=== PATIENT | female | born 1955 | race Caucasian/White ===

== ENCOUNTER 2017-02-05 22:09 | Inpatient (IN) | payer OTHER ==
[2017-02-05] MEDS ORDERED: PANTOPRAZOLE SODIUM 80 MG in SODIUM CHLORIDE 100 ML IVPB ONE (23:10)
--- NOTE | 2017-02-05 23:11 | PDOC ---
History of Present Illness - General History Source: Patient, Family () Exam Limitations: No Limitations - History of Present Illness Initial Comments: 02/05/17 23:26 The patient is a 61 year old female with a significant past medical history of asthma and COPD who presents to the ED with complaints of coffee grounds emesis since earlier today. The patient reports she was drinking beer at home when she suddenly felt dizzy and went to lay down in her bed. Patient states she drank a little bit of soup when she had a sudden onset of nausea and vomited. She reports the vomit was black in color and looked like coffee grounds. Patient reports 3 episodes of coffee grounds emesis and 2 episodes of hematochezia. As per , the patient did not eat anything today besides the little bit of soup. Patient states she does not eat any food all day and only eats something before going to bed at baseline. Denies fevers or chills. Denies abdominal pain. Denies chest pain or shortness of breath. Denies any other symptoms. Social hx: The patient is a heavy drinker (several beers per day for the past 5- 10 years). Patient recently quit smoking 5 months ago (was a smoker since the age of 14). <Sandee Babin - Last Filed: 02/05/17 23:25> <Haven Walker - Last Filed: 02/07/17 03:03> - General Chief Complaint: Coffee Ground Emesis Stated Complaint: Coffee Ground Emesis Time Seen by Provider: 02/05/17 22:45 Past History <Sandee Babin - Last Filed: 02/05/17 23:25> - Past Medical History Asthma: Yes COPD: Yes (emphysema) - Psycho/Social/Smoking Cessation Hx Anxiety: No Suicidal Ideation: No Smoking History: Never smoked Have you smoked in the past 12 months: No Number of Cigarettes Smoked Daily: 10 Information on smoking cessation initiated: No 'Breaking Loose' booklet given: 05/03/15 Hx Alcohol Use: Yes Drug/Substance Use Hx: No Substance Use Type: Alcohol Hx Substance Use Treatment: No <Haven Walker - Last Filed: 02/07/17 03:03> - Past Medical History Allergies/Adverse Reactions: Allergies Allergy/AdvReac Type Severity Reaction Status Date / Time Penicillins Allergy Verified 02/05/17 22:28 Home Medications: Ambulatory Orders Fluticasone/Salmeterol [Advair 250-50 Diskus] 1 each IH DAILY 05/03/15 Ipratropium/Albuterol Sulfate [Combivent Respimat Inhal [place]] 4 gm IH DAILY Tiotropium [place] [Spiriva] 1 inh PO DAILY 05/03/15 Albuterol 0.083% Nebulizer Terri [Ventolin 0.083% Nebulizer Soln -] 1 neb NEB Q4H PRN 12/22/15 Montelukast Na [Singulair -] 10 mg PO HS 12/22/15 Review of Systems - Review of Systems Able to Perform ROS?: Yes Comments:: 02/05/17 23:26 CONSTITUTIONAL: Absent: fever, chills, diaphoresis, generalized weakness, malaise, loss of appetite HEENT: Absent: rhinorrhea, nasal congestion, throat pain, throat swelling, difficulty swallowing, mouth swelling, ear pain, eye pain, visual Changes CARDIOVASCULAR: Absent: chest pain, syncope, palpitations, irregular heart rate, lightheadedness , peripheral edema RESPIRATORY: Absent: cough, shortness of breath, dyspnea with exertion, orthopnea, wheezing, stridor, hemoptysis GASTROINTESTINAL: + nausea, coffee grounds emesis, hematochezia Absent: abdominal pain, abdominal distension, diarrhea, constipation GENITOURINARY: Absent: dysuria, frequency, urgency, hesitancy, hematuria, flank pain, genital pain MUSCULOSKELETAL: Absent: myalgia, arthralgia, joint swelling SKIN: Absent: rash, itching, pallor HEMATOLOGIC/IMMUNOLOGIC: Absent: easy bleeding, easy bruising, lymphadenopathy, frequent infections ENDOCRINE: Absent: unexplained weight gain, unexplained weight loss, heat intolerance, cold intolerance NEUROLOGIC: + dizziness Absent: headache, focal weakness or paresthesias, unsteady gait, seizure, mental status changes, bladder or bowel incontinence PSYCHIATRIC: Absent: anxiety, depression, suicidal or homicidal ideation, hallucinations. All Other Systems: Reviewed and Negative <Sandee Babin - Last Filed: 02/05/17 23:25> *Physical Exam - Vital Signs Last Vital Signs Temp Pulse Resp BP Pulse Ox 98.2 F 110 H 20 112/74 96 02/05/17 22:25 02/05/17 22:25 02/05/17 22:25 02/05/17 22:25 02/05/17 22:25 - Physical Exam Comments: 02/05/17 23:26 GENERAL: + febrile, smells of alcohol, denture in place. Awake and alert. No acute distress. HEENT: Normocephalic, atraumatic. PERRLA, EOMI. No conjunctival pallor. Sclera are non- icteric. Moist mucous membranes. Oropharynx is clear. NECK: Supple. Full ROM. No JVD. Carotid pulses 2+ and symmetric, without bruits. No thyromegaly. NCo lymphadenopathy. CARDIOVASCULAR: + Tachycardic, Regular rhythm. No murmurs, rubs, or gallops. Distal pulses are 2 + and symmetric. PULMONARY: No evidence of respiratory distress. Lungs clear to auscultation bilaterally. No wheezing, rales or rhonchi. ABDOMINAL: + Hepatomegaly Soft. Non-tender.. No rebound or guarding. No organomegaly. Normoactive bowel sounds. MUSCULOSKELETAL Normal range of motion at all joints. No bony deformities or tenderness. No CVA tenderness. EXTREMITIES: No cyanosis. No clubbing. No edema. No calf tenderness. SKIN: Warm and dry. Normal capillary refill. No rashes. No jaundice. NEUROLOGICAL: Alert, awake, appropriate. Cranial nerves 2-12 intact. No deficits to light touch and temperature in face, upper extremities and lower extremities. No motor deficits in the in face, upper extremities and lower extremities. Normoreflexic in the upper and lower extremities. Normal speech. Toes are down- going bilaterally. Gait is normal without ataxia. PSYCHIATRIC: Cooperative. Good eye contact. Appropriate mood and affect. <Sandee Babin - Last Filed: 02/05/17 23:25> - Vital Signs Last Vital Signs Temp Pulse Resp BP Pulse Ox 98.2 F 110 H 20 112/74 96 02/05/17 22:25 02/05/17 22:25 02/05/17 22:25 02/05/17 22:25 02/05/17 22:25 <Haven Walker - Last Filed: 02/07/17 03:03> ED Treatment Course - LABORATORY CBC & Chemistry Diagram: 02/06/17 18:00 02/06/17 06:16 <Haven Walker - Last Filed: 02/07/17 03:03> Medical Decision Making - Medical Decision Making 02/05/17 23:18 Pt has been drinking alcohol heavily for 5 - 10 years as per son and . Pt now only drinks and rarely eats foor. Today after eating a few spoons of soup that her provided her, she began to vomit up dark blood. Pt has no vomiting at this time, her abd is soft and NT and ND. She has hepatomegaly. She has no fever or chills. SHe is tachycardic and dry. 02/05/17 23:51 scoliosis and emphysema hyperinflated lungs on CXR Hb/hct stable. Pt had a large bloody BM that I saw in the toilet. Pt's bleed is active and slow. She will be admitted to medicine. GI consult. <Haven Walker - Last Filed: 02/07/17 03:03> *DC/Admit/Observation/Transfer - Attestations Scribe Attestion: 02/05/17 23:26 Documentation prepared by Sandee Babin, acting as medical secretary teacher for Haven Walker MD <Sandee Babin - Last Filed: 02/05/17 23:25> - Discharge Dispostion Admit: Yes <Haven Walker - Last Filed: 02/07/17 03:03> Diagnosis at time of Disposition: Coffee ground emesis, Alcoholic - Discharge Dispostion Condition at time of disposition: Fair - Referrals
[2017-02-05] MEDS ORDERED: FOLIC ACID INJECTION - 1 MG, THIAMINE HCL 100 MG, MULTIVIT INJECTION ADULT 10 ML in SOD... IVPB ONE (23:20)
[2017-02-05] MEDS ORDERED: PANTOPRAZOLE SODIUM 200 ML IVPB ONE (23:39)
[2017-02-06 00:11] LABS: BASOPHIL 0.3 % (0-2.0); EOSINOPHIL 0.6 % (0-4.5); MCH 31.7 pg (25.7-33.7); MCHC 33.1 g/dl (32.0-36.0); MEAN CELL VOLUME 95.9 fl (80-96); MEAN PLT VOLUME 8.6 fl (7.5-11.1); NEUTROPHILS 67.5 % (42.8-82.8); PLATELET COUNT 208 K/MM3 (134-434); RDW 12.2 % (11.6-15.6); WHITE BLOOD COUNT 5.4 K/mm3 (4.0-10.0)
[2017-02-06 00:41] LABS: ALBUMIN 3.4 g/dl (3.4-5.0); ALK PHOS 66 U/L (45-117); AMYLASE 41 U/L (25-115); ANION GAP 14 (8-16); BILIRUBIN,TOTAL 0.8 mg/dL (0.2-1.0); CALCIUM 8.5 mg/dL (8.5-10.1); CO2 27 mmol/L (21-32); COCKROFT - GAULT 101.9235; CREATININE 0.4 mg/dL (0.55-1.02); GLUCOSE,RANDOM 90 mg/dL (74-106); SGPT/ALT 49 U/L (12-78); TOT PROT 7.7 g/dl (6.4-8.2)
[2017-02-06 00:42] LABS: SGOT/AST 45 U/L (15-37)
[2017-02-06 04:26] LABS: STOOL FOR OCCULT BLOOD POSITIVE (NEGATIVE)
[2017-02-06] MEDS ORDERED: PANTOPRAZOLE SODIUM 80 MG in SODIUM CHLORIDE 100 ML IVPB ONE (04:31)
[2017-02-06] MEDS ORDERED: ALBUTEROL SO4 0.083% IH SOL 2.5 MG/3 ML VIAL.NEB. NEB PRN (04:37)
--- NOTE | 2017-02-06 04:39 | HP ---
CHIEF COMPLAINT: "I vomited blood 3 times." PCP: [facility] HISTORY OF PRESENT ILLNESS: This is a 61 yo woman with h/o COPD, asthma, ETOH abuse (24 beers daily) and OA who presents to the ED with c/o 3 episodes of coffee ground emesis on 02/05. She states she also had 1 episode of melena. She denies hematochezia. ER course was notable for: (1) guiac positive black stool (2) tachycardia Recent Travel: denies PAST MEDICAL HISTORY: COPD, asthma, ETOH abuse, OA PAST SURGICAL HISTORY: denies Social History: Smokin pack years stopped 09/29 Alcohol: daily 24 beers Drugs: denies Unemployed Lives with spouse in house Family History: Father Prostate CA, Mother ESRD Allergies Penicillins Allergy (Verified 02/05/17 22:28) HOME MEDICATIONS: Home Medications 3 Medication Instructions Recorded Fluticasone/Salmeterol [Advair 1 each IH DAILY 05/03/15 250-50 Diskus] Ipratropium/Albuterol Sulfate 4 gm IH DAILY 05/03/15 [Combivent Respimat Inhal [place]] Tiotropium [place] [Spiriva] 1 inh PO DAILY 05/03/15 Albuterol 0.083% Nebulizer Terri 1 neb NEB Q4H PRN 12/22/15 [Ventolin 0.083% Nebulizer Soln -] Montelukast Na [Singulair -] 10 mg PO HS 12/22/15 Prednisone [Deltasone -] 20 mg PO ASDIR #30 tablet 12/25/15 REVIEW OF SYSTEMS CONSTITUTIONAL: Absent: fever, chills, diaphoresis, generalized weakness, malaise, loss of appetite, weight change HEENT: Absent: rhinorrhea, nasal congestion, throat pain, throat swelling, difficulty swallowing, mouth swelling, ear pain, eye pain, visual changes CARDIOVASCULAR: lightheadedness Absent: chest pain, syncope, palpitations, irregular heart rate, peripheral edema RESPIRATORY: shortness of breath Absent: cough, dyspnea with exertion, orthopnea, wheezing, stridor, hemoptysis GASTROINTESTINAL: melena, coffee ground emesis Absent: abdominal pain, abdominal distension, nausea, vomiting, diarrhea, constipation, hematochezia GENITOURINARY: Absent: dysuria, frequency, urgency, hesitancy, hematuria, flank pain, genital pain MUSCULOSKELETAL: Absent: myalgia, arthralgia, joint swelling, back pain, neck pain SKIN: Absent: rash, itching, pallor HEMATOLOGIC/IMMUNOLOGIC: Absent: easy bleeding, easy bruising, lymphadenopathy, frequent infections ENDOCRINE: Absent: unexplained weight gain, unexplained weight loss, heat intolerance, cold intolerance NEUROLOGIC: Absent: headache, focal weakness or paresthesias, dizziness, unsteady gait, seizure, mental status changes, bladder or bowel incontinence PSYCHIATRIC: Absent: anxiety, depression, suicidal or homicidal ideation, hallucinations. PHYSICAL EXAMINATION GENERAL: Awake, alert, and fully oriented, in no acute distress. HEAD: Normal with no signs of trauma. EYES: Pupils equal, round and reactive to light, extraocular movements intact, sclera anicteric, conjunctiva clear. No lid lag. EARS, NOSE, THROAT: Ears normal, nares patent, oropharynx clear without exudates. Moist mucous membranes. No tongue facsiculations. NECK: Normal range of motion, supple without lymphadenopathy, JVD, or masses. LUNGS: Breath sounds equal, clear to auscultation bilaterally. No wheezes, and no crackles. No accessory muscle use. HEART: Tachycardic with regular rate and rhythm, normal S1 and S2 without murmur , rub or gallop. ABDOMEN: Soft, nontender, not distended, hyperactive bowel sounds, no guarding, no rebound, no masses. Hepatomegaly present. No splenomegaly. MUSCULOSKELETAL: Normal range of motion at all joints. No bony deformities or tenderness. No CVA tenderness. UPPER EXTREMITIES: 2+ pulses, warm, well-perfused. No cyanosis. No clubbing. No peripheral edema. Mild jaundice. LOWER EXTREMITIES: 2+ pulses, warm, well-perfused. No calf tenderness. No peripheral edema. Mild jaundice. NEUROLOGICAL: Cranial nerves II-XII intact. Normal speech. Gait steady. PSYCHIATRIC: Cooperative. Good eye contact. Appropriate mood and affect. SKIN: Warm, dry, normal turgor, no rashes noted, normal capillary refill. Mild jaundice. Laboratory Results - last 24 hr 3 02/06/17 04:22 Stool Occult Blood Positive ASSESSMENT/PLAN: A: This is a 61 yo woman with h/o ETOH abuse who presents to ED with c/o 3 episodes of hematemesis and an episode of melena today. She states she felt dizzy after she vomited. Guiac positive with black stools. GI Bleed -NPO -PPI gtt -trend CBC -transfuse for Hgb decrease of 2.0 or greater -T&S, coags, CMP -GI consult [place] pending -O2 to maintain sat> 92% ETOH abuse -CIWA-1 -monitor for s/s withdrawal -librium taper COPD -home meds -O2 to maintain sat>92% Asthma -well controlled -home meds F/E/N -NS@125 -NPO -replete lytes and vitamins PRN PPX -chemical ppx held / GIB -SCD Dispo-This patient requires inpatient treatment for her acute medical problems. Code Status: FULL CODE Visit type - Emergency Visit Emergency Visit: Yes ED Registration Date: 02/06/17 Care time: The patient presented to the Emergency Department on the above date and was hospitalized for further evaluation of their emergent condition. - New Patient This patient is new to me today: Yes Date on this admission: 02/08/17 - Critical Care Critical Care patient: No
[2017-02-06] MEDS ORDERED: PANTOPRAZOLE SODIUM 200 ML IVPB ONE (04:51)
[2017-02-06] MEDS: SODIUM CHLORIDE 1,000 ML IV SCH (05:04)
[2017-02-06 06:30] LABS: MCH 32.1 pg (25.7-33.7); MCHC 33.5 g/dl (32.0-36.0); MEAN CELL VOLUME 95.8 fl (80-96); MEAN PLT VOLUME 8.9 fl (7.5-11.1); PLATELET COUNT 187 K/MM3 (134-434); RDW 12.2 % (11.6-15.6); WHITE BLOOD COUNT 4.8 K/mm3 (4.0-10.0)
[2017-02-06 06:59] LABS: COCKROFT - GAULT 101.9235; CREATININE 0.4 mg/dL (0.55-1.02)
[2017-02-06] MEDS ORDERED: chlordiazePOXIDE HCL 25 MG CAPSULE PO PRN (07:16)
[2017-02-06] MEDS: chlordiazePOXIDE HCL 25 MG CAPSULE PO SCH ×4 (08:45→22:17)
[2017-02-06] MEDS ORDERED: PATIENT'S OWN MEDICATION (NON-FORMULARY) (Ipratropium/Albuterol Sulfate [Combivent Respima IH SCH (10:00)
[2017-02-06] MEDS: BUDESONIDE/FORMETEROL FUMARATE 80/4.5 mcg INHALER IH SCH (10:00)
[2017-02-06] MEDS: ACLIDINIUM BROMIDE 400 MCG/INH AERO.POWD IH SCH (10:00)
[2017-02-06] MEDS ORDERED: chlordiazePOXIDE HCL 25 MG CAPSULE ONE (11:35)
[2017-02-06 11:46] VITALS: BMI 19.8
[2017-02-06 12:09] LABS: INR 1.09 (0.82-1.09)
--- NOTE | 2017-02-06 14:59 | CON.GI ---
Consult Consult Specialty:: GASTROENTEROLOGY - History of Present Illness Chief Complaint: COFFEE GROUNGD EMESIS History of Present Illness: 61 YEAR OLD ALCOHOLIC WITH COPD AND OA WAS DRINKING YESTERDAY AND SHE VOMITIED THREE TIMES. SHE STATES THAT THE VOMITUS LOOK DARK BROWN AND LIKE COFFEE GROUNDS. SHE DENIES ANY HEMATEMESIS OR BRBPR. SHE STETS THAT TODAY HE HAS HAD NO VOMITING BUT DID HAVE MELENA. SHE HAS NO HISTORY OF ULCER DISEASE AND SHE DENIES TAKING NSAIDS. THIS IS THE FIRST TIME SHE HAS HAD THIS. SHE C/O BEING HUNGRY AND NOT GETTING A HOSPITAL ROOM YET. - History Source History Provided By: Patient Limitations to Obtaining History: No Limitations - Past Medical History [employer] TE[employer]IST: Yes: Alzheimer's, CVA, Dementia, Migraine, Multiple Sclerosis, Parkinson's , Seizure, Syncope, TIA, Vertigo, Other Cardio/Vascular: Yes: AFIB, Aneurysm, Aortic Insufficiency, Aortic Stenosis, CAD , CHF, HTN, Hyperlipdemia, [place], Mitral Insufficiency, Mitral Stenosis, Murmur, Pulmonary Hypertension, Other Pulmonary: Yes: COPD Gastrointestinal: Yes: Other (ALCOHOLISM) ...: No - Alcohol/Substance Use Hx Alcohol Use: Yes - Smoking History Smoking history: Former smoker Have you smoked in the past 12 months: No Aproximately how many cigarettes per day: 10 Home Medications - Allergies Allergies/Adverse Reactions: Allergies Allergy/AdvReac Type Severity Reaction Status Date / Time Penicillins Allergy Verified 02/05/17 22:28 - Home Medications Home Medications: Ambulatory Orders Fluticasone/Salmeterol [Advair 250-50 Diskus] 1 each IH DAILY 05/03/15 Ipratropium/Albuterol Sulfate [Combivent Respimat Inhal [place]] 4 gm IH DAILY Tiotropium [place] [Spiriva] 1 inh PO DAILY 05/03/15 Albuterol 0.083% Nebulizer Terri [Ventolin 0.083% Nebulizer Soln -] 1 neb NEB Q4H PRN 12/22/15 Montelukast Na [Singulair -] 10 mg PO HS 12/22/15 Family Disease History - Family Disease History Family History: Denies Review of Systems - Review of Systems Constitutional: reports: No Symptoms Eyes: reports: No Symptoms HENT: reports: No Symptoms Neck: reports: No Symptoms Cardiovascular: reports: No Symptoms Respiratory: reports: No Symptoms Gastrointestinal: reports: Melena, Vomiting Genitourinary: reports: No Symptoms Musculoskeletal: reports: No Symptoms Integumentary: reports: No Symptoms Neurological: reports: No Symptoms Endocrine: reports: No Symptoms Hematology/Lymphatic: reports: No Symptoms Psychiatric: reports: No Symptoms Physical Exam-GI Vital Signs: Vital Signs Temperature 98.2 F 02/06/17 11:23 Pulse Rate 89 02/06/17 13:22 Respiratory Rate 17 02/06/17 13:22 Blood Pressure 104/70 02/06/17 13:22 O2 Sat by Pulse Oximetry (%) 98 02/06/17 13:22 Constitutional: Yes: Calm Eyes: Yes: Conjunctiva Clear HENT: Yes: Normocephalic Neck: Yes: Trachea Midline Cardiovascular: Yes: Regular Rate and Rhythm Respiratory: Yes: Diminished Gastrointestinal Inspection: Yes: WNL ...Auscultate: Yes: Normoactive Bowel Sounds ...Palpate: Yes: Soft ...Rectal Exam: Yes: Guaiac Positive Musculoskeletal: Yes: WNL Extremities: Yes: WNL Neurological: Yes: Alert, Oriented Labs: CBC, BMP 02/06/17 06:16 02/06/17 06:16 INR, PTT INR 1.09 (0.82-1.09) 02/06/17 10:44 Laboratory Tests 02/05/17 02/05/17 02/05/17 23:59 23:59 23:59 WBC 5.4 RBC 3.98 Hgb 12.6 Hct 38.2 MCV 95.9 MCHC 33.1 RDW 12.2 Plt Count 208 D MPV 8.6 Neutrophils % 67.5 Lymphocytes % 28.1 Monocytes % 3.5 L Eosinophils % 0.6 Basophils % 0.3 Sodium Potassium Chloride Carbon Dioxide Anion Gap BUN Calcium Total Bilirubin 0.8 D AST 45 H ALT 49 Alkaline Phosphatase 66 D Total Protein 7.7 Albumin 3.4 Total Amylase 41 Lipase 110 Stool Occult Blood Alcohol, Quantitative 64.9 H* 02/06/17 02/06/17 02/06/17 04:22 06:16 06:16 WBC 4.8 RBC 3.53 L Hgb 11.3 D Hct 33.8 MCV 95.8 MCHC 33.5 RDW 12.2 Plt Count 187 MPV 8.9 Neutrophils % Lymphocytes % Monocytes % Eosinophils % Basophils % Sodium 138 Potassium 4.8 Chloride 104 D Carbon Dioxide 26 Anion Gap 8 BUN 25 H Calcium 8.0 L Total Bilirubin AST ALT Alkaline Phosphatase Total Protein Albumin Total Amylase Lipase Stool Occult Blood Positive Alcohol, Quantitative Problem List - Problems (1) Coffee ground emesis Assessment/Plan: AGREE WITH IV PROTONIX DRIP, NPO, FOLLOW CBC BID FOR EGD TOMORROW US OF ABDOMEN Code(s): K92.0 - HEMATEMESIS (2) Alcoholic Code(s): F10.20 - ALCOHOL DEPENDENCE, UNCOMPLICATED (3) COPD with emphysema Code(s): J43.9 - EMPHYSEMA, UNSPECIFIED
[2017-02-06 15:20] LABS: MCH 32.3 pg (25.7-33.7); MCHC 33.7 g/dl (32.0-36.0); MEAN CELL VOLUME 95.9 fl (80-96); MEAN PLT VOLUME 7.9 fl (7.5-11.1); PLATELET COUNT 166 K/MM3 (134-434); RDW 12.1 % (11.6-15.6); WHITE BLOOD COUNT 4.6 K/mm3 (4.0-10.0)
--- NOTE | 2017-02-06 16:42 | PN ---
Physical Exam: SUBJECTIVE: Patient seen and examined Patient has no further tarry stool , denies having any vomiting at this time. OBJECTIVE: Vital Signs Temperature 98 F 02/06/17 15:53 Pulse Rate 73 02/06/17 15:53 Respiratory Rate 16 02/06/17 15:53 Blood Pressure 107/76 02/06/17 15:53 O2 Sat by Pulse Oximetry (%) 98 02/06/17 15:53 GENERAL: The patient is awake, alert, and fully oriented, in no acute distress. HEAD: Normal with no signs of trauma. EYES: PERRL, extraocular movements intact, sclera anicteric, conjunctiva clear. ENT: Ears normal, oropharynx clear without exudates, moist mucous membranes. NECK: Trachea midline, full range of motion, supple. LUNGS: Breath sounds equal, clear to auscultation bilaterally, no wheezes, no crackles, no accessory muscle use. HEART: Regular rate and rhythm, S1, S2 positive, no murmur, no rub or gallop. ABDOMEN: Soft, nontender, nondistended, normoactive bowel sounds, no guarding, no rebound, no hepatosplenomegaly, no masses. EXTREMITIES: 2+ pulses, warm, well-perfused, no edema. NEUROLOGICAL: Cranial nerves II through XII grossly intact. Normal speech. PSYCH: Normal mood, normal affect. SKIN: Warm, dry, normal turgor, no rashes or lesions noted CBCD WBC 4.6 K/mm3 (4.0-10.0) 02/06/17 15:10 RBC 3.42 M/mm3 (3.60-5.2) L 02/06/17 15:10 Hgb 11.1 GM/dL (10.7-15.3) 02/06/17 15:10 Hct 32.8 % (32.4-45.2) 02/06/17 15:10 MCV 95.9 fl (80-96) 02/06/17 15:10 MCHC 33.7 g/dl (32.0-36.0) 02/06/17 15:10 RDW 12.1 % (11.6-15.6) 02/06/17 15:10 Plt Count 166 K/MM3 (134-434) 02/06/17 15:10 MPV 7.9 fl (7.5-11.1) D 02/06/17 15:10 CMP Sodium 138 mmol/L (136-145) 02/06/17 06:16 Potassium 4.8 mmol/L (3.5-5.1) 02/06/17 06:16 Chloride 104 mmol/L (98-107) D 02/06/17 06:16 Carbon Dioxide 26 mmol/L (21-32) 02/06/17 06:16 Anion Gap 8 (8-16) 02/06/17 06:16 BUN 25 mg/dL (7-18) H 02/06/17 06:16 Creatinine 0.4 mg/dL (0.55-1.02) L 02/06/17 06:16 Creat Clearance w eGFR > 60 (>60) 02/05/17 23:59 Random Glucose 92 mg/dL (74-106) 02/06/17 06:16 Calcium 8.0 mg/dL (8.5-10.1) L 02/06/17 06:16 Total Bilirubin 0.8 mg/dL (0.2-1.0) D 02/05/17 23:59 AST 45 U/L (15-37) H 02/05/17 23:59 ALT 49 U/L (12-78) 02/05/17 23:59 Alkaline Phosphatase 66 U/L (45-117) D 02/05/17 23:59 Total Protein 7.7 g/dl (6.4-8.2) 02/05/17 23:59 Albumin 3.4 g/dl (3.4-5.0) 02/05/17 23:59 Active Medications Generic Name Dose Route Start Last Admin Trade Name Hayesq PRN Reason Stop Dose Admin Aclidinium [place] 1 puff 02/06/17 10:00 02/06/17 10:00 Tudorza - IH Not Given BID LUIS F Albuterol Sulfate 1 amp 02/06/17 04:37 Ventolin 0.083% Nebulizer Soln - NEB Q4H PRN sob Budesonide/Formoterol Fumarate 2 puff 02/06/17 10:00 02/06/17 10:00 Symbicort 80/4.5mcg - IH 2 puff DAILY LUIS F Administration Chlordiazepoxide HCl 50 mg 02/06/17 05:00 02/06/17 11:45 Librium - PO 02/06/17 23:01 50 mg [id number] LUIS F Administration Chlordiazepoxide HCl 25 mg 02/06/17 07:16 Librium - PO 02/09/17 07:15 Q4H PRN WITHDRAWAL(CONT SUBST) Chlordiazepoxide HCl 25 mg 02/07/17 05:00 Librium - PO 02/07/17 23:01 [id number] LUIS F Chlordiazepoxide HCl 15 mg 02/08/17 05:00 Librium - PO 02/08/17 23:01 [id number] [facility] Sodium Chloride 1,000 mls @ 125 mls/hr 02/06/17 05:00 02/06/17 05:04 Normal Saline - IV 125 mls/hr ASDIR [facility] Administration Montelukast Sodium 10 mg 02/06/17 22:00 Singulair - PO [facility] Non-Formulary Medication 4 gm 02/06/17 10:00 Ipratropium/Albuterol Sulfate [Combivent Respimat Inhal [place]] IH DAILY [facility] Home Medications Medication Instructions Recorded Fluticasone/Salmeterol [Advair 1 each IH DAILY 05/03/15 250-50 Diskus] Ipratropium/Albuterol Sulfate 4 gm IH DAILY 05/03/15 [Combivent Respimat Inhal [place]] Tiotropium [place] [Spiriva] 1 inh PO DAILY 05/03/15 Albuterol 0.083% Nebulizer Terri 1 neb NEB Q4H PRN 12/22/15 [Ventolin 0.083% Nebulizer Soln -] Montelukast Na [Singulair -] 10 mg PO HS 12/22/15 ASSESSMENT/PLAN: This is a 61 yo woman with h/o ETOH abuse who presents to ED with c/o 3 episodes of hematemesis and an episode of melena today. She states she felt dizzy after she vomited. Guiac positive with black stools. # Acute GI Bleed ;NPO ; PPI gtt; trend CBC ; GI consult Dr. Ferguson appreciated; Possible EGD in am. will repeate cbc in am # ETOH abuse/ withdrawel on Librium protocol # hx of COPD/Asthma continue home meds ;O2 to maintain sat>92% , continue Singuilair DVT Px: SCD can't anticoagulate due to GI bleed Visit type - Emergency Visit Emergency Visit: Yes ED Registration Date: 02/06/17 Care time: The patient presented to the Emergency Department on the above date and was hospitalized for further evaluation of their emergent condition. - New Patient This patient is new to me today: Yes Date on this admission: 02/06/17 - Critical Care Critical Care patient: No
[2017-02-06 18:37] LABS: MCH 32.4 pg (25.7-33.7); MCHC 33.7 g/dl (32.0-36.0); MEAN CELL VOLUME 96.1 fl (80-96); MEAN PLT VOLUME 8.4 fl (7.5-11.1); PLATELET COUNT 175 K/MM3 (134-434); RDW 12.2 % (11.6-15.6); WHITE BLOOD COUNT 4.5 K/mm3 (4.0-10.0)
[2017-02-06] MEDS: MONTELUKAST NA 10 MG TABLET PO SCH (21:17)
[2017-02-06] MEDS: PANTOPRAZOLE SODIUM 80 MG in SODIUM CHLORIDE 100 ML IVPB SCH (21:18)
[2017-02-07] MEDS: SODIUM CHLORIDE 1,000 ML IV SCH ×3 (03:09→22:35)
[2017-02-07] MEDS: chlordiazePOXIDE HCL 25 MG CAPSULE PO SCH ×3 (06:22→20:20)
[2017-02-07] MEDS: PANTOPRAZOLE SODIUM 80 MG in SODIUM CHLORIDE 100 ML IVPB SCH ×3 (06:28→22:36)
[2017-02-07 08:31] LABS: MCH 32.5 pg (25.7-33.7); MCHC 33.3 g/dl (32.0-36.0); MEAN CELL VOLUME 97.7 fl (80-96); MEAN PLT VOLUME 7.8 fl (7.5-11.1); PLATELET COUNT 151 K/MM3 (134-434); RDW 12.1 % (11.6-15.6); WHITE BLOOD COUNT 3.6 K/mm3 (4.0-10.0)
[2017-02-07 09:04] LABS: CALCIUM 7.7 mg/dL (8.5-10.1); COCKROFT - GAULT 113.8575; CREATININE 0.4 mg/dL (0.55-1.02)
[2017-02-07] MEDS: BUDESONIDE/FORMETEROL FUMARATE 80/4.5 mcg INHALER IH SCH (10:00)
[2017-02-07] MEDS: ACLIDINIUM BROMIDE 400 MCG/INH AERO.POWD IH SCH ×3 (11:22→21:44)
[2017-02-07] MEDS ORDERED: LIDOCAINE HCL/PF 2% SDV 5ML VIAL ONE (11:32)
[2017-02-07] MEDS ORDERED: PROPOFOL 20 ML ONE ×2 (11:32)
--- NOTE | 2017-02-07 11:51 | PN ---
GI Progress Note Subjective: GASTROENTEROLOGY EGD COMPLETED: NODULAR GASTRITIS C/W H.PYLORI INFECTION (BIOPSIED), DUODENAL BULB CLEAN WHITE BASED ULCERATION PLAN: FULL LIQUID DIET TODAY,SOFT DIET IN AM DISCHARGE TOMORROW IF STABLE PROTONIX PO BID IN AM ALCOHOL CESSATION/REHAB REPEAT EGD IN 4 MONTHS, FOLLOW UP ON H PYLORI BIOPSIES (TREAT IF POSITIVE) PEDRO CANAS MD - Objective Vital Signs: Vital Signs Temperature 97.6 F 02/07/17 06:00 Pulse Rate 71 02/07/17 06:00 Respiratory Rate 18 02/07/17 06:00 Blood Pressure 110/65 02/07/17 06:00 O2 Sat by Pulse Oximetry (%) 98 02/06/17 23:00 Labs: CBC, BMP 02/07/17 07:10 02/07/17 07:10 INR, PTT INR 1.09 (0.82-1.09) 02/06/17 10:44 Problem List - Problems (1) Coffee ground emesis Code(s): K92.0 - HEMATEMESIS (2) Alcoholic Code(s): F10.20 - ALCOHOL DEPENDENCE, UNCOMPLICATED (3) COPD with emphysema Code(s): J43.9 - EMPHYSEMA, UNSPECIFIED
--- NOTE | 2017-02-07 11:56 | PN ---
Teaching Attending Note Name of Resident: Shayy Pappas ATTENDING PHYSICIAN STATEMENT I saw and evaluated the patient. I reviewed the resident's note and discussed the case with the resident. I agree with the resident's findings and plan as documented. SUBJECTIVE: Patient is feeling better, with no acute distress. s/p EGD no further bleed. OBJECTIVE: Vital Signs Temperature 97.6 F 02/07/17 06:00 Pulse Rate 71 02/07/17 06:00 Respiratory Rate 18 02/07/17 06:00 Blood Pressure 110/65 02/07/17 06:00 O2 Sat by Pulse Oximetry (%) 98 02/06/17 23:00 CBCD WBC 3.6 K/mm3 (4.0-10.0) L 02/07/17 07:10 RBC 3.26 M/mm3 (3.60-5.2) L 02/07/17 07:10 Hgb 10.6 GM/dL (10.7-15.3) L 02/07/17 07:10 Hct 31.9 % (32.4-45.2) L 02/07/17 07:10 MCV 97.7 fl (80-96) H 02/07/17 07:10 MCHC 33.3 g/dl (32.0-36.0) 02/07/17 07:10 RDW 12.1 % (11.6-15.6) 02/07/17 07:10 Plt Count 151 K/MM3 (134-434) 02/07/17 07:10 MPV 7.8 fl (7.5-11.1) 02/07/17 07:10 CMP Sodium 139 mmol/L (136-145) 02/07/17 07:10 Potassium 4.1 mmol/L (3.5-5.1) 02/07/17 07:10 Chloride 108 mmol/L (98-107) H 02/07/17 07:10 Carbon Dioxide 24 mmol/L (21-32) 02/07/17 07:10 Anion Gap 7 (8-16) L 02/07/17 07:10 BUN 13 mg/dL (7-18) D 02/07/17 07:10 Creatinine 0.4 mg/dL (0.55-1.02) L 02/07/17 07:10 Creat Clearance w eGFR > 60 (>60) 02/05/17 23:59 Random Glucose 61 mg/dL (74-106) L D 02/07/17 07:10 Calcium 7.7 mg/dL (8.5-10.1) L 02/07/17 07:10 Total Bilirubin 0.8 mg/dL (0.2-1.0) D 02/05/17 23:59 AST 45 U/L (15-37) H 02/05/17 23:59 ALT 49 U/L (12-78) 02/05/17 23:59 Alkaline Phosphatase 66 U/L (45-117) D 02/05/17 23:59 Total Protein 7.7 g/dl (6.4-8.2) 02/05/17 23:59 Albumin 3.4 g/dl (3.4-5.0) 02/05/17 23:59 Current Medications Generic Name Dose Route Start Last Admin Trade Name Freq PRN Reason Stop Dose Admin Aclidinium [place] 1 puff 02/06/17 10:00 02/07/17 11:22 Tudorza - IH 1 puff BID LUIS F Administration Albuterol Sulfate 1 amp 02/06/17 04:37 Ventolin 0.083% Nebulizer Soln - NEB Q4H PRN sob Budesonide/Formoterol Fumarate 2 puff 02/06/17 10:00 02/06/17 10:00 Symbicort 80/4.5mcg - IH 2 puff DAILY LUIS F Administration Chlordiazepoxide HCl 25 mg 02/06/17 07:16 Librium - PO 02/09/17 07:15 Q4H PRN WITHDRAWAL(CONT SUBST) Chlordiazepoxide HCl 25 mg 02/07/17 05:00 02/07/17 06:22 Librium - PO 02/07/17 23:01 25 mg [id number] LUIS F Administration Chlordiazepoxide HCl 15 mg 02/08/17 05:00 Librium - PO 02/08/17 23:01 [id number] LUIS F Sodium Chloride 1,000 mls @ 125 mls/hr 02/06/17 05:00 02/07/17 06:23 Normal Saline - IV Not Given ASDIR LUIS F Pantoprazole Sodium 80 mg/ 100 mls @ 10 mls/hr 02/06/17 20:30 02/07/17 06:28 Sodium Chloride IVPB 10 mls/hr Q10H LUIS F Administration 8 MG/HR Montelukast Sodium 10 mg 02/06/17 22:00 02/06/17 21:17 Singulair - PO 10 mg HS LUIS F Administration Non-Formulary Medication 4 gm 02/06/17 10:00 Ipratropium/Albuterol Sulfate [Combivent Respimat Inhal [place]] IH DAILY [facility] Home Medications Medication Instructions Recorded Fluticasone/Salmeterol [Advair 1 each IH DAILY 05/03/15 250-50 Diskus] Ipratropium/Albuterol Sulfate 4 gm IH DAILY 05/03/15 [Combivent Respimat Inhal [place]] Tiotropium [place] [Spiriva] 1 inh PO DAILY 05/03/15 Albuterol 0.083% Nebulizer Terri 1 neb NEB Q4H PRN 12/22/15 [Ventolin 0.083% Nebulizer Soln -] Montelukast Na [Singulair -] 10 mg PO HS 12/22/15 PE: as per resident's note ASSESSMENT AND PLAN: This is a 61 yo woman with h/o ETOH abuse who presents to ED with c/o 3 episodes of hematemesis and an episode of melena today. She states she felt dizzy after she vomited. Guiac positive with black stools. # Acute GI Bleed s/p EGD this morning by Dr. Ferguson. Result/as per GI recommendations: NODULAR GASTRITIS C/W H.PYLORI INFECTION (BIOPSIED), DUODENAL BULB CLEAN WHITE BASED ULCERATION. FULL LIQUID DIET TODAY,SOFT DIET IN AM , DISCHARGE TOMORROW IF STABLE ,PROTONIX PO BID IN AM; ALCOHOL CESSATION/REHAB. REPEAT EGD IN 4 MONTHS, FOLLOW UP ON H PYLORI BIOPSIES (TREAT IF POSITIVE) # ETOH abuse/ withdrawel on Librium protocol continue # hx of COPD/Asthma continue home meds ;O2 to maintain sat>92% , continue Singuilair DVT Px: SCD can't anticoagulate due to GI bleed
--- NOTE | 2017-02-07 13:03 | PN ---
Physical Exam: SUBJECTIVE: Patient seen and examined at bed side. She just returned from the procedure room (EGD). Has no complaints. Feels good. Denies chest pain, sob, cough, palpitation, abdominal pain, nausea or vomiting. Moved bowel last night. No urinary symptoms. OBJECTIVE: Vital Signs Period Temp Pulse Resp BP Sys/Smith Pulse Ox Last 24 Hr 97.6 F-98.6 F 65-89 16-18 104-139/60-89 98-100 GENERAL: The patient is awake, alert, and fully oriented, sitting in bed eating soup, in no acute distress. HEAD: Normal with no signs of trauma. EYES: EOM intact, no pallor or icterus. ENT: Ears normal, moist mucous membranes. NECK: Supple. LUNGS: Breath sounds equal, clear to auscultation bilaterally, no wheezes, no crackles, no accessory muscle use. HEART: Regular rate and rhythm, S1, S2 without murmur, rub or gallop. ABDOMEN: Soft, nontender, nondistended, normoactive bowel sounds, no guarding, no rebound, no hepatosplenomegaly, no masses. EXTREMITIES: 2+ pulses, warm, well-perfused, no edema. NEUROLOGICAL: Cranial nerves II through XII grossly intact. Normal speech, gait not observed. PSYCH: Normal mood, normal affect. SKIN: Warm, dry, normal turgor, no rashes or lesions noted Laboratory Results - last 24 hr 02/06/17 02/06/17 02/07/17 15:10 18:00 07:10 WBC 4.6 4.5 3.6 L RBC 3.42 L 3.33 L 3.26 L Hgb 11.1 10.8 10.6 L Hct 32.8 32.1 L 31.9 L MCV 95.9 96.1 H 97.7 H MCHC 33.7 33.7 33.3 RDW 12.1 12.2 12.1 Plt Count 166 175 151 MPV 7.9 D 8.4 7.8 Sodium Potassium Chloride Carbon Dioxide Anion Gap BUN Creatinine Random Glucose Calcium 02/07/17 07:10 WBC RBC Hgb Hct MCV MCHC RDW Plt Count MPV Sodium 139 Potassium 4.1 Chloride 108 H Carbon Dioxide 24 Anion Gap 7 L BUN 13 D Creatinine 0.4 L Random Glucose 61 L D Calcium 7.7 L Active Medications Generic Name Dose Route Start Last Admin Trade Name Freq PRN Reason Stop Dose Admin Aclidinium [place] 1 puff 02/06/17 10:00 02/07/17 11:22 Tudorza - IH 1 puff BID LUIS F Administration Albuterol Sulfate 1 amp 02/06/17 04:37 Ventolin 0.083% Nebulizer Soln - NEB Q4H PRN sob Budesonide/Formoterol Fumarate 2 puff 02/06/17 10:00 02/06/17 10:00 Symbicort 80/4.5mcg - IH 2 puff DAILY LUIS F Administration Chlordiazepoxide HCl 25 mg 02/06/17 07:16 Librium - PO 02/09/17 07:15 Q4H PRN WITHDRAWAL(CONT SUBST) Chlordiazepoxide HCl 25 mg 02/07/17 05:00 02/07/17 06:22 Librium - PO 02/07/17 23:01 25 mg [id number] LUIS F Administration Chlordiazepoxide HCl 15 mg 02/08/17 05:00 Librium - PO 02/08/17 23:01 [id number] LUIS F Sodium Chloride 1,000 mls @ 125 mls/hr 02/06/17 05:00 02/07/17 06:23 Normal Saline - IV Not Given ASDIR LUIS F Pantoprazole Sodium 80 mg/ 100 mls @ 10 mls/hr 02/06/17 20:30 02/07/17 06:28 Sodium Chloride IVPB 10 mls/hr Q10H LUIS F Administration 8 MG/HR Montelukast Sodium 10 mg 02/06/17 22:00 02/06/17 21:17 Singulair - PO 10 mg HS LUIS F Administration Non-Formulary Medication 4 gm 02/06/17 10:00 Ipratropium/Albuterol Sulfate [Combivent Respimat Inhal [place]] IH DAILY LUIS F ASSESSMENT/PLAN: Patient is a 61 year old female with significant past medical history of COPD, Asthma, OA, osteoporosis, ETOH abuse (24 beers daily) presented to the ED with the chief complaints of melena. # Coffee ground emesis Patient presented in the ED with complaints of melena, stool occult blood positive. Was kept NPO, on protonix drip Admitted in Med-Surg Underwent EGD today 02/07/17: As per Dr. Turchioe's note: Nodular gastritis consistent with H. Pylori infection (biopsied), duodenal bulb clean white based ulceration.-Plan is to treat H.pylori if it is positive. H/H ..9 Patient tolerated full liquid diet this afternoon, soft diet from tomorrow Still on IV protonix drip, to change it to PO tomorrow Monitor H/H IVF @ 125mls/hr # Alcohol abuse On admission-CIWA score 1 No withdrawal symptoms or seizure noted at this time On Librium protocol- So far completed the 4 doses of Librium 50mg Q6H and today completed 2nd dose of Librium 25mg # COPD- not on exacerbation Continue Symbicort and Tudorza # Asthma Singular 10 mg PO HS # FEN IV NS@ 125mls/hr Electrolytes to be repeated tomorrow Full liquid diet today and to start her on soft diet tomorrow. # Prophylaxis For DVT: On SCD's, no anticoagulation due to GI bleed. For GI: On protonix drip and to start PO Protonix tomorrow. # Code Status: Full Code # Dispo-Admitted in Med-Surg. Possible discharge tomorrow if patient is medically stable, needs to follow with GI as outpatient and has to do the repeat EGD in 4 months. Illness, Investigation and Plan of care explained to the patient. She verbalized understanding. Case seen and discussed with Dr. Davies. Visit type - Emergency Visit Emergency Visit: Yes ED Registration Date: 02/06/17 Care time: The patient presented to the Emergency Department on the above date and was hospitalized for further evaluation of their emergent condition. - New Patient This patient is new to me today: Yes Date on this admission: 02/07/17 - Critical Care Critical Care patient: No - Discharge Referral Referred to [facility] No
[2017-02-07] MEDS ORDERED: PT OWN MED DRAWER 7, Y5N ONE ×2 (19:18→21:27)
[2017-02-07] MEDS: MONTELUKAST NA 10 MG TABLET PO SCH (21:44)
--- NOTE | 2017-02-07 22:59 | EKG ---
Test Reason : Blood Pressure : / mmHG Vent. Rate : 107 BPM Atrial Rate : 107 BPM P-R Int : 118 ms QRS Dur : 066 ms QT Int : 346 ms P-R-T Axes : 077 036 070 degrees QTc Int : 461 ms SINUS TACHYCARDIA WITH SHORT MI OTHERWISE NORMAL ECG WHEN COMPARED WITH ECG OF 03-MAY-2015 01:46, NO SIGNIFICANT CHANGE WAS FOUND Confirmed by ANNABELLE JESUS MD ([id number]) on 02/07/2017 10:58:48 PM Referred By: Confirmed By:ANNABELLE JESUS MD
[2017-02-08] MEDS: PANTOPRAZOLE SODIUM 80 MG in SODIUM CHLORIDE 100 ML IVPB SCH ×3 (04:18→11:39)
[2017-02-08] MEDS: chlordiazePOXIDE HCL 25 MG CAPSULE PO SCH (04:21)
[2017-02-08] MEDS: SODIUM CHLORIDE 1,000 ML IV SCH ×3 (06:47→18:04)
[2017-02-08] MEDS: chlordiazePOXIDE 5 MG CAPSULE PO SCH ×4 (06:48→22:22)
[2017-02-08 08:14] LABS: BASOPHIL 0.6 % (0-2.0); MCH 32.8 pg (25.7-33.7); MCHC 33.5 g/dl (32.0-36.0); MEAN CELL VOLUME 97.7 fl (80-96); MEAN PLT VOLUME 8.4 fl (7.5-11.1); PLATELET COUNT 153 K/MM3 (134-434); RDW 11.9 % (11.6-15.6); WHITE BLOOD COUNT 3.2 K/mm3 (4.0-10.0)
[2017-02-08 08:31] LABS: CALCIUM 7.9 mg/dL (8.5-10.1); COCKROFT - GAULT 113.8575; CREATININE 0.4 mg/dL (0.55-1.02)
[2017-02-08] MEDS: ACLIDINIUM BROMIDE 400 MCG/INH AERO.POWD IH SCH ×2 (09:58→22:21)
[2017-02-08] MEDS ORDERED: PT OWN MED DRAWER 7, Y5N ONE ×2 (10:02→22:08)
[2017-02-08] MEDS: BUDESONIDE/FORMETEROL FUMARATE 80/4.5 mcg INHALER IH SCH (10:32)
--- NOTE | 2017-02-08 10:33 | DS ---
Physical Exam: SUBJECTIVE: Patient seen and examined OBJECTIVE: Vital Signs Temperature 97.7 F 02/08/17 06:00 Pulse Rate 69 02/08/17 08:46 Respiratory Rate 18 02/08/17 06:00 Blood Pressure 102/65 02/08/17 06:00 O2 Sat by Pulse Oximetry (%) 96 02/08/17 08:46 PHYSICAL EXAM GENERAL: The patient is awake, alert, and fully oriented, in no acute distress. HEAD: Normal with no signs of trauma. EYES: PERRL, extraocular movements intact, sclera anicteric, conjunctiva clear. ENT: Ears normal, nares patent, oropharynx clear without exudates, moist mucous membranes. NECK: Trachea midline, full range of motion, supple. LUNGS: Breath sounds equal, clear to auscultation bilaterally, no wheezes, no crackles, no accessory muscle use. HEART: Regular rate and rhythm, S1, S2 without murmur, rub or gallop. ABDOMEN: Soft, nontender, nondistended, normoactive bowel sounds, no guarding, no rebound, no hepatosplenomegaly, no masses. EXTREMITIES: 2+ pulses, warm, well-perfused, no edema. NEUROLOGICAL: Cranial nerves II through XII grossly intact. Normal speech, gait not observed. PSYCH: Normal mood, normal affect. SKIN: Warm, dry, normal turgor, no rashes or lesions noted. LABS CBCD WBC 3.2 K/mm3 (4.0-10.0) L 02/08/17 06:30 RBC 3.21 M/mm3 (3.60-5.2) L 02/08/17 06:30 Hgb 10.5 GM/dL (10.7-15.3) L 02/08/17 06:30 Hct 31.4 % (32.4-45.2) L 02/08/17 06:30 MCV 97.7 fl (80-96) H 02/08/17 06:30 MCHC 33.5 g/dl (32.0-36.0) 02/08/17 06:30 RDW 11.9 % (11.6-15.6) 02/08/17 06:30 Plt Count 153 K/MM3 (134-434) 02/08/17 06:30 MPV 8.4 fl (7.5-11.1) 02/08/17 06:30 CMP Sodium 142 mmol/L (136-145) 02/08/17 06:30 Potassium 4.0 mmol/L (3.5-5.1) 02/08/17 06:30 Chloride 107 mmol/L (98-107) 02/08/17 06:30 Carbon Dioxide 26 mmol/L (21-32) 02/08/17 06:30 Anion Gap 9 (8-16) 02/08/17 06:30 BUN 7 mg/dL (7-18) D 02/08/17 06:30 Creatinine 0.4 mg/dL (0.55-1.02) L 02/08/17 06:30 Creat Clearance w eGFR > 60 (>60) 02/05/17 23:59 Random Glucose 100 mg/dL (74-106) D 02/08/17 06:30 Calcium 7.9 mg/dL (8.5-10.1) L 02/08/17 06:30 Total Bilirubin 0.8 mg/dL (0.2-1.0) D 02/05/17 23:59 AST 45 U/L (15-37) H 02/05/17 23:59 ALT 49 U/L (12-78) 02/05/17 23:59 Alkaline Phosphatase 66 U/L (45-117) D 02/05/17 23:59 Total Protein 7.7 g/dl (6.4-8.2) 02/05/17 23:59 Albumin 3.4 g/dl (3.4-5.0) 02/05/17 23:59 Current Medications Generic Name Dose Route Start Last Admin Trade Name Freq PRN Reason Stop Dose Admin Aclidinium [place] 1 puff 02/06/17 10:00 02/08/17 09:58 Tudorza - IH 1 puff BID LUIS F Administration Albuterol Sulfate 1 amp 02/06/17 04:37 02/07/17 22:45 Ventolin 0.083% Nebulizer Soln - NEB 1 amp Q4H PRN Administration sob Budesonide/Formoterol Fumarate 2 puff 02/06/17 10:00 02/08/17 10:32 Symbicort 80/4.5mcg - IH 2 puff DAILY LUIS F Administration Chlordiazepoxide HCl 25 mg 02/06/17 07:16 Librium - PO 02/09/17 07:15 Q4H PRN WITHDRAWAL(CONT SUBST) Chlordiazepoxide HCl 15 mg 02/08/17 05:00 02/08/17 06:48 Librium - PO 02/08/17 23:01 15 mg [id number] LUIS F Administration Sodium Chloride 1,000 mls @ 125 mls/hr 02/06/17 05:00 02/08/17 08:34 Normal Saline - IV 125 mls/hr ASDIR LUIS F Administration Pantoprazole Sodium 80 mg/ 100 mls @ 10 mls/hr 02/06/17 20:30 02/08/17 10:32 Sodium Chloride IVPB 10 mls/hr Q10H LUIS F Administration 8 MG/HR Montelukast Sodium 10 mg 02/06/17 22:00 02/07/17 21:44 Singulair - PO 10 mg HS LUIS F Administration Non-Formulary Medication 4 gm 02/06/17 10:00 Ipratropium/Albuterol Sulfate [Combivent Respimat Inhal [place]] IH DAILY [facility] Home Medications Medication Instructions Recorded Fluticasone/Salmeterol [Advair 1 each IH DAILY 05/03/15 250-50 Diskus] Ipratropium/Albuterol Sulfate 4 gm IH DAILY 05/03/15 [Combivent Respimat Inhal [place]] Tiotropium [place] [Spiriva] 1 inh PO DAILY 05/03/15 Albuterol 0.083% Nebulizer Terri 1 neb NEB Q4H PRN 12/22/15 [Ventolin 0.083% Nebulizer Soln -] Montelukast Na [Singulair -] 10 mg PO HS 12/22/15 HOSPITAL COURSE: Date of Admission:02/06/17 Date of Discharge: 02/08/17 This is a 61 yo woman with h/o ETOH abuse who presents to ED with c/o 3 episodes of hematemesis and an episode of melena today. She states she felt dizzy after she vomited. Guiac positive with black stools. # Acute GI Bleed s/p EGD this morning by Dr. Ferguson. Result/as per GI recommendations: NODULAR GASTRITIS C/W H.PYLORI INFECTION (BIOPSIED), DUODENAL BULB CLEAN WHITE BASED ULCERATION. FULL LIQUID DIET TODAY,SOFT DIET IN AM , DISCHARGE TOMORROW IF STABLE ,PROTONIX PO BID IN AM; ALCOHOL CESSATION/REHAB. REPEAT EGD IN 4 MONTHS, FOLLOW UP ON H PYLORI BIOPSIES (TREAT IF POSITIVE) # ETOH abuse/ withdrawel on Librium protocol continue # hx of COPD/Asthma continue home meds ;O2 to maintain sat>92% , continue Singuilair DVT Px: SCD can't anticoagulate due to GI bleed Discharge Summary Reason For Visit: ALCOHOLISM, COFFEE GROUND EMESIS Current Active Problems Alcoholic (Acute) Coffee ground emesis (Acute) Condition: Fair - Instructions Referrals: Ying Altamirano MD [Primary Care Provider] - - Home Medications Comprehensive Discharge Medication List: Ambulatory Orders Fluticasone/Salmeterol [Advair 250-50 Diskus] 1 each IH DAILY 05/03/15 Ipratropium/Albuterol Sulfate [Combivent Respimat Inhal [place]] 4 gm IH DAILY Tiotropium [place] [Spiriva] 1 inh PO DAILY 05/03/15 Albuterol 0.083% Nebulizer Terri [Ventolin 0.083% Nebulizer Soln -] 1 neb NEB Q4H PRN 12/22/15 Montelukast Na [Singulair -] 10 mg PO HS 12/22/15 - Discharge Referral Referred to [facility] No
--- NOTE | 2017-02-08 11:44 | PN ---
Progress Note (short form) - Note Progress Note: ANESTHESIOLOGY POST-OP CHECK 61F s/p EGD under deep sedation anesthesia POD #1. Patient sleeping. No acute complaints as per nurse. Denies N/V, pain . Vital Signs Temperature 97.7 F 02/08/17 06:00 Pulse Rate 69 02/08/17 08:46 Respiratory Rate 18 02/08/17 06:00 Blood Pressure 102/65 02/08/17 06:00 O2 Sat by Pulse Oximetry (%) 96 02/08/17 08:46 Active Medications Aclidinium [place] (Tudorza -) 1 puff IH BID LUIS F Last Admin: 02/08/17 09:58 Dose: 1 puff Albuterol Sulfate (Ventolin 0.083% Nebulizer Soln -) 1 amp NEB Q4H PRN PRN Reason: sob Last Admin: 02/07/17 22:45 Dose: 1 amp Budesonide/Formoterol Fumarate (Symbicort 80/4.5mcg -) 2 puff IH DAILY [facility] Last Admin: 02/08/17 10:32 Dose: 2 puff Chlordiazepoxide HCl (Librium -) 25 mg PO Q4H PRN PRN Reason: WITHDRAWAL(CONT SUBST) Stop: 02/09/17 07:15 Chlordiazepoxide HCl (Librium -) 15 mg PO [id number] LUIS F Stop: 02/08/17 23:01 Last Admin: 02/08/17 06:48 Dose: 15 mg Sodium Chloride (Normal Saline -) 1,000 mls @ 125 mls/hr IV ASDIR LUIS F Last Admin: 02/08/17 08:34 Dose: 125 mls/hr Pantoprazole Sodium 80 mg/ (Sodium Chloride) 100 mls @ 10 mls/hr IVPB Q10H LIUS F PRN Reason: 8 MG/HR Last Admin: 02/08/17 11:39 Dose: Not Given Montelukast Sodium (Singulair -) 10 mg PO HS [facility] Last Admin: 02/07/17 21:44 Dose: 10 mg Non-Formulary Medication (Ipratropium/Albuterol Sulfate [Combivent Respimat Inhal [place]]) 4 gm IH DAILY [facility] CBC, BMP 02/08/17 06:30 02/08/17 06:30 Gen: asleep No apparent anesthesia complications. Pain controlled. Continue management as per primary team.
--- NOTE | 2017-02-08 11:58 | CONSULT ---
Consult Detox [facility] Reason for Current Admission/Consult: Alcohol detox - History History of Present Illness: 61 y/o woman admitted because of coffee ground vomitus. - History Source History Provided By: Patient, Medical Record - Alcohol/Substance Use Hx Alcohol Use: Yes - Current Drug/Alcohol Use Alcohol Route: Oral Frequency: Daily Amount used: Beer 4(6 packs) Date of Last Use: 02/05/17 - Past Medical History [employer]: Yes: Alzheimer's, CVA, Dementia, Migraine, Multiple Sclerosis, Parkinson's , Seizure, Syncope, TIA, Vertigo, Other Cardio/Vascular: Yes: AFIB, Aneurysm, Aortic Insufficiency, Aortic Stenosis, CAD , CHF, HTN, Hyperlipdemia, [place], Mitral Insufficiency, Mitral Stenosis, Murmur, Pulmonary Hypertension, Other Pulmonary: Yes: COPD Gastrointestinal: Yes: Other (ALCOHOLISM) ...: No - Significant Medical Findings: Laboratory Last Values WBC 3.2 K/mm3 (4.0-10.0) L 02/08/17 06:30 RBC 3.21 M/mm3 (3.60-5.2) L 02/08/17 06:30 Hgb 10.5 GM/dL (10.7-15.3) L 02/08/17 06:30 Hct 31.4 % (32.4-45.2) L 02/08/17 06:30 MCV 97.7 fl (80-96) H 02/08/17 06:30 MCHC 33.5 g/dl (32.0-36.0) 02/08/17 06:30 RDW 11.9 % (11.6-15.6) 02/08/17 06:30 Plt Count 153 K/MM3 (134-434) 02/08/17 06:30 MPV 8.4 fl (7.5-11.1) 02/08/17 06:30 Neutrophils % 37.0 % (42.8-82.8) L D 02/08/17 06:30 Lymphocytes % 48.2 % (8-40) H D 02/08/17 06:30 Monocytes % 8.2 % (3.8-10.2) D 02/08/17 06:30 Eosinophils % 6.0 % (0-4.5) H D 02/08/17 06:30 Basophils % 0.6 % (0-2.0) 02/08/17 06:30 INR 1.09 (0.82-1.09) 02/06/17 10:44 Sodium 142 mmol/L (136-145) 02/08/17 06:30 Potassium 4.0 mmol/L (3.5-5.1) 02/08/17 06:30 Chloride 107 mmol/L (98-107) 02/08/17 06:30 Carbon Dioxide 26 mmol/L (21-32) 02/08/17 06:30 Anion Gap 9 (8-16) 02/08/17 06:30 BUN 7 mg/dL (7-18) D 02/08/17 06:30 Creatinine 0.4 mg/dL (0.55-1.02) L 02/08/17 06:30 Creat Clearance w eGFR > 60 (>60) 02/05/17 23:59 Random Glucose 100 mg/dL (74-106) D 02/08/17 06:30 Calcium 7.9 mg/dL (8.5-10.1) L 02/08/17 06:30 Total Bilirubin 0.8 mg/dL (0.2-1.0) D 02/05/17 23:59 AST 45 U/L (15-37) H 02/05/17 23:59 ALT 49 U/L (12-78) 02/05/17 23:59 Alkaline Phosphatase 66 U/L (45-117) D 02/05/17 23:59 Total Protein 7.7 g/dl (6.4-8.2) 02/05/17 23:59 Albumin 3.4 g/dl (3.4-5.0) 02/05/17 23:59 Total Amylase 41 U/L (25-115) 02/05/17 23:59 Lipase 110 U/L (73-393) 02/05/17 23:59 Stool Occult Blood Positive (NEGATIVE) 02/06/17 04:22 Alcohol, Quantitative 64.9 mg/dl (0-5) H* 02/05/17 23:59 Blood Type O POSITIVE 02/06/17 06:16 Antibody Screen Negative 02/06/17 06:16 labs noted CIWA Score - CIWA Score Nausea/Vomitin Muscle Tremors: 3 Anxiety: 4-Mod. Anxious/Guarded Agitation: 3 Paroxysmal Sweats: 3 Orientation: 0-Oriented Tacttile Disturbances: 1-Very Mild Itch/Numbness Auditory Disturbances: 0-None Visual Disturbances: 0-None Headache: 0-None Present CIWA-Ar Total Score: 19 Assessment Plan - Diagnosis (1) Alcohol dependence with uncomplicated withdrawal Status: Acute - Medication Detox Regimen/Protocol: David
--- NOTE | 2017-02-08 12:32 | PN ---
Progress Note (short form) - Note Progress Note: Patient is feeling dizzy and continues to have tremor. Vital Signs Temperature 97.7 F 02/08/17 06:00 Pulse Rate 69 02/08/17 08:46 Respiratory Rate 18 02/08/17 06:00 Blood Pressure 102/65 02/08/17 06:00 O2 Sat by Pulse Oximetry (%) 96 02/08/17 08:46 PHYSICAL EXAM GENERAL: The patient is awake, alert, and fully oriented, in no acute distress. HEAD: Normal with no signs of trauma. EYES: PERRL, extraocular movements intact, sclera anicteric, conjunctiva clear. ENT: Ears normal, oropharynx clear without exudates, moist mucous membranes. NECK: Trachea midline, full range of motion, supple. LUNGS: Breath sounds equal, clear to auscultation bilaterally, no wheezes, no crackles, no accessory muscle use. HEART: Regular rate and rhythm, S1, S2 without murmur, rub or gallop. ABDOMEN: Soft, nontender, nondistended, normoactive bowel sounds, no guarding, no rebound, no hepatosplenomegaly, no masses appreciated. EXTREMITIES: 2+ pulses, warm, well-perfused, no edema. NEUROLOGICAL: Cranial nerves II through XII grossly intact. Normal speech, gait is unsteady at this time . PSYCH: Normal mood, normal affect. SKIN: Warm, dry, normal turgor, no rashes or lesions noted. LABS CBCD WBC 3.2 K/mm3 (4.0-10.0) L 02/08/17 06:30 RBC 3.21 M/mm3 (3.60-5.2) L 02/08/17 06:30 Hgb 10.5 GM/dL (10.7-15.3) L 02/08/17 06:30 Hct 31.4 % (32.4-45.2) L 02/08/17 06:30 MCV 97.7 fl (80-96) H 02/08/17 06:30 MCHC 33.5 g/dl (32.0-36.0) 02/08/17 06:30 RDW 11.9 % (11.6-15.6) 02/08/17 06:30 Plt Count 153 K/MM3 (134-434) 02/08/17 06:30 MPV 8.4 fl (7.5-11.1) 02/08/17 06:30 CMP Sodium 142 mmol/L (136-145) 02/08/17 06:30 Potassium 4.0 mmol/L (3.5-5.1) 02/08/17 06:30 Chloride 107 mmol/L (98-107) 02/08/17 06:30 Carbon Dioxide 26 mmol/L (21-32) 02/08/17 06:30 Anion Gap 9 (8-16) 02/08/17 06:30 BUN 7 mg/dL (7-18) D 02/08/17 06:30 Creatinine 0.4 mg/dL (0.55-1.02) L 02/08/17 06:30 Creat Clearance w eGFR > 60 (>60) 02/05/17 23:59 Random Glucose 100 mg/dL (74-106) D 02/08/17 06:30 Calcium 7.9 mg/dL (8.5-10.1) L 02/08/17 06:30 Total Bilirubin 0.8 mg/dL (0.2-1.0) D 02/05/17 23:59 AST 45 U/L (15-37) H 02/05/17 23:59 ALT 49 U/L (12-78) 02/05/17 23:59 Alkaline Phosphatase 66 U/L (45-117) D 02/05/17 23:59 Total Protein 7.7 g/dl (6.4-8.2) 02/05/17 23:59 Albumin 3.4 g/dl (3.4-5.0) 02/05/17 23:59 Current Medications Generic Name Dose Route Start Last Admin Trade Name Freq PRN Reason Stop Dose Admin Aclidinium [place] 1 puff 02/06/17 10:00 02/08/17 09:58 Tudorza - IH 1 puff BID LUIS F Administration Albuterol Sulfate 1 amp 02/06/17 04:37 02/07/17 22:45 Ventolin 0.083% Nebulizer Soln - NEB 1 amp Q4H PRN Administration sob Budesonide/Formoterol Fumarate 2 puff 02/06/17 10:00 02/08/17 10:32 Symbicort 80/4.5mcg - IH 2 puff DAILY LUIS F Administration Chlordiazepoxide HCl 25 mg 05/27/17 07:16 Librium - PO 02/09/17 07:15 Q4H PRN WITHDRAWAL(CONT SUBST) Chlordiazepoxide HCl 15 mg 02/08/17 05:00 02/08/17 06:48 Librium - PO 02/08/17 23:01 15 mg [id number] LUIS F Administration Sodium Chloride 1,000 mls @ 125 mls/hr 02/06/17 05:00 02/08/17 08:34 Normal Saline - IV 125 mls/hr ASDIR LUIS F Administration Pantoprazole Sodium 80 mg/ 100 mls @ 10 mls/hr 02/06/17 20:30 02/08/17 10:32 Sodium Chloride IVPB 10 mls/hr changed to po protonix 40mg po bid Q10H LUIS F Administration 8 MG/HR Montelukast Sodium 10 mg 02/06/17 22:00 02/07/17 21:44 Singulair - PO 10 mg HS LUIS F Administration Non-Formulary Medication 4 gm 02/06/17 10:00 Ipratropium/Albuterol Sulfate [Combivent Respimat Inhal [place]] IH DAILY COUNT INCLUDES THE [facility] Home Medications Medication Instructions Recorded Fluticasone/Salmeterol [Advair 1 each IH DAILY 05/03/15 250-50 Diskus] Ipratropium/Albuterol Sulfate 4 gm IH DAILY 05/03/15 [Combivent Respimat Inhal [place]] Tiotropium [place] [Spiriva] 1 inh PO DAILY 05/03/15 Albuterol 0.083% Nebulizer Etrri 1 neb NEB Q4H PRN 12/22/15 [Ventolin 0.083% Nebulizer Soln -] Montelukast Na [Singulair -] 10 mg PO HS 12/22/15 A/P: This is a 61 yo woman with h/o ETOH abuse who presents to ED with c/o 3 episodes of hematemesis and an episode of melena today. She states she felt dizzy after she vomited. Guiac positive with black stools. # Acute GI Bleed s/p EGD (02/07/2017) by Dr. Ferguson. Result/as per GI recommendations: NODULAR GASTRITIS C/W H.PYLORI INFECTION (BIOPSIED), DUODENAL BULB CLEAN WHITE BASED ULCERATION,SOFT DIET ordered ,PROTONIX PO BID IN AM; ALCOHOL CESSATION/REHAB. REPEAT EGD IN 4 MONTHS, FOLLOW UP ON H PYLORI BIOPSIES (TREAT IF POSITIVE) # ETOH abuse/ withdrawel on Librium protocol continue , still having tremors will continue Librium. Best Mar on consult appreciated. # hx of COPD/Asthma continue home meds ;O2 to maintain sat>92% , continue Singuilair DVT Px: SCD can't anticoagulate due to GI bleed Visit type - Emergency Visit Emergency Visit: Yes ED Registration Date: 02/06/17 Care time: The patient presented to the Emergency Department on the above date and was hospitalized for further evaluation of their emergent condition. - New Patient This patient is new to me today: No - Critical Care Critical Care patient: No
[2017-02-08] MEDS: MONTELUKAST NA 10 MG TABLET PO SCH (22:21)
[2017-02-08] MEDS: PANTOPRAZOLE 40 MG TABLET (FP) PO SCH (22:21)
[2017-02-09] MEDS: SODIUM CHLORIDE 1,000 ML IV SCH (01:15)
[2017-02-09] MEDS ORDERED: SODIUM CHLORIDE 1,000 ML IV SCH (07:37)
[2017-02-09] MEDS ORDERED: PT OWN MED DRAWER 7, Y5N ONE (10:14)
[2017-02-09] MEDS: PANTOPRAZOLE 40 MG TABLET (FP) PO SCH (10:22)
[2017-02-09] MEDS: ACLIDINIUM BROMIDE 400 MCG/INH AERO.POWD IH SCH (10:22)
[2017-02-09] MEDS: BUDESONIDE/FORMETEROL FUMARATE 80/4.5 mcg INHALER IH SCH (10:23)
--- NOTE | 2017-02-09 10:36 | DS ---
Physical Exam: SUBJECTIVE: Patient seen and examined at bed side this morning. No complaints. Denies chest pain, sob, cough, abdominal pain, nausea or vomiting. Bowel/ Bladder habit normal. Sleep/Appetite normal. No active bleeding from any sites. OBJECTIVE: Vital Signs Period Temp Pulse Resp BP Sys/Smith Pulse Ox Last 24 Hr 97.1 F-98.4 F 76-93 18-20 90-110/54-66 98 PHYSICAL EXAM GENERAL: The patient is awake, alert, and fully oriented, sitting in bed eating breakfast, in no acute distress. HEAD: Normal with no signs of trauma. EYES: EOM intact, no pallor or icterus. ENT: Ears normal, moist mucous membranes. NECK: Supple. LUNGS: Breath sounds equal, clear to auscultation bilaterally, no wheezes, no crackles, no accessory muscle use. HEART: Regular rate and rhythm, S1, S2 without murmur, rub or gallop. ABDOMEN: Soft, nontender, nondistended, normoactive bowel sounds, no guarding, no rebound, no hepatosplenomegaly, no masses. EXTREMITIES: 2+ pulses, warm, well-perfused, no edema. NEUROLOGICAL: Cranial nerves II through XII grossly intact. Normal speech, gait not observed. PSYCH: Normal mood, normal affect. SKIN: Warm, dry, normal turgor, no rashes or lesions noted LABS: Home Medications Medication Instructions Recorded Fluticasone/Salmeterol [Advair 1 each IH DAILY 05/03/15 250-50 Diskus] Ipratropium/Albuterol Sulfate 4 gm IH DAILY 05/03/15 [Combivent Respimat Inhal [place]] Tiotropium [place] [Spiriva] 1 inh PO DAILY 05/03/15 Albuterol 0.083% Nebulizer Terri 1 neb NEB Q4H PRN 12/22/15 [Ventolin 0.083% Nebulizer Soln -] Montelukast Na [Singulair -] 10 mg PO HS 12/22/15 Pantoprazole Sodium 40 mg PO BID #60 tablet. 02/09/17 HOSPITAL COURSE: Date of Admission:02/06/17 Date of Discharge: 02/09/17 Patient is a 61 year old female with significant past medical history of COPD, Asthma, OA, osteoporosis, ETOH abuse (24 beers daily) presented to the ED with the chief complaints of melena admitted for evaluation of coffee ground emesis. Patient was admitted in Med-Surg. Stool occult blood positive. Was kept NPO and on protonix drip. EGD was done on 02/07/17 showed Nodular gastritis consistent with H. Pylori infection (biopsied), duodenal bulb clean white based ulceration. -Plan is to treat H.pylori if it is positive. Biopsy report still pending. H/H 10.5/31.4. Didn't required transfusion during hospital stay. Post endoscopy , patient tolerated food well. Discharged home on Pantoprazole 40mg BID and to follow up with Dr. Ferguson at this clinic in a week. Patient needs routine endoscopy in 3-4 months, as per GI. Alcohol abuse- No withdrawal symptoms or seizure noted during hospitalization. Patient was on Librium protocol and completed. COPD/Asthma- not on exacerbation. Continue Symbicort and Tudorza. Singular 10 mg PO HS Plan of care explained to the patient. She verbalized understanding. Case seen and discussed with Dr. Davies. Minutes to complete discharge: 45 Discharge Summary Reason For Visit: ALCOHOLISM, COFFEE GROUND EMESIS Current Active Problems Coffee ground emesis (Acute) Alcoholic (Chronic) Condition: Improved - Instructions Diet, Activity, Other Instructions: You were admitted for evaluation of Gastrointestinal bleed. Endoscopy was done and biopsy was taken. As per GI physician, you need to do a routine endoscopy in 3-4 months. Please visit at his clinic next week for further evaluation. Please take Pantoprazole 40mg two times a day. Return to the ED if your symptoms get worse or if you develop any new symptoms. Referrals: Ying Altamirano MD [Primary Care Provider] - Albert Ferguson MD [Staff Physician] - 1 Week Disposition: HOME - Home Medications Comprehensive Discharge Medication List: Ambulatory Orders Fluticasone/Salmeterol [Advair 250-50 Diskus] 1 each IH DAILY 05/03/15 Ipratropium/Albuterol Sulfate [Combivent Respimat Inhal [place]] 4 gm IH DAILY Tiotropium [place] [Spiriva] 1 inh PO DAILY 05/03/15 Albuterol 0.083% Nebulizer Terri [Ventolin 0.083% Nebulizer Soln -] 1 neb NEB Q4H PRN 12/22/15 Montelukast Na [Singulair -] 10 mg PO HS 12/22/15 Pantoprazole Sodium 40 mg PO BID #60 tablet. 02/09/17 This patient is new to me today: No Emergency Visit: Yes ED Registration Date: 02/06/17 Care time: The patient presented to the Emergency Department on the above date and was hospitalized for further evaluation of their emergent condition. Critical Care patient: No - Discharge Referral Referred to [facility] No
[2017-02-09 12:25] VITALS: BP 120/78; PULSE 87; TEMP 97.8
--- NOTE | 2017-02-09 19:00 | PN ---
Teaching Attending Note Name of Resident: Shayy Pappas ATTENDING PHYSICIAN STATEMENT I saw and evaluated the patient. I reviewed the resident's note and discussed the case with the resident. I agree with the resident's findings and plan as documented. SUBJECTIVE: Patient is feeling better and would like to go home OBJECTIVE: Vital Signs Temperature 97.8 F 02/09/17 10:00 Pulse Rate 87 02/09/17 10:00 Respiratory Rate 18 02/09/17 10:00 Blood Pressure 120/78 02/09/17 10:00 O2 Sat by Pulse Oximetry (%) 98 02/08/17 20:00 CBCD WBC 3.2 K/mm3 (4.0-10.0) L 02/08/17 06:30 RBC 3.21 M/mm3 (3.60-5.2) L 02/08/17 06:30 Hgb 10.5 GM/dL (10.7-15.3) L 02/08/17 06:30 Hct 31.4 % (32.4-45.2) L 02/08/17 06:30 MCV 97.7 fl (80-96) H 02/08/17 06:30 MCHC 33.5 g/dl (32.0-36.0) 02/08/17 06:30 RDW 11.9 % (11.6-15.6) 02/08/17 06:30 Plt Count 153 K/MM3 (134-434) 02/08/17 06:30 MPV 8.4 fl (7.5-11.1) 02/08/17 06:30 CMP Sodium 142 mmol/L (136-145) 02/08/17 06:30 Potassium 4.0 mmol/L (3.5-5.1) 02/08/17 06:30 Chloride 107 mmol/L (98-107) 02/08/17 06:30 Carbon Dioxide 26 mmol/L (21-32) 02/08/17 06:30 Anion Gap 9 (8-16) 02/08/17 06:30 BUN 7 mg/dL (7-18) D 02/08/17 06:30 Creatinine 0.4 mg/dL (0.55-1.02) L 02/08/17 06:30 Creat Clearance w eGFR > 60 (>60) 02/05/17 23:59 Random Glucose 100 mg/dL (74-106) D 02/08/17 06:30 Calcium 7.9 mg/dL (8.5-10.1) L 02/08/17 06:30 Total Bilirubin 0.8 mg/dL (0.2-1.0) D 02/05/17 23:59 AST 45 U/L (15-37) H 02/05/17 23:59 ALT 49 U/L (12-78) 02/05/17 23:59 Alkaline Phosphatase 66 U/L (45-117) D 02/05/17 23:59 Total Protein 7.7 g/dl (6.4-8.2) 02/05/17 23:59 Albumin 3.4 g/dl (3.4-5.0) 02/05/17 23:59 Home Medications Medication Instructions Recorded Fluticasone/Salmeterol [Advair 1 each IH DAILY 05/03/15 250-50 Diskus] Ipratropium/Albuterol Sulfate 4 gm IH DAILY 05/03/15 [Combivent Respimat Inhal [place]] Tiotropium [place] [Spiriva] 1 inh PO DAILY 05/03/15 Albuterol 0.083% Nebulizer Terri 1 neb NEB Q4H PRN 12/22/15 [Ventolin 0.083% Nebulizer Soln -] Montelukast Na [Singulair -] 10 mg PO HS 12/22/15 Pantoprazole Sodium 40 mg PO BID #60 tablet. 02/09/17 ASSESSMENT AND PLAN: This is a 61 yo woman with h/o ETOH abuse who presents to ED with c/o 3 episodes of hematemesis and an episode of melena today. She states she felt dizzy after she vomited. Guiac positive with black stools. # Acute GI Bleed s/p EGD (02/07/2017) by Dr. Ferguson. Result/as per GI recommendations: NODULAR GASTRITIS C/W H.PYLORI INFECTION (BIOPSIED), DUODENAL BULB CLEAN WHITE BASED ULCERATION,SOFT DIET ordered ,patient started on PROTONIX PO BID given Rx for 30 days and follow with ALCOHOL CESSATION/REHAB. REPEAT EGD IN 4 MONTHS, FOLLOW UP ON H PYLORI BIOPSIES (TREAT IF POSITIVE). Discussed with the patient to follow up with within a week period if the result of bx is positive then needs to be treated with antibiotics, patient understands. # ETOH abuse/ withdrawel on Librium protocol completed no further tremor d. # hx of COPD/Asthma continue home meds continue Arturo
--- NOTE | 2017-02-10 11:35 | PATH ---
Surgical Pathology Report Patient Name: MERVIN FRANCOIS [facility]. Rec. #: [id number] /Age/Gender: 1955 (Age: 61) / F Account: [id number] Location: [address] [place] [address] Taken: 02/07/2017 Received: 02/09/2017 Reported: 02/10/2017 Physicians: Albert Ferguson M.D. Specimen(s) Received BX STOMACH Clinical History Upper GI bleed Duodenal ulcer, nodular gastritis, rule out H. Pylori Final Diagnosis STOMACH, BIOPSY: GASTRIC OXYNTIC MUCOSA WITH FOCALLY ACTIVE MODERATE CHRONIC GASTRITIS. IMMUNOSTAIN FOR H. PYLORI IS POSITIVE FOR ORGANISMS (RARE ORGANISMS). Electronically Signed Martin Holt M.D. Gross Description Received in formalin, labeled "biopsy stomach" are 2 palma, irregular portions of soft tissue measuring 0.3 and 0.5 cm in greatest dimension. The specimens are submitted in toto in one cassette. /02/09/2017 saudi02/09/2017
== END 2017-02-09 11:20 | disposition home or self-care (01) | DRG 378 ==
LOC: JER 22:09 → JERBED 02-06 03:43 → J5S 02-06 17:52
PROVIDERS: ADMIT Internal Medicine; ATTEND Internal Medicine
PROC: 0DB68ZX Excision of Stomach, Via Natural or Artificial Opening Endoscopic, Diagnostic (ICD-10-PCS; 2017-02-07)
PROC: HZ2ZZZZ Detoxification Services for Substance Abuse Treatment (ICD-10-PCS; principal; 2017-02-08)
DX: K92.2 Gastrointestinal hemorrhage, unspecified (principal); F10.230 Alcohol dependence with withdrawal, uncomplicated; J44.9 Chronic obstructive pulmonary disease, unspecified; J45.909 Unspecified asthma, uncomplicated; M19.90 Unspecified osteoarthritis, unspecified site; K26.9 Duodenal ulcer, unspecified as acute or chronic, without hemorrhage or perforation; K29.60 Other gastritis without bleeding; Z87.891 Personal history of nicotine dependence; M81.0 Age-related osteoporosis without current pathological fracture
CPT/HCPCS: 36415; 71010-TC; 76700-TC; 80048; 80053; 80307; 81003; 82150; 82272; 83690; 85025; 85027; 85610; 86850; 86900; 86901; 88305-TC; 93005; 93010; 94640; 94760; 99283-25

== ENCOUNTER 2017-03-28 05:14 | Inpatient (IN) | payer OTHER ==
[2017-03-28] MEDS ORDERED: methylPREDNISolone NA SUCC 125 MG/2 ML VIAL IVPB ONE (05:22)
[2017-03-28] MEDS ORDERED: ALBUTEROL SO4 2.5/IPRATROPIUM 0.5 INH SOL 3 ML VIAL.NEB. NEB ONE ×4 (05:22→10:01)
[2017-03-28] MEDS ORDERED: methylPREDNISolone NA SUCC 125 MG/2 ML VIAL ONE (05:41)
[2017-03-28 05:42] LABS: BASOPHIL 0.3 % (0-2.0); EOSINOPHIL 1.8 % (0-4.5); MCH 31.2 pg (25.7-33.7); MCHC 33.7 g/dl (32.0-36.0); MEAN CELL VOLUME 92.5 fl (80-96); MEAN PLT VOLUME 8.4 fl (7.5-11.1); NEUTROPHILS 73.8 % (42.8-82.8); PLATELET COUNT 197 K/MM3 (134-434); RDW 13.2 % (11.6-15.6)
[2017-03-28] MEDS ORDERED: morphine CARPU-JECT 2 MG/1 ML DISP.SYRIN ONE ×2 (05:49→10:01)
--- NOTE | 2017-03-28 05:54 | PDOC ---
Attending Attestation - Resident Resident Name: NievesJason - ED Attending Attestation I have performed the following: I have examined & evaluated the patient, The case was reviewed & discussed with the resident, I agree w/resident's findings & plan, Exceptions are as noted - HPI HPI: 03/28/17 05:49 61 yo F with h/o COPD presenting to the ER with a complaint of right sided chest pain Pt sates her symptoms began suddenly at 2 am while sleeping She has had prior presentations for the same Pt reports medication compliance - Physicial Exam PE: 03/28/17 05:54 Pt uncomfortable Pt in distress Severe Right sided chest pain No abd tenderness - Critical Care Time Total Critical Care Time: 35 Critical Care Statement: The care of this patient involved high complexity decision making to prevent further life threatening deterioration of the patient 's condition and/or to evalute & treat vital organ system(s) failure or risk of failure. - Medical Decision Making 03/28/17 05:55 Will do labs Will do CXR Will Admit Pt signed out to Dr Bergeron/Isak Heart Score/ECG Review #1 ECG reviewed & interpreted by me at: 05:52 03/28/17 05:52 Twelve-lead EKG was performed and reviewed by me. There is normal sinus rhythm with a normal rate of 96 bpm. The axis is normal. The intervals are normal - pr: 128ms, QRS:68ms, QTc:427ms. There are no ST elevations except v3? T waves upright
[2017-03-28 06:04] LABS: ALBUMIN 3.8 g/dl (3.4-5.0); ANION GAP 9 (8-16); BILIRUBIN,TOTAL 0.9 mg/dL (0.2-1.0); CALCIUM 8.7 mg/dL (8.5-10.1); CO2 25 mmol/L (21-32); CREATININE 0.4 mg/dL (0.55-1.02); GLUCOSE,RANDOM 110 mg/dL (74-106); SGOT/AST 19 U/L (15-37); SGPT/ALT 14 U/L (12-78); TOT PROT 8.2 g/dl (6.4-8.2)
[2017-03-28 06:07] LABS: ALK PHOS 71 U/L (45-117); TROPONIN I < 0.02 ng/ml (0.00-0.05)
[2017-03-28 06:13] VITALS: BMI 19.6
[2017-03-28] MEDS ORDERED: VANCOMYCIN 1,000 MG in DEXTROSE 5%-WATER - 250 ML IVPB ONE (06:15)
[2017-03-28] MEDS ORDERED: LEVOFLOXACIN 500 MG IVPB 100 ML IVPB ONE ×2 (06:16→06:39)
[2017-03-28] MEDS ORDERED: morphine CARPU-JECT 4 MG/1 ML DISP.SYRIN IVPUSH ONE (06:40)
[2017-03-28] MEDS ORDERED: VANCOMYCIN 1 GRAM (PRE-DOCKED) 250 ML IVPB ONE (07:06)
--- NOTE | 2017-03-28 07:20 | PDOC ---
History of Present Illness - General Chief Complaint: Respiratory Stated Complaint: DIFFICULTY BREATHING Time Seen by Provider: 03/28/17 05:29 History Source: Patient, Spouse - History of Present Illness Initial Comments: 03/28/17 07:20 61F with pmh of COPD, Asthma, OA, osteoporosis, ETOH abuse (24 beers daily) presented to the ED with R lower chest pain, Pt woke up at 2am with pain on inspiration. Pt had similar episodes and presentation. Pt reports medication compliance 03/28/17 07:24 03/28/17 07:31 Past History - Past Medical History Allergies/Adverse Reactions: Allergies Allergy/AdvReac Type Severity Reaction Status Date / Time Penicillins Allergy Verified 02/05/17 22:28 Home Medications: Ambulatory Orders Fluticasone/Salmeterol [Advair 250-50 Diskus] 1 each IH DAILY 05/03/15 Ipratropium/Albuterol Sulfate [Combivent Respimat Inhal [place]] 4 gm IH DAILY Tiotropium [place] [Spiriva] 1 inh PO DAILY 05/03/15 Albuterol 0.083% Nebulizer Terri [Ventolin 0.083% Nebulizer Soln -] 1 neb NEB Q4H PRN 12/22/15 Montelukast Na [Singulair -] 10 mg PO HS 12/22/15 Pantoprazole Sodium 40 mg PO BID #60 tablet. 02/09/17 Albuterol Sulfate Inhaler - [Ventolin Hfa Inhaler -] 1 - 2 inh PO Q4H 03/28/17 Asthma: Yes COPD: Yes (emphysema) - Psycho/Social/Smoking Cessation Hx Anxiety: No Suicidal Ideation: No Smoking History: Former smoker Have you smoked in the past 12 months: Yes Number of Cigarettes Smoked Daily: 10 If you are a former smoker, when did you quit?: 7 months ago Information on smoking cessation initiated: No 'Breaking Loose' booklet given: 05/03/15 Hx Alcohol Use: Yes Drug/Substance Use Hx: No Substance Use Type: Alcohol Hx Substance Use Treatment: No Review of Systems - Review of Systems Able to Perform ROS?: No (patient too uncomfortable) *Physical Exam - Vital Signs Last Vital Signs Temp Pulse Resp BP Pulse Ox 98.2 F 97 H 24 157/97 93 L 03/28/17 05:30 03/28/17 05:30 03/28/17 05:30 03/28/17 05:30 03/28/17 05:30 - Physical Exam General Appearance: Yes: Moderate Distress, Cachetic HEENT: positive: Normal ENT Inspection, Normal Voice Neck: positive: Trachea midline Respiratory/Chest: positive: Chest Tender, Respiratory Distress, Plerual Rub ( Decreased breath sounds on the right) Cardiovascular: positive: Regular Rhythm, S1, S2, Tachycardia Gastrointestinal/Abdominal: positive: Normal Bowel Sounds, Flat, Soft. negative : Tenderness ED Treatment Course - LABORATORY CBC & Chemistry Diagram: 03/28/17 05:30 03/28/17 05:30 - ADDITIONAL ORDERS Additional order review: Laboratory Results 03/28/17 05:30 Sodium 135 L Potassium 4.2 Chloride 101 Carbon Dioxide 25 Anion Gap 9 BUN 7 Creatinine 0.4 L Creat Clearance w eGFR > 60 Random Glucose 110 H Calcium 8.7 Total Bilirubin 0.9 AST 19 D ALT 14 D Alkaline Phosphatase 71 Creatine Kinase 59 Troponin I < 0.02 Total Protein 8.2 Albumin 3.8 03/28/17 05:30 RBC 4.43 D MCV 92.5 MCHC 33.7 RDW 13.2 D MPV 8.4 Neutrophils % 73.8 D Lymphocytes % 14.6 D Monocytes % 9.5 Eosinophils % 1.8 Basophils % 0.3 - RADIOLOGY Radiology Studies Ordered: Category Date Time Status CHEST CTA [CT] Stat CT Scan 03/28/17 06:30 Ordered - Medications Given in the ED: ED Medications Discontinued Medications Generic Name Dose Route Start Last Admin Trade Name Freq PRN Reason Stop Dose Admin Albuterol/Ipratropium 1 amp 03/28/17 05:22 03/28/17 05:43 Duoneb - NEB 03/28/17 05:23 1 amp ONCE ONE Administration Levofloxacin 100 mls @ 100 mls/hr 03/28/17 06:16 03/28/17 06:42 Levaquin 500 Mg Premixed Ivpb - IVPB 03/28/17 07:15 100 mls/hr ONCE ONE Administration Vancomycin HCl 1,000 mg/ 250 mls @ 250 mls/hr 03/28/17 06:15 03/28/17 07:07 Dextrose IVPB 03/28/17 07:14 250 mls/hr ONCE ONE Administration Protocol Methylprednisolone Sodium Succinate 125 mg 03/28/17 05:22 07/16/17 05:43 Solu-Medrol - IVPB 03/28/17 05:23 125 mg ONCE ONE Administration Morphine Sulfate 2 mg 03/28/17 06:40 03/28/17 05:45 Morphine Injection - IVPUSH 03/28/17 06:41 2 mg ONCE ONE Administration Medical Decision Making - Medical Decision Making 03/28/17 07:31 61F with pmh of COPD, Asthma, OA, osteoporosis, ETOH abuse (24 beers daily) presented to the ED with Right pleuritic lower chest pain on inspiration reproducible by palpation.. CXR r/o pneumothorax, showed pissoble multifocal pneumonia Labs ok, EKG normal. blood cultures ordered. PAtient placed on broad spectrum empiric abx vanco, and levofloxacin (penicillin allergy) waiting for lung CTA to r/o PE. Pending admit. *DC/Admit/Observation/Transfer Diagnosis at time of Disposition: COPD with emphysema, Pleurodynia
[2017-03-28 07:54] LABS: ARTERIAL BLOOD GAS PO2 64.4 mmHg (80-100); ARTERIAL BLOOD GAS pH 7.42 (7.35-7.45)
[2017-03-28 07:55] LABS: ARTERIAL BLD GAS O2 SATURATION 92.8 % (90-98.9); ARTERIAL BLOOD GAS BASE EXCESS 0.4 meq/l (-2-2); ARTERIAL BLOOD GAS HCO3 24.2 meq/L (22-26)
[2017-03-28 07:56] LABS: ALLENS TEST POSITIVE; ART PUNCT SITE RIGHT RADIAL; LPM/O2% 2L; PT. ON O2? YES
--- NOTE | 2017-03-28 07:56 | PDOC ---
*Physical Exam - Vital Signs Last Vital Signs Temp Pulse Resp BP Pulse Ox 98.2 F 77 18 129/84 95 03/28/17 05:30 03/28/17 07:27 03/28/17 07:27 03/28/17 07:27 03/28/17 07:27 - Physical Exam Comments: 03/28/17 08:49 Gen: Ill-appearing thin woman CV: RRR, no murmurs rubs or gallops Abd: Soft nontender, normal bowel sounds Ext: 2+ pulses, no edema Lungs: Decreased breath sounds on right side, unable to take full breath due to pain, tachypneic Neuro: Alert, oriented, no focal neuro deficits. ED Treatment Course - LABORATORY CBC & Chemistry Diagram: 03/28/17 05:30 03/28/17 05:30 - ADDITIONAL ORDERS Additional order review: Laboratory Results 03/28/17 05:30 Sodium 135 L Potassium 4.2 Chloride 101 Carbon Dioxide 25 Anion Gap 9 BUN 7 Creatinine 0.4 L Creat Clearance w eGFR > 60 Random Glucose 110 H Calcium 8.7 Total Bilirubin 0.9 AST 19 D ALT 14 D Alkaline Phosphatase 71 Creatine Kinase 59 Troponin I < 0.02 Total Protein 8.2 Albumin 3.8 03/28/17 05:30 RBC 4.43 D MCV 92.5 MCHC 33.7 RDW 13.2 D MPV 8.4 Neutrophils % 73.8 D Lymphocytes % 14.6 D Monocytes % 9.5 Eosinophils % 1.8 Basophils % 0.3 - Medications Given in the ED: ED Medications Discontinued Medications Generic Name Dose Route Start Last Admin Trade Name Freq PRN Reason Stop Dose Admin Albuterol/Ipratropium 1 amp 03/28/17 05:22 03/28/17 05:43 Duoneb - NEB 03/28/17 05:23 1 amp ONCE ONE Administration Levofloxacin 100 mls @ 100 mls/hr 03/28/17 06:16 03/28/17 06:42 Levaquin 500 Mg Premixed Ivpb - IVPB 03/28/17 07:15 100 mls/hr ONCE ONE Administration Vancomycin HCl 1,000 mg/ 250 mls @ 250 mls/hr 03/28/17 06:15 03/28/17 07:07 Dextrose IVPB 03/28/17 07:14 250 mls/hr ONCE ONE Administration Protocol Methylprednisolone Sodium Succinate 125 mg 03/28/17 05:22 03/28/17 05:43 Solu-Medrol - IVPB 03/28/17 05:23 125 mg ONCE ONE Administration Morphine Sulfate 2 mg 03/28/17 06:40 03/28/17 05:45 Morphine Injection - IVPUSH 03/28/17 06:41 2 mg ONCE ONE Administration Medical Decision Making - Medical Decision Making 03/28/17 07:[address] Nieves. Will follow up on CTA chest ordered. Patient has a HR of 96 and RR 24. 03/28/17 08:51 CTA chest shows no PE and consolidation versus mass on right upper side, infiltrates throughout the right lung, extensive COPD changes. 03/28/17 09:09 Medicine microblogged. 03/28/17 10:50 Medicine accepted admission. Admitted to med/surg under Sarah Betho *DC/Admit/Observation/Transfer Diagnosis at time of Disposition: COPD with emphysema, Pleuritic chest pain - Discharge Dispostion Condition at time of disposition: Stable Admit: Yes - Referrals Referrals: Ying Altamirano MD [Primary Care Provider] - - Patient Instructions - Post Discharge Activity - Transfer to Acute Care Facility Accepting Physician:: Omkar - Attestations Scribe Attestion: 03/28/17 10:46 I, Dr. Henrry Parisi, attest that this document has been prepared under my direction and personally reviewed by me in its entirety. I further attest, that it accurately reflects all work, treatment, procedures and medical decision -making performed by me.
--- NOTE | 2017-03-28 09:42 | HP ---
CHIEF COMPLAINT: "I have chest pain when I breathe " PCP: Evelia HISTORY OF PRESENT ILLNESS: This is a 61 yo F past heavy smoker with pmh of COPD/emphysema (non O2 dependent ), Asthma, OA, osteoporosis, ETOH abuse (5 beers daily, last drink 2 d ago) presented to the ED with R sided pleuritic chest pain since 2am. She has never had pain there before but has similar pain on L side when she was hospitalized for PNA in [facility]. She was also hospitalized here 12/27 for RLL PNA. She reports that the pain is constant, sharp, 10/10, aggravated by deep inspiration. She has associated sob but denies cough, hemoptysis, f/c, adenopathy, weight loss. She denies n/v, h/a, loc, palpitations, diaphoresis, abd pain, back pain, diarrhea, constipation, dysuria, LE pain or edema. 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 She denies sick contacts ER course was notable for: (1)labs, ekg (2)cxr, cta (3)medrol 125, duoneb, levaquin, vanco, morphine Recent Travel: denies PAST MEDICAL HISTORY: as above PAST SURGICAL HISTORY: none Social History: lives at home. Smokin pack year history, recently quit Alcohol:abuse Drugs: denies Family History: mother: renal failure, asthma. No fam hx of lung CA Allergies Penicillins Allergy (Verified 02/05/17 22:28)-pruritus HOME MEDICATIONS: Home Medications Medication Instructions Recorded Fluticasone/Salmeterol [Advair 1 each IH DAILY 05/03/15 250-50 Diskus] Ipratropium/Albuterol Sulfate 4 gm IH DAILY 05/03/15 [Combivent Respimat Inhal [place]] Tiotropium [place] [Spiriva] 1 inh PO DAILY 05/03/15 Albuterol 0.083% Nebulizer [place]ri 1 neb NEB Q4H PRN 12/22/15 [Ventolin 0.083% Nebulizer Soln -] Montelukast Na [Singulair -] 10 mg PO HS 12/22/15 Pantoprazole Sodium 40 mg PO BID #60 tablet. 02/09/17 Albuterol Sulfate Inhaler - 1 - 2 inh PO Q4H 03/28/17 [Ventolin Hfa Inhaler -] REVIEW OF SYSTEMS CONSTITUTIONAL: Absent: fever, chills, weight change HEENT: Absent: rhinorrhea, nasal congestion, throat pain CARDIOVASCULAR: Absent: syncope, palpitations, irregular heart rate, lightheadedness, peripheral edema RESPIRATORY: Absent: cough, orthopnea, wheezing, stridor, hemoptysis GASTROINTESTINAL: Absent: abdominal pain, abdominal distension, nausea, vomiting, diarrhea, constipation, melena, hematochezia GENITOURINARY: Absent: dysuria, flank pain MUSCULOSKELETAL: Absent: myalgia, arthralgia SKIN: Absent: rash, itching, pallor HEMATOLOGIC/IMMUNOLOGIC: Absent: easy bleeding, easy bruising Absent: unexplained weight gain, unexplained weight loss NEUROLOGIC: Absent: headache, focal weakness or paresthesias PSYCHIATRIC: Absent: anxiety, depression PHYSICAL EXAMINATION Vital Signs - 24 hr 03/28/17 03/28/17 05:30 07:27 Temperature 98.2 F Pulse Rate 97 H Pulse Rate [ 77 Apical] Respiratory 24 18 Rate Blood Pressure 157/97 Blood Pressure 129/84 [Right Arm] O2 Sat by Pulse 93 L 95 Oximetry (%) GENERAL: Awake, alert, and fully oriented, in no acute distress. HEAD: Normal with no signs of trauma. EYES: Pupils equal, round and reactive to light, extraocular movements intact, sclera anicteric, conjunctiva clear. No lid lag. EARS, NOSE, THROAT: Moist mucous membranes. NECK: supple without lymphadenopathy, JVD, or masses. LUNGS: bibasilar crackles, crackles and ronchi in R middle lobe HEART: Regular rate and rhythm, normal S1 and S2 ABDOMEN: Soft, nontender, not distended, normoactive bowel sounds, no guarding, no rebound, no masses. hepatomegaly MUSCULOSKELETAL: No CVA tenderness. UPPER EXTREMITIES: 2+ pulses, warm, well-perfused. No cyanosis. No clubbing. No peripheral edema. LOWER EXTREMITIES: 2+ pulses, warm, well-perfused. No calf tenderness. No peripheral edema. NEUROLOGICAL: Cranial nerves II-XII intact. Normal speech. strenght 5/5 in all extremities, sensation intact PSYCHIATRIC: Cooperative. Good eye contact. Appropriate mood and affect. SKIN: Warm, dry, small area of macular rash on LLQ of abdomen Laboratory Results - last 24 hr 03/28/17 03/28/17 03/28/17 05:30 05:30 07:35 WBC 8.0 D RBC 4.43 D Hgb 13.8 D Hct 41.0 D MCV 92.5 MCH 31.2 MCHC 33.7 RDW 13.2 D Plt Count 197 D MPV 8.4 Neutrophils % 73.8 D Lymphocytes % 14.6 D Monocytes % 9.5 Eosinophils % 1.8 Basophils % 0.3 Puncture Site Right radial ABG pH 7.42 ABG pCO2 at Pt Temp 38.0 ABG pO2 at Pt Temp 64.4 L ABG HCO3 24.2 ABG O2 Sat (Measured) 92.8 ABG O2 Content 16.5 ABG Base Excess 0.4 Marcelino Test Positive Oxygen Flow Rate 2l PEEP 0.0 Sodium 135 L Potassium 4.2 Chloride 101 Carbon Dioxide 25 Anion Gap 9 BUN 7 Creatinine 0.4 L Creat Clearance w eGFR > 60 Random Glucose 110 H Calcium 8.7 Total Bilirubin 0.9 AST 19 D ALT 14 D Alkaline Phosphatase 71 Creatine Kinase 59 Troponin I < 0.02 Total Protein 8.2 Albumin 3.8 ASSESSMENT/PLAN: 61F with pmh of COPD, Asthma, OA, osteoporosis, ETOH abuse (24 beers daily) presented to the ED with R pleuritic chest pain since 2 am RUL peripheral mass vs PNA in setting of Emphysema -aspiration risk in setting of EtOH abuse -associated with pleuritic chest pain and hypoxia -covering for CAP, pseudomonas with IV levaquin and for MRSA abscess with Vanco ; will switch vanco to clindamycin -O2 NC 2L maintain sats >92% -Puml consult and possible Thoracic Phyllis consult for biopsy; lesion likely inaccessible through bronch -s/p medrol 125 IV in ed; continue with IV medrol 40 q 8h -laba/lama -nebs PRN -f/u esr, crp Pleuritic chest pain -most likely due to peripheral RUL mass vs PNA -EKG negative for ACS or strain, there is possible old septal infarct and precordial t inversions -trop #1 negative; will repeat -morphine prn ETOH abuse -librium protocol -Dr Jewell consult FEN NS @ 75 replete slight hyponatremia regular diet diet, Mayte Dispo: adm med phyllis Problem List - Problem (1) Pleuritic chest pain Code(s): R07.81 - PLEURODYNIA (2) COPD with emphysema Code(s): J43.9 - EMPHYSEMA, UNSPECIFIED (3) Alcohol dependence with uncomplicated withdrawal Code(s): F10.230 - ALCOHOL DEPENDENCE WITH WITHDRAWAL, UNCOMPLICATED (4) Alcoholic Code(s): F10.20 - ALCOHOL DEPENDENCE, UNCOMPLICATED (5) Pneumonia Code(s): J18.9 - PNEUMONIA, UNSPECIFIED ORGANISM (6) Osteoarthritis Code(s): M19.90 - UNSPECIFIED OSTEOARTHRITIS, UNSPECIFIED SITE Visit type - Emergency Visit Emergency Visit: Yes Care time: The patient presented to the Emergency Department on the above date and was hospitalized for further evaluation of their emergent condition. - New Patient This patient is new to me today: Yes Date on this admission: 03/28/17 - Critical Care Critical Care patient: No
[2017-03-28] MEDS ORDERED: morphine CARPU-JECT 2 MG/1 ML DISP.SYRIN IVPUSH ONE (09:44)
[2017-03-28] MEDS ORDERED: ACETAMINOPHEN 325 MG TABLET (FP) PO PRN (10:24)
[2017-03-28] MEDS ORDERED: DOCUSATE SODIUM 100 MG CAPSULE (FP) PO PRN (10:24)
[2017-03-28] MEDS ORDERED: chlordiazePOXIDE HCL 25 MG CAPSULE PO PRN (10:30)
[2017-03-28] MEDS: SODIUM CHLORIDE 1,000 ML IV SCH (10:50)
[2017-03-28] MEDS: methylPREDNISolone NA SUCC 40 MG/1 ML VIAL IVPB SCH ×2 (10:50→17:06)
[2017-03-28] MEDS: ACLIDINIUM BROMIDE 400 MCG/INH AERO.POWD IH SCH ×2 (11:17→21:17)
[2017-03-28] MEDS ORDERED: chlordiazePOXIDE HCL 25 MG CAPSULE ONE (11:19)
[2017-03-28] MEDS: chlordiazePOXIDE HCL 25 MG CAPSULE PO SCH ×3 (11:31→23:00)
[2017-03-28 11:56] LABS: C-REACTIVE PROTEIN 3.1 MG/DL (0.00-0.3)
[2017-03-28] MEDS ORDERED: PT OWN MED DRAWER 7, Y5N ONE (12:18)
[2017-03-28 12:19] LABS: MCH 31.4 pg (25.7-33.7); MCHC 33.4 g/dl (32.0-36.0); MEAN PLT VOLUME 8.2 fl (7.5-11.1); PLATELET COUNT 186 K/MM3 (134-434); RDW 13.2 % (11.6-15.6); WHITE BLOOD COUNT 5.9 K/mm3 (4.0-10.0)
[2017-03-28 12:32] LABS: INR 1.11 (0.82-1.09); PROTHROMBIN TIME (PATIENT) 12.2 SEC (9.98-11.88)
[2017-03-28 12:34] LABS: ACTIVATED PTT 29.6 SECONDS (26.9-34.4)
--- NOTE | 2017-03-28 12:50 | PN ---
Teaching Attending Note Name of Resident: Joanie Jenkins ATTENDING PHYSICIAN STATEMENT I saw and evaluated the patient. I reviewed the resident's note and discussed the case with the resident. I agree with the resident's findings and plan as documented. SUBJECTIVE: This is a 61-year-old woman with a history of asthma, COPD, alcohol abuse, osteoarthritis, osteoporosis who comes to the ER complaining of chest pain. The pain woke her at 2 am. It is located on the right side of her chest. It is worse with inspiration. She feels short of breath. She denies fever, chills, weight loss, cough, sweats, hemoptysis, back pain. O2 saturation was 78 % on room air when she arrived. OBJECTIVE: Vital Signs Period Temp Pulse Resp BP Sys/Smith Pulse Ox Last 24 Hr 98 F-98.2 F 68-97 18-24 112-157/66-97 78-96 HEART: S1S2, RRR LUNGS: Few rhonchi over right upper lung ABDOMEN: Soft, non-tender, non-distended, normal BS EXTREMITIES: No edema CXR: Chronic interstitial changes. RUL infiltrate. Chest CTA: No pulmonary embolus. Extensive COPD changes. 3.2 x 1.8 cm RUL mass- like density with tiny cystic densities - focal consolidation vs mass. Patchy RUL airspace opacities. Atelectasis vs infiltrates in RLL with pleural thickening and trace effusion. ASSESSMENT AND PLAN: This is a 61-year-old woman with a history of asthma, COPD, alcohol abuse, osteoarthritis, osteoporosis who recently quit smoking and who came to the ER after being awakened by pleuritic chest pain. Oxygen saturation was 78% on room air. She is afebrile and has normal WBC (but 94% neutrophils) 1. Acute hypoxic respiratory failure secondary to probable pneumonia with COPD - Levaquin and Vancomycin given in ER - Continue Levaquin - Continue Advair, Singulair, Spiriva - Start SoluMedrol - Oxygen to maintain saturation > 90% - Pulmonary consult 2. Alcohol abuse - Start Librium detox
[2017-03-28] MEDS: ALBUTEROL SO4 0.083% IH SOL 2.5 MG/3 ML VIAL.NEB. NEB PRN (21:10)
[2017-03-28] MEDS: morphine CARPU-JECT 2 MG/1 ML DISP.SYRIN IVPUSH PRN (21:17)
[2017-03-28] MEDS: BUDESONIDE/FORMETEROL FUMARATE 160/4.5 mcg INHALER IH SCH (21:17)
[2017-03-28 22:55] LABS: URINE APPEARANCE CLEAR; URINE BILIRUBIN NEGATIVE (NEGATIVE); URINE BLOOD NEGATIVE (NEGATIVE); URINE COLOR STRAW; URINE GLUCOSE (UA) 3+ (NEGATIVE); URINE KETONE NEGATIVE (NEGATIVE); URINE LEUK ESTERASE NEGATIVE (NEGATIVE); URINE NITRITE NEGATIVE (NEGATIVE); URINE PROTEIN NEGATIVE (NEGATIVE); URINE UROBILINOGEN NEGATIVE mg/dL (0.2-1.0)
[2017-03-29] MEDS: methylPREDNISolone NA SUCC 40 MG/1 ML VIAL IVPB SCH ×3 (01:43→17:20)
[2017-03-29] MEDS: chlordiazePOXIDE HCL 25 MG CAPSULE PO SCH ×4 (05:53→23:30)
[2017-03-29] MEDS: LEVOFLOXACIN 750 MG IVPB 150 ML IVPB SCH (05:53)
[2017-03-29] MEDS: morphine CARPU-JECT 2 MG/1 ML DISP.SYRIN IVPUSH PRN (07:46)
[2017-03-29 08:14] LABS: MCHC 33.5 g/dl (32.0-36.0); MEAN CELL VOLUME 95.6 fl (80-96); MEAN PLT VOLUME 8.5 fl (7.5-11.1); PLATELET COUNT 196 K/MM3 (134-434); RDW 13.1 % (11.6-15.6); WHITE BLOOD COUNT 9.8 K/mm3 (4.0-10.0)
[2017-03-29 08:25] LABS: ANION GAP 9 (8-16); CALCIUM 8.5 mg/dL (8.5-10.1); CO2 27 mmol/L (21-32); CREATININE 0.5 mg/dL (0.55-1.02); GLUCOSE,RANDOM 175 mg/dL (74-106); MAGNESIUM 2.3 mg/dL (1.8-2.4); PHOSPHOROUS 3.7 mg/dL (2.5-4.9)
[2017-03-29] MEDS: CLINDAMYCIN 600MG PREMIX IVPB 50 ML IVPB SCH ×3 (08:31→21:12)
[2017-03-29] MEDS ORDERED: PT OWN MED DRAWER 7, Y5N ONE ×3 (09:30→21:16)
[2017-03-29] MEDS: ENOXAPARIN NA (PORCINE) 40 MG/0.4 ML DISP.SYRIN SQ SCH (09:36)
[2017-03-29] MEDS: BUDESONIDE/FORMETEROL FUMARATE 160/4.5 mcg INHALER IH SCH ×2 (09:37→21:21)
[2017-03-29] MEDS: ACLIDINIUM BROMIDE 400 MCG/INH AERO.POWD IH SCH ×2 (09:37→21:12)
[2017-03-29] MEDS: ALBUTEROL SO4 0.083% IH SOL 2.5 MG/3 ML VIAL.NEB. NEB PRN (11:50)
--- NOTE | 2017-03-29 12:29 | CON.PULM ---
Consult Consult Specialty:: PULMONARY Referred by:: KEY Reason for Consultation:: COPD/MASS - History of Present Illness Chief Complaint: RIGHT SIDED CHEST PAIN History of Present Illness: HISTORY OF PRESENT ILLNESS: This is a 61 yo F past heavy smoker with pmh of COPD/emphysema (non O2 dependent ), Asthma, OA, osteoporosis, ETOH abuse (5 beers daily, last drink 2 d ago) presented to the ED with R sided pleuritic chest pain since 2am. She has never had pain there before but has similar pain on L side when she was hospitalized for PNA in [facility]. She was also hospitalized here 12/27 for RLL PNA. She reports that the pain is constant, sharp, 10/10, aggravated by deep inspiration. She has associated sob but denies trauma, cough, hemoptysis, fever,chills, weight loss. She denies n/v, h/a, loc, palpitations, diaphoresis, abd pain, back pain, diarrhea, constipation, dysuria, LE pain or edema. 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 She denies sick contacts - History Source History Provided By: Patient, Medical Record Limitations to Obtaining History: No Limitations - Past Medical History Pulmonary: Yes: COPD, Pneumonia, Other (BULLOUS EMPHYSEMA). No: O2 Dependent Gastrointestinal: Yes: Other (ALCOHOLISM) Renal/: No: Renal Failure Reproductive: Yes: Postmenopausal ...: No Heme/Onc: No: Anemia Psych: Yes: Addictions Musculoskeletal: Yes: Other (RIGHT SIDED RIB PAIN) Endocrine: No: Diabetes Mellitus - Alcohol/Substance Use Hx Alcohol Use: Yes (X2 DAYS AGO) - Smoking History Smoking history: Former smoker Have you smoked in the past 12 months: Yes Aproximately how many cigarettes per day: 10 If you are a former smoker, when did you quit?: 7 months ago - Social History ADL: Independent History of Recent Travel: No Home Medications - Allergies Allergies/Adverse Reactions: Allergies Allergy/AdvReac Type Severity Reaction Status Date / Time Penicillins Allergy Verified 02/05/17 22:28 - Home Medications Home Medications: Ambulatory Orders Fluticasone/Salmeterol [Advair 250-50 Diskus] 1 each IH DAILY 05/03/15 Ipratropium/Albuterol Sulfate [Combivent Respimat Inhal [place]] 4 gm IH DAILY Tiotropium [place] [Spiriva] 1 inh PO DAILY 05/03/15 Albuterol 0.083% Nebulizer Terri [Ventolin 0.083% Nebulizer Soln -] 1 neb NEB Q4H PRN 12/22/15 Montelukast Na [Singulair -] 10 mg PO HS 12/22/15 Pantoprazole Sodium 40 mg PO DAILY 03/28/17 Family Disease History - Family Disease History Family History: Unremarkable Review of Systems - Review of Systems Constitutional: denies: Fever Eyes: denies: Blurred Vision HENT: denies: Difficult Swallowing Neck: denies: Decreased ROM Cardiovascular: reports: Chest Pain, Shortness of Breath. denies: Edema, Palpitations Respiratory: reports: Cough, SOB on Exertion. denies: Hemoptysis, Orthopnea, Wheezing Gastrointestinal: denies: Abdominal Pain, Diarrhea, Vomiting Genitourinary: reports: No Symptoms Breasts: reports: No Symptoms Reported Musculoskeletal: reports: Other (SEVERE RIGHT SIDED RIB PAIN) Physical Exam Vital Sings: Vital Signs Temperature 98.2 F 03/29/17 08:15 Pulse Rate 79 03/29/17 10:21 Respiratory Rate 18 03/29/17 08:15 Blood Pressure 118/60 03/29/17 08:15 O2 Sat by Pulse Oximetry (%) 93 L 03/29/17 10:21 Constitutional: Yes: Anxious Eyes: Yes: EOM Intact HENT: Yes: Normocephalic Neck: Yes: Trachea Midline Cardiovascular: Yes: Regular Rate and Rhythm, S1, S2 Respiratory: Yes: Diminished Gastrointestinal: Yes: Soft Renal/: Yes: WNL Musculoskeletal: Yes: Other (SVERE RIGHT SIDED RIB PAIN TO PALPATION/MOVEMENT) Neurological: Yes: Alert Psychiatric: Yes: Alert Labs: CBC, BMP 03/29/17 06:40 03/29/17 06:40 ABG Results ABG pH 7.42 (7.35-7.45) 03/28/17 07:35 ABG pCO2 at Pt Temp 38.0 mmHg (35-45) 03/28/17 07:35 ABG pO2 at Pt Temp 64.4 mmHg (80-100) L 03/28/17 07:35 ABG HCO3 24.2 meq/L (22-26) 03/28/17 07:35 ABG O2 Sat (Measured) 92.8 % (90-98.9) 03/28/17 07:35 ABG O2 Content 16.5 % vol (15-22) 03/28/17 07:35 ABG Base Excess 0.4 meq/l (-2-2) 03/28/17 07:35 REST REVIEWED Imaging - Results Chest X-ray: Image Reviewed Cat Scan: Image Reviewed Problem List - Problems (1) COPD with emphysema Code(s): J43.9 - EMPHYSEMA, UNSPECIFIED (2) Alcoholic Code(s): F10.20 - ALCOHOL DEPENDENCE, UNCOMPLICATED (3) Lung mass Code(s): R91.8 - OTHER NONSPECIFIC ABNORMAL FINDING OF LUNG FIELD Assessment/Plan SEVERE BULLOUS DISEASE PREVENTS DIAGNOSTIC TTNA BRONCHOSCOPY COULD BE CONSIDERED BUT LESION IS CENTRAL WOULD OFFER HIGH RISK FOR PTX SEVERE RIGHT RIB PAIN ETIOLOGY ?PLEURODYNIA ? METASTATIC DISEASE ?RIB FRACTURE WILL START WITH RIB SERIES/MAY NEED BONE SCAN CONTINUE CURRENT TREATMENT FOR COPD/O2/BRONCHODILATORS/STEROIDS/EMPIRIC ANTIBIOTICS WILL FOLLOW THANK YOU FOR THIS CONSULT Yessi BHATT MD
[2017-03-29] MEDS: SODIUM CHLORIDE 1,000 ML IV SCH (12:56)
--- NOTE | 2017-03-29 14:31 | PN ---
Teaching Attending Note Name of Resident: Viktoria Mayfield ATTENDING PHYSICIAN STATEMENT I saw and evaluated the patient. I reviewed the resident's note and discussed the case with the resident. I agree with the resident's findings and plan as documented. SUBJECTIVE: Pleuritic chest pain is less severe. OBJECTIVE: Vital Signs Period Temp Pulse Resp BP Sys/Smith Pulse Ox Last 24 Hr 97.6 F-98.2 F 60-79 18-20 100-118/60-66 93-95 HEART: S1S2, RRR LUNGS: Crackles in right upper lung field ABDOMEN: Soft, non-tender, non-distended, normal BS EXTREMITIES: No edema ASSESSMENT AND PLAN: This is a 61-year-old woman with a history of asthma, COPD, alcohol abuse, osteoarthritis, osteoporosis who recently quit smoking and who came to the ER after being awakened by pleuritic chest pain. 1. Acute hypoxic respiratory failure secondary to probable pneumonia with COPD - Continue Levaquin, Clindamycin - Continue SoluMedrol, Symbicort, Tudorza, albuterol nebs as needed - Continue Oxygen to maintain saturation > 90% - Pulmonary consult appreciated 2. Alcohol abuse - Continue Librium detox
--- NOTE | 2017-03-29 16:46 | PN ---
Physical Exam: SUBJECTIVE: Patient seen and examined at bedside. No acute events overnight. This morning, patient was on 3L 02 and was sitting comfortably in a chair. Patients states that she is feeling better than before, but still feels out of breath. Denies abdominal pain, cough, or any other symptoms. OBJECTIVE: Vital Signs Period Temp Pulse Resp BP Sys/Smith Pulse Ox Last 24 Hr 97.6 F-98.2 F 60-94 18-20 100-118/60-66 93-95 GENERAL: The patient is awake, alert, and fully oriented, in no acute distress. on 3L of oxygen HEAD: Normal with no signs of trauma. EYES: PERRL, extraocular movements intact, sclera anicteric, conjunctiva clear. ENT: oropharynx clear without exudates, moist mucous membranes. NECK: Trachea midline, supple. LUNGS: Breath sounds equal, clear to auscultation bilaterally, no wheezes, no crackles, no accessory muscle use. HEART: Regular rate and rhythm, S1, S2 without murmur, rub or gallop. ABDOMEN: Soft, nontender, nondistended, normoactive bowel sounds, no guarding, n EXTREMITIES: 2+ posterior tibial pulses, warm, well-perfused, no edema. NEUROLOGICAL: Cranial nerves II through XII grossly intact. Laboratory Results - last 24 hr 03/28/17 03/29/17 03/29/17 22:00 06:40 06:40 WBC 9.8 D RBC 4.04 Hgb 13.0 Hct 38.7 MCV 95.6 MCH 32.0 MCHC 33.5 RDW 13.1 Plt Count 196 MPV 8.5 ESR Sodium 138 Potassium 4.1 Chloride 102 Carbon Dioxide 27 Anion Gap 9 BUN 9 D Creatinine 0.5 L D Random Glucose 175 H D Calcium 8.5 Phosphorus 3.7 Magnesium 2.3 Urine Color Straw Urine Appearance Clear Urine pH 7.0 D Ur Specific [place] 1.010 Urine Protein Negative Urine Glucose (UA) 3+ H Urine Ketones Negative Urine Blood Negative Urine Nitrite Negative Urine Bilirubin Negative Urine Urobilinogen Negative Ur Leukocyte Esterase Negative 03/29/17 06:40 WBC RBC Hgb Hct MCV MCH MCHC RDW Plt Count MPV ESR 24 Sodium Potassium Chloride Carbon Dioxide Anion Gap BUN Creatinine Random Glucose Calcium Phosphorus Magnesium Urine Color Urine Appearance Urine pH Ur Specific [place] Urine Protein Urine Glucose (UA) Urine Ketones Urine Blood Urine Nitrite Urine Bilirubin Urine Urobilinogen Ur Leukocyte Esterase Active Medications Generic Name Dose Route Start Last Admin Trade Name Freq PRN Reason Stop Dose Admin Acetaminophen 650 mg 03/28/17 10:24 Tylenol - PO Q4H PRN FEVER OR PAIN Aclidinium [place] 1 puff 03/28/17 10:30 03/29/17 09:37 Tudorza - IH 1 puff BID LUIS F Administration Albuterol Sulfate 1 amp 03/28/17 10:24 03/29/17 11:50 Ventolin 0.083% Nebulizer Soln - NEB 1 amp Q4H PRN Administration SHORT OF BREATH/WHEEZING Budesonide/Formoterol Fumarate 1 puff 03/28/17 22:00 03/29/17 09:37 Symbicort 160/4.5mcg - IH 1 puff BID LUIS F Administration Chlordiazepoxide HCl 25 mg 03/28/17 10:30 Librium - PO 03/30/17 00:01 Q6HPO PRN WITHDRAWAL(CONT SUBST) Chlordiazepoxide HCl 50 mg 03/28/17 11:00 03/29/17 11:39 Librium - PO 03/30/17 05:01 50 mg [id number] LUIS F Administration Docusate Sodium 100 mg 03/28/17 10:24 Colace - PO BID PRN CONSTIPATION Enoxaparin Sodium 40 mg 03/29/17 10:00 03/29/17 09:36 Lovenox - SQ 40 mg DAILY LUIS F Administration Sodium Chloride 1,000 mls @ 75 mls/hr 03/28/17 10:30 03/29/17 12:56 Normal Saline - IV 75 mls/hr ASDIR LUIS F Administration Levofloxacin 150 mls @ 100 mls/hr 03/29/17 06:00 03/29/17 05:53 Levaquin 750 Mg Premixed Ivpb - IVPB 100 mls/hr DAILY@0600 LUIS F Administration Clindamycin Phosphate 50 mls @ 100 mls/hr 03/29/17 09:00 03/29/17 14:33 Cleocin 600 Mg Premix Ivpb - IVPB 100 mls/hr Q6H-IV LUIS F Administration Methylprednisolone Sodium Succinate 40 mg 03/28/17 10:30 03/29/17 09:37 Solu-Medrol - IVPB 40 mg Q8H-IV LUIS F Administration Morphine Sulfate 2 mg 03/28/17 10:24 03/29/17 07:46 Morphine Injection - IVPUSH 2 mg Q4H PRN Administration PAIN ASSESSMENT/PLAN: This is a 61 year old F with PMH of asthma, COPD, alcohol abuse, osteoarthritis , and osteoporosis. Patient admitted for acute hypoxic respiartory failure secondary to probable pneumonia with COPD. 1. Acute hypoxic respiratory failure secondary to probable pneumonia with COPD -Continue Levaquin 750 mg, advair, singulair, spiriva, turdoza, ventolin -Solumedrol 40mg q8hrs -Oxygen to maintain saturation >90% -Pulmonary consult appreciated: Bronchoscopy possible but high risk, will start Rib series and bone scan may be needed, continue current treatment -Will continue to monitor 02 sat 2. Alcohol abuse -on Librium protocol 50 mg dose 12/19 Visit type - Emergency Visit Emergency Visit: No - New Patient This patient is new to me today: Yes Date on this admission: 03/29/17 - Critical Care Critical Care patient: No
--- NOTE | 2017-03-29 19:35 | CONSULT ---
Consult Detox [facility] Reason for Current Admission/Consult: 61y/o female pt with h/o chronic alcoholism admitted for pneumonia /copd. - History History of Present Illness: pt with h/o pn /copd who drinks 5 beers /day .Admitted with Pneumonia , copd . Pt was treated with Librium 50mg q 6h after admission . - History Source History Provided By: Patient Limitations to Obtaining History: No Limitations - Alcohol/Substance Use Hx Alcohol Use: Yes (5 cans of beer /d) Hx Substance Use: No Hx Substance Use Treatment: No - Current Drug/Alcohol Use Alcohol Route: Oral Frequency: Daily Amount used: 5 - 12 oz beers/d Age of first use: 32 Date of Last Use: 03/27/17 - Past Medical History Pulmonary: Yes: COPD, Pneumonia, Other (BULLOUS EMPHYSEMA). No: O2 Dependent Gastrointestinal: Yes: Other (ALCOHOLISM) Renal/: No: Renal Failure ...: No Psych: Yes: Addictions Musculoskeletal: Yes: Other (RIGHT SIDED RIB PAIN) Endocrine: No: Diabetes Mellitus - Significant Medical Findings: 61 y/o f pt lying in bed in nad with O2 by NC. pt is aox3 , cooperative , responding appropriately no diaphoresis no tremors no hallucinations CIWA Score - CIWA Score Nausea/Vomitin-No Nausea/No Vomiting Muscle Tremors: None Anxiety: 1-Mildly Anxious Agitation: 0-Normal Activity Paroxysmal Sweats: No Perspiration Orientation: 0-Oriented Tacttile Disturbances: 1-Very Mild Itch/Numbness Auditory Disturbances: 0-None Visual Disturbances: 0-None Headache: 1-Very Mild CIWA-Ar Total Score: 3 Assessment Plan - Diagnosis (1) Osteoarthritis Status: Chronic (2) Pleuritic chest pain Status: Acute (3) COPD with emphysema Status: Chronic (4) Pneumonia Status: Acute (5) Chronic alcoholism Status: Chronic - Plan Plan: Pt placed on librium protocol. Pt would benefit from out pt. treatment program , AA or [facility] care In Pt. Rehab - Medication Detox Regimen/Protocol: Librium
[2017-03-30] MEDS: CLINDAMYCIN 600MG PREMIX IVPB 50 ML IVPB SCH ×2 (02:51→10:28)
[2017-03-30] MEDS: methylPREDNISolone NA SUCC 40 MG/1 ML VIAL IVPB SCH ×3 (02:51→17:30)
[2017-03-30] MEDS: SODIUM CHLORIDE 1,000 ML IV SCH ×3 (02:56→20:22)
[2017-03-30] MEDS: LEVOFLOXACIN 750 MG IVPB 150 ML IVPB SCH (06:02)
[2017-03-30] MEDS: chlordiazePOXIDE HCL 25 MG CAPSULE PO SCH ×3 (06:03→17:30)
[2017-03-30] MEDS: FOLIC ACID 1 MG TABLET (FP) PO SCH (10:29)
[2017-03-30] MEDS: ENOXAPARIN NA (PORCINE) 40 MG/0.4 ML DISP.SYRIN SQ SCH (10:29)
[2017-03-30] MEDS: MULTIVITAMINS (DAILY MVI) TABLET (FP) PO SCH (10:29)
[2017-03-30] MEDS: ALBUTEROL SO4 0.083% IH SOL 2.5 MG/3 ML VIAL.NEB. NEB PRN (10:30)
[2017-03-30] MEDS: BUDESONIDE/FORMETEROL FUMARATE 160/4.5 mcg INHALER IH SCH ×2 (10:32→21:29)
[2017-03-30] MEDS: THIAMINE HCL 100 MG TABLET (FP) PO SCH (10:32)
[2017-03-30] MEDS ORDERED: PT OWN MED DRAWER 7, Y5N ONE (10:32)
[2017-03-30] MEDS: ACLIDINIUM BROMIDE 400 MCG/INH AERO.POWD IH SCH ×2 (10:33→21:29)
--- NOTE | 2017-03-30 11:16 | PN ---
Progress Note (short form) - Note Progress Note: PULMONARY States breathing slightly improved. No cough or wheezing. No fevers or chills. Last Vital Signs Temp Pulse Resp BP Pulse Ox 97.7 F 76 18 104/66 93 L 03/30/17 06:00 03/30/17 06:00 03/30/17 06:00 03/30/17 06:00 03/29/17 21:00 Gen: mildly tachypneic with speaking Heart: RRR Lung: scattered rhonchi, wheezes Abd: soft, nontender Ext: no edema Skin: papular erythema lower abdomen, legs CBC, BMP 03/29/17 06:40 03/29/17 06:40 Active Medications Acetaminophen (Tylenol -) 650 mg PO Q4H PRN PRN Reason: FEVER OR PAIN Aclidinium [place] (Tudorza -) 1 puff IH BID [facility] Last Admin: 03/30/17 10:33 Dose: 1 puff Albuterol Sulfate (Ventolin 0.083% Nebulizer Soln -) 1 amp NEB Q4H PRN PRN Reason: SHORT OF BREATH/WHEEZING Last Admin: 03/29/17 11:50 Dose: 1 amp Budesonide/Formoterol Fumarate (Symbicort 160/4.5mcg -) 1 puff IH BID [facility] Last Admin: 03/30/17 10:32 Dose: 1 puff Chlordiazepoxide HCl (Librium -) 25 mg PO [id number] [facility] Stop: 03/30/17 17:01 Last Admin: 03/30/17 10:29 Dose: 25 mg Chlordiazepoxide HCl (Librium -) 15 mg PO Q6HPO [facility]IS F Stop: 03/31/17 12:01 Chlordiazepoxide HCl (Librium -) 10 mg PO Q6HPO [facility] F Stop: 04/01/17 12:01 Diphenhydramine HCl (Benadryl Injection -) 25 mg IVPB Q6H PRN PRN Reason: FOR ITCHING Docusate Sodium (Colace -) 100 mg PO BID PRN PRN Reason: CONSTIPATION Enoxaparin Sodium (Lovenox -) 40 mg SQ DAILY [facility] Last Admin: 03/30/17 10:29 Dose: 40 mg Folic Acid (Folic Acid -) 1 mg PO DAILY [facility] Last Admin: 03/30/17 10:29 Dose: 1 mg Sodium Chloride (Normal Saline -) 1,000 mls @ 75 mls/hr IV ASDIR [facility] Last Admin: 03/30/17 10:33 Dose: 75 mls/hr Levofloxacin (Levaquin 750 Mg Premixed Ivpb -) 150 mls @ 100 mls/hr IVPB DAILY@ 0600 [facility] Last Admin: 03/30/17 06:02 Dose: 100 mls/hr Clindamycin Phosphate (Cleocin 600 Mg Premix Ivpb -) 50 mls @ 100 mls/hr IVPB Q6H-IV [facility] Last Admin: 03/30/17 10:28 Dose: 100 mls/hr Methylprednisolone Sodium Succinate (Solu-Medrol -) 40 mg IVPB Q8H-IV [facility] Last Admin: 03/30/17 10:29 Dose: 40 mg Morphine Sulfate (Morphine Injection -) 2 mg IVPUSH Q4H PRN PRN Reason: PAIN Last Admin: 03/29/17 07:46 Dose: 2 mg Multivitamins/Minerals/Vitamin C (Tab-A-Vit -) 1 tab PO DAILY [facility] Last Admin: 03/30/17 10:29 Dose: 1 tab Thiamine HCl (Vitamin B1 -) 100 mg PO DAILY [facility] Last Admin: 03/30/17 10:32 Dose: 100 mg A/P Lung Mass - ?Focal Pneumonia vs Focal Bronchiectasis vs Malignancy Severe COPD/Emphysema Smoker EtOH Dependence - continue medrol at current dose - inhaled bronchodilators - O2 to keep SpO2 >90% - continue antibiotics, may not need clindamycin as pt on high dose levaquin - started on benadryl PRN for rash - agree that pt high risk for invasive diagnostic procedure at this time - would obtain repeat CT chest in 6-8 weeks to reassess RUL finding and PET scan if findings persist - will need to check ambulatory SpO2 on room air to assess for home O2 - outpt PFTs - smoking cessation - DVT prophylaxis
[2017-03-30] MEDS ORDERED: ALBUTEROL SO4 2.5/IPRATROPIUM 0.5 INH SOL 3 ML VIAL.NEB. NEB ONE (12:07)
[2017-03-30] MEDS: ALBUTEROL SO4 2.5/IPRATROPIUM 0.5 INH SOL 3 ML VIAL.NEB. NEB SCH ×3 (12:50→23:26)
[2017-03-30] MEDS ORDERED: ALBUTEROL SO4 6.7 GM HFA INHALER IH PRN (13:41)
--- NOTE | 2017-03-30 14:25 | PN ---
Teaching Attending Note Name of Resident: Viktoria Mayfield ATTENDING PHYSICIAN STATEMENT I saw and evaluated the patient. I reviewed the resident's note and discussed the case with the resident. I agree with the resident's findings and plan as documented. SUBJECTIVE: Patient appears short of breath. OBJECTIVE: Vital Signs Period Temp Pulse Resp BP Sys/Smith Pulse Ox Last 24 Hr 97.7 F-98.4 F 66-94 17-18 104-120/65-72 93-96 HEART: S1S2, RRR LUNGS: Crackles throughout right lung ABDOMEN: Soft, non-tender, non-distended, normal BS EXTREMITIES: No edema ASSESSMENT AND PLAN: This is a 61-year-old woman with a history of asthma, COPD, alcohol abuse, osteoarthritis, osteoporosis who recently quit smoking and who came to the ER after being awakened by pleuritic chest pain. 1. Acute hypoxic respiratory failure secondary to probable pneumonia with COPD - Continue Levaquin - Discontinue Clindamycin - O2 saturation is 84% on 2L - improved to 90% on 4L - Continue SoluMedrol, Symbicort, Tudorza, albuterol nebs - Chest x-ray 2. Alcohol abuse - Continue Librium detox
--- NOTE | 2017-03-30 16:53 | PN ---
Physical Exam: SUBJECTIVE: Patient seen and examined at bedside. Pt is SOB and having trouble eating her lunch. Denies chest pain, or extremity pain. OBJECTIVE: Vital Signs Period Temp Pulse Resp BP Sys/Smith Pulse Ox Last 24 Hr 97.7 F-98.5 F 66-104 17-18 104-120/65-72 93-96 GENERAL: The patient is awake, alert, and fully oriented, in mild distress, on 2L 02 HEAD: Normal with no signs of trauma. EYES: PERRL, extraocular movements intact, sclera anicteric, conjunctiva clear. No ptosis. ENT: Ears normal, nares patent, oropharynx clear without exudates, moist mucous membranes. NECK: Trachea midline, full range of motion, supple. LUNGS: wheezing bilaterally, more pronounced in lower lobes HEART: Regular rate and rhythm, S1, S2 without murmur, rub or gallop. ABDOMEN: Soft, nontender, nondistended, normoactive bowel sounds, no guarding, no rebound, no hepatosplenomegaly, no masses. EXTREMITIES: 2+ posterior tibial pulses, warm, well-perfused, no edema. NEUROLOGICAL: Cranial nerves II through XII grossly intact. Active Medications Generic Name Dose Route Start Last Admin Trade Name Freq PRN Reason Stop Dose Admin Acetaminophen 650 mg 03/28/17 10:24 Tylenol - PO Q4H PRN FEVER OR PAIN Aclidinium [place] 1 puff 03/28/17 10:30 03/30/17 10:33 Tudorza - IH 1 puff BID LUIS F Administration Albuterol Sulfate 2 puff 03/30/17 13:41 Ventolin Hfa Inhaler - IH Q4HPO PRN SHORTNESS OF BREATH Albuterol/Ipratropium 1 amp 03/30/17 12:45 03/30/17 12:50 Duoneb - NEB 1 amp Q4H LUIS F Administration Budesonide/Formoterol Fumarate 1 puff 03/28/17 22:00 03/30/17 10:32 Symbicort 160/4.5mcg - IH 1 puff BID LUIS F Administration Chlordiazepoxide HCl 25 mg 03/29/17 23:00 03/30/17 10:29 Librium - PO 03/30/17 17:01 25 mg [id number] LUIS F Administration Chlordiazepoxide HCl 15 mg 03/30/17 23:00 Librium - PO 03/31/17 12:01 Q6HPO LUIS F Chlordiazepoxide HCl 10 mg 03/31/17 23:00 Librium - PO 04/01/17 12:01 Q6HPO LUIS F Diphenhydramine HCl 25 mg 03/30/17 11:15 Benadryl Injection - IVPB Q6H PRN FOR ITCHING Docusate Sodium 100 mg 03/28/17 10:24 Colace - PO BID PRN CONSTIPATION Enoxaparin Sodium 40 mg 03/29/17 10:00 03/30/17 10:29 Lovenox - SQ 40 mg DAILY [facility]IS F Administration Folic Acid 1 mg 03/30/17 10:00 03/30/17 10:29 Folic Acid - PO 1 mg DAILY [facility]IS F Administration Sodium Chloride 1,000 mls @ 75 mls/hr 03/28/17 10:30 03/30/17 10:33 Normal Saline - IV 75 mls/hr ASDIR [facility]IS F Administration Levofloxacin 150 mls @ 100 mls/hr 03/29/17 06:00 03/30/17 06:02 Levaquin 750 Mg Premixed Ivpb - IVPB 100 mls/hr DAILY@0600 [facility] F Administration Methylprednisolone Sodium Succinate 40 mg 03/28/17 10:30 03/30/17 10:29 Solu-Medrol - IVPB 40 mg Q8H-IV [facility]IS F Administration Morphine Sulfate 2 mg 03/28/17 10:24 03/29/17 07:46 Morphine Injection - IVPUSH 2 mg Q4H PRN Administration PAIN Multivitamins/Minerals/Vitamin C 1 tab 03/30/17 10:00 03/30/17 10:29 Tab-A-Vit - PO 1 tab DAILY [facility]IS F Administration Thiamine HCl 100 mg 03/30/17 10:00 03/30/17 10:32 Vitamin B1 - PO 100 mg DAILY [facility]IS F Administration ASSESSMENT/PLAN: This is a 61 year old F with PMH of asthma, COPD, alcohol abuse, osteoarthritis , and osteoporosis. Patient admitted for acute hypoxic respiratory failure secondary to probable pneumonia with COPD. 1. Acute hypoxic respiratory failure secondary to probable pneumonia with COPD CXR findings: segmental R lower lobe consolidation not seen on prior CXR done on March 28, small reactive R pleural effusion can't be excluded -Continue Levaquin 750 mg, symbicort, turdoza, ventolin inhaler 2 puffs IH q4 PRN, Duoneb 1 amp neb q4h -Solumedrol 40mg IVPB q8hrs -Oxygen to maintain saturation >90% -Pulmonary consult recommendations: - would obtain repeat CT chest in 6-8 weeks to reassess RUL finding and PET scan if findings persist - will need to check ambulatory SpO2 on room air to assess for home O2 - outpt PFTs - smoking cessation 2. Alcohol abuse -on Librium 25 mg PO dose 2/ -Vitamin B1 10 mg PO daily 3. Rash- on lower extremities -started on benadryl PRN Visit type - Emergency Visit Emergency Visit: No - New Patient This patient is new to me today: No - Critical Care Critical Care patient: No - Discharge Referral Referred to [facility] Med P.C.: No
[2017-03-30] MEDS: chlordiazePOXIDE 5 MG CAPSULE PO SCH (23:08)
[2017-03-31] MEDS: chlordiazePOXIDE 5 MG CAPSULE PO SCH ×4 (01:00→22:58)
[2017-03-31] MEDS: ALBUTEROL SO4 2.5/IPRATROPIUM 0.5 INH SOL 3 ML VIAL.NEB. NEB SCH ×6 (01:05→23:43)
[2017-03-31] MEDS: methylPREDNISolone NA SUCC 40 MG/1 ML VIAL IVPB SCH ×3 (01:27→18:07)
[2017-03-31] MEDS: LEVOFLOXACIN 750 MG IVPB 150 ML IVPB SCH (05:47)
[2017-03-31] MEDS ORDERED: PT OWN MED DRAWER 7, Y5N ONE ×2 (09:08→22:07)
[2017-03-31] MEDS: ACLIDINIUM BROMIDE 400 MCG/INH AERO.POWD IH SCH ×2 (09:25→21:39)
[2017-03-31] MEDS: BUDESONIDE/FORMETEROL FUMARATE 160/4.5 mcg INHALER IH SCH ×2 (09:26→21:39)
[2017-03-31] MEDS: MULTIVITAMINS (DAILY MVI) TABLET (FP) PO SCH (09:26)
[2017-03-31] MEDS: FOLIC ACID 1 MG TABLET (FP) PO SCH (09:26)
[2017-03-31] MEDS: THIAMINE HCL 100 MG TABLET (FP) PO SCH (09:27)
[2017-03-31] MEDS: ENOXAPARIN NA (PORCINE) 40 MG/0.4 ML DISP.SYRIN SQ SCH (10:00)
--- NOTE | 2017-03-31 12:29 | PN ---
Progress Note (short form) - Note Progress Note: PULMONARY NOW COMPLAINING OF PAIN IN LEFT ANTERIOR RIB REGION ORIGINAL PAIN WAS ON RIGHT (NEGATIVE RIB SERIES) VSS/AFEBRILE ANICTERIC DIMINISHED BREATH SOUNDS S1S2 BS+ SOFT NONTENDER NO EDEMA LABS/MEDS/NOTES/IMAGING/MICRO REVIEWED CABP SUPERIMPOSED UPON BULLOUS EMPHYSEMA SEVERE BULLOUS DISEASE PREVENTS DIAGNOSTIC TTNA OF MASS LIKE CONSOLIDATIVE PROCESS BRONCHOSCOPY COULD BE CONSIDERED BUT LESION IS CENTRAL WOULD OFFER HIGH RISK FOR PTX ?PLEURODYNIA ? METASTATIC DISEASE CONSIDER BONE SCAN CONTINUE CURRENT TREATMENT/ABS/BRONCHODILATORS CHECK HOME O2 NEED WITH SPO2 PRE/POST AMB ON R/A R [place] Problem List - Problems (1) COPD with emphysema Code(s): J43.9 - EMPHYSEMA, UNSPECIFIED (2) Alcoholic Code(s): F10.20 - ALCOHOL DEPENDENCE, UNCOMPLICATED (3) Lung mass Code(s): R91.8 - OTHER NONSPECIFIC ABNORMAL FINDING OF LUNG FIELD
--- NOTE | 2017-03-31 13:47 | PN ---
Physical Exam: SUBJECTIVE: Patient seen and examined. Pt states that she has pain on the L side of her chest. Was getting ready to receive her nebulizer treatment this morning. Was on 5L 02, was just OOB using bathroom. Denies chest pain, extremity pain. OBJECTIVE: Vital Signs Period Temp Pulse Resp BP Sys/Smith Pulse Ox Last 24 Hr 97.6 F-98.5 F 72-104 20-24 123-134/71-76 4-96 GENERAL: The patient is awake, alert, and fully oriented, in mild distress HEAD: Normal with no signs of trauma. EYES: PERRL, extraocular movements intact, sclera anicteric, conjunctiva clear. ENT: oropharynx clear without exudates, moist mucous membranes. NECK: Trachea midline, supple. LUNGS: crackles bilateral in lung bases HEART: Regular rate and rhythm, S1, S2 without murmur, rub or gallop. ABDOMEN: Soft, nontender, nondistended, normoactive bowel sounds, no guarding, no rebound EXTREMITIES: 2+ posterior tibial pulses, warm, well-perfused, no edema. NEUROLOGICAL: Cranial nerves II through XII grossly intact. Laboratory Results - last 24 hr 03/31/17 11:08 POC Glucometer 129 Active Medications Generic Name Dose Route Start Last Admin Trade Name Freq PRN Reason Stop Dose Admin Acetaminophen 650 mg 03/28/17 10:24 Tylenol - PO Q4H PRN FEVER OR PAIN Aclidinium [place] 1 puff 03/28/17 10:30 03/31/17 09:25 Tudorza - IH 1 puff BID LUIS F Administration Albuterol Sulfate 2 puff 03/30/17 13:41 Ventolin Hfa Inhaler - IH Q4HPO PRN SHORTNESS OF BREATH Albuterol/Ipratropium 1 amp 03/31/17 10:00 03/31/17 10:10 Duoneb - NEB 1 amp Q4HWA LUIS F Administration Budesonide/Formoterol Fumarate 1 puff 03/28/17 22:00 03/31/17 09:26 Symbicort 160/4.5mcg - IH 1 puff BID LUIS F Administration Chlordiazepoxide HCl 10 mg 03/31/17 23:00 Librium - PO 04/01/17 12:01 Q6HPO LUIS F Diphenhydramine HCl 25 mg 03/30/17 11:15 Benadryl Injection - IVPB Q6H PRN FOR ITCHING Docusate Sodium 100 mg 03/28/17 10:24 Colace - PO BID PRN CONSTIPATION Enoxaparin Sodium 40 mg 03/29/17 10:00 03/30/17 10:29 Lovenox - SQ 40 mg DAILY [facility]IS F Administration Folic Acid 1 mg 03/30/17 10:00 03/31/17 09:26 Folic Acid - PO 1 mg DAILY [facility]IS F Administration Sodium Chloride 1,000 mls @ 75 mls/hr 03/28/17 10:30 03/30/17 20:22 Normal Saline - IV 75 mls/hr ASDIR LUIS F Administration Levofloxacin 150 mls @ 100 mls/hr 03/29/17 06:00 03/31/17 05:47 Levaquin 750 Mg Premixed Ivpb - IVPB 100 mls/hr DAILY@0600 [facility]IS F Administration Methylprednisolone Sodium Succinate 20 mg 03/31/17 18:00 Solu-Medrol - IVPB Q8H-IV LUIS F Morphine Sulfate 2 mg 03/28/17 10:24 03/29/17 07:46 Morphine Injection - IVPUSH 2 mg Q4H PRN Administration PAIN Multivitamins/Minerals/Vitamin C 1 tab 03/30/17 10:00 03/31/17 09:26 Tab-A-Vit - PO 1 tab DAILY [facility]IS F Administration Thiamine HCl 100 mg 03/30/17 10:00 03/31/17 09:27 Vitamin B1 - PO 100 mg DAILY [facility]IS F Administration ASSESSMENT/PLAN: This is a 61 year old F with PMH of asthma, COPD, alcohol abuse, osteoarthritis , and osteoporosis. Patient admitted for acute hypoxic respiratory failure secondary to probable pneumonia with COPD. 1. Acute hypoxic respiratory failure secondary to probable pneumonia with COPD -Continue Levaquin 750 mg (Day 3) , symbicort, turdoza, ventolin inhaler 2 puffs IH q4 PRN, Duoneb 1 amp neb q4h -Solumedrol 20mg IVPB q8hrs -Oxygen to maintain saturation >90% -Pulmonary consult recommendations: -CABP on bullous emphysema -Consider bone scan -Continue to check 02 sat - last 02 sat this afternoon= 90% 2. Alcohol abuse -on Librium 15 mg PO dose 2/4 -Vitamin B1 10 mg PO daily 3. Rash- on lower extremities -started on benadryl PRN Visit type - Emergency Visit Emergency Visit: No - New Patient This patient is new to me today: No - Critical Care Critical Care patient: No - Discharge Referral Referred to [facility] Med P.C.: No
--- NOTE | 2017-03-31 14:55 | EKG ---
Test Reason : Blood Pressure : / mmHG Vent. Rate : 096 BPM Atrial Rate : 096 BPM P-R Int : 128 ms QRS Dur : 068 ms QT Int : 338 ms P-R-T Axes : 070 032 072 degrees QTc Int : 427 ms POOR DATA QUALITY, INTERPRETATION MAY BE ADVERSELY AFFECTED NORMAL SINUS RHYTHM SEPTAL INFARCT , AGE UNDETERMINED ABNORMAL ECG WHEN COMPARED WITH ECG OF 05-FEB-2017 22:23, NO SIGNIFICANT CHANGE WAS FOUND Confirmed by ADILENE HICKS MD ([id number]) on 03/31/2017 2:55:37 PM Referred By: Confirmed By:ADILENE HICKS MD
[2017-03-31] MEDS: SODIUM CHLORIDE 1,000 ML IV SCH (15:49)
--- NOTE | 2017-03-31 16:32 | PN ---
Teaching Attending Note Name of Resident: Viktoria Mayfield ATTENDING PHYSICIAN STATEMENT I saw and evaluated the patient. I reviewed the resident's note and discussed the case with the resident. I agree with the resident's findings and plan as documented. SUBJECTIVE: Patient feels less short of breath. She now complains of pain in the left lower ribs. OBJECTIVE: Vital Signs Period Temp Pulse Resp BP Sys/Smith Pulse Ox Last 24 Hr 97.6 F-98.5 F 72-106 20-24 123-134/71-76 4-96 HEART: S1S2, RRR LUNGS: Clear with decreased BS bilaterally ABDOMEN: Soft, non-tender, non-distended, normal BS EXTREMITIES: No edema ASSESSMENT AND PLAN: This is a 61-year-old woman with a history of asthma, COPD, alcohol abuse, osteoarthritis, osteoporosis who recently quit smoking and who came to the ER after being awakened by pleuritic chest pain. 1. Acute hypoxic respiratory failure secondary to pneumonia with COPD - Continue Levaquin - Clindamycin discontinued - Continue oxygen to manitain saturation > 90% - requiring 6L with ambulation - Continue SoluMedrol, Symbicort, Tudorza, DuoNeb, albuterol nebs as needed 2. Continuous alcohol abuse - No signs of withdrawal - Continue Librium, thiamine, folic acid, multivitamin
[2017-04-01] MEDS: chlordiazePOXIDE 5 MG CAPSULE PO SCH ×3 (01:45→12:00)
[2017-04-01] MEDS: methylPREDNISolone NA SUCC 40 MG/1 ML VIAL IVPB SCH ×3 (01:50→17:56)
[2017-04-01] MEDS: SODIUM CHLORIDE 1,000 ML IV SCH (02:07)
[2017-04-01] MEDS: LEVOFLOXACIN 750 MG IVPB 150 ML IVPB SCH (06:07)
[2017-04-01] MEDS: ALBUTEROL SO4 2.5/IPRATROPIUM 0.5 INH SOL 3 ML VIAL.NEB. NEB SCH ×5 (06:28→22:33)
[2017-04-01] MEDS ORDERED: PT OWN MED DRAWER 7, Y5N ONE ×2 (10:06→21:17)
[2017-04-01] MEDS: BUDESONIDE/FORMETEROL FUMARATE 160/4.5 mcg INHALER IH SCH ×2 (10:08→21:21)
[2017-04-01] MEDS: ENOXAPARIN NA (PORCINE) 40 MG/0.4 ML DISP.SYRIN SQ SCH (10:09)
[2017-04-01] MEDS: THIAMINE HCL 100 MG TABLET (FP) PO SCH (10:09)
[2017-04-01] MEDS: ACLIDINIUM BROMIDE 400 MCG/INH AERO.POWD IH SCH (10:09)
[2017-04-01] MEDS: FOLIC ACID 1 MG TABLET (FP) PO SCH (10:09)
[2017-04-01] MEDS: MULTIVITAMINS (DAILY MVI) TABLET (FP) PO SCH (10:09)
--- NOTE | 2017-04-01 10:40 | PN ---
Progress Note (short form) - Note Progress Note: PULMONARY States breathing slightly improved. No cough or wheezing. Only able to ambulate short distances. Has 24 steps at home. Last Vital Signs Temp Pulse Resp BP Pulse Ox 97.7 F 84 20 132/80 91 L 04/01/17 08:00 04/01/17 08:00 04/01/17 08:00 04/01/17 08:00 03/31/17 21:00 Gen: mildly tachypneic at rest Heart: RRR Lung: distant breath sounds, less rhonchi Abd: soft, nontender Ext: no edema CBC, BMP 03/29/17 06:40 03/29/17 06:40 Active Medications Acetaminophen (Tylenol -) 650 mg PO Q4H PRN PRN Reason: FEVER OR PAIN Aclidinium [place] (Tudorza -) 1 puff IH BID [facility] Last Admin: 04/01/17 10:09 Dose: 1 puff Albuterol Sulfate (Ventolin Hfa Inhaler -) 2 puff IH Q4HPO PRN PRN Reason: SHORTNESS OF BREATH Albuterol/Ipratropium (Duoneb -) 1 amp NEB Q4HWA [facility] Last Admin: 04/01/17 06:28 Dose: 1 amp Budesonide/Formoterol Fumarate (Symbicort 160/4.5mcg -) 1 puff IH BID [facility] Last Admin: 04/01/17 10:08 Dose: 1 puff Chlordiazepoxide HCl (Librium -) 10 mg PO Q6HPO [facility] Stop: 04/01/17 12:01 Last Admin: 04/01/17 06:33 Dose: 10 mg Diphenhydramine HCl (Benadryl Injection -) 25 mg IVPB Q6H PRN PRN Reason: FOR ITCHING Docusate Sodium (Colace -) 100 mg PO BID PRN PRN Reason: CONSTIPATION Enoxaparin Sodium (Lovenox -) 40 mg SQ DAILY [facility] Last Admin: 04/01/17 10:09 Dose: 40 mg Folic Acid (Folic Acid -) 1 mg PO DAILY [facility] Last Admin: 04/01/17 10:09 Dose: 1 mg Sodium Chloride (Normal Saline -) 1,000 mls @ 75 mls/hr IV ASDIR [facility] Last Admin: 04/01/17 02:07 Dose: 75 mls/hr Levofloxacin (Levaquin 750 Mg Premixed Ivpb -) 150 mls @ 100 mls/hr IVPB DAILY@ 0600 [facility] Last Admin: 04/01/17 06:07 Dose: 100 mls/hr Methylprednisolone Sodium Succinate (Solu-Medrol -) 20 mg IVPB Q8H-IV [facility]IS F Last Admin: 04/01/17 10:09 Dose: 20 mg Morphine Sulfate (Morphine Injection -) 2 mg IVPUSH Q4H PRN PRN Reason: PAIN Last Admin: 03/29/17 07:46 Dose: 2 mg Multivitamins/Minerals/Vitamin C (Tab-A-Vit -) 1 tab PO DAILY [facility] Last Admin: 04/01/17 10:09 Dose: 1 tab Thiamine HCl (Vitamin B1 -) 100 mg PO DAILY [facility] Last Admin: 04/01/17 10:09 Dose: 100 mg A/P Lung Mass - ?Focal Pneumonia vs Focal Bronchiectasis vs Malignancy Severe COPD/Emphysema Smoker EtOH Dependence - continue medrol at current dose - inhaled bronchodilators - O2 to keep SpO2 >90% - continue antibiotics - pt high risk for invasive diagnostic procedure at this time - would obtain repeat CT chest in 6-8 weeks to reassess RUL finding and PET scan if findings persist - will need to check ambulatory SpO2 on room air to assess for home O2 when ready for discharge - outpt PFTs - smoking cessation - DVT prophylaxis
--- NOTE | 2017-04-01 11:55 | PN ---
Physical Exam: SUBJECTIVE: Patient seen and examined at bedside. Patient states that she is having less trouble breathing than yesterday. Denies chest and lower extremity pain. Pt 02 sat 91% early this morning, 95% late morning. OBJECTIVE: Vital Signs Period Temp Pulse Resp BP Sys/Smith Pulse Ox Last 24 Hr 97.6 F-98.1 F 82-106 18-20 111-139/65-80 89-91 GENERAL: The patient is tired, alert, and fully oriented, in mild distress HEAD: Normal with no signs of trauma. EYES: PERRL, extraocular movements intact, sclera anicteric, conjunctiva clear. ENT: oropharynx clear without exudates, moist mucous membranes. NECK: Trachea midline, supple. LUNGS: crackles still heard b/l lung bases but improved from yesterday HEART: Regular rate and rhythm, S1, S2 without murmur, rub or gallop. ABDOMEN: Soft, nontender, nondistended, normoactive bowel sounds, no guarding, no rebound EXTREMITIES: 2+ posterior pulses, warm, well-perfused, no edema. NEUROLOGICAL: Cranial nerves II through XII grossly intact. Laboratory Results - last 24 hr 03/31/17 16:50 POC Glucometer 250 Active Medications Generic Name Dose Route Start Last Admin Trade Name Freq PRN Reason Stop Dose Admin Acetaminophen 650 mg 03/28/17 10:24 Tylenol - PO Q4H PRN FEVER OR PAIN Aclidinium [place] 1 puff 03/28/17 10:30 04/01/17 10:09 Tudorza - IH 1 puff BID LUIS F Administration Albuterol Sulfate 2 puff 03/30/17 13:41 Ventolin Hfa Inhaler - IH Q4HPO PRN SHORTNESS OF BREATH Albuterol/Ipratropium 1 amp 03/31/17 10:00 04/01/17 10:30 Duoneb - NEB 1 amp Q4HWA LUIS F Administration Budesonide/Formoterol Fumarate 1 puff 03/28/17 22:00 04/01/17 10:08 Symbicort 160/4.5mcg - IH 1 puff BID LUIS F Administration Chlordiazepoxide HCl 10 mg 03/31/17 23:00 04/01/17 06:33 Librium - PO 04/01/17 12:01 10 mg Q6HPO LUIS F Administration Diphenhydramine HCl 25 mg 03/30/17 11:15 Benadryl Injection - IVPB Q6H PRN FOR ITCHING Docusate Sodium 100 mg 03/28/17 10:24 Colace - PO BID PRN CONSTIPATION Enoxaparin Sodium 40 mg 03/29/17 10:00 04/01/17 10:09 Lovenox - SQ 40 mg DAILY LUIS F Administration Folic Acid 1 mg 03/30/17 10:00 04/01/17 10:09 Folic Acid - PO 1 mg DAILY LUIS F Administration Sodium Chloride 1,000 mls @ 75 mls/hr 03/28/17 10:30 04/01/17 02:07 Normal Saline - IV 75 mls/hr ASDIR LUIS F Administration Levofloxacin 150 mls @ 100 mls/hr 03/29/17 06:00 04/01/17 06:07 Levaquin 750 Mg Premixed Ivpb - IVPB 100 mls/hr DAILY@0600 LUIS F Administration Methylprednisolone Sodium Succinate 20 mg 03/31/17 18:00 04/01/17 10:09 Solu-Medrol - IVPB 20 mg Q8H-IV LUIS F Administration Morphine Sulfate 2 mg 03/28/17 10:24 03/29/17 07:46 Morphine Injection - IVPUSH 2 mg Q4H PRN Administration PAIN Multivitamins/Minerals/Vitamin C 1 tab 03/30/17 10:00 04/01/17 10:09 Tab-A-Vit - PO 1 tab DAILY LUIS F Administration Thiamine HCl 100 mg 03/30/17 10:00 04/01/17 10:09 Vitamin B1 - PO 100 mg DAILY LUIS F Administration ASSESSMENT/PLAN: This is a 61 year old F with PMH of asthma, COPD, alcohol abuse, osteoarthritis , and osteoporosis. Patient admitted for acute hypoxic respiratory failure secondary to probable pneumonia with COPD. 1. Acute hypoxic respiratory failure secondary to probable pneumonia with COPD -Continue Levaquin 750 mg (Day 4) , symbicort, ventolin inhaler 2 puffs IH q4 PRN, Duoneb 1 amp neb q4h -Solumedrol 20mg IVPB q8hrs continue -Turdoza discontinued as this is a maintenance medication, not needed now -Oxygen to maintain saturation >90% (was on 2L [place] this afternoon, working well) 2. Alcohol abuse -Librium protocol complete -Vitamin B1 10 mg PO daily 3. Rash- on lower extremities -started on benadryl PRN General -IVF discontinued as patient can tolerate PO intake Visit type - Emergency Visit Emergency Visit: No - New Patient This patient is new to me today: No - Critical Care Critical Care patient: No
--- NOTE | 2017-04-01 15:03 | PN ---
Teaching Attending Note Name of Resident: Viktoria Mayfield ATTENDING PHYSICIAN STATEMENT I saw and evaluated the patient. I reviewed the resident's note and discussed the case with the resident. I agree with the resident's findings and plan as documented. SUBJECTIVE: Patient still having left lower rib pain. SOB increased after PT. OBJECTIVE: Vital Signs Period Temp Pulse Resp BP Sys/Smith Pulse Ox Last 24 Hr 97.6 F-98.1 F 82-105 18-20 111-139/65-80 91-92 HEART: S1S2, RRR LUNGS: Clear with decreased BS bilaterally ABDOMEN: Soft, non-tender, non-distended, normal BS EXTREMITIES: No edema ASSESSMENT AND PLAN: This is a 61-year-old woman with a history of asthma, COPD, alcohol abuse, osteoarthritis, osteoporosis who recently quit smoking and who came to the ER after being awakened by pleuritic chest pain. 1. Acute hypoxic respiratory failure secondary to pneumonia with COPD - Continue Levaquin, SoluMedrol, Symbicort, Tudorza, DuoNeb, albuterol nebs as needed - Continue oxygen to manitain saturation > 90% 2. Continuous alcohol abuse - No signs of withdrawal - Competed Librium today - Continue thiamine, folic acid, multivitamin
[2017-04-02] MEDS: methylPREDNISolone NA SUCC 40 MG/1 ML VIAL IVPB SCH ×3 (01:39→18:07)
[2017-04-02] MEDS: LEVOFLOXACIN 750 MG IVPB 150 ML IVPB SCH (06:34)
[2017-04-02] MEDS: ALBUTEROL SO4 2.5/IPRATROPIUM 0.5 INH SOL 3 ML VIAL.NEB. NEB SCH ×5 (06:35→22:24)
[2017-04-02] MEDS: THIAMINE HCL 100 MG TABLET (FP) PO SCH (09:47)
[2017-04-02] MEDS: MULTIVITAMINS (DAILY MVI) TABLET (FP) PO SCH (09:47)
[2017-04-02] MEDS: FOLIC ACID 1 MG TABLET (FP) PO SCH (09:47)
[2017-04-02] MEDS: ENOXAPARIN NA (PORCINE) 40 MG/0.4 ML DISP.SYRIN SQ SCH (09:47)
[2017-04-02] MEDS ORDERED: PT OWN MED DRAWER 7, Y5N ONE (09:50)
[2017-04-02] MEDS: BUDESONIDE/FORMETEROL FUMARATE 160/4.5 mcg INHALER IH SCH ×2 (09:51→21:37)
--- NOTE | 2017-04-02 13:02 | PN ---
Progress Note (short form) - Note Progress Note: PULMONARY NOW COMPLAINING OF PAIN IN LEFT ANTERIOR RIB REGION ORIGINAL PAIN WAS ON RIGHT (NEGATIVE RIB SERIES) VSS/AFEBRILE ANICTERIC DIMINISHED BREATH SOUNDS S1S2 BS+ SOFT NONTENDER NO EDEMA LABS/MEDS/NOTES/IMAGING/MICRO REVIEWED CABP SUPERIMPOSED UPON BULLOUS EMPHYSEMA SEVERE BULLOUS DISEASE PREVENTS DIAGNOSTIC TTNA OF MASS LIKE CONSOLIDATIVE PROCESS BRONCHOSCOPY COULD BE CONSIDERED BUT LESION IS CENTRAL WOULD OFFER HIGH RISK FOR PTX ?PLEURODYNIA ? METASTATIC DISEASE CONSIDER BONE SCAN CONTINUE CURRENT TREATMENT/ABS/BRONCHODILATORS CHECK HOME O2 NEED WITH SPO2 PRE/POST AMB ON R/A WILL NEED FOLLOW UP OF DENSITY OUTPATIENT DISCUSSED WITH PATIENT AND FAMILY Yessi BHATT MD Problem List - Problems (1) COPD with emphysema Code(s): J43.9 - EMPHYSEMA, UNSPECIFIED (2) Alcoholic Code(s): F10.20 - ALCOHOL DEPENDENCE, UNCOMPLICATED (3) Lung mass Code(s): R91.8 - OTHER NONSPECIFIC ABNORMAL FINDING OF LUNG FIELD
--- NOTE | 2017-04-02 16:13 | PN ---
Teaching Attending Note Name of Resident: Viktoria Mayfield ATTENDING PHYSICIAN STATEMENT I saw and evaluated the patient. I reviewed the resident's note and discussed the case with the resident. I agree with the resident's findings and plan as documented. SUBJECTIVE: Patient still complains of left lower rib pain. Overall she feels she is doing better. OBJECTIVE: Vital Signs Period Temp Pulse Resp BP Sys/Smith Pulse Ox Last 24 Hr 97.5 F-98.8 F 78-105 18-20 112-128/71-86 92-94 HEART: S1S2, RRR LUNGS: Clear with decreased BS bilaterally ABDOMEN: Soft, non-tender, non-distended, normal BS EXTREMITIES: No edema ASSESSMENT AND PLAN: This is a 61-year-old woman with a history of asthma, COPD, alcohol abuse, osteoarthritis, osteoporosis who recently quit smoking and who came to the ER after being awakened by pleuritic chest pain. 1. Acute hypoxic respiratory failure secondary to pneumonia with COPD - SoluMedrol being tapered - Continue Levaquin, Symbicort, DuoNeb, albuterol nebs as needed - Continue oxygen to manitain saturation > 90% - will likely need home oxygen 2. Left rib pain - Check x-rays 3. Continuous alcohol abuse - No signs of withdrawal - Competed Librium detox - Continue thiamine, folic acid, multivitamin - Will need outpatient treatment program vs rehab
--- NOTE | 2017-04-02 16:19 | PN ---
Physical Exam: SUBJECTIVE: Patient seen and examined at bedside. Pt had just returned from PT, on 3L 02 via NC. Pt states that she is still out of breath and feeling "horrible ," but that PT was very helpful. 02 sat 91%. Denies chest or extremity pain. OBJECTIVE: Vital Signs Period Temp Pulse Resp BP Sys/Smith Pulse Ox Last 24 Hr 97.5 F-98.8 F 78-105 18-20 112-128/71-86 92-94 GENERAL: The patient is awake, alert, and fully oriented, in no acute distress. HEAD: Normal with no signs of trauma. EYES: PERRL, extraocular movements intact, sclera anicteric, conjunctiva clear. No ptosis. ENT: oropharynx clear without exudates, moist mucous membranes. NECK: Trachea midline, supple. LUNGS: Decreased breath sounds bilaterally HEART: Regular rate and rhythm, S1, S2 without murmur, rub or gallop. ABDOMEN: Soft, nontender, nondistended, normoactive bowel sounds, no guarding, no rebound EXTREMITIES: 2+ posterior tibial pulses, warm, well-perfused, no edema. NEUROLOGICAL: Cranial nerves II through XII grossly intact. Active Medications Generic Name Dose Route Start Last Admin Trade Name Freq PRN Reason Stop Dose Admin Acetaminophen 650 mg 03/28/17 10:24 Tylenol - PO Q4H PRN FEVER OR PAIN Albuterol Sulfate 2 puff 03/30/17 13:41 Ventolin Hfa Inhaler - IH Q4HPO PRN SHORTNESS OF BREATH Albuterol/Ipratropium 1 amp 03/31/17 10:00 04/02/17 14:17 Duoneb - NEB 1 amp Q4HWA LUIS F Administration Budesonide/Formoterol Fumarate 1 puff 03/28/17 22:00 04/02/17 09:51 Symbicort 160/4.5mcg - IH 1 puff BID LUIS F Administration Diphenhydramine HCl 25 mg 03/30/17 11:15 Benadryl Injection - IVPB Q6H PRN FOR ITCHING Docusate Sodium 100 mg 03/28/17 10:24 Colace - PO BID PRN CONSTIPATION Enoxaparin Sodium 40 mg 03/29/17 10:00 04/02/17 09:47 Lovenox - SQ 40 mg DAILY LUIS F Administration Folic Acid 1 mg 03/30/17 10:00 04/02/17 09:47 Folic Acid - PO 1 mg DAILY LUIS F Administration Levofloxacin 150 mls @ 100 mls/hr 03/29/17 06:00 04/02/17 06:34 Levaquin 750 Mg Premixed Ivpb - IVPB 100 mls/hr DAILY@0600 LUIS F Administration Methylprednisolone Sodium Succinate 20 mg 03/31/17 18:00 04/02/17 09:47 Solu-Medrol - IVPB 20 mg Q8H-IV LUIS F Administration Multivitamins/Minerals/Vitamin C 1 tab 03/30/17 10:00 04/02/17 09:47 Tab-A-Vit - PO 1 tab DAILY LUIS F Administration Thiamine HCl 100 mg 03/30/17 10:00 04/02/17 09:47 Vitamin B1 - PO 100 mg DAILY LUIS F Administration ASSESSMENT/PLAN: This is a 61 year old F with PMH of asthma, COPD, alcohol abuse, osteoarthritis , and osteoporosis. Patient admitted for acute hypoxic respiratory failure secondary to probable pneumonia with COPD. 1. Acute hypoxic respiratory failure secondary to probable pneumonia with COPD -Continue Levaquin 750 mg (Day 5) , symbicort, ventolin inhaler 2 puffs IH q4 PRN, Duoneb 1 amp neb q4h -Solumedrol 20mg IVPB q8hrs continue -Turdoza discontinued as this is a maintenance medication, not needed now -Oxygen to maintain saturation >90% (was on 3L NC this afternoon, patient still out of breath) -Ordered L rib series because pt endorsed L chest pain -Will continue to monitor 02 sat 2. Alcohol abuse -Librium protocol complete -Vitamin B1 10 mg PO daily 3. Rash- on lower extremities -started on benadryl PRN General -IVF discontinued as patient can tolerate PO intake Visit type - Emergency Visit Emergency Visit: No - New Patient This patient is new to me today: No - Critical Care Critical Care patient: No
[2017-04-03] MEDS: methylPREDNISolone NA SUCC 40 MG/1 ML VIAL IVPB SCH ×3 (01:08→17:38)
[2017-04-03] MEDS: LEVOFLOXACIN 750 MG IVPB 150 ML IVPB SCH (05:22)
[2017-04-03] MEDS: ALBUTEROL SO4 2.5/IPRATROPIUM 0.5 INH SOL 3 ML VIAL.NEB. NEB SCH ×5 (06:35→22:35)
[2017-04-03] MEDS: FOLIC ACID 1 MG TABLET (FP) PO SCH (09:18)
[2017-04-03] MEDS: THIAMINE HCL 100 MG TABLET (FP) PO SCH (09:18)
[2017-04-03] MEDS: MULTIVITAMINS (DAILY MVI) TABLET (FP) PO SCH (09:18)
[2017-04-03] MEDS: ENOXAPARIN NA (PORCINE) 40 MG/0.4 ML DISP.SYRIN SQ SCH (09:18)
[2017-04-03] MEDS: BUDESONIDE/FORMETEROL FUMARATE 160/4.5 mcg INHALER IH SCH ×2 (09:32→21:21)
--- NOTE | 2017-04-03 11:29 | PN ---
Progress Note (short form) - Note Progress Note: Cough and left sided pleuritic type discomfort seems mildly improved today. No acute events overnight. Intake & Output 03/31/17 04/01/17 04/02/17 04/03/17 23:59 23:59 23:59 23:59 Intake Total 3450 2925 1050 875 Balance 3450 2925 1050 875 Weight 109 lb 1.6 oz 109 lb 3 oz 109 lb 103 lb 14.4 oz Last Vital Signs Temp Pulse Resp BP Pulse Ox 98.0 F 81 18 110/67 94 L 04/03/17 05:00 04/03/17 05:00 04/03/17 05:00 04/03/17 05:00 04/02/17 20:36 Active Medications Acetaminophen (Tylenol -) 650 mg PO Q4H PRN PRN Reason: FEVER OR PAIN Albuterol Sulfate (Ventolin Hfa Inhaler -) 2 puff IH Q4HPO PRN PRN Reason: SHORTNESS OF BREATH Albuterol/Ipratropium (Duoneb -) 1 amp NEB Q4HWA [facility] Last Admin: 04/03/17 10:45 Dose: 1 amp Budesonide/Formoterol Fumarate (Symbicort 160/4.5mcg -) 1 puff IH BID [facility] Last Admin: 04/03/17 09:32 Dose: 1 puff Diphenhydramine HCl (Benadryl Injection -) 25 mg IVPB Q6H PRN PRN Reason: FOR ITCHING Docusate Sodium (Colace -) 100 mg PO BID PRN PRN Reason: CONSTIPATION Enoxaparin Sodium (Lovenox -) 40 mg SQ DAILY [facility] Last Admin: 04/03/17 09:18 Dose: 40 mg Folic Acid (Folic Acid -) 1 mg PO DAILY [facility] Last Admin: 04/03/17 09:18 Dose: 1 mg Levofloxacin (Levaquin 750 Mg Premixed Ivpb -) 150 mls @ 100 mls/hr IVPB DAILY@ 0600 [facility] Last Admin: 04/03/17 05:22 Dose: 100 mls/hr Methylprednisolone Sodium Succinate (Solu-Medrol -) 20 mg IVPB Q8H-IV [facility] Last Admin: 04/03/17 09:19 Dose: 20 mg Multivitamins/Minerals/Vitamin C (Tab-A-Vit -) 1 tab PO DAILY LUIS F Last Admin: 04/03/17 09:18 Dose: 1 tab Thiamine HCl (Vitamin B1 -) 100 mg PO DAILY [facility]IS [facility] Last Admin: 04/03/17 09:18 Dose: 100 mg Gen: NAD Heart: RRR Lung: distant breath sounds, Scattered rhonchi Abd: soft, nontender Ext: no edema A/P Lung Mass - ?Focal Pneumonia vs Focal Bronchiectasis vs Malignancy Severe COPD/Emphysema Smoker EtOH Dependence - Steroid taper - inhaled bronchodilators - O2 to keep SpO2 >90% - continue antibiotics - pt high risk for invasive diagnostic procedure at this time - would obtain repeat CT chest in 6-8 weeks to reassess RUL finding and PET scan if findings persist - will need to check ambulatory SpO2 on room air to assess for home O2 when ready for discharge - outpt PFTs - smoking cessation - DVT prophylaxis Dr Parsons
--- NOTE | 2017-04-03 13:38 | PN ---
Physical Exam: SUBJECTIVE: Patient seen and examined at bedside. Pt on 3L NC 02 this morning, sat at 91%. Still endorses rib pain anteriorly on L. Denies extremity or abdominal pain. OBJECTIVE: Vital Signs Period Temp Pulse Resp BP Sys/Smith Pulse Ox Last 24 Hr 97.9 F-99.2 F 81-115 18-20 110-121/67-73 94-95 GENERAL: The patient is awake, alert, and fully oriented, in mild distress. HEAD: Normal with no signs of trauma. EYES: PERRL, extraocular movements intact, sclera anicteric, conjunctiva clear. No ptosis. ENT: oropharynx clear without exudates, moist mucous membranes. NECK: Trachea midline, supple. LUNGS: decreased breath sounds bilaterally HEART: Regular rate and rhythm, S1, S2 without murmur, rub or gallop. ABDOMEN: Soft, nontender, nondistended, normoactive bowel sounds, no guarding, no rebound EXTREMITIES: 2+ posterior tibial pulses, warm, well-perfused, no edema. NEUROLOGICAL: Cranial nerves II through XII grossly intact. Active Medications Generic Name Dose Route Start Last Admin Trade Name Freq PRN Reason Stop Dose Admin Acetaminophen 650 mg 03/28/17 10:24 04/03/17 12:31 Tylenol - PO 650 mg Q4H PRN Administration FEVER OR PAIN Albuterol Sulfate 2 puff 03/30/17 13:41 Ventolin Hfa Inhaler - IH Q4HPO PRN SHORTNESS OF BREATH Albuterol/Ipratropium 1 amp 03/31/17 10:00 04/03/17 10:45 Duoneb - NEB 1 amp Q4HWA LUIS F Administration Budesonide/Formoterol Fumarate 1 puff 03/28/17 22:00 04/03/17 09:32 Symbicort 160/4.5mcg - IH 1 puff BID LUIS F Administration Diphenhydramine HCl 25 mg 03/30/17 11:15 Benadryl Injection - IVPB Q6H PRN FOR ITCHING Docusate Sodium 100 mg 03/28/17 10:24 Colace - PO BID PRN CONSTIPATION Enoxaparin Sodium 40 mg 03/29/17 10:00 04/03/17 09:18 Lovenox - SQ 40 mg DAILY LUIS F Administration Folic Acid 1 mg 03/30/17 10:00 04/03/17 09:18 Folic Acid - PO 1 mg DAILY LUIS F Administration Levofloxacin 150 mls @ 100 mls/hr 03/29/17 06:00 04/03/17 05:22 Levaquin 750 Mg Premixed Ivpb - IVPB 100 mls/hr DAILY@0600 LUIS F Administration Methylprednisolone Sodium Succinate 20 mg 03/31/17 18:00 04/03/17 09:19 Solu-Medrol - IVPB 20 mg Q8H-IV LUIS F Administration Multivitamins/Minerals/Vitamin C 1 tab 03/30/17 10:00 04/03/17 09:18 Tab-A-Vit - PO 1 tab DAILY LUIS F Administration Thiamine HCl 100 mg 03/30/17 10:00 04/03/17 09:18 Vitamin B1 - PO 100 mg DAILY LUIS F Administration ASSESSMENT/PLAN: 1. Acute hypoxic respiratory failure secondary to probable pneumonia with COPD -Continue Levaquin 750 mg (Day 6) , symbicort, ventolin inhaler 2 puffs IH q4 PRN, Duoneb 1 amp neb q4h -Solumedrol 20mg IVPB q8hrs continue (on a taper) -Oxygen to maintain saturation >90% -L rib series: shows blunting of L costophrenic angle, no infiltrate or pneumothorax -Will continue to monitor 02 sat -repeat CT chest in 6-8 weeks to determine if any change/improvement to RUL findings -outpatient PFTs 2. Alcohol abuse -Librium protocol complete -Vitamin B1 10 mg PO daily, multivitamin -outpatient treatment vs. rehab 3. Rash- on lower extremities-resolved Visit type - Emergency Visit Emergency Visit: No - New Patient This patient is new to me today: No - Critical Care Critical Care patient: No
--- NOTE | 2017-04-03 13:43 | PN ---
Teaching Attending Note Name of Resident: Viktoria Mayfield ATTENDING PHYSICIAN STATEMENT I saw and evaluated the patient. I reviewed the resident's note and discussed the case with the resident. I agree with the resident's findings and plan as documented. SUBJECTIVE:continues to have L rib pain worse on deep inspiration. no significant improvement in breathing. does not feel much improvement.denies Cp, SOB,fever, chills, n/v/c/d OBJECTIVE: Last Vital Signs Temp Pulse Resp BP Pulse Ox 98.0 F 81 18 110/67 95 04/03/17 05:00 04/03/17 05:00 04/03/17 09:00 04/03/17 05:00 04/03/17 09:00 General NAD CV S1 S2 RRR no murmur/rub/gallop Lungs decrease inspirtory effort. decreased lung sounds throughout. minor wheezing L apex ASSESSMENT AND PLAN: 61-year-old woman with a history of asthma, COPD, alcohol abuse, osteoarthritis , osteoporosis who recently quit smoking and who came to the ER after being awakened by pleuritic chest pain. 1. Acute hypoxic respiratory failure secondary to pneumonia with COPD- currently saturating 96% on 2.5L NC. although pt does not feel significantly improved this is better than previously. will cont current management until pt clinically feels better. nebs RTC. Levaquin day 6. pulmonary on board. will need repeat CT scan in 6-87 weeks and possible Bx. pt is high risk for bx at this time. will likely require home O2 when medically optimized. 2. Left rib pain- likely splinting. multiple XR negative for pathology. 3. Continuous alcohol abuse- CIWA 0. no signs of withdrawal. librium completed. cont thiamine/folate/MVI. considering inpatient rehab program 4. DVT ppx- lovenox
[2017-04-04] MEDS: methylPREDNISolone NA SUCC 40 MG/1 ML VIAL IVPB SCH ×2 (02:35→09:19)
[2017-04-04] MEDS: LEVOFLOXACIN 750 MG IVPB 150 ML IVPB SCH (05:01)
[2017-04-04] MEDS: ALBUTEROL SO4 2.5/IPRATROPIUM 0.5 INH SOL 3 ML VIAL.NEB. NEB SCH ×5 (05:45→22:09)
[2017-04-04] MEDS ORDERED: PT OWN MED DRAWER 7, Y5N ONE ×2 (09:14→21:42)
[2017-04-04] MEDS: ENOXAPARIN NA (PORCINE) 40 MG/0.4 ML DISP.SYRIN SQ SCH (09:22)
[2017-04-04] MEDS: FOLIC ACID 1 MG TABLET (FP) PO SCH (09:23)
[2017-04-04] MEDS: BUDESONIDE/FORMETEROL FUMARATE 160/4.5 mcg INHALER IH SCH ×2 (09:23→21:44)
[2017-04-04] MEDS: THIAMINE HCL 100 MG TABLET (FP) PO SCH (09:23)
[2017-04-04] MEDS: MULTIVITAMINS (DAILY MVI) TABLET (FP) PO SCH (09:23)
--- NOTE | 2017-04-04 09:56 | PN ---
Progress Note (short form) - Note Progress Note: continues to have SOB but significantly improved. able to speak in full sentences without dyspnea. cough improved. denies CP, fever, chills, N/V/C/D Current Medications Generic Name Dose Route Start Last Admin Trade Name Freq PRN Reason Stop Dose Admin Acetaminophen 650 mg 03/28/17 10:24 04/03/17 12:31 Tylenol - PO 650 mg Q4H PRN Administration FEVER OR PAIN Albuterol Sulfate 2 puff 03/30/17 13:41 Ventolin Hfa Inhaler - IH Q4HPO PRN SHORTNESS OF BREATH Albuterol/Ipratropium 1 amp 03/31/17 10:00 04/04/17 05:45 Duoneb - NEB 1 amp Q4HWA LUIS F Administration Budesonide/Formoterol Fumarate 1 puff 03/28/17 22:00 04/04/17 09:23 Symbicort 160/4.5mcg - IH 1 puff BID LUIS F Administration Diphenhydramine HCl 25 mg 03/30/17 11:15 Benadryl Injection - IVPB Q6H PRN FOR ITCHING Docusate Sodium 100 mg 03/28/17 10:24 Colace - PO BID PRN CONSTIPATION Enoxaparin Sodium 40 mg 03/29/17 10:00 04/04/17 09:22 Lovenox - SQ 40 mg DAILY LUIS F Administration Folic Acid 1 mg 03/30/17 10:00 04/04/17 09:23 Folic Acid - PO 1 mg DAILY LUIS F Administration Levofloxacin 150 mls @ 100 mls/hr 03/29/17 06:00 04/04/17 05:01 Levaquin 750 Mg Premixed Ivpb - IVPB 100 mls/hr DAILY@0600 LUIS F Administration Methylprednisolone Sodium Succinate 20 mg 03/31/17 18:00 04/04/17 09:19 Solu-Medrol - IVPB 20 mg Q8H-IV LUIS F Administration Multivitamins/Minerals/Vitamin C 1 tab 03/30/17 10:00 04/04/17 09:23 Tab-A-Vit - PO 1 tab DAILY LUIS F Administration Thiamine HCl 100 mg 03/30/17 10:00 04/04/17 09:23 Vitamin B1 - PO 100 mg DAILY LUIS F Administration Last Vital Signs Temp Pulse Resp BP Pulse Ox 98.2 F 88 18 110/74 95 07/23/17 08:10 04/04/17 08:10 04/04/17 08:10 04/04/17 08:10 04/03/17 21:00 General NAD CV S1 S2 RRR no murmur/rub/gallop Lungs improved inspiratory effort, decreased breath sounds, no wheezing ASSESSMENT AND PLAN: 61-year-old woman with a history of asthma, COPD, alcohol abuse, osteoarthritis , osteoporosis who recently quit smoking and who came to the ER after being awakened by pleuritic chest pain. 1. Acute hypoxic respiratory failure secondary to pneumonia with COPD- currently saturating 97% on 2.5L NC. significant improvement since yesterday. will leave steroid taper to pulmonary, would likely be able to start slow taper today vs tomorrow. start increasing frequency of nebs. on Levaquin day 7. pulmonary on board. will need repeat CT scan in 6-87 weeks and possible Bx. pt is high risk for bx at this time. will likely require home O2 when medically optimized. 2. Left rib pain- likely splinting. improved. multiple XR negative for pathology. 3. Continuous alcohol abuse- CIWA 0. no signs of withdrawal. librium completed. cont thiamine/folate/MVI. considering inpatient rehab program 4. DVT ppx- lovenox Visit type - Emergency Visit Emergency Visit: Yes ED Registration Date: 03/28/17 Care time: The patient presented to the Emergency Department on the above date and was hospitalized for further evaluation of their emergent condition. - New Patient This patient is new to me today: No - Critical Care Critical Care patient: No - Discharge Referral Referred to [facility] Med P.C.: No
--- NOTE | 2017-04-04 11:18 | PN ---
Progress Note (short form) - Note Progress Note: Cough and left sided pleuritic type discomfort again improved from yesterday. No acute events overnight. Intake & Output 04/01/17 04/02/17 04/03/17 04/04/17 23:59 23:59 23:59 23:59 Intake Total 2925 1050 1775 875 Balance 2925 1050 1775 875 Weight 109 lb 3 oz 109 lb 103 lb 14.4 oz 104 lb Last Vital Signs Temp Pulse Resp BP Pulse Ox 98.2 F 88 18 110/74 94 L 04/04/17 08:10 04/04/17 08:10 04/04/17 08:10 04/04/17 08:10 04/04/17 09:00 Active Medications Acetaminophen (Tylenol -) 650 mg PO Q4H PRN PRN Reason: FEVER OR PAIN Last Admin: 04/03/17 12:31 Dose: 650 mg Albuterol Sulfate (Ventolin Hfa Inhaler -) 2 puff IH Q4HPO PRN PRN Reason: SHORTNESS OF BREATH Albuterol/Ipratropium (Duoneb -) 1 amp NEB Q4HWA [facility] Last Admin: 04/04/17 05:45 Dose: 1 amp Budesonide/Formoterol Fumarate (Symbicort 160/4.5mcg -) 1 puff IH BID [facility] Last Admin: 04/04/17 09:23 Dose: 1 puff Diphenhydramine HCl (Benadryl Injection -) 25 mg IVPB Q6H PRN PRN Reason: FOR ITCHING Docusate Sodium (Colace -) 100 mg PO BID PRN PRN Reason: CONSTIPATION Enoxaparin Sodium (Lovenox -) 40 mg SQ DAILY [facility] Last Admin: 04/04/17 09:22 Dose: 40 mg Folic Acid (Folic Acid -) 1 mg PO DAILY [facility] Last Admin: 04/04/17 09:23 Dose: 1 mg Levofloxacin (Levaquin 750 Mg Premixed Ivpb -) 150 mls @ 100 mls/hr IVPB DAILY@ 0600 [facility] Last Admin: 04/04/17 05:01 Dose: 100 mls/hr Methylprednisolone Sodium Succinate (Solu-Medrol -) 20 mg IVPB Q8H-IV [facility] Last Admin: 04/04/17 09:19 Dose: 20 mg Multivitamins/Minerals/Vitamin C (Tab-A-Vit -) 1 tab PO DAILY [facility] Last Admin: 04/04/17 09:23 Dose: 1 tab Thiamine HCl (Vitamin B1 -) 100 mg PO DAILY [facility] Last Admin: 04/04/17 09:23 Dose: 100 mg Gen: NAD Heart: RRR Lung: distant breath sounds, Scattered rhonchi Abd: soft, nontender Ext: no edema A/P Lung Mass - ?Focal Pneumonia vs Focal Bronchiectasis vs Malignancy Severe COPD/Emphysema Smoker EtOH Dependence - Change to Prednisone - inhaled bronchodilators - O2 to keep SpO2 >90% - continue antibiotics - pt high risk for invasive diagnostic procedure at this time - would obtain repeat CT chest in 6-8 weeks to reassess RUL finding and PET scan if findings persist - will need to check ambulatory SpO2 on room air to assess for home O2 when ready for discharge - outpt PFTs - smoking cessation - DVT prophylaxis Dr Parsons
[2017-04-04] MEDS: predniSONE 20 MG TABLET (UD) PO SCH (14:53)
[2017-04-05] MEDS: LEVOFLOXACIN 750 MG IVPB 150 ML IVPB SCH (05:52)
[2017-04-05] MEDS: ALBUTEROL SO4 2.5/IPRATROPIUM 0.5 INH SOL 3 ML VIAL.NEB. NEB SCH ×4 (06:55→17:08)
[2017-04-05] MEDS: predniSONE 20 MG TABLET (UD) PO SCH (09:26)
[2017-04-05] MEDS: THIAMINE HCL 100 MG TABLET (FP) PO SCH (09:26)
[2017-04-05] MEDS: MULTIVITAMINS (DAILY MVI) TABLET (FP) PO SCH (09:26)
[2017-04-05] MEDS: FOLIC ACID 1 MG TABLET (FP) PO SCH (09:26)
[2017-04-05] MEDS: ENOXAPARIN NA (PORCINE) 40 MG/0.4 ML DISP.SYRIN SQ SCH (09:27)
[2017-04-05] MEDS: BUDESONIDE/FORMETEROL FUMARATE 160/4.5 mcg INHALER IH SCH ×2 (09:31→21:02)
--- NOTE | 2017-04-05 11:17 | PN ---
Progress Note (short form) - Note Progress Note: Overall better. Qualified for home O2. No acute events overnight. Intake & Output 04/02/17 04/03/17 04/04/17 04/05/17 23:59 23:59 23:59 23:59 Intake Total 1050 1775 1974 450 Balance 1050 1774 1974 450 Weight 109 lb 103 lb 14.4 oz 104 lb 104 lb 2 oz Last Vital Signs Temp Pulse Resp BP Pulse Ox 98.4 F 108 H 18 142/75 89 L 04/05/17 09:00 04/05/17 10:10 04/05/17 09:00 04/05/17 09:00 04/05/17 10:10 Active Medications Acetaminophen (Tylenol -) 650 mg PO Q4H PRN PRN Reason: FEVER OR PAIN Last Admin: 04/03/17 12:31 Dose: 650 mg Albuterol Sulfate (Ventolin Hfa Inhaler -) 2 puff IH Q4HPO PRN PRN Reason: SHORTNESS OF BREATH Albuterol/Ipratropium (Duoneb -) 1 amp NEB Q4HWA [facility] Last Admin: 04/05/17 10:10 Dose: Not Given Budesonide/Formoterol Fumarate (Symbicort 160/4.5mcg -) 2 puff IH BID [facility] Last Admin: 04/05/17 09:31 Dose: 2 puff Diphenhydramine HCl (Benadryl Injection -) 25 mg IVPB Q6H PRN PRN Reason: FOR ITCHING Docusate Sodium (Colace -) 100 mg PO BID PRN PRN Reason: CONSTIPATION Enoxaparin Sodium (Lovenox -) 40 mg SQ DAILY [facility] Last Admin: 04/05/17 09:27 Dose: 40 mg Folic Acid (Folic Acid -) 1 mg PO DAILY [facility] Last Admin: 04/05/17 09:26 Dose: 1 mg Multivitamins/Minerals/Vitamin C (Tab-A-Vit -) 1 tab PO DAILY [facility] Last Admin: 04/05/17 09:26 Dose: 1 tab Prednisone (Deltasone -) 40 mg PO DAILY [facility] Last Admin: 04/05/17 09:26 Dose: 40 mg Thiamine HCl (Vitamin B1 -) 100 mg PO DAILY [facility] Last Admin: 04/05/17 09:26 Dose: 100 mg Gen: NAD Heart: RRR Lung: distant breath sounds, Scattered rhonchi Abd: soft, nontender Ext: no edema A/P Lung Mass - ?Focal Pneumonia vs Focal Bronchiectasis vs Malignancy Severe COPD/Emphysema Smoker EtOH Dependence - Prednisone taper - inhaled bronchodilators - O2 to keep SpO2 >90% - pt high risk for invasive diagnostic procedure at this time - Obtain repeat CT chest in about 6 weeks to reassess RUL finding and PET scan if findings persist - Will need home O2 - Outpatient PFTs - Smoking cessation again discussed Dr Parsons
--- NOTE | 2017-04-05 12:23 | PN ---
Teaching Attending Note Name of Resident: Viktoria Mayfield ATTENDING PHYSICIAN STATEMENT I saw and evaluated the patient. I reviewed the resident's note and discussed the case with the resident. I agree with the resident's findings and plan as documented. SUBJECTIVE:states breathing continues to improve. cough no longer productive. denies CP, SOB,fever, chills, N/V/C/D OBJECTIVE: Last Vital Signs Temp Pulse Resp BP Pulse Ox 98.4 F 108 H 18 142/75 89 L 04/05/17 09:00 04/05/17 10:10 04/05/17 09:00 04/05/17 09:00 04/05/17 10:10 General NAD CV S1 S2 RRR no murmur/rub/gallop Lungs improved inspiratory effort, increased breath sounds, no wheezing ASSESSMENT AND PLAN: 61-year-old woman with a history of asthma, COPD, alcohol abuse, osteoarthritis , osteoporosis who recently quit smoking and who came to the ER after being awakened by pleuritic chest pain. 1. Acute hypoxic respiratory failure secondary to pneumonia with COPD- currently saturating 97% on 2L NC. continues to improve. desaturated to 87% on exertion requiring 2L NC to improve saturation. will require long steroid taper per pulmonary. has nebulizer machine at home. instructed to use as needed. if find she is using it more than 2-3x/day to call tugboat mate fur further instructions. will need pulmonary f/u and repeat CT scan in 6-7 weeks for possible bx. pt is high risk for bx at this time. completed 7 day course of levaquin. 2. Left rib pain- likely splinting. improved. multiple XR negative for pathology. 3. Continuous alcohol abuse- CIWA 0. no signs of withdrawal. librium completed. cont thiamine/folate/MVI. outpatient counseling and AA meetings 4. DVT ppx- lovenox 5. d/c home today with close pulmonary follow up. to see PMD in 1 week
--- NOTE | 2017-04-05 16:02 | DS ---
Physical Exam: SUBJECTIVE: Patient seen and examined at bedside. Pt states that she is feeling better today, and that her L rib pain is improved. No acute events overnight. Denies SOB, chest or extremity pain. OBJECTIVE: Vital Signs Period Temp Pulse Resp BP Sys/Smith Pulse Ox Last 24 Hr 97.8 F-98.4 F 76-108 18-20 117-142/75-81 89-92 PHYSICAL EXAM GENERAL: The patient is awake, alert, and fully oriented, in no acute distress. On 2L NC 02 HEAD: Normal with no signs of trauma. EYES: PERRL, extraocular movements intact, sclera anicteric, conjunctiva clear. ENT: oropharynx clear without exudates, moist mucous membranes. NECK: Trachea midline, supple. LUNGS: decreased breath sounds, but improved from yesterday, no rhonchi, crackles, or wheezes appreciated HEART: Regular rate and rhythm, S1, S2 without murmur, rub or gallop. ABDOMEN: Soft, nontender, nondistended, normoactive bowel sounds, no guarding, no rebound EXTREMITIES: 2+ posterior tibial pulses, warm, well-perfused, no edema. NEUROLOGICAL: Cranial nerves II through XII grossly intact. VITALS TREND/LABS Vitals Trend 03/28/17 03/28/17 03/28/17 05:30 07:27 10:16 Temperature Pulse Rate Blood Pressure O2 Sat by Pulse 93 L 95 96 Oximetry (%) 03/28/17 03/28/17 03/28/17 11:31 11:44 12:13 Temperature Pulse Rate Blood Pressure O2 Sat by Pulse 91 L 95 94 L Oximetry (%) 03/28/17 03/28/17 03/28/17 15:00 18:00 21:00 Temperature Pulse Rate Blood Pressure O2 Sat by Pulse 94 L 95 94 L Oximetry (%) 03/29/17 03/29/17 03/29/17 05:48 08:15 09:00 Temperature Pulse Rate 76 71 Blood Pressure O2 Sat by Pulse 95 Oximetry (%) 03/29/17 03/29/17 03/29/17 10:21 14:57 18:00 Temperature Pulse Rate 79 94 H 66 Blood Pressure O2 Sat by Pulse 93 L Oximetry (%) 03/29/17 03/29/17 03/30/17 21:00 22:00 06:00 Temperature Pulse Rate 87 76 Blood Pressure 104/66 O2 Sat by Pulse 93 L Oximetry (%) 03/30/17 03/30/17 03/30/17 10:00 14:23 18:00 Temperature Pulse Rate 83 104 H 84 Blood Pressure 120/72 123/71 O2 Sat by Pulse Oximetry (%) 03/31/17 03/31/17 03/31/17 05:30 09:00 13:39 Temperature Pulse Rate Blood Pressure 130/71 134/76 134/76 O2 Sat by Pulse 4 L Oximetry (%) 03/31/17 03/31/17 03/31/17 13:44 18:00 21:00 Temperature Pulse Rate Blood Pressure 111/65 O2 Sat by Pulse 89 L 91 L Oximetry (%) 03/31/17 04/01/17 04/01/17 22:00 05:59 08:00 Temperature 97.6 F 97.7 F Pulse Rate 82 84 Blood Pressure 136/72 O2 Sat by Pulse Oximetry (%) 04/01/17 04/01/17 04/01/17 14:09 18:40 21:00 Temperature 97.9 F 98.8 F 98 F Pulse Rate 99 H 99 H 92 H Blood Pressure O2 Sat by Pulse Oximetry (%) 04/02/17 04/02/17 04/02/17 06:00 07:45 09:00 Temperature 97.5 F L 97.7 F Pulse Rate Blood Pressure 112/71 116/77 O2 Sat by Pulse 93 L Oximetry (%) 04/02/17 04/02/17 04/02/17 10:33 13:40 17:35 Temperature 97.9 F 99.2 F Pulse Rate Blood Pressure 121/73 118/70 O2 Sat by Pulse 94 L Oximetry (%) 04/02/17 04/02/17 04/03/17 20:36 21:00 05:00 Temperature 98.0 F Pulse Rate 81 Blood Pressure 110/70 O2 Sat by Pulse 94 L Oximetry (%) 04/03/17 04/03/17 04/03/17 09:00 14:12 18:00 Temperature 98.0 F 98.1 F Pulse Rate 93 H 81 Blood Pressure O2 Sat by Pulse 95 Oximetry (%) 04/03/17 04/04/17 04/04/17 21:00 05:10 08:10 Temperature Pulse Rate 80 88 Blood Pressure 110/70 110/74 O2 Sat by Pulse 95 Oximetry (%) 04/04/17 04/04/17 04/04/17 09:00 10:50 13:48 Temperature Pulse Rate 84 90 Blood Pressure 120/73 O2 Sat by Pulse 94 L 96 Oximetry (%) 04/04/17 04/04/17 04/05/17 18:00 21:00 05:54 Temperature Pulse Rate 100 H 76 Blood Pressure 121/75 O2 Sat by Pulse 92 L Oximetry (%) 04/05/17 04/05/17 04/05/17 09:00 10:10 14:00 Temperature Pulse Rate 93 H 108 H 91 H Blood Pressure O2 Sat by Pulse 91 L 89 L Oximetry (%) Laboratory Tests 03/28/17 03/28/17 03/29/17 05:30 07:35 06:40 ABG pH 7.42 ABG pCO2 at Pt Temp 38.0 ABG pO2 at Pt Temp 64.4 L ABG HCO3 24.2 ABG O2 Sat (Measured) 92.8 ABG Base Excess 0.4 Sodium 135 L Creatinine 0.4 L 0.5 L D Random Glucose 175 H D C-Reactive Protein 3.1 H B-Natriuretic Peptide 140.19 H IMAGING 03/28/17: CXR: Chronic lung findings, R upper lobe infiltrate, correlation with Chest CT for 03/28/17 is suggested 03/28/17: EKG: septal infarct, age undetermined, no significant change when compared with EKG from January 2017 03/28/17: CHEST CTA: no gross evidence of pulmonary embolism, extensive COPD changes are seen, interval focal masslike density right upper lobe 3.2 x 1.8cm with tiny cystic densities- suggestive of focal area of consolidation vs. mass. Further evaluation needed. Also patchy airspace opacities in right upper lobe, suggestive of infiltrates. Atelectatic changes vs. infiltrates in dependent part of R lower lobe with pleural thickening and trace R pleural effusion 03/29/17: R RIB XRAY: no evidence of cardiomegaly, cystic interstitial changes seen in R lung. Bullous changes seen. Demineralized osseus structures. No displaced rib fracture, no pneumothorax. 03/30/17: REPEAT CXR: segmental R lower lobe consolidation not seen on x-ray of March 28, 2017. Small reactive R pleural effusion can't be entirely excluded 03/30/17: L RIB XRAY: some blunting of L costophrenic angle, no sign of gross fracture or infiltrate MICROBIOLOGY 03/28/17 05:31 Blood - Peripheral Venous Blood Culture - Final NO GROWTH AFTER 5 DAYS INCUBATION 03/28/17 05:30 Blood - Peripheral Venous Blood Culture - Final NO GROWTH AFTER 5 DAYS INCUBATION HOSPITAL COURSE: Date of Admission:03/28/17 Date of Discharge: 04/05/17 Admit diagnosis: acute hypoxemic respiratory failure secondary to pneumonia and COPD Pre-admission course This is a 61 y/o F past heavy smoker with PMH of COPD/emphysema (non O2 dependent), Asthma, OA, osteoporosis, ETOH abuse (5 beers daily, last drink 2 days ago) who presented to the ED with R sided pleuritic chest pain since 2am on the day of admission. She had never had pain there before but had similar pain on L side when she was hospitalized for PNA at [facility] during winter 2015. She was also hospitalized here at [facility] on 12/27 for RLL PNA. She reported that the pain was constant, sharp, 10/10, and aggravated by deep inspiration. She had associated SOB but denied cough, hemoptysis, f/c, adenopathy, weight loss. She denied n/v, h/a, LOC, palpitations, diaphoresis, abdominal pain, back pain, diarrhea, constipation, dysuria, LE pain or edema. She does not have a senior qa tester but is compliant with home nebs prescribed by her PCP. She denied any sick contacts. ER course was notable for: -solumedrol 125, duoneb, levaquin, vanco, morphine Hospital course Upon admission, patient was afebrile and had a normal WBC count, but with 94% neutrophils. She was maintained on a 9 day course of Levaquin 750 mg, and continued on her home medications of Advair, Singulair, and Spiriva. She was also started on solumedrol 40mg q8, which was later tapered down to 20mg q8. Pt was sent home with 6 day Prednisone taper (30mg to 10mg). As per pulmonary, she was found to have community acquired pneumonia superimposed on severe bullous disease. A focal masslike density was found in the R upper lobe on Chest CTA. Bronchoscopy could have been considered since this lung lesion was central, however this procedure was high risk. Due to patient's severe R rib pain, rib series was done and confirmed cystic interstitial changes in R lung and bullous changes. Pt was recommended to have a repeat CT chest in 6-8 weeks to reassess the RUL finding and PET scan if findings persist. At this time, pt was also started on Librium protocol for alcohol abuse. After completing protocol, pt was advised to attend a 12-step meeting or AA group to aid recovery. She was also counseled on the importance of smoking cessation. Minutes to complete discharge: 32 Discharge Summary Reason For Visit: PNEUMONIA Current Active Problems Lung mass (Acute) Pleuritic chest pain (Acute) COPD with emphysema (Chronic) Chronic alcoholism (Chronic) Osteoarthritis (Chronic) Condition: Stable - Instructions Diet, Activity, Other Instructions: You were recently in the hospital for problems concerning your lungs. You may resume activity as tolerated- make sure you do not overexert yourself. Please take the following medications at home: -Prednisone (Deltasone) -30 mg by mouth (3 tablets) on 04/06, 04/07 -20 mg by mouth (2 tablets) on 04/08, 04/09 -10 mg by mouth (1 tablet) on 04/09, 04/10 -Symbicort 2 puffs, twice a day -Ventolin inhaler (albuterol) 2 puffs every few hours when you need it -Use nebulizer treatments at home as needed when the symbicort and ventolin do not resolve your symptoms -Home oxygen- use between 3-4 liters Please follow-up with your primary care doctor and a senior qa tester, Dr. Hicks in 1 week. We recommend that you talk to him about getting a CT scan in 6-8 weeks to check on the mass that was found in your right lung. You may also discuss the need for a biopsy. During your time at the hospital, you were also treated for increased alcohol use. We recommend that you look into a 12-step meeting, or Alcoholics Anonymous group meeting near you. If you become short of breath, develop chest pain, or any new symptoms, please go to the hospital. We hope you feel better soon. Referrals: Ying Altamirano MD [Primary Care Provider] - Ismael Hicks MD, MD [Staff Physician] - Disposition: HOME - Home Medications Comprehensive Discharge Medication List: Ambulatory Orders Fluticasone/Salmeterol [Advair 250-50 Diskus] 1 each IH DAILY 05/03/15 Ipratropium/Albuterol Sulfate [Combivent Respimat Inhal [place]] 4 gm IH DAILY Albuterol 0.083% Nebulizer Terri [Ventolin 0.083% Nebulizer Soln -] 1 neb NEB Q4H PRN 12/22/15 Montelukast Na [Singulair -] 10 mg PO HS 12/22/15 Pantoprazole Sodium 40 mg PO DAILY 03/28/17 Budesonide/Formeterol Fumarate [SYMBICORT 160/4.5mcg -] 2 puff IH BID #1 inhaler 04/05/17 Folic Acid - 1 mg PO DAILY #30 tablet 04/05/17 Prednisone 10 mg PO DAILY 6 Days 04/05/17 Thiamine HCl [Vitamin B1 -] 100 mg PO DAILY #30 tablet 04/05/17 This patient is new to me today: No Emergency Visit: No Critical Care patient: No - Discharge Referral Referred to [facility] No
[2017-04-05] MEDS ORDERED: PT OWN MED DRAWER 7, Y5N ONE (20:45)
[2017-04-06] MEDS ORDERED: PT OWN MED DRAWER 7, Y5N ONE ×2 (06:09→09:33)
[2017-04-06 09:37] VITALS: BP 106/68; PULSE 80; TEMP 97.4
[2017-04-06] MEDS: FOLIC ACID 1 MG TABLET (FP) PO SCH (09:37)
[2017-04-06] MEDS: BUDESONIDE/FORMETEROL FUMARATE 160/4.5 mcg INHALER IH SCH (09:37)
[2017-04-06] MEDS: predniSONE 20 MG TABLET (UD) PO SCH (09:37)
[2017-04-06] MEDS: THIAMINE HCL 100 MG TABLET (FP) PO SCH (09:37)
[2017-04-06] MEDS: MULTIVITAMINS (DAILY MVI) TABLET (FP) PO SCH (09:37)
[2017-04-06] MEDS: ENOXAPARIN NA (PORCINE) 40 MG/0.4 ML DISP.SYRIN SQ SCH (09:39)
--- NOTE | 2017-04-06 10:39 | PN ---
Progress Note (short form) - Note Progress Note: Overall better. Ambulating in her room on NC O2. Awaiting the O2 to be set up at her home. No acute events overnight. Intake & Output 04/03/17 04/04/17 04/05/17 04/06/17 23:59 23:59 23:59 23:59 Intake Total 1774 1974 1049 Balance 1774 1974 1049 Weight 103 lb 14.4 oz 104 lb 104 lb 2 oz Last Vital Signs Temp Pulse Resp BP Pulse Ox 97.4 F L 80 20 106/68 96 04/06/17 09:36 04/06/17 09:36 04/06/17 09:36 04/06/17 09:36 04/05/17 20:34 Active Medications Acetaminophen (Tylenol -) 650 mg PO Q4H PRN PRN Reason: FEVER OR PAIN Last Admin: 04/03/17 12:31 Dose: 650 mg Albuterol Sulfate (Ventolin Hfa Inhaler -) 2 puff IH Q4HPO PRN PRN Reason: SHORTNESS OF BREATH Albuterol/Ipratropium (Duoneb -) 1 amp NEB Q4HWA [facility] Last Admin: 04/05/17 17:08 Dose: 1 amp Budesonide/Formoterol Fumarate (Symbicort 160/4.5mcg -) 2 puff IH BID [facility] Last Admin: 04/06/17 09:37 Dose: 2 puff Diphenhydramine HCl (Benadryl Injection -) 25 mg IVPB Q6H PRN PRN Reason: FOR ITCHING Docusate Sodium (Colace -) 100 mg PO BID PRN PRN Reason: CONSTIPATION Enoxaparin Sodium (Lovenox -) 40 mg SQ DAILY [facility] Last Admin: 04/06/17 09:39 Dose: 40 mg Folic Acid (Folic Acid -) 1 mg PO DAILY [facility] Last Admin: 04/06/17 09:37 Dose: 1 mg Multivitamins/Minerals/Vitamin C (Tab-A-Vit -) 1 tab PO DAILY [facility] Last Admin: 04/06/17 09:37 Dose: 1 tab Prednisone (Deltasone -) 40 mg PO DAILY [facility] Last Admin: 04/06/17 09:37 Dose: 40 mg Thiamine HCl (Vitamin B1 -) 100 mg PO DAILY [facility] Last Admin: 04/06/17 09:37 Dose: 100 mg Gen: NAD Heart: RRR Lung: distant breath sounds, Scattered rhonchi Abd: soft, nontender Ext: no edema A/P Lung Mass - ?Focal Pneumonia vs Focal Bronchiectasis vs Malignancy Severe COPD/Emphysema Smoker EtOH Dependence - Prednisone taper - inhaled bronchodilators - O2 to keep SpO2 >90% - pt high risk for invasive diagnostic procedure at this time - Obtain repeat CT chest in about 6 weeks to reassess RUL finding and PET scan if findings persist - Will need home O2 - Outpatient PFTs - Smoking cessation again discussed Dr Parsons
[2017-04-06] MEDS: ALBUTEROL SO4 2.5/IPRATROPIUM 0.5 INH SOL 3 ML VIAL.NEB. NEB SCH (10:45)
--- NOTE | 2017-04-06 12:26 | PN ---
Teaching Attending Note Name of Resident: Viktoria Mayfield ATTENDING PHYSICIAN STATEMENT I saw and evaluated the patient. I reviewed the resident's note and discussed the case with the resident. I agree with the resident's findings and plan as documented. SUBJECTIVE:asymptomatic. breathing significantly improved. denies CP, SOB,fever , chills, cough, N/V/C/D OBJECTIVE: Last Vital Signs Temp Pulse Resp BP Pulse Ox 97.4 F L 80 20 106/68 91 L 04/06/17 09:36 04/06/17 09:36 04/06/17 09:36 04/06/17 09:36 04/06/17 09:00 General NAD CV S1 S2 RRR no murmur/rub/gallop Lungs improved inspiratory effort, increased breath sounds, no wheezing ASSESSMENT AND PLAN: 61-year-old woman with a history of asthma, COPD, alcohol abuse, osteoarthritis , osteoporosis who recently quit smoking and who came to the ER after being awakened by pleuritic chest pain. 1. Acute hypoxic respiratory failure secondary to pneumonia with COPD- currently saturating 97% on 2L NC. continues to improve. will need 3-4L NC on exertion. cont steroid taper. will need pulmonary f/u and repeat CT scan in 6-7 weeks for possible bx. pt is high risk for bx at this time. completed 7 day course of levaquin. 2. Left rib pain- likely splinting. improved. multiple XR negative for pathology. 3. Continuous alcohol abuse- CIWA 0. no signs of withdrawal. librium completed. cont thiamine/folate/MVI. outpatient counseling and AA meetings 4. DVT ppx- lovenox 5.did not leave yesterday due to home O2 was not received in the home. d/c home today
--- NOTE | 2017-04-06 20:59 | EKG ---
Test Reason : Blood Pressure : / mmHG Vent. Rate : 117 BPM Atrial Rate : 117 BPM P-R Int : 146 ms QRS Dur : 066 ms QT Int : 284 ms P-R-T Axes : 065 015 044 degrees QTc Int : 396 ms SINUS TACHYCARDIA NONSPECIFIC ST AND T WAVE ABNORMALITY ABNORMAL ECG WHEN COMPARED WITH ECG OF 28-MAR-2017 05:23, CRITERIA FOR SEPTAL INFARCT ARE NO LONGER PRESENT T WAVE AMPLITUDE HAS DECREASED IN INFERIOR LEADS NONSPECIFIC T WAVE ABNORMALITY NOW EVIDENT IN LATERAL LEADS REPEAT EKG IF CLINICALLY INDICATED Confirmed by SUSANA ROGEL MD ([id number]) on 04/06/2017 8:59:07 PM Referred By: Confirmed By:SUSANA ROGEL MD
== END 2017-04-06 12:49 | disposition home or self-care (01) | DRG 189 ==
LOC: JER 05:14 → JERBED 10:47 → J6S 11:43
PROVIDERS: ADMIT Internal Medicine; ATTEND Internal Medicine
PROC: 3E0F7GC Introduction of Other Therapeutic Substance into Respiratory Tract, Via Natural or Artificial Opening (ICD-10-PCS; principal; 2017-04-01)
DX: J96.01 Acute respiratory failure with hypoxia (principal); J18.9 Pneumonia, unspecified organism; F10.230 Alcohol dependence with withdrawal, uncomplicated; J45.909 Unspecified asthma, uncomplicated; R91.8 Other nonspecific abnormal finding of lung field; M81.8 Other osteoporosis without current pathological fracture; M19.90 Unspecified osteoarthritis, unspecified site; J44.9 Chronic obstructive pulmonary disease, unspecified; R21 Rash and other nonspecific skin eruption; Z87.891 Personal history of nicotine dependence; R07.81 Pleurodynia
CPT/HCPCS: 36415; 36600; 71010-TC; 71101-TC; 71101-TC-RT; 71275-TC; 80048; 80053; 81003; 82375; 82550; 82803; 83050; 83605; 83735; 83880; 84100; 84484; 85025; 85027; 85610; 85651; 85730; 86140; 87040; 93005; 93010; 94640; 94761; 97116-GP; 97161-GP; 99284-25

== ENCOUNTER 2017-04-15 21:37 | Emergency (ER) | payer OTHER ==
[2017-04-15 21:47] VITALS: TEMP 99.5; BMI 19.0
[2017-04-15 23:57] LABS: ARTERIAL BLD GAS O2 SATURATION 95.4 % (90-98.9); ARTERIAL BLOOD GAS BASE EXCESS -1.5 meq/l (-2-2); ARTERIAL BLOOD GAS HCO3 22.1 meq/L (22-26); ARTERIAL BLOOD GAS PO2 75.4 mmHg (80-100); ARTERIAL BLOOD GAS pH 7.41 (7.35-7.45); BASOPHIL 0.6 % (0-2.0); EOSINOPHIL 1.6 % (0-4.5); MCH 30.8 pg (25.7-33.7); MCHC 33.4 g/dl (32.0-36.0); MEAN CELL VOLUME 92.1 fl (80-96); MEAN PLT VOLUME 8.6 fl (7.5-11.1); NEUTROPHILS 64.9 % (42.8-82.8); PLATELET COUNT 247 K/MM3 (134-434); RDW 13.5 % (11.6-15.6); WHITE BLOOD COUNT 7.1 K/mm3 (4.0-10.0)
[2017-04-15 23:58] LABS: ALLENS TEST POSITIVE; ART PUNCT SITE RIGHT RADIAL; LPM/O2% 2 LPM; PT. ON O2? YES; TYPE OF O2 NASAL O2
--- NOTE | 2017-04-15 23:58 | PDOC ---
History of Present Illness - General Chief Complaint: Shortness of Breath Stated Complaint: SHORTNESS OF BREATH Time Seen by Provider: 04/15/17 23:32 - History of Present Illness Initial Comments: 04/16/17 02:16 04/16/17 02:25 61F with h/o COPD-emphysema on 2 liter home oxygen,, recurrent pneumonia, asthma , R upper lobe mass, asthma presents with pains on both sides of the chest. pain on expiration. no nausea vomiting. She has been admitted to the ED last month for Pneumonia. Past History - Past Medical History Allergies/Adverse Reactions: Allergies Allergy/AdvReac Type Severity Reaction Status Date / Time Penicillins Allergy Verified 04/15/17 21:42 Home Medications: Ambulatory Orders Fluticasone/Salmeterol [Advair 250-50 Diskus] 1 each IH DAILY 05/03/15 Ipratropium/Albuterol Sulfate [Combivent Respimat Inhal [place]] 4 gm IH DAILY Albuterol 0.083% Nebulizer Terri [Ventolin 0.083% Nebulizer Soln -] 1 neb NEB Q4H PRN 12/22/15 Montelukast Na [Singulair -] 10 mg PO HS 12/22/15 Pantoprazole Sodium 40 mg PO DAILY 03/28/17 Budesonide/Formeterol Fumarate [SYMBICORT 160/4.5mcg -] 2 puff IH BID #1 inhaler 04/05/17 Folic Acid - 1 mg PO DAILY #30 tablet 04/05/17 Thiamine HCl [Vitamin B1 -] 100 mg PO DAILY #30 tablet 04/05/17 Lidocaine 5% Patch [Lidoderm -] 1 patch TP DAILY #14 patch 04/16/17 Methylprednisolone [Medrol Dose Claudio] 4 mg PO ASDIR #21 tablet 04/16/17 Asthma: Yes COPD: Yes (emphysema) Other medical history: Arthritis, osteoporosis - Psycho/Social/Smoking Cessation Hx Anxiety: No Suicidal Ideation: No Smoking History: Former smoker Have you smoked in the past 12 months: Yes Number of Cigarettes Smoked Daily: 0 If you are a former smoker, when did you quit?: September 2016 Information on smoking cessation initiated: No 'Breaking Loose' booklet given: 05/03/15 Hx Alcohol Use: No Drug/Substance Use Hx: No Substance Use Type: None Hx Substance Use Treatment: No Review of Systems - Review of Systems Constitutional: No: Symptoms Reported HEENTM: No: Symptoms Reported Respiratory: Yes: See HPI Cardiac (ROS): No: Symptoms Reported ABD/GI: No: Symptoms Reported : No: Symptoms Reported Musculoskeletal: No: Symptoms Reported Integumentary: No: Symptoms Reported Neurological: No: Symptoms reported *Physical Exam - Vital Signs Last Vital Signs Temp Pulse Resp BP Pulse Ox 99.5 F 102 H 22 113/78 89 L 04/15/17 21:43 04/15/17 21:43 04/15/17 21:43 04/15/17 21:43 04/15/17 21:43 - Physical Exam General Appearance: Yes: Nourished, Appropriately Dressed, Moderate Distress, Thin HEENT: positive: EOMI, SOPHIE Neck: positive: Rigidity Respiratory/Chest: positive: Lungs Clear, Normal Breath Sounds, Hyperresonant Cardiovascular: positive: Regular Rhythm, Regular Rate, S1, S2 Gastrointestinal/Abdominal: positive: Normal Bowel Sounds ED Treatment Course - LABORATORY CBC & Chemistry Diagram: 04/15/17 23:41 04/15/17 23:41 - RADIOLOGY Radiology Studies Ordered: Category Date Time Status CHEST X-RAY PORTABLE* [RAD] Stat Radiology 04/15/17 23:36 Ordered Medical Decision Making - Medical Decision Making 04/16/17 04:39 61F with h/o COPD-emphysema on 2 liter home oxygen,, recurrent pneumonia, asthma , R upper lobe mass, asthma presents with pains on both sides of the chest. pain on expiration. no nausea vomiting. Chemistry: Na:128 Glucose:262 Corrected Na: 129.6. Chest xray improved from last one. Discussed case with Dr De Jesus who declined admission. Patient to follow up with Dr. Hicks outpatient and get a Ct Chest this week to evaluate nature of lung neoplasm. 04/16/17 06:12 04/16/17 06:14 04/16/17 06:16 *DC/Admit/Observation/Transfer Diagnosis at time of Disposition: Pleuritic chest pain - Discharge Dispostion Admit: No - Prescriptions Prescriptions: Lidocaine 5% Patch [Lidoderm -] 1 patch TP DAILY #14 patch Methylprednisolone [Medrol Dose Claudio] 4 mg PO ASDIR #21 tablet - Referrals Referrals: Ying Altamirano MD [Primary Care Provider] - Hicks,Ismael MD, MD [Staff Physician] - - Patient Instructions Printed Discharge Instructions: DI for Pleurisy
[2017-04-16] MEDS ORDERED: ACETAMINOPHEN 325 MG TABLET (FP) PO ONE (00:07)
[2017-04-16] MEDS ORDERED: predniSONE 20 MG TABLET (UD) PO ONE (00:08)
[2017-04-16] MEDS ORDERED: ACETAMINOPHEN 325 MG TABLET (FP) ONE (00:18)
[2017-04-16] MEDS ORDERED: predniSONE 20 MG TABLET (UD) ONE (00:18)
[2017-04-16 00:44] LABS: ALBUMIN 3.3 g/dl (3.4-5.0); ANION GAP 11 (8-16); BILIRUBIN,TOTAL 0.4 mg/dL (0.2-1.0); CALCIUM 8.2 mg/dL (8.5-10.1); CO2 24 mmol/L (21-32); CREATININE 0.6 mg/dL (0.55-1.02); GLUCOSE,RANDOM 262 mg/dL (74-106); SGOT/AST 30 U/L (15-37); SGPT/ALT 77 U/L (12-78); TOT PROT 7.7 g/dl (6.4-8.2)
[2017-04-16 00:46] LABS: ALK PHOS 121 U/L (45-117)
[2017-04-16 02:02] LABS: CPK 38 IU/L (26-192); TROPONIN I < 0.02 ng/ml (0.00-0.05)
[2017-04-16 03:39] VITALS: BP 125/70; PULSE 74
== END 2017-04-16 05:10 | disposition home or self-care (01) ==
LOC: JER 21:37
DX: R07.89 Other chest pain (principal); J44.9 Chronic obstructive pulmonary disease, unspecified; J45.909 Unspecified asthma, uncomplicated; Z99.89 Dependence on other enabling machines and devices; Z87.891 Personal history of nicotine dependence
CPT/HCPCS: 36415; 36600; 71010-TC; 80053; 82803; 84484; 85025; 85379; 99283-25

== ENCOUNTER 2019-11-02 21:14 | Inpatient (IN) | payer OTHER ==
[2019-11-02] MEDS ORDERED: methylPREDNISolone NA SUCC 125 MG/2 ML VIAL IVPB ONE (21:21)
--- NOTE | 2019-11-02 21:21 | PDOC ---
Rapid Medical Evaluation Time Seen by Provider: 11/02/19 21:19 Medical Evaluation: Allergies Allergy/AdvReac Type Severity Reaction Status Date / Time Penicillins Allergy Verified 04/15/17 21:42 11/02/19 21:20 CC: SOB with upper back pain PE: diminished breath sounds Orders: CXR, labs, NRB Patient will proceed to ED for continued evaluation. Discharge Disposition - Diagnosis COPD with emphysema - Referrals - Patient Instructions - Post Discharge Activity
[2019-11-02] MEDS ORDERED: KETOROLAC TROMETHAMINE 15 MG/ML VIAL ONE (21:49)
[2019-11-02] MEDS ORDERED: ACETAMINOPHEN INJECTION 100 ML IVPB ONE (21:49)
[2019-11-02] MEDS ORDERED: methylPREDNISolone NA SUCC 125 MG/2 ML VIAL ONE (21:49)
[2019-11-02] MEDS ORDERED: ALBUTEROL SO4 2.5/IPRATROPIUM 0.5 INH SOL 3 ML VIAL.NEB. NEB ONE ×2 (22:01→23:10)
[2019-11-02 22:20] LABS: BASO % 0.2 % (0-2.0); HEMATOCRIT 39.8 % (32.4-45.2); HEMOGLOBIN 13.5 GM/dL (10.7-15.3); LYMPH % 8.9 % (8-40); MCH 32.4 pg (25.7-33.7); MCHC 33.9 g/dl (32.0-36.0); MEAN CELL VOLUME 95.5 fl (80-96); MEAN PLT VOLUME 8.6 fl (7.5-11.1); MONO % 2.9 % (3.8-10.2); PLATELET COUNT 234 K/MM3 (134-434); RBC 4.16 M/mm3 (3.60-5.2); RDW 12.5 % (11.6-15.6); WHITE BLOOD COUNT 9.4 K/mm3 (4.0-10.0)
[2019-11-02 22:36] LABS: VENOUS PC02 51.9 mmHg (38-52); VENOUS PH 7.38 (7.31-7.41)
[2019-11-02 22:38] LABS: VENOUS PO2 < 49 mmHg (28-48)
[2019-11-02 22:56] LABS: ALBUMIN 3.9 g/dl (3.4-5.0); BILIRUBIN,TOTAL 0.3 mg/dL (0.2-1); BLOOD UREA NITROGEN 13.8 mg/dL (7-18); CREATININE 0.5 mg/dL (0.55-1.3); POTASSIUM 4.4 mmol/L (3.5-5.1); TOT PROT 8.5 g/dl (6.4-8.2)
--- NOTE | 2019-11-02 23:05 | PDOC ---
History of Present Illness - General Chief Complaint: Shortness of Breath Stated Complaint: DIFFICULTY BREATHING Time Seen by Provider: 11/02/19 21:19 History Source: Patient Exam Limitations: No Limitations - History of Present Illness Initial Comments: 11/02/19 22:37 64 yo female pmh COPD (on 2L home O2 daily) Emphysema, asthma, DM, ETOH abuse presents to the ED for 5 days of SOB and productive cough. Pt states the SOB began 5 days ago, progressively worsening along with a cough productive of green sputum with new mid upper back pain and RUQ abdominal pain. Denies sick contacts, recent travel, immobility, calf tenderness, CP, changes in bowel or bladder habits, F/C/N/V. Past History - Past Medical History Allergies/Adverse Reactions: Allergies Allergy/AdvReac Type Severity Reaction Status Date / Time Penicillins Allergy Verified 11/02/19 21:26 Home Medications: Ambulatory Orders Fluticasone/Salmeterol [Advair 250-50 Diskus] 1 each IH DAILY 05/03/15 Ipratropium/Albuterol Sulfate [Combivent Respimat 20-100 Mcg] 4 gm IH DAILY Albuterol 0.083% Nebulizer Terri [Ventolin 0.083% Nebulizer Soln -] 1 neb NEB Q4H PRN 12/22/15 Montelukast Na [Singulair -] 10 mg PO HS 12/22/15 Pantoprazole Sodium 40 mg PO DAILY 03/28/17 Budesonide/Formeterol Fumarate [SYMBICORT 160/4.5mcg -] 2 puff IH BID #1 inhaler 04/05/17 Folic Acid - 1 mg PO DAILY #30 tablet 04/05/17 Thiamine HCl [Vitamin B1 -] 100 mg PO DAILY #30 tablet 04/05/17 Atorvastatin Calcium [Lipitor] 10 mg PO DAILY 11/03/19 Diphenhydramine [Benadryl Oral Solution -] 25 mg PO DAILY 11/03/19 Metformin HCl [Glucophage] 500 mg PO DAILY 11/03/19 Roflumilast [Daliresp] 500 mcg PO DAILY 11/03/19 Vitamin A Palmitate [Vitamin A] 10,000 unit PO DAILY 11/03/19 Asthma: Yes COPD: Yes (emphysema) Diabetes: Yes Hypercholesterolemia: Yes Other medical history: DVT - Psycho Social/Smoking Cessation Hx Smoking History: Former smoker Have you smoked in the past 12 months: No Number of Cigarettes Smoked Daily: 0 If you are a former smoker, when did you quit?: September 2016 Information on smoking cessation initiated: No 'Breaking Loose' booklet given: 05/03/15 Hx Alcohol Use: No Drug/Substance Use Hx: No Substance Use Type: None Hx Substance Use Treatment: No Review of Systems - Review of Systems Constitutional: Yes: See HPI HEENTM: Yes: See HPI Respiratory: Yes: See HPI Cardiac (ROS): Yes: See HPI ABD/GI: Yes: See HPI : Yes: See HPI Musculoskeletal: Yes: See HPI Integumentary: Yes: See HPI Neurological: Yes: See HPI *Physical Exam - Vital Signs Last Vital Signs Temp Pulse Resp BP Pulse Ox 98.5 F 133 H 24 H 119/66 95 11/02/19 21:19 11/02/19 21:19 11/02/19 21:19 11/02/19 21:19 11/02/19 21:19 - Physical Exam General Appearance: Yes: Nourished, Appropriately Dressed, Apparent Distress ( not speaking in full sentences, increased WOB) HEENT: positive: EOMI, Normal Voice. negative: Excessive drooling Neck: positive: Supple. negative: Carotid bruit Respiratory/Chest: positive: Decreased Breath Sounds (RLL no breath sounds ). negative: Crackles, Rales, Rhonchi, Stridor, Wheezing Cardiovascular: positive: Regular Rhythm, S1, S2, Tachycardia. negative: Edema , JVD, Murmur Vascular Pulses: Dorsalis-Pedis (R): 4+, Doralis-Pedis (L): 4+ Gastrointestinal/Abdominal: positive: Flat, Soft, Tenderness (RUQ). negative: Pulsatile Mass, Distended, Guarding, Rebound Musculoskeletal: negative: CVA Tenderness Extremity: positive: Normal Capillary Refill, Normal Inspection, Normal Range of Motion Integumentary: positive: Normal Color, Dry, Warm Neurologic: positive: Fully Oriented, Alert, Normal Mood/Affect, Normal Response ED Treatment Course - LABORATORY CBC & Chemistry Diagram: 11/04/19 05:20 11/04/19 05:20 - ADDITIONAL ORDERS Additional order review: 11/02/19 22:10 RBC 4.16 MCV 95.5 MCHC 33.9 RDW 12.5 MPV 8.6 Neutrophils % 87.0 H D Lymphocytes % 8.9 D Monocytes % 2.9 L Eosinophils % 1.0 Basophils % 0.2 - RADIOLOGY Radiology Studies Ordered: Category Date Time Status CTA CHEST ABD PEL W/WO CONT [CT] Stat CT Scan 11/02/19 22:04 Ordered - Medications Given in the ED: ED Medications Discontinued Medications Generic Name Dose Route Start Last Admin Trade Name Frerigo PRN Reason Stop Dose Admin Methylprednisolone Sodium Succinate 125 mg 11/02/19 21:21 11/02/19 21:30 Solu-Medrol - IVPB 11/02/19 21:22 125 mg ONCE ONE Administration Medical Decision Making - Medical Decision Making 64 yo female pmh COPD (on 2L home O2 daily) Emphysema, asthma, DM, ETOH abuse presents to the ED for 5 days of SOB and productive cough. Pt states the SOB began 5 days ago, progressively worsening along with a cough productive of green sputum with new mid upper back pain and RUQ abdominal pain. Denies sick contacts, recent travel, immobility, calf tenderness, CP, changes in bowel or bladder habits, F/C/N/V. Vitals show elevated HR 133 and RR 24 Solu medrol 125 mg IV and Duo nebs given immediately Pt on Bipap On Exam, no breath sounds RLL. Bedside Sono shows B lines RLL, emergent bedside CXR neg for Pnemo Pt taken to CTA after sono, shows multiple blebs, very large RLL bleb which appear old based on prior imaging 11/02/19 23:56 pt off bipap and tolerating well Labs WNL Will admit to hospitalist team for sever COPD exacerbation Discharge - Discharge Information Problems reviewed: Yes Clinical Impression/Diagnosis: COPD with emphysema, Lung blebs Condition: Stable - Admission Yes - Follow up/Referral - Patient Discharge Instructions - Post Discharge Activity
[2019-11-02] MEDS ORDERED: fentaNYL CITRATE 250 MCG/5 ML VIAL ONE (23:08)
[2019-11-02] MEDS ORDERED: ACETAMINOPHEN 1000 MG/100 ML VIAL (NON FORMULARY) IVPB ONE (23:09)
[2019-11-02] MEDS ORDERED: KETOROLAC TROMETHAMINE 15 MG/ML VIAL IVPUSH ONE (23:09)
[2019-11-02 23:38] LABS: INR 0.89 (0.83-1.09); PROTHROMBIN TIME (PATIENT) 10.5 SEC (9.7-13.0)
--- NOTE | 2019-11-02 23:58 | CONSULT ---
Consultation: REQUESTING PROVIDER: CONSULT REQUEST: We have been asked to medically evaluate this patient for close monitoring of a RLL 7.6 x 3.9cm pulmonary bulla. HISTORY OF PRESENT ILLNESS: 64F w/ pmh of asthma, lung bullae, stage IV COPD(home O2 2-3L, Daliresp), former chronic tobacco user(quit 3ys prior), EtOH substance use disorder(drinks 18oz beers x15-16 daily, last drink at ~5pm day of admission), OA presenting to [facility]- ED with complaint of increasing SOB x5d. Has had new-onset productive cough w/ green sputum, nausea, vomiting [id number]. Last COPDe admission was ~May 2019, at [facility]. Denies ever had intubation. Denies home BiPAP. Denies current steroid usage. Follows a Lei Maker([facility] at [facility]) with unremarkable clinic visit in Sep 2019. Had quit EtOH in the past so she could be a UNOS candidate for lung transplant, but has resumed drinking in the past few months. Has mild sweating, nausea. Denies agitation, WILLIAMSON, audit/vis/tactile hallucinations. Has had past tremors related to withdrawal. Denies h/o seizures. History supplemented by adult daughter at bedside. SOB improved after ED BiPAP. REVIEW OF SYSTEMS: CONSTITUTIONAL: malaise, weakness Absent: fever, chills, diaphoresis, loss of appetite, weight change HEENT: Absent: rhinorrhea, nasal congestion, throat pain, throat swelling, difficulty swallowing, mouth swelling, ear pain, eye pain, visual changes CARDIOVASCULAR: Absent: chest pain, syncope, palpitations, irregular heart rate, lightheadedness, peripheral edema RESPIRATORY: SOB, productive cough w/ green sputum Absent: dyspnea with exertion, orthopnea, wheezing, stridor, hemoptysis GASTROINTESTINAL: nausea, vomiting Absent: abdominal pain, abdominal distension, diarrhea, constipation, melena, hematochezia GENITOURINARY: Absent: dysuria, frequency, urgency, hesitancy, hematuria, flank pain, genital pain MUSCULOSKELETAL: lower back pain Absent: myalgia, arthralgia, joint swelling, neck pain SKIN: Absent: rash, itching, pallor NEUROLOGIC: mild sweating Absent: headache, focal weakness or paresthesias, dizziness, unsteady gait, seizure, mental status changes, bladder or bowel incontinence PHYSICAL EXAMINATION Vital Signs - 24 hr 11/02/19 11/02/19 21:19 22:45 Temperature 98.5 F Pulse Rate 133 H Respiratory 24 H Rate Blood Pressure 119/66 O2 Sat by Pulse 95 99 Oximetry (%) GENERAL: Awake, alert, and fully oriented, in no acute distress. Appears older than stated age HEAD: NC/AT. Moderate temporal wasting EYES: extraocular movements intact, sclera anicteric, conjunctiva clear. No lid lag. EARS, NOSE, THROAT: Ears normal, nares patent, oropharynx clear without exudates. Moist mucous membranes. NECK: Normal range of motion, supple without lymphadenopathy, JVD, or masses. LUNGS: Mild b/l coarse BS. No wheezes, and no crackles. Using BiPAP. Sat to 88% on RA. Speaking shortened sentences. No accessory musclke usage HEART: Tachy to low 100s, normal S1 and S2 without murmur, rub or gallop. ABDOMEN: Soft, nontender, not distended, normoactive bowel sounds, no guarding, no rebound, no masses. MUSCULOSKELETAL: Normal range of motion at all joints. No bony deformities or tenderness. No CVA tenderness. UPPER EXTREMITIES: 2+ pulses, warm, well-perfused. No cyanosis. Mild fingernail clubbing. No peripheral edema. LOWER EXTREMITIES: 2+ pulses, warm, well-perfused. No calf tenderness. No peripheral edema. NEUROLOGICAL: Cranial nerves II-XII intact. Normal speech. Normal gait. PSYCHIATRIC: Cooperative. Good eye contact. Appropriate mood and affect. SKIN: Warm, dry, normal turgor, no rashes or lesions noted. Laboratory Results - last 24 hr 11/02/19 11/02/19 11/02/19 21:35 21:55 21:55 WBC RBC Hgb Hct MCV MCH MCHC RDW Plt Count MPV Absolute Neuts (auto) Neutrophils % Lymphocytes % Monocytes % Eosinophils % Basophils % Nucleated RBC % PT with INR INR VBG pH 7.38 POC VBG pCO2 51.9 POC VBG pO2 < 49 H VBG HCO3 30.0 H VBG O2 Sat (Philippe) 65.8 L VBG Base Excess 4.3 H Sodium Cancelled Potassium Cancelled Chloride Cancelled Carbon Dioxide Cancelled Anion Gap Cancelled BUN Cancelled Creatinine Cancelled Est GFR (CKD-EPI)AfAm Cancelled Est GFR (CKD-EPI)NonAf Cancelled Random Glucose Cancelled Lactic Acid 1.3 Calcium Cancelled Total Bilirubin Cancelled AST Cancelled ALT Cancelled Alkaline Phosphatase Cancelled Creatine Kinase Troponin I B-Natriuretic Peptide Cancelled Total Protein Cancelled Albumin Cancelled 11/02/19 11/02/19 11/02/19 21:55 22:10 22:10 WBC 9.4 RBC 4.16 Hgb 13.5 Hct 39.8 MCV 95.5 MCH 32.4 MCHC 33.9 RDW 12.5 Plt Count 234 MPV 8.6 Absolute Neuts (auto) 8.2 H Neutrophils % 87.0 H D Lymphocytes % 8.9 D Monocytes % 2.9 L Eosinophils % 1.0 Basophils % 0.2 Nucleated RBC % 0 PT with INR 10.50 INR 0.89 VBG pH POC VBG pCO2 POC VBG pO2 VBG HCO3 VBG O2 Sat (Philippe) VBG Base Excess Sodium 137 Potassium 4.4 Chloride 102 Carbon Dioxide 31 Anion Gap 5 L BUN 13.8 Creatinine 0.5 L Est GFR (CKD-EPI)AfAm 120.22 Est GFR (CKD-EPI)NonAf 103.73 Random Glucose 136 H Lactic Acid Calcium 9.0 Total Bilirubin 0.3 AST 67 H ALT 55 Alkaline Phosphatase 98 Creatine Kinase Troponin I B-Natriuretic Peptide Total Protein 8.5 H Albumin 3.9 11/02/19 22:10 WBC RBC Hgb Hct MCV MCH MCHC RDW Plt Count MPV Absolute Neuts (auto) Neutrophils % Lymphocytes % Monocytes % Eosinophils % Basophils % Nucleated RBC % PT with INR INR VBG pH POC VBG pCO2 POC VBG pO2 VBG HCO3 VBG O2 Sat (Philippe) VBG Base Excess Sodium Potassium Chloride Carbon Dioxide Anion Gap BUN Creatinine Est GFR (CKD-EPI)AfAm Est GFR (CKD-EPI)NonAf Random Glucose Lactic Acid Calcium Total Bilirubin AST ALT Alkaline Phosphatase Creatine Kinase 144 Troponin I < 0.02 B-Natriuretic Peptide Total Protein Albumin ASSESSMENT/PLAN: 64F w/ pmh of asthma, lung bullae, stage IV COPD(home O2 2-3L, Daliresp), former chronic tobacco user(quit 3ys prior), EtOH substance use disorder(drinks 18oz beers x15-16 daily, last drink at ~5pm day of admission), OA presenting to [facility]- ED with complaint of increasing SOB x5d. Symptoms likely 2/2 to COPD excerbation. ICU was consulted for close monitoring of 7.6 x 3.9cm RRL lung bulla. NEURO # EtOH chronic substance use disorder --no active withdrawal > CIWA ~5 - normal mentation - monitor for hypoxia-related AMS - monitor for EtOH withdrawal - Ativan 1mg PRN - MVI, thiamine - consider Addiction Medicine consult CARDIO # tachycardia --likely 2/2 respiratory distress > EKG(11/02/19): sinus tachy(~119bpm), QTc 422 > troponin neg x1 > BNP: 65 - manager monitoring RESPIR # Stage IV COPD # tachypnea --resolving # RLL bulla(7.6 x 3.9cm) --risk of pneumothorax > VB.38/51.9/<49/30/65.8 > CTA chest(11/02/19): [id number] --neg for PE, severe emphysematous changes, RLL w/ 7.6x3.9cm bullae > CTA chest(03/29/20): review of imaging shows similiar sized RLL bulla > influ --pending - cw BiPAP - solumedrol 60mg q6h - azithro QD - duoneb breonna, ventolin prn - Daliresp is not in hospital formulary - daily CXR to r/o spontaneous pneumothorax GI # transamnitis --likely 2/2 chronic EtOH > AST/ALT: 67/55 - consider US RUQ RENAL - no active issues HEME - no active issues FEN: - NPO while on BiPAP - no IVF at this time PPX: - SQH Dispo: chronic RLL bulla, HD stable. Not an ICU candidate at this time Visit type - Emergency Visit Emergency Visit: Yes ED Registration Date: 11/02/19 Care time: The patient presented to the Emergency Department on the above date and was hospitalized for further evaluation of their emergent condition. - New Patient This patient is new to me today: Yes Date on this admission: 11/03/19 - Critical Care Critical Care patient: Yes Total Critical Care Time (in minutes): 35 Critical Care Statement: The care of this patient involved high complexity decision making to prevent further life threatening deterioration of the patient's condition and/or to evaluate & treat vital organ system(s) failure or risk of failure. ATTENDING PHYSICIAN STATEMENT I saw and evaluated the patient. I reviewed the resident's note and discussed the case with the resident. I agree with the resident's findings and plan as documented. SUBJECTIVE: OBJECTIVE: ASSESSMENT AND PLAN:
[2019-11-03] MEDS ORDERED: LORazepam 2 MG/ML SDV VIAL IVPUSH PRN (00:06)
[2019-11-03] MEDS ORDERED: AZITHROMYCIN IVPB 500 MG in DEXTROSE 5%-WATER - 250 ML IVPB ONE (00:06)
[2019-11-03] MEDS ORDERED: methylPREDNISolone NA SUCC 40 MG/1 ML VIAL IVPUSH SCH ×2 (00:15→02:30)
[2019-11-03] MEDS ORDERED: ALBUTEROL SO4 0.5 % INH SOLN 2.5 MG/0.5 ML VIAL.NEB. NEB PRN ×2 (00:22→02:21)
[2019-11-03] MEDS ORDERED: AZITHROMYCIN IVPB 500 MG/250 ML BAG IVPB ONE (00:25)
[2019-11-03] MEDS ORDERED: HYDROCORTISONE SOD SUCCINATE 2 ML ONE ×2 (00:25→02:40)
[2019-11-03] MEDS ORDERED: ALBUTEROL SO4 0.083% IH SOL 2.5 MG/3 ML VIAL.NEB. NEB PRN (00:52)
--- NOTE | 2019-11-03 01:06 | PN ---
Teaching Attending Note Name of Resident: Ginger Cook ATTENDING PHYSICIAN STATEMENT I saw and evaluated the patient. I reviewed the resident's note and discussed the case with the resident. I agree with the resident's findings and plan as documented. SUBJECTIVE: 64-year-old woman with history of COPD on 2 L home oxygen, emphysema, diabetes mellitus, alcoholism complains of 5 days of shortness of breath with productive cough. Shortness of breath has worsened gradually, denied any sick contacts, recent travels, fevers or chills. In the emergency room patient received 3 rounds of nebs, Solu-Medrol IV and was placed on BiPAP. Patient reported drastic improvement after receiving those treatments in the emergency room. OBJECTIVE: Last Vital Signs Temp Pulse Resp BP Pulse Ox 98.5 F 110 H 22 H 106/69 100 11/02/19 21:19 11/03/19 00:15 11/03/19 00:15 11/03/19 00:15 11/03/19 00:15 On physical exam patient was a thin woman, not in respiratory distress, speaking in full sentences. She was nontoxic-appearing, bilateral breath sounds however they were diminished. Cardiac exam was positive for S1, S2, borderline tachycardia with no murmurs appreciated. Abdomen is soft, nontender , no rashes on skin. No pedal edema appreciated Abnormal Lab Results 11/02/19 11/02/19 11/02/19 21:35 22:10 22:10 Absolute Neuts (auto) 8.2 H Neutrophils % 87.0 H D Monocytes % 2.9 L POC VBG pO2 < 49 H VBG HCO3 30.0 H VBG O2 Sat (Philippe) 65.8 L VBG Base Excess 4.3 H Anion Gap 5 L Creatinine 0.5 L Random Glucose 136 H AST 67 H Total Protein 8.[address] of chest was reviewed, severe emphysematous changes, large right lower lobe bleb that was present on old chest CT from 2017. Diffuse groundglass changes which are also present on old CT. ASSESSMENT AND PLAN: 64-year-old woman with COPD exacerbation with severe emphysema and old, unchanged right lower lobe large bleb. She has improved after initial IV steroids and nebulizers administered in the emergency room. Given severe emphysema, lack of significant CO2 retention, would wean patient from BiPAP at this time as increased positive pressure may worsen or rupture emphysematous lung pathology. Admit to telemetry Trend troponins Duo nebs every 4 hours standing Solu-Medrol 8 hours IV as needed Supplemental oxygen PRN Flu swab Would DC BiPAP at this time as patient is breathing much better. Furthermore, increased positive pressure would increase risk of bleb rupture leading to possibility of pneumothorax Monitor vital signs closely Monitor oxygen saturation closely Pulmonary evaluation Spiriva Protonix while on high-dose steroids BGM's NovoLog sliding scale if significant hyperglycemia #History of alcoholism CIWA protocol Thiamine, folate, multivitamin Lorazepam p.o. as needed if signs of withdrawal #DVT prophylaxisheparin subcutaneously
--- NOTE | 2019-11-03 01:32 | HP ---
CHIEF COMPLAINT: shortness of breath PCP: Dr. Griffiths HISTORY OF PRESENT ILLNESS: 64 y.o. F PMH asthma, lung bullae, stage IV COPD (home O2 2-3L, Daliresp), former chronic tobacco user(quit 3yrs ago), EtOH abuse (last drink this evening at 5pm had 5 beers today), OA c/o dyspnea x 5 days with cough productive of green sputum. SOB is present at rest, nonpleuritic. Also endorses nausea & NBNB vomiting x 1 day. Had recent admission to [facility] for COPD exacerbation 2018. Pt denies history of intubation. No recent sick contacts. Denies headache / fevers/ chills/ chest pain/ diaphoresis/ myalgias/diarrhea. ER course was notable for: (1) solumedrol 125mg IV, duonebs (2) placed on bipap 40% (3) CT chest showing RLL bleb, seen on ct chest in 2017 Recent Travel: denies PAST MEDICAL HISTORY:as per hpi PAST SURGICAL HISTORY: none Social History: Smoking: ex-smoker Alcohol: currently abusing Drugs: denies Allergies Penicillins Allergy (Verified 11/02/19 21:26) HOME MEDICATIONS: Home Medications Medication Instructions Recorded Fluticasone/Salmeterol [Advair 1 each IH DAILY 05/03/15 250-50 Diskus] Ipratropium/Albuterol Sulfate 4 gm IH DAILY 05/03/15 [Combivent Respimat 20-100 Mcg] Albuterol 0.083% Nebulizer Terri 1 neb NEB Q4H PRN 12/22/15 [Ventolin 0.083% Nebulizer Soln -] Montelukast Na [Singulair -] 10 mg PO HS 12/22/15 Pantoprazole Sodium 40 mg PO DAILY 03/28/17 Budesonide/Formeterol Fumarate 2 puff IH BID #1 inhaler 04/05/17 [SYMBICORT 160/4.5mcg -] Folic Acid - 1 mg PO DAILY #30 tablet 04/05/17 Thiamine HCl [Vitamin B1 -] 100 mg PO DAILY #30 tablet 04/05/17 Lidocaine 5% Patch [Lidoderm -] 1 patch TP DAILY #14 patch 04/16/17 Methylprednisolone [Medrol Dose 4 mg PO ASDIR #21 tablet 04/16/17 Claudio] REVIEW OF SYSTEMS CONSTITUTIONAL: generalized weakness Absent: fever, chills, diaphoresis, malaise, loss of appetite, weight change HEENT: Absent: rhinorrhea, nasal congestion, throat pain, throat swelling, difficulty swallowing, mouth swelling, ear pain, eye pain, visual changes CARDIOVASCULAR: Absent: chest pain, syncope, palpitations, irregular heart rate, lightheadedness , peripheral edema RESPIRATORY: cough, shortness of breath Absent: orthopnea, wheezing, stridor, hemoptysis GASTROINTESTINAL:abdominal pain, vomiting Absent: abdominal distension, nausea, diarrhea, constipation, melena, hematochezia GENITOURINARY: Absent: dysuria, frequency, urgency, hesitancy, hematuria, flank pain, genital pain MUSCULOSKELETAL: Absent: myalgia, arthralgia, joint swelling, back pain, neck pain SKIN: Absent: rash, itching, pallor HEMATOLOGIC/IMMUNOLOGIC: Absent: easy bleeding, easy bruising, lymphadenopathy, frequent infections ENDOCRINE: Absent: unexplained weight gain, unexplained weight loss, heat intolerance, cold intolerance NEUROLOGIC: Absent: headache, focal weakness or paresthesias, dizziness, unsteady gait, seizure, mental status changes, bladder or bowel incontinence PSYCHIATRIC: Absent: anxiety, depression, suicidal or homicidal ideation, hallucinations. PHYSICAL EXAMINATION Vital Signs - 24 hr 11/02/19 11/02/19 11/03/19 21:19 22:45 00:11 Temperature 98.5 F Pulse Rate 133 H Pulse Rate [ 110 H Apical] Respiratory 24 H 22 H Rate Blood Pressure 119/66 Blood Pressure 133/70 [Left Arm] O2 Sat by Pulse 95 100 100 Oximetry (%) 11/03/19 00:15 Temperature Pulse Rate Pulse Rate [ 110 H Apical] Respiratory 22 H Rate Blood Pressure Blood Pressure 106/69 [Left Arm] O2 Sat by Pulse 100 Oximetry (%) GENERAL: Awake, alert, and fully oriented, in no acute distress. No tremors. HEENT: NCAT. on bipap mask LUNGS: Diminished lung sounds @ bases, R>L; mild rhonchi. No wheezes, and no crackles. No accessory muscle use. HEART: tachycardic, normal S1 and S2 without murmur, rub or gallop. ABDOMEN: Mild RUQ + epigastric tenderness. Soft, not distended, normoactive bowel sounds, no guarding. EXTREMITIES: 2+ pulses, warm, well-perfused. No peripheral edema. NEUROLOGICAL: Cranial nerves II-XII intact. PSYCHIATRIC: Appropriate mood and affect. SKIN: no rashes or lesions noted Laboratory Results - last 24 hr 11/02/19 11/02/19 11/02/19 21:35 21:55 21:55 WBC RBC Hgb Hct MCV MCH MCHC RDW Plt Count MPV Absolute Neuts (auto) Neutrophils % Lymphocytes % Monocytes % Eosinophils % Basophils % Nucleated RBC % PT with INR INR VBG pH 7.38 POC VBG pCO2 51.9 POC VBG pO2 < 49 H VBG HCO3 30.0 H VBG O2 Sat (Philippe) 65.8 L VBG Base Excess 4.3 H Sodium Cancelled Potassium Cancelled Chloride Cancelled Carbon Dioxide Cancelled Anion Gap Cancelled BUN Cancelled Creatinine Cancelled Est GFR (CKD-EPI)AfAm Cancelled Est GFR (CKD-EPI)NonAf Cancelled Random Glucose Cancelled Lactic Acid 1.3 Calcium Cancelled Total Bilirubin Cancelled AST Cancelled ALT Cancelled Alkaline Phosphatase Cancelled Creatine Kinase Troponin I B-Natriuretic Peptide Cancelled Total Protein Cancelled Albumin Cancelled Influenza A (Rapid) Influenza B (Rapid) 11/02/19 11/02/19 11/02/19 21:55 22:10 22:10 WBC 9.4 RBC 4.16 Hgb 13.5 Hct 39.8 MCV 95.5 MCH 32.4 MCHC 33.9 RDW 12.5 Plt Count 234 MPV 8.6 Absolute Neuts (auto) 8.2 H Neutrophils % 87.0 H D Lymphocytes % 8.9 D Monocytes % 2.9 L Eosinophils % 1.0 Basophils % 0.2 Nucleated RBC % 0 PT with INR 10.50 INR 0.89 VBG pH POC VBG pCO2 POC VBG pO2 VBG HCO3 VBG O2 Sat (Philippe) VBG Base Excess Sodium 137 Potassium 4.4 Chloride 102 Carbon Dioxide 31 Anion Gap 5 L BUN 13.8 Creatinine 0.5 L Est GFR (CKD-EPI)AfAm 120.22 Est GFR (CKD-EPI)NonAf 103.73 Random Glucose 136 H Lactic Acid Calcium 9.0 Total Bilirubin 0.3 AST 67 H ALT 55 Alkaline Phosphatase 98 Creatine Kinase Troponin I B-Natriuretic Peptide 63.0 Total Protein 8.5 H Albumin 3.9 Influenza A (Rapid) Influenza B (Rapid) 11/02/19 11/02/19 22:10 23:38 WBC RBC Hgb Hct MCV MCH MCHC RDW Plt Count MPV Absolute Neuts (auto) Neutrophils % Lymphocytes % Monocytes % Eosinophils % Basophils % Nucleated RBC % PT with INR INR VBG pH POC VBG pCO2 POC VBG pO2 VBG HCO3 VBG O2 Sat (Philippe) VBG Base Excess Sodium Potassium Chloride Carbon Dioxide Anion Gap BUN Creatinine Est GFR (CKD-EPI)AfAm Est GFR (CKD-EPI)NonAf Random Glucose Lactic Acid Calcium Total Bilirubin AST ALT Alkaline Phosphatase Creatine Kinase 144 Troponin I < 0.02 B-Natriuretic Peptide Total Protein Albumin Influenza A (Rapid) Negative Influenza B (Rapid) Negative ASSESSMENT/PLAN: 64 y.o. F PMH asthma, lung bullae, stage IV COPD (home O2 2-3L, Daliresp), EtOH abuse, OA presenting for dyspnea. #Acute COPD exacerbation -s/p 1 dose solumedrol 125mg; continue 60mg q8h -duonebs q4h & standing -on bipap in ED; satting 100%, may wean as tolerated -maintain SaO2>90%; continue o2 therapy -continue home meds--spiriva, symbicort, daliresp -Pulm consulted-- Dr. Parsons #Hyperglycemia -no known hx of diabetes -BGMs ACHS -ISS -f/u A1c #RUQ tenderness -f/u RUQ U/S -ibuprofen for pain control if needed -f/u final read CTA abd #EtOH abuse -no signs of withdrawal, continue to monitor -CIWA checks -thiamine, FA, MV -fall precautions #PPX -GI: protonix 40mg daily -DVT: heparin sq #Dispo telemetry Visit type - Emergency Visit Emergency Visit: Yes ED Registration Date: 11/02/19 Care time: The patient presented to the Emergency Department on the above date and was hospitalized for further evaluation of their emergent condition. - New Patient This patient is new to me today: Yes Date on this admission: 11/03/19 - Critical Care Critical Care patient: No ATTENDING PHYSICIAN STATEMENT I saw and evaluated the patient. I reviewed the resident's note and discussed the case with the resident. I agree with the resident's findings and plan as documented. SUBJECTIVE: OBJECTIVE: ASSESSMENT AND PLAN:
[2019-11-03] MEDS ORDERED: HEPARIN NA (PORCINE) 5,000 UNITS/ML 1ML VIAL ONE (05:39)
[2019-11-03] MEDS: HEPARIN NA (PORCINE) 5,000 UNITS/ML 1ML VIAL SQ SCH ×3 (05:58→21:55)
[2019-11-03] MEDS ORDERED: INSULIN (LEVEMIR) 100 UNITS/ML UNITS SQ ONE ×2 (07:27→07:29)
[2019-11-03] MEDS: INSULIN SLIDING SCALE (NOVOLOG) 1 VIAL SQ SCH ×4 (07:37→21:59)
[2019-11-03] MEDS ORDERED: ALBUTEROL SO4 2.5/IPRATROPIUM 0.5 INH SOL 3 ML VIAL.NEB. NEB SCH (08:00)
[2019-11-03] MEDS ORDERED: ALBUTEROL SO4 2.5/IPRATROPIUM 0.5 INH SOL 3 ML VIAL.NEB. NEB ONE ×2 (08:51→12:16)
[2019-11-03] MEDS: ALBUTEROL SO4 2.5/IPRATROPIUM 0.5 INH SOL 3 ML VIAL.NEB. NEB SCH ×4 (08:53→20:35)
[2019-11-03 09:39] LABS: URINE APPEARANCE CLEAR; URINE COLOR YELLOW
[2019-11-03 09:41] LABS: URINE BILIRUBIN NEGATIVE (NEGATIVE); URINE GLUCOSE (UA) TRACE (NEGATIVE); URINE KETONE NEGATIVE (NEGATIVE); URINE NITRITE NEGATIVE (NEGATIVE); URINE PROTEIN NEGATIVE (NEGATIVE); URINE UROBILINOGEN 0.2 mg/dL (0.2-1.0)
[2019-11-03 09:42] LABS: EPI CELLS 2.1 /HPF (0-5/HPF); URINE LEUK ESTERASE NEGATIVE (NEGATIVE); URINE RBC 0.9 /hpf (0-4); URINE WBC 1.7 /hpf (0-5)
[2019-11-03] MEDS: BUDESONIDE/FORMETEROL FUMARATE 160/4.5 mcg INHALER IH SCH ×2 (09:42→23:00)
[2019-11-03 09:43] LABS: HYALINE CASTS 0.73 /lpf (0-8); URINE BACTERIA 19.9 /hpf (NEGATIVE)
[2019-11-03] MEDS: FOLIC ACID 1 MG TABLET (FP) PO SCH (09:48)
[2019-11-03] MEDS: methylPREDNISolone NA SUCC 40 MG/1 ML VIAL IVPUSH SCH ×2 (09:48→17:37)
[2019-11-03] MEDS: THIAMINE HCL 100 MG TABLET (FP) PO SCH (09:48)
[2019-11-03] MEDS ORDERED: ROFLUMILAST 500 MCG TABLET PO SCH (10:00)
[2019-11-03] MEDS ORDERED: MUPIROCIN 2% TOPICAL OINTMENT FOR DECOLONIZATION NS SCH (10:00)
[2019-11-03] MEDS ORDERED: THIAMINE HCL 200 MG/2 ML VIAL IVPB SCH (10:00)
--- NOTE | 2019-11-03 11:07 | PN ---
Progress Note, Physician Chief Complaint: COPD Alcohol Abuse Productive Cough History of Present Illness: Previous notes and events reviewed awake and alert NAD sts breathing is better after using Bipap continues with cough no leukocytosis afebrile complain of abdominal pain - Current Medication List Current Medications: Active Medications Albuterol Sulfate (Ventolin 0.5% -) 1 amp NEB Q4H PRN PRN Reason: SHORT OF BREATH/WHEEZING Albuterol/Ipratropium (Duoneb -) 1 amp NEB RQID [facility] Last Admin: 11/03/19 08:53 Dose: 1 amp Budesonide/Formoterol Fumarate (Symbicort 160/4.5mcg -) 2 puff IH BID [facility] Last Admin: 11/03/19 09:42 Dose: Not Given Chlorhexidine Gluconate (Hibiclens For Decolonization -) 1 applic TP HS [facility] Folic Acid (Folic Acid -) 1 mg PO DAILY [facility] Last Admin: 11/03/19 09:48 Dose: 1 mg Heparin Sodium (Porcine) (Heparin -) 5,000 unit SQ TID [facility] Last Admin: 11/03/19 05:58 Dose: 5,000 unit Azithromycin 250 mg/ Dextrose 250 mls @ 250 mls/hr IVPB DAILY [facility] Insulin Aspart (Novolog Vial Sliding Scale -) 1 vial SQ ACHS [facility]; Protocol Last Admin: 11/03/19 07:37 Dose: 2 unit Lorazepam (Ativan -) 2 mg PO TID PRN PRN Reason: ANXIETY Methylprednisolone Sodium Succinate (Solu-Medrol -) 60 mg IVPUSH Q8H-IV [facility] Last Admin: 11/03/19 09:48 Dose: 60 mg Montelukast Sodium (Singulair -) 10 mg PO [facility] Multivitamins/Minerals/Vitamin C (Tab-A-Vit -) 1 tab PO DAILY [facility] Mupirocin (Bactroban Ointment (For Decolonization) -) 1 applic NS BID [facility] Stop: 11/08/19 09:59 Roflumilast (Daliresp) 500 mcg PO DAILY [facility] Last Admin: 11/03/19 09:48 Dose: 500 mcg Thiamine HCl (Vitamin B1 -) 100 mg PO DAILY [facility] Last Admin: 11/03/19 09:48 Dose: 100 mg - Objective Vital Signs: Vital Signs Temperature 98 F 11/03/19 07:25 Pulse Rate 92 H 11/03/19 07:25 Respiratory Rate 27 H 11/03/19 07:25 Blood Pressure 99/64 11/03/19 07:25 O2 Sat by Pulse Oximetry (%) 96 11/03/19 08:11 Constitutional: Yes: No Distress, Calm Eyes: Yes: Conjunctiva Clear HENT: Yes: Atraumatic Cardiovascular: Yes: Regular Rate and Rhythm Respiratory: Yes: Regular, Diminished, On Nasal O2 Gastrointestinal: Yes: Normal Bowel Sounds, Soft Musculoskeletal: Yes: Muscle Weakness Extremities: Yes: WNL Edema: No Neurological: Yes: Alert, Oriented Psychiatric: Yes: Alert, Oriented Labs: CBC, BMP 11/02/19 22:10 11/02/19 22:10 INR, PTT INR 0.89 (0.83-1.09) 11/02/19 21:55 Problem List - Problems (1) COPD with emphysema Assessment/Plan: Pulmonary on board Azithromycin O2 via NC Bipap HS and prn Singulair Daliresp Bronchodilators keep SpO2 >90% Chest CTA shows emphysematous changes Symbicort IV Medrol Influenza A/B neg Code(s): J43.9 - EMPHYSEMA, UNSPECIFIED (2) Chronic alcoholism Assessment/Plan: Dr Tong Consult Folic Acid, MVI, Thiamine Ativan PRN for agitation/withdrawal fall precaution seizure precaution Code(s): F10.20 - ALCOHOL DEPENDENCE, UNCOMPLICATED (3) Hyperglycemia Assessment/Plan: BGM ACHS ISS HgA1c 4.9% Code(s): R73.9 - HYPERGLYCEMIA, UNSPECIFIED (4) Abdominal pain Assessment/Plan: GI consult Abdomen CTA shows no evidence of aortic dissection, aneurysm or pulmonary artery emboli Pantoprazole Abdominal US ordered Code(s): R10.9 - UNSPECIFIED ABDOMINAL PAIN Assessment/Plan see problem list dvt ppx
[2019-11-03] MEDS: MULTIVITAMINS (DAILY MVI) TABLET (FP) PO SCH (11:33)
--- NOTE | 2019-11-03 11:41 | EKG ---
Test Reason : Blood Pressure : / mmHG Vent. Rate : 119 BPM Atrial Rate : 119 BPM P-R Int : 134 ms QRS Dur : 068 ms QT Int : 300 ms P-R-T Axes : 085 041 068 degrees QTc Int : 422 ms POOR DATA QUALITY, INTERPRETATION MAY BE ADVERSELY AFFECTED SINUS TACHYCARDIA POSSIBLE LEFT ATRIAL ENLARGEMENT NONSPECIFIC ST ABNORMALITY ABNORMAL ECG Confirmed by KINGA MICHAELS MD ([id number]) on 11/03/2019 11:41:12 AM Referred By: Confirmed By:KINGA MICHAELS MD
--- NOTE | 2019-11-03 15:25 | CON.PULM ---
Consult Consult Specialty:: PULM/CCM Referred by:: Hospitalist Reason for Consultation:: SOB - History of Present Illness Chief Complaint: SOB History of Present Illness: 64 F, advanced (GOLD 4) COPD on home O2 2-3 L NC due to previous tobacco use ( quit 3yrs ago), EtOH abuse (last drink was DOA at 5pm had 5 beers), and OA. Admitted via the ER due to progressive dyspnea and productive cough with green/ yellow sputum x 5 days. No travel history or sick contacts. No fever or chills. No hemoptysis or night sweats. Last AE was at [facility] 05/2019. There is no history that would be consistent with [facility]AS. CT: diffuse emphysematous changes / apical bullae / no nodules, masses, infiltrates - History Source History Provided By: Patient Limitations to Obtaining History: No Limitations - Past Medical History Pulmonary: Yes: Bronchitis, COPD, Pneumonia, Other (BULLOUS EMPHYSEMA). No: O2 Dependent, Previously Intubated, Pulmonary Embolus, Pulmonary Fibrosis, Sleep Apnea Gastrointestinal: Yes: Other (ALCOHOLISM) Psych: Yes: Addictions Musculoskeletal: Yes: Other (RIGHT SIDED RIB PAIN) - Alcohol/Substance Use Hx Alcohol Use: No - Smoking History Smoking history: Former smoker Have you smoked in the past 12 months: No Aproximately how many cigarettes per day: 0 If you are a former smoker, when did you quit?: September 2016 - Social History ADL: Independent History of Recent Travel: No Home Medications - Allergies Allergies/Adverse Reactions: Allergies Allergy/AdvReac Type Severity Reaction Status Date / Time Penicillins Allergy Verified 11/02/19 21:26 - Home Medications Home Medications: Ambulatory Orders Fluticasone/Salmeterol [Advair 250-50 Diskus] 1 each IH DAILY 05/03/15 Ipratropium/Albuterol Sulfate [Combivent Respimat 20-100 Mcg] 4 gm IH DAILY Albuterol 0.083% Nebulizer Terri [Ventolin 0.083% Nebulizer Soln -] 1 neb NEB Q4H PRN 12/22/15 Montelukast Na [Singulair -] 10 mg PO HS 12/22/15 Pantoprazole Sodium 40 mg PO DAILY 03/28/17 Budesonide/Formeterol Fumarate [SYMBICORT 160/4.5mcg -] 2 puff IH BID #1 inhaler 04/05/17 Folic Acid - 1 mg PO DAILY #30 tablet 04/05/17 Thiamine HCl [Vitamin B1 -] 100 mg PO DAILY #30 tablet 04/05/17 Atorvastatin Calcium [Lipitor] 10 mg PO DAILY 11/03/19 Diphenhydramine [Benadryl Oral Solution -] 25 mg PO DAILY 11/03/19 Metformin HCl [Glucophage] 500 mg PO DAILY 11/03/19 Roflumilast [Daliresp] 500 mcg PO DAILY 11/03/19 Vitamin A Palmitate [Vitamin A] 10,000 unit PO DAILY 11/03/19 Review of Systems - Review of Systems Constitutional: reports: Malaise. denies: Chills, Fever, Night Sweats Eyes: reports: No Symptoms HENT: reports: No Symptoms Neck: reports: No Symptoms Cardiovascular: reports: Shortness of Breath. denies: Chest Pain, Edema, Palpitations Respiratory: reports: Cough, SOB, SOB on Exertion, Wheezing. denies: Hemoptysis , Orthopnea, PND, Snoring Gastrointestinal: reports: No Symptoms Genitourinary: reports: No Symptoms Breasts: reports: No Symptoms Reported Musculoskeletal: reports: No Symptoms Integumentary: reports: No Symptoms Neurological: reports: No Symptoms Endocrine: reports: No Symptoms Hematology/Lymphatic: reports: No Symptoms Psychiatric: reports: No Symptoms Physical Exam Vital Sings: Vital Signs Temperature 98.5 F 11/03/19 15:10 Pulse Rate 96 H 11/03/19 15:10 Respiratory Rate 16 11/03/19 15:10 Blood Pressure 120/74 11/03/19 15:10 O2 Sat by Pulse Oximetry (%) 96 11/03/19 15:10 Constitutional: Yes: No Distress Eyes: Yes: Conjunctiva Clear, EOM Intact HENT: Yes: Atraumatic, Normocephalic Neck: Yes: Supple, Trachea Midline Cardiovascular: Yes: Regular Rate and Rhythm Respiratory: Yes: Cough, Diminished, On Nasal O2, Rhonchi, SOB, SOB on Exertion , Tachypnea, Wheezes. No: Accessory Muscle Use, Rales, Stridor ...Inspection: Yes: WNL ...Clubbing: No Gastrointestinal: Yes: Normal Bowel Sounds, Soft Renal/: Yes: WNL Musculoskeletal: Yes: WNL Extremities: Yes: WNL Edema: No Peripheral Pulses WNL: Yes Integumentary: Yes: WNL Neurological: Yes: WNL, Alert, Oriented ...Motor Strength: WNL Psychiatric: Yes: WNL, Alert, Oriented Labs: CBC, BMP 11/02/19 22:10 11/02/19 22:10 Imaging - Results Chest X-ray: Report Reviewed, Image Reviewed Cat Scan: Report Reviewed, Image Reviewed Problem List - Problems (1) Acute exacerbation of chronic obstructive pulmonary disease (COPD) Code(s): J44.1 - CHRONIC OBSTRUCTIVE PULMONARY DISEASE W (ACUTE) EXACERBATION (2) Lung blebs Code(s): J43.9 - EMPHYSEMA, UNSPECIFIED (3) COPD with emphysema Code(s): J43.9 - EMPHYSEMA, UNSPECIFIED (4) Alcohol dependence with uncomplicated withdrawal Code(s): F10.230 - ALCOHOL DEPENDENCE WITH WITHDRAWAL, UNCOMPLICATED (5) Chronic alcoholism Code(s): F10.20 - ALCOHOL DEPENDENCE, UNCOMPLICATED (6) Osteoarthritis Code(s): M19.90 - UNSPECIFIED OSTEOARTHRITIS, UNSPECIFIED SITE Assessment/Plan Medrol BD TX standing and PRN Singulair Daliresp Supplemental O2 as needed Noted Zithromax No smoking was counseled VTE prophylaxis Outpatient PFTs Will follow Thank you. Dr Parsons
[2019-11-03] MEDS ORDERED: MAG HYDROX/AL HYDROX/SIMETH 30 ML UNIT-DOSE CUP PO ONE (16:15)
--- NOTE | 2019-11-03 16:49 | PDOC ---
Documentation entered by Ligia Redman SCRIBE, acting as scribe for Holland Ledesma DO. Holland Ledesma DO: This documentation has been prepared by the jaswinder, Ligia eRdman SCRIBE, under my direction and personally reviewed by me in its entirety. I confirm that the documentation accurately reflects all work, treatment, procedures, and medical decision making performed by me. Attending Attestation - Resident Resident Name: Scooby Steiner - ED Attending Attestation I have performed the following: I have examined & evaluated the patient, The case was reviewed & discussed with the resident, I agree w/resident's findings & plan, Exceptions are as noted - HPI HPI: 11/02/19 22:42 Patient is a 64 year old female with a significant past medical history of [employer] REPRESENTATIVE emphysema, right sided lung mass, and pulmonary embolism coming in today with 5 days worsening shortness of breath and right upper chest pain. Patient admits to right sided back pain and right upper quadrant abdominal pain that is worsened on exertion. She also notes post tussive emesis today and currently denies any chest pain or hemoptysis. - Physicial Exam PE: 11/02/19 22:42 GENERAL: Awake, alert, and fully oriented, in no acute distress HEAD: No signs of trauma EYES: PERRLA, EOMI, sclera anicteric, conjunctiva clear ENT: Auricles normal inspection, hearing grossly normal, nares patent, oropharynx clear without exudates. Moist mucosa NECK: Normal ROM, supple, no lymphadenopathy, JVD, or masses LUNGS: +Mild respiratory distress. +Decreased lung sounds to her right base. Breath sounds equal, No wheezes, and no crackles HEART: Regular rate and rhythm, normal S1 and S2, no murmurs, rubs or gallops ABDOMEN: +Mild right upper quadrant tenderness. Soft, normoactive bowel sounds. No guarding, no rebound. No masses EXTREMITIES: Normal range of motion, no edema. No clubbing or cyanosis. No cords, erythema, or tenderness. Distal pulses intact. NEUROLOGICAL: Cranial nerves II through XII grossly intact. Normal speech, normal gait SKIN: Warm, Dry, normal turgor, no rashes or lesions noted. - Critical Care Time Total Critical Care Time: 55 Critical Care Statement: The care of this patient involved high complexity decision making to prevent further life threatening deterioration of the patient 's condition and/or to evaluate & treat vital organ system(s) failure or risk of failure. - Medical Decision Making 11/02/19 22:42 MDM POCUS, Shows normal gallbladder, Hyperdynamic heart with an ejection fraction of 55%, No right sided heart strain, Non plethoric IVC with b-lines on the right. Assessment: Patient is a 64 year old female here for SOB and Right upper quadrant/right upper chest pain, will evaluate for PE, lower lobe pneumonia/mass Plan for CT chest, nebs, VBG, bipap, will treat at this time for COPD exacerbation, will do stat CT pe study, and will add on abdomen pelvis EKG Sinus tachycardia at 118, non specific T wave inversions, no ST elevations or depressions, normal axis. Stabilized on Bipap, no PE on CTPE, chronic R sided bleb, seen by ICU, stable for telemetry. Pt admitted in stabilized but gaurded condition. 11/08/19 17:27
[2019-11-03 18:25] VITALS: BMI 20.2
[2019-11-03] MEDS: ROFLUMILAST 500 MCG TABLET PO SCH (21:56)
[2019-11-03] MEDS: ATORVASTATIN CA 10 MG TABLET (FP) PO SCH (21:56)
[2019-11-03] MEDS: MONTELUKAST NA 10 MG TABLET PO SCH (21:56)
[2019-11-03] MEDS ORDERED: CHLORHEXIDINE GLUCONATE 4% CLEANSER FOR DECOLONIZATION TP SCH (22:00)
[2019-11-03] MEDS: LORazepam 1 MG TABLET PO PRN (22:07)
[2019-11-04] MEDS: methylPREDNISolone NA SUCC 40 MG/1 ML VIAL IVPUSH SCH ×3 (02:17→18:14)
[2019-11-04 06:20] LABS: HEMATOCRIT 35.5 % (32.4-45.2); HEMOGLOBIN 12.1 GM/dL (10.7-15.3); MCH 32.4 pg (25.7-33.7); MEAN CELL VOLUME 95.3 fl (80-96); MEAN PLT VOLUME 8.9 fl (7.5-11.1); PLATELET COUNT 219 K/MM3 (134-434); RBC 3.72 M/mm3 (3.60-5.2); RDW 12.3 % (11.6-15.6)
[2019-11-04] MEDS: INSULIN SLIDING SCALE (NOVOLOG) 1 VIAL SQ SCH ×4 (06:20→21:24)
[2019-11-04] MEDS: HEPARIN NA (PORCINE) 5,000 UNITS/ML 1ML VIAL SQ SCH ×3 (06:20→21:22)
[2019-11-04] MEDS ORDERED: metFORMIN HCL 500 MG TABLET (FP) PO SCH (07:00)
[2019-11-04 07:42] LABS: ALBUMIN 3.5 g/dl (3.4-5.0); BILIRUBIN,TOTAL 0.3 mg/dL (0.2-1); CALCIUM 8.8 mg/dL (8.5-10.1); CREATININE 0.4 mg/dL (0.55-1.3); MAGNESIUM 2.6 mg/dL (1.8-2.4); PHOSPHOROUS 2.9 mg/dL (2.5-4.9); POTASSIUM 3.9 mmol/L (3.5-5.1); TOT PROT 7.3 g/dl (6.4-8.2)
[2019-11-04] MEDS: ALBUTEROL SO4 2.5/IPRATROPIUM 0.5 INH SOL 3 ML VIAL.NEB. NEB SCH ×4 (08:00→20:07)
--- NOTE | 2019-11-04 09:42 | PN ---
Progress Note, Physician Chief Complaint: AWAKE ALERT C/O RIGHT SIDED ABD PAIN EVENTS AND NOTES REVIEWED STILL WITH DYSPNEA ON 02 THERAPY - Current Medication List Current Medications: Active Medications Albuterol Sulfate (Ventolin 0.5% -) 1 amp NEB Q4H PRN PRN Reason: SHORT OF BREATH/WHEEZING Albuterol/Ipratropium (Duoneb -) 1 amp NEB RQID [facility] Last Admin: 11/03/19 20:35 Dose: 1 amp Atorvastatin Calcium (Lipitor -) 10 mg PO HS [facility] Last Admin: 11/03/19 21:56 Dose: 10 mg Budesonide/Formoterol Fumarate (Symbicort 160/4.5mcg -) 2 puff IH BID [facility] Last Admin: 11/03/19 23:00 Dose: Not Given Chlorhexidine Gluconate (Hibiclens For Decolonization -) 1 applic TP HS [facility] Folic Acid (Folic Acid -) 1 mg PO DAILY [facility] Last Admin: 11/03/19 09:48 Dose: 1 mg Heparin Sodium (Porcine) (Heparin -) 5,000 unit SQ TID [facility] Last Admin: 11/04/19 06:20 Dose: 5,000 unit Azithromycin 250 mg/ Dextrose 250 mls @ 250 mls/hr IVPB DAILY [facility] Insulin Aspart (Novolog Vial Sliding Scale -) 1 vial SQ ACHS [facility]; Protocol Last Admin: 11/04/19 06:20 Dose: 2 unit Lorazepam (Ativan -) 2 mg PO TID PRN PRN Reason: ANXIETY Last Admin: 11/03/19 22:07 Dose: 2 mg Methylprednisolone Sodium Succinate (Solu-Medrol -) 60 mg IVPUSH Q8H-IV [facility] Last Admin: 11/04/19 02:17 Dose: 60 mg Montelukast Sodium (Singulair -) 10 mg PO HS [facility] Last Admin: 11/03/19 21:56 Dose: 10 mg Multivitamins/Minerals/Vitamin C (Tab-A-Vit -) 1 tab PO DAILY [facility] Last Admin: 11/03/19 11:33 Dose: 1 tab Mupirocin (Bactroban Ointment (For Decolonization) -) 1 applic NS BID [facility] Stop: 11/08/19 09:59 Pantoprazole Sodium (Protonix -) 40 mg PO DAILY [facility] Roflumilast (Daliresp) 500 mcg PO DAILY [facility] Last Admin: 11/03/19 21:56 Dose: 500 mcg Thiamine HCl (Vitamin B1 -) 100 mg PO DAILY [facility] Last Admin: 11/03/19 09:48 Dose: 100 mg - Objective Vital Signs: Vital Signs Temperature 98.5 F 11/04/19 05:57 Pulse Rate 90 11/04/19 05:57 Respiratory Rate 16 11/04/19 05:57 Blood Pressure 112/64 11/04/19 05:57 O2 Sat by Pulse Oximetry (%) 95 11/03/19 16:00 Constitutional: Yes: Moderate Distress Cardiovascular: Yes: Tachycardia Respiratory: Yes: Diminished, On Nasal O2 Gastrointestinal: Yes: Soft, Tenderness (RLQ ABD) Genitourinary: Yes: WNL Musculoskeletal: Yes: WNL Extremities: Yes: WNL Edema: No Integumentary: Yes: WNL Wound/Incision: Yes: Clean/Dry Neurological: Yes: WNL ...Motor Strength: WNL Psychiatric: Yes: WNL Labs: CBC, BMP 11/04/19 05:20 11/04/19 05:20 INR, PTT INR 0.89 (0.83-1.09) 11/02/19 21:55 Problem List - Problems (1) Abdominal pain Code(s): R10.9 - UNSPECIFIED ABDOMINAL PAIN (2) Acute exacerbation of chronic obstructive pulmonary disease (COPD) Code(s): J44.1 - CHRONIC OBSTRUCTIVE PULMONARY DISEASE W (ACUTE) EXACERBATION (3) Hyperglycemia Code(s): R73.9 - HYPERGLYCEMIA, UNSPECIFIED (4) Lung blebs Code(s): J43.9 - EMPHYSEMA, UNSPECIFIED (5) COPD with emphysema Code(s): J43.9 - EMPHYSEMA, UNSPECIFIED (6) Alcohol dependence with uncomplicated withdrawal Code(s): F10.230 - ALCOHOL DEPENDENCE WITH WITHDRAWAL, UNCOMPLICATED (7) Lung mass Code(s): R91.8 - OTHER NONSPECIFIC ABNORMAL FINDING OF LUNG FIELD (8) Pleuritic chest pain Code(s): R07.81 - PLEURODYNIA (9) Osteoarthritis Code(s): M19.90 - UNSPECIFIED OSTEOARTHRITIS, UNSPECIFIED SITE Assessment/Plan REVIEWED RADIOLOGY REPORT, IUD LIVER EDGE SEEN ON CT SCAN , SONO DID NOT APPRECIATED THIS IUD ON REPORT. H/O GERD/GASTRIC ULCERS WITH ETOH ABUSE, LUNG BLEBS, LUNG NODULE AND EMPHYSEMA WITH DM. I WILL ASK GI TO CONSULT FOR THEIR OPNION CONTINUE STEROIDS IV FOR COPD EXACERBATION NEBS AND 02 SUPPORT MONITOR LABS PULMONARY EVAL FOR LUNG BLEBS AND H/O LUNG NODULE DVT PROPHYLAXIS PPI OOB TO CHAIR
[2019-11-04] MEDS: ROFLUMILAST 500 MCG TABLET PO SCH (10:00)
[2019-11-04] MEDS ORDERED: THIAMINE HCL 100 MG TABLET (FP) PO SCH (10:00)
[2019-11-04] MEDS ORDERED: FOLIC ACID 1 MG TABLET (FP) PO SCH (10:00)
[2019-11-04] MEDS: FOLIC ACID 1 MG TABLET (FP) PO SCH (10:28)
[2019-11-04] MEDS: AZITHROMYCIN IVPB 250 MG in DEXTROSE 5%-WATER - 250 ML IVPB SCH (10:28)
[2019-11-04] MEDS: BUDESONIDE/FORMETEROL FUMARATE 160/4.5 mcg INHALER IH SCH ×2 (10:28→21:25)
[2019-11-04] MEDS: PANTOPRAZOLE 40 MG TABLET PO SCH (10:28)
[2019-11-04] MEDS: MULTIVITAMINS (DAILY MVI) TABLET (FP) PO SCH (10:28)
[2019-11-04] MEDS: THIAMINE HCL 100 MG TABLET (FP) PO SCH (10:29)
[2019-11-04] MEDS: LORazepam 1 MG TABLET PO PRN ×3 (10:35→21:24)
--- NOTE | 2019-11-04 11:09 | PN ---
Progress Note, Physician History of Present Illness: PULMONARY ALERT,FEELING BETTER,LESS DYSPNEIC,SITTING UP IN BED - Current Medication List Current Medications: Active Medications Albuterol Sulfate (Ventolin 0.5% -) 1 amp NEB Q4H PRN PRN Reason: SHORT OF BREATH/WHEEZING Albuterol/Ipratropium (Duoneb -) 1 amp NEB RQID [facility] Last Admin: 11/03/19 20:35 Dose: 1 amp Atorvastatin Calcium (Lipitor -) 10 mg PO [facility] Last Admin: 11/03/19 21:56 Dose: 10 mg Budesonide/Formoterol Fumarate (Symbicort 160/4.5mcg -) 2 puff IH BID [facility] Last Admin: 11/04/19 10:28 Dose: 2 puff Chlorhexidine Gluconate (Hibiclens For Decolonization -) 1 applic TP [facility] Folic Acid (Folic Acid -) 1 mg PO DAILY [facility] Last Admin: 11/04/19 10:28 Dose: 1 mg Heparin Sodium (Porcine) (Heparin -) 5,000 unit SQ TID [facility] Last Admin: 11/04/19 06:20 Dose: 5,000 unit Azithromycin 250 mg/ Dextrose 250 mls @ 250 mls/hr IVPB DAILY [facility] Last Admin: 11/04/19 10:28 Dose: 250 mls/hr Insulin Aspart (Novolog Vial Sliding Scale -) 1 vial SQ ACHS [facility]; Protocol Last Admin: 11/04/19 06:20 Dose: 2 unit Lorazepam (Ativan -) 2 mg PO TID PRN PRN Reason: ANXIETY Last Admin: 11/04/19 10:35 Dose: 2 mg Methylprednisolone Sodium Succinate (Solu-Medrol -) 60 mg IVPUSH Q8H-IV [facility] Last Admin: 11/04/19 10:27 Dose: 60 mg Montelukast Sodium (Singulair -) 10 mg PO [facility] Last Admin: 11/03/19 21:56 Dose: 10 mg Multivitamins/Minerals/Vitamin C (Tab-A-Vit -) 1 tab PO DAILY [facility] Last Admin: 11/04/19 10:28 Dose: 1 tab Mupirocin (Bactroban Ointment (For Decolonization) -) 1 applic NS BID [facility] Stop: 11/08/19 09:59 Pantoprazole Sodium (Protonix -) 40 mg PO DAILY [facility] Last Admin: 11/04/19 10:28 Dose: 40 mg Roflumilast (Daliresp) 500 mcg PO DAILY [facility] Last Admin: 11/03/19 21:56 Dose: 500 mcg Thiamine HCl (Vitamin B1 -) 100 mg PO DAILY [facility] Last Admin: 11/04/19 10:29 Dose: 100 mg - Objective Vital Signs: Vital Signs Temperature 98.0 F 11/04/19 10:24 Pulse Rate 92 H 11/04/19 10:24 Respiratory Rate 16 11/04/19 10:24 Blood Pressure 113/77 11/04/19 10:24 O2 Sat by Pulse Oximetry (%) 95 11/03/19 16:00 Constitutional: Yes: Calm, Thin HENT: Yes: WNL, Nasal Congestion Neck: Yes: WNL Cardiovascular: Yes: Regular Rate and Rhythm, S1, S2 Respiratory: Yes: Diminished (FEW SCATTERED VISHNU WHEEZES) Gastrointestinal: Yes: Normal Bowel Sounds, Soft Extremities: Yes: WNL Edema: No Labs: CBC, BMP 11/04/19 05:20 11/04/19 05:20 INR, PTT INR 0.89 (0.83-1.09) 11/02/19 21:55 Problem List - Problems (1) Acute on chronic respiratory failure with hypoxia and hypercapnia Code(s): J96.21 - ACUTE AND CHRONIC RESPIRATORY FAILURE WITH HYPOXIA; J96.22 - ACUTE AND CHRONIC RESPIRATORY FAILURE WITH HYPERCAPNIA Assessment/Plan Problem List - Problems (1) Acute exacerbation of chronic obstructive pulmonary disease (COPD) Code(s): J44.1 - CHRONIC OBSTRUCTIVE PULMONARY DISEASE W (ACUTE) EXACERBATION (2) Lung blebs Code(s): J43.9 - EMPHYSEMA, UNSPECIFIED (3) COPD with emphysema Code(s): J43.9 - EMPHYSEMA, UNSPECIFIED (4) Alcohol dependence with uncomplicated withdrawal Code(s): F10.230 - ALCOHOL DEPENDENCE WITH WITHDRAWAL, UNCOMPLICATED (5) Chronic alcoholism Code(s): F10.20 - ALCOHOL DEPENDENCE, UNCOMPLICATED (6) Osteoarthritis Code(s): M19.90 - UNSPECIFIED OSTEOARTHRITIS, UNSPECIFIED SITE 7 ACUTE ON CHRONIC HYPOXEMIC/HYPERCAPNEIC RESP FAILURE Assessment/Plan Medrol same dose BD TX standing and PRN Singulair Daliresp Supplemental O2 as needed Zithromax No smoking was counseled VTE prophylaxis Outpatient PFTs DR GAGNON
[2019-11-04] MEDS ORDERED: LORazepam 2 MG/ML SDV VIAL IVPUSH ONE (12:27)
--- NOTE | 2019-11-04 12:34 | CON.GI ---
Consult Consult Specialty:: GI Referred by:: Mario Lanza Reason for Consultation:: alcohol withdrawal, vomiting, abdominal pain - History of Present Illness Chief Complaint: vomiting, shortness of breath History of Present Illness: 64 year old heavy alcohol abuser, on home O2 for COPD, states she had vomiting at home with tachycardia and weakness and her daughter advised her to go to ER. Was drinking beer until day of admission, has had alcohol withdrawal symptoms in past. Had EGD in 2017 showing duodenal ulcer and erosive gastritis. - History Source History Provided By: Patient, Medical Record Limitations to Obtaining History: No Limitations - Past Medical History Pulmonary: Yes: Bronchitis, COPD, Pneumonia, Other (BULLOUS EMPHYSEMA). No: O2 Dependent, Previously Intubated, Pulmonary Embolus, Pulmonary Fibrosis, Sleep Apnea Gastrointestinal: Yes: GI Bleed, Peptic Ulcer Disease, Other (ALCOHOLISM) Psych: Yes: Addictions Musculoskeletal: Yes: Other (RIGHT SIDED RIB PAIN) - Alcohol/Substance Use Hx Alcohol Use: Yes - Smoking History Smoking history: Former smoker Have you smoked in the past 12 months: No Aproximately how many cigarettes per day: 0 If you are a former smoker, when did you quit?: September 2016 - Social History ADL: Independent History of Recent Travel: No Home Medications - Allergies Allergies/Adverse Reactions: Allergies Allergy/AdvReac Type Severity Reaction Status Date / Time Penicillins Allergy Verified 11/02/19 21:26 - Home Medications Home Medications: Ambulatory Orders Fluticasone/Salmeterol [Advair 250-50 Diskus] 1 each IH DAILY 05/03/15 Ipratropium/Albuterol Sulfate [Combivent Respimat 20-100 Mcg] 4 gm IH DAILY Albuterol 0.083% Nebulizer Terri [Ventolin 0.083% Nebulizer Soln -] 1 neb NEB Q4H PRN 12/22/15 Montelukast Na [Singulair -] 10 mg PO HS 12/22/15 Pantoprazole Sodium 40 mg PO DAILY 03/28/17 Budesonide/Formeterol Fumarate [SYMBICORT 160/4.5mcg -] 2 puff IH BID #1 inhaler 04/05/17 Folic Acid - 1 mg PO DAILY #30 tablet 04/05/17 Thiamine HCl [Vitamin B1 -] 100 mg PO DAILY #30 tablet 04/05/17 Atorvastatin Calcium [Lipitor] 10 mg PO DAILY 11/03/19 Diphenhydramine [Benadryl Oral Solution -] 25 mg PO DAILY 11/03/19 Metformin HCl [Glucophage] 500 mg PO DAILY 11/03/19 Roflumilast [Daliresp] 500 mcg PO DAILY 11/03/19 Vitamin A Palmitate [Vitamin A] 10,000 unit PO DAILY 11/03/19 Physical Exam-GI Vital Signs: Vital Signs Temperature 98.0 F 11/04/19 10:24 Pulse Rate 92 H 11/04/19 10:24 Respiratory Rate 16 11/04/19 10:24 Blood Pressure 113/77 11/04/19 10:24 O2 Sat by Pulse Oximetry (%) 98 11/04/19 10:00 Constitutional: Yes: Thin Respiratory: Yes: Other (Tachypneic, on nasal O2.) Gastrointestinal Inspection: Yes: WNL ...Auscultate: Yes: Normoactive Bowel Sounds ...Rectal Exam: Yes: Deferred Neurological: Yes: Tremors Psychiatric: Yes: Agitated Labs: CBC, BMP 11/04/19 05:20 11/04/19 05:20 INR, PTT INR 0.89 (0.83-1.09) 11/02/19 21:55 Imaging - Results Ultrasound: Report Reviewed Problem List - Problems (1) Alcohol withdrawal Code(s): F10.239 - ALCOHOL DEPENDENCE WITH WITHDRAWAL, UNSPECIFIED Qualifiers: Complication of substance-induced condition: with unspecified complication Qualified Code(s): F10.239 - Alcohol dependence with withdrawal, unspecified Assessment/Plan 1) Alcohol withdrawal: Pt is now very agitated and looks like impending DTs. Will order dose of IV Ativan and increase her po dose to q4h prn. 2) Vomiting/abdominal pain/history of ulcer. She is not anemic, is not bleeding. Can treat empircally with PPI. Alcohol cessation is obviously a must.
--- NOTE | 2019-11-04 12:56 | PN ---
Progress Note (short form) - Note Progress Note: Pt much calmer after given IV lorazepam. Problem List - Problems (1) Alcohol withdrawal Code(s): F10.239 - ALCOHOL DEPENDENCE WITH WITHDRAWAL, UNSPECIFIED Qualifiers: Complication of substance-induced condition: with unspecified complication Qualified Code(s): F10.239 - Alcohol dependence with withdrawal, unspecified
[2019-11-04] MEDS ORDERED: PT OWN MED DRAWER 7, Y5N ONE (19:39)
[2019-11-04] MEDS: MONTELUKAST NA 10 MG TABLET PO SCH (21:23)
[2019-11-04] MEDS: ATORVASTATIN CA 10 MG TABLET (FP) PO SCH (21:23)
[2019-11-05] MEDS: methylPREDNISolone NA SUCC 40 MG/1 ML VIAL IVPUSH SCH ×3 (02:13→18:12)
[2019-11-05] MEDS: HEPARIN NA (PORCINE) 5,000 UNITS/ML 1ML VIAL SQ SCH ×3 (06:30→22:30)
[2019-11-05] MEDS: INSULIN SLIDING SCALE (NOVOLOG) 1 VIAL SQ SCH ×4 (06:31→22:31)
[2019-11-05] MEDS: ALBUTEROL SO4 2.5/IPRATROPIUM 0.5 INH SOL 3 ML VIAL.NEB. NEB SCH ×4 (08:09→19:55)
--- NOTE | 2019-11-05 09:30 | PN ---
Progress Note, Physician Chief Complaint: PATIENT DENIES ETOH DEPENDENCE AND THAT SHE ONLY DRINKS 5 CANS OF BEER OVER A WEEKEND FEELS MUCH BETTER TODAY NO FEVER OR CHILLS, BREATHING BETTER OFF 02NC - Current Medication List Current Medications: Active Medications Albuterol Sulfate (Ventolin 0.5% -) 1 amp NEB Q4H PRN PRN Reason: SHORT OF BREATH/WHEEZING Albuterol/Ipratropium (Duoneb -) 1 amp NEB RQID [facility] Last Admin: 11/05/19 08:09 Dose: 1 amp Atorvastatin Calcium (Lipitor -) 10 mg PO HS [facility] Last Admin: 11/04/19 21:23 Dose: 10 mg Budesonide/Formoterol Fumarate (Symbicort 160/4.5mcg -) 2 puff IH BID [facility] Last Admin: 11/04/19 21:25 Dose: 2 puff Folic Acid (Folic Acid -) 1 mg PO DAILY [facility] Last Admin: 11/04/19 10:28 Dose: 1 mg Heparin Sodium (Porcine) (Heparin -) 5,000 unit SQ TID [facility] Last Admin: 11/05/19 06:30 Dose: 5,000 unit Azithromycin 250 mg/ Dextrose 250 mls @ 250 mls/hr IVPB DAILY [facility] Last Admin: 11/04/19 10:28 Dose: 250 mls/hr Insulin Aspart (Novolog Vial Sliding Scale -) 1 vial SQ ACHS [facility]; Protocol Last Admin: 11/05/19 06:31 Dose: 2 unit Lorazepam (Ativan -) 2 mg PO Q4H PRN PRN Reason: AGITATION Last Admin: 11/04/19 21:24 Dose: 2 mg Methylprednisolone Sodium Succinate (Solu-Medrol -) 60 mg IVPUSH Q8H-IV [facility] Last Admin: 11/05/19 02:13 Dose: 60 mg Montelukast Sodium (Singulair -) 10 mg PO HS [facility] Last Admin: 11/04/19 21:23 Dose: 10 mg Multivitamins/Minerals/Vitamin C (Tab-A-Vit -) 1 tab PO DAILY [facility] Last Admin: 11/04/19 10:28 Dose: 1 tab Pantoprazole Sodium (Protonix -) 40 mg PO DAILY [facility] Last Admin: 11/04/19 10:28 Dose: 40 mg Roflumilast (Daliresp) 500 mcg PO DAILY [facility] Last Admin: 11/04/19 10:00 Dose: Not Given Thiamine HCl (Vitamin B1 -) 100 mg PO DAILY [facility] Last Admin: 11/04/19 10:29 Dose: 100 mg - Objective Vital Signs: Vital Signs Temperature 98.3 F 11/05/19 08:53 Pulse Rate 118 H 11/05/19 08:53 Respiratory Rate 18 11/05/19 08:53 Blood Pressure 92/57 L 11/05/19 08:53 O2 Sat by Pulse Oximetry (%) 98 11/04/19 21:00 Constitutional: Yes: No Distress HENT: Yes: WNL Neck: Yes: WNL Cardiovascular: Yes: Regular Rate and Rhythm Respiratory: Yes: Diminished Gastrointestinal: Yes: WNL Genitourinary: Yes: WNL Musculoskeletal: Yes: WNL Extremities: Yes: WNL Edema: No Peripheral Pulses WNL: Yes Integumentary: Yes: WNL Wound/Incision: Yes: Clean/Dry Neurological: Yes: WNL ...Motor Strength: WNL Psychiatric: Yes: WNL Labs: CBC, BMP 11/04/19 05:20 11/04/19 05:20 INR, PTT INR 0.89 (0.83-1.09) 11/02/19 21:55 Problem List - Problems (1) Abdominal pain Code(s): R10.9 - UNSPECIFIED ABDOMINAL PAIN (2) Acute exacerbation of chronic obstructive pulmonary disease (COPD) Code(s): J44.1 - CHRONIC OBSTRUCTIVE PULMONARY DISEASE W (ACUTE) EXACERBATION (3) Hyperglycemia Code(s): R73.9 - HYPERGLYCEMIA, UNSPECIFIED (4) Lung blebs Code(s): J43.9 - EMPHYSEMA, UNSPECIFIED (5) COPD with emphysema Code(s): J43.9 - EMPHYSEMA, UNSPECIFIED (6) Alcohol dependence with uncomplicated withdrawal Code(s): F10.230 - ALCOHOL DEPENDENCE WITH WITHDRAWAL, UNCOMPLICATED (7) Lung mass Code(s): R91.8 - OTHER NONSPECIFIC ABNORMAL FINDING OF LUNG FIELD (8) Pleuritic chest pain Code(s): R07.81 - PLEURODYNIA (9) Osteoarthritis Code(s): M19.90 - UNSPECIFIED OSTEOARTHRITIS, UNSPECIFIED SITE Assessment/Plan SMOKING CESSATION STRONGLY ADVISED OFFERED NICOTINE PATCH IV ABX CONTINUE NEBS , 02 NC. SOLUMEDROL IV FOR RESPIRATORY SUPPORT AND TREATMENT OOB TO CHAIR DVT PROPHYLAXIS ON BENZO FOR ETOH WITHDRAWELS, AND THIAMINE/FOLIC/MVI DR LANGE FOR DETOX CALLED FOR CONSULT
[2019-11-05] MEDS ORDERED: PT OWN MED DRAWER 7, Y5N ONE (10:20)
[2019-11-05] MEDS: FOLIC ACID 1 MG TABLET (FP) PO SCH (10:24)
[2019-11-05] MEDS: ROFLUMILAST 500 MCG TABLET PO SCH (10:25)
[2019-11-05] MEDS: PANTOPRAZOLE 40 MG TABLET PO SCH (10:25)
[2019-11-05] MEDS: BUDESONIDE/FORMETEROL FUMARATE 160/4.5 mcg INHALER IH SCH ×2 (10:25→22:32)
[2019-11-05] MEDS: THIAMINE HCL 100 MG TABLET (FP) PO SCH (10:25)
[2019-11-05] MEDS: MULTIVITAMINS (DAILY MVI) TABLET (FP) PO SCH (10:25)
[2019-11-05] MEDS: LORazepam 1 MG TABLET PO PRN ×2 (10:27→18:18)
[2019-11-05] MEDS: AZITHROMYCIN IVPB 250 MG in DEXTROSE 5%-WATER - 250 ML IVPB SCH (10:56)
--- NOTE | 2019-11-05 12:05 | PN ---
Progress Note, Physician History of Present Illness: pulmonary alert,still dyspneic at rest,-cp - Current Medication List Current Medications: Active Medications Albuterol Sulfate (Ventolin 0.5% -) 1 amp NEB Q4H PRN PRN Reason: SHORT OF BREATH/WHEEZING Albuterol/Ipratropium (Duoneb -) 1 amp NEB RQID [facility] Last Admin: 11/05/19 11:51 Dose: 1 amp Atorvastatin Calcium (Lipitor -) 10 mg PO HS [facility] Last Admin: 11/04/19 21:23 Dose: 10 mg Budesonide/Formoterol Fumarate (Symbicort 160/4.5mcg -) 2 puff IH BID [facility] Last Admin: 11/05/19 10:25 Dose: 2 puff Folic Acid (Folic Acid -) 1 mg PO DAILY [facility] Last Admin: 11/05/19 10:24 Dose: 1 mg Heparin Sodium (Porcine) (Heparin -) 5,000 unit SQ TID [facility] Last Admin: 11/05/19 06:30 Dose: 5,000 unit Azithromycin 250 mg/ Dextrose 250 mls @ 250 mls/hr IVPB DAILY [facility] Last Admin: 11/05/19 10:56 Dose: 250 mls/hr Insulin Aspart (Novolog Vial Sliding Scale -) 1 vial SQ ACHS [facility]; Protocol Last Admin: 11/05/19 11:43 Dose: 4 unit Lorazepam (Ativan -) 2 mg PO Q4H PRN PRN Reason: AGITATION Last Admin: 11/05/19 10:27 Dose: 2 mg Methylprednisolone Sodium Succinate (Solu-Medrol -) 60 mg IVPUSH Q8H-IV [facility] Last Admin: 11/05/19 10:24 Dose: 60 mg Montelukast Sodium (Singulair -) 10 mg PO HS [facility] Last Admin: 11/04/19 21:23 Dose: 10 mg Multivitamins/Minerals/Vitamin C (Tab-A-Vit -) 1 tab PO DAILY [facility] Last Admin: 11/05/19 10:25 Dose: 1 tab Pantoprazole Sodium (Protonix -) 40 mg PO DAILY [facility] Last Admin: 11/05/19 10:25 Dose: 40 mg Roflumilast (Daliresp) 500 mcg PO DAILY [facility] Last Admin: 11/05/19 10:25 Dose: 500 mcg Thiamine HCl (Vitamin B1 -) 100 mg PO DAILY [facility] Last Admin: 11/05/19 10:25 Dose: 100 mg - Objective Vital Signs: Vital Signs Temperature 98.3 F 11/05/19 08:53 Pulse Rate 96 H 11/05/19 11:00 Respiratory Rate 16 11/05/19 11:00 Blood Pressure 107/68 11/05/19 11:00 O2 Sat by Pulse Oximetry (%) 98 11/04/19 21:00 Constitutional: Yes: Calm, Thin Eyes: Yes: WNL HENT: Yes: WNL Neck: Yes: WNL Cardiovascular: Yes: Regular Rate and Rhythm, S1, S2 Respiratory: Yes: Wheezes (scattered sonny wheezes) Gastrointestinal: Yes: Normal Bowel Sounds, Soft Extremities: Yes: WNL Edema: No Labs: Problem List - Problems (1) Acute on chronic respiratory failure with hypoxia and hypercapnia Code(s): J96.21 - ACUTE AND CHRONIC RESPIRATORY FAILURE WITH HYPOXIA; J96.22 - ACUTE AND CHRONIC RESPIRATORY FAILURE WITH HYPERCAPNIA Assessment/Plan Problem List - Problems (1) Acute exacerbation of chronic obstructive pulmonary disease (COPD) Code(s): J44.1 - CHRONIC OBSTRUCTIVE PULMONARY DISEASE W (ACUTE) EXACERBATION (2) Lung blebs Code(s): J43.9 - EMPHYSEMA, UNSPECIFIED (3) COPD with emphysema Code(s): J43.9 - EMPHYSEMA, UNSPECIFIED (4) Alcohol dependence with uncomplicated withdrawal Code(s): F10.230 - ALCOHOL DEPENDENCE WITH WITHDRAWAL, UNCOMPLICATED (5) Chronic alcoholism Code(s): F10.20 - ALCOHOL DEPENDENCE, UNCOMPLICATED (6) Osteoarthritis Code(s): M19.90 - UNSPECIFIED OSTEOARTHRITIS, UNSPECIFIED SITE 7 ACUTE ON CHRONIC HYPOXEMIC/HYPERCAPNEIC RESP FAILURE Assessment/Plan Medrol same dose,start taper in am BD TX standing and PRN Singulair Daliresp Supplemental O2 as needed Zithromax No smoking was counseled VTE prophylaxis Outpatient PFTs DR GAGNON
--- NOTE | 2019-11-05 14:04 | PN ---
Progress Note (short form) - Note Progress Note: Pt less tremulous today. Has been getting Ativan as needed for alcohol withdrawal, AST, ALT were improved yesterday although still abnormal. To continue management of alcohol detox. Problem List - Problems (1) Alcohol withdrawal Code(s): F10.239 - ALCOHOL DEPENDENCE WITH WITHDRAWAL, UNSPECIFIED Qualifiers: Complication of substance-induced condition: with unspecified complication Qualified Code(s): F10.239 - Alcohol dependence with withdrawal, unspecified
[2019-11-05] MEDS ORDERED: INSULIN SLIDING SCALE (NOVOLOG) 1 VIAL SQ ONE (22:22)
[2019-11-05] MEDS: ATORVASTATIN CA 10 MG TABLET (FP) PO SCH (22:27)
[2019-11-05] MEDS: MONTELUKAST NA 10 MG TABLET PO SCH (22:27)
[2019-11-06] MEDS: methylPREDNISolone NA SUCC 40 MG/1 ML VIAL IVPUSH SCH ×3 (01:07→17:16)
[2019-11-06] MEDS: LORazepam 1 MG TABLET PO PRN ×3 (06:48→16:21)
[2019-11-06] MEDS: INSULIN SLIDING SCALE (NOVOLOG) 1 VIAL SQ SCH ×4 (06:48→21:22)
[2019-11-06] MEDS: HEPARIN NA (PORCINE) 5,000 UNITS/ML 1ML VIAL SQ SCH ×3 (06:49→21:21)
[2019-11-06] MEDS: ALBUTEROL SO4 2.5/IPRATROPIUM 0.5 INH SOL 3 ML VIAL.NEB. NEB SCH ×4 (07:27→20:00)
--- NOTE | 2019-11-06 08:07 | PN ---
Progress Note, Physician Chief Complaint: AWAKE ALERT CALM DENIES AGITATION, OR CONFUSION. PATIENT REPORTS DYSPNEA IMPROVING ON 02 NC STILL FOR RESP SUPPORT - Current Medication List Current Medications: Active Medications Albuterol Sulfate (Ventolin 0.5% -) 1 amp NEB Q4H PRN PRN Reason: SHORT OF BREATH/WHEEZING Albuterol/Ipratropium (Duoneb -) 1 amp NEB RQID [facility] Last Admin: 11/05/19 19:55 Dose: 1 amp Atorvastatin Calcium (Lipitor -) 10 mg PO HS [facility] Last Admin: 11/05/19 22:27 Dose: 10 mg Budesonide/Formoterol Fumarate (Symbicort 160/4.5mcg -) 2 puff IH BID [facility] Last Admin: 11/05/19 22:32 Dose: 2 puff Folic Acid (Folic Acid -) 1 mg PO DAILY [facility] Last Admin: 11/05/19 10:24 Dose: 1 mg Heparin Sodium (Porcine) (Heparin -) 5,000 unit SQ TID [facility] Last Admin: 11/06/19 06:49 Dose: 5,000 unit Azithromycin 250 mg/ Dextrose 250 mls @ 250 mls/hr IVPB DAILY [facility] Last Admin: 11/05/19 10:56 Dose: 250 mls/hr Insulin Aspart (Novolog Vial Sliding Scale -) 1 vial SQ ACHS [facility]; Protocol Last Admin: 11/06/19 06:48 Dose: 2 unit Lorazepam (Ativan -) 2 mg PO Q4H PRN PRN Reason: AGITATION Last Admin: 11/06/19 06:48 Dose: 2 mg Methylprednisolone Sodium Succinate (Solu-Medrol -) 60 mg IVPUSH Q8H-IV [facility] Last Admin: 11/06/19 01:07 Dose: 60 mg Montelukast Sodium (Singulair -) 10 mg PO HS [facility] Last Admin: 11/05/19 22:27 Dose: 10 mg Multivitamins/Minerals/Vitamin C (Tab-A-Vit -) 1 tab PO DAILY [facility] Last Admin: 11/05/19 10:25 Dose: 1 tab Pantoprazole Sodium (Protonix -) 40 mg PO DAILY [facility] Last Admin: 11/05/19 10:25 Dose: 40 mg Roflumilast (Daliresp) 500 mcg PO DAILY [facility] Last Admin: 11/05/19 10:25 Dose: 500 mcg Thiamine HCl (Vitamin B1 -) 100 mg PO DAILY [facility] Last Admin: 11/05/19 10:25 Dose: 100 mg - Objective Vital Signs: Vital Signs Temperature 97.3 F L 11/06/19 05:32 Pulse Rate 66 11/06/19 05:32 Respiratory Rate 18 11/06/19 05:32 Blood Pressure 127/68 11/06/19 05:32 O2 Sat by Pulse Oximetry (%) 98 11/06/19 00:23 Constitutional: Yes: No Distress Eyes: Yes: WNL HENT: Yes: WNL, Tonsillar Exudate Cardiovascular: Yes: Regular Rate and Rhythm Respiratory: Yes: Diminished, On Nasal O2 Gastrointestinal: Yes: WNL Genitourinary: Yes: WNL Musculoskeletal: Yes: WNL Edema: No Integumentary: Yes: WNL Wound/Incision: Yes: Clean/Dry Neurological: Yes: WNL ...Motor Strength: WNL Psychiatric: Yes: WNL Labs: CBC, BMP 11/04/19 05:20 11/04/19 05:20 INR, PTT INR 0.89 (0.83-1.09) 11/02/19 21:55 Problem List - Problems (1) Abdominal pain Code(s): R10.9 - UNSPECIFIED ABDOMINAL PAIN (2) Acute exacerbation of chronic obstructive pulmonary disease (COPD) Code(s): J44.1 - CHRONIC OBSTRUCTIVE PULMONARY DISEASE W (ACUTE) EXACERBATION (3) Hyperglycemia Code(s): R73.9 - HYPERGLYCEMIA, UNSPECIFIED (4) Lung blebs Code(s): J43.9 - EMPHYSEMA, UNSPECIFIED (5) COPD with emphysema Code(s): J43.9 - EMPHYSEMA, UNSPECIFIED (6) Alcohol dependence with uncomplicated withdrawal Code(s): F10.230 - ALCOHOL DEPENDENCE WITH WITHDRAWAL, UNCOMPLICATED (7) Lung mass Code(s): R91.8 - OTHER NONSPECIFIC ABNORMAL FINDING OF LUNG FIELD (8) Pleuritic chest pain Code(s): R07.81 - PLEURODYNIA (9) Osteoarthritis Code(s): M19.90 - UNSPECIFIED OSTEOARTHRITIS, UNSPECIFIED SITE Assessment/Plan CXR SHOWS BULLOUS CHANGES ON IV STEROIDS 02 SUPPORT ATIVAN PRN FOR ETOH WITHDRAWELS CONSULT WITH DR TITUS RESENDEZ TO CHAIR DVT PROPHYLAXIS PT EVAL
[2019-11-06] MEDS ORDERED: PT OWN MED DRAWER 7, Y5N ONE (10:15)
[2019-11-06] MEDS: AZITHROMYCIN IVPB 250 MG in DEXTROSE 5%-WATER - 250 ML IVPB SCH (10:34)
[2019-11-06] MEDS: MULTIVITAMINS (DAILY MVI) TABLET (FP) PO SCH (10:40)
[2019-11-06] MEDS: FOLIC ACID 1 MG TABLET (FP) PO SCH (10:40)
[2019-11-06] MEDS: PANTOPRAZOLE 40 MG TABLET PO SCH (10:41)
[2019-11-06] MEDS: ROFLUMILAST 500 MCG TABLET PO SCH (10:41)
[2019-11-06] MEDS: THIAMINE HCL 100 MG TABLET (FP) PO SCH (10:46)
[2019-11-06] MEDS: BUDESONIDE/FORMETEROL FUMARATE 160/4.5 mcg INHALER IH SCH ×2 (10:47→21:23)
--- NOTE | 2019-11-06 13:24 | PN ---
Progress Note (short form) - Note Progress Note: PULMONARY Breathing about the same. Still dyspneic at rest. +cough with yellow sputum. No fevers. Vital Signs Period Temp Pulse Resp BP Sys/Smith Pulse Ox Last 24 Hr 97.2 F-98.4 F 66-113 16-18 95-127/54-71 96-98 Gen: tachypneic at rest Heart: RRR Lung: distant breath sounds, poor air movement Abd: soft, nontender Ext: no edema CBC, BMP 11/04/19 05:20 11/04/19 05:20 Active Medications Albuterol Sulfate (Ventolin 0.5% -) 1 amp NEB Q4H PRN PRN Reason: SHORT OF BREATH/WHEEZING Albuterol/Ipratropium (Duoneb -) 1 amp NEB RQID [facility] Last Admin: 11/06/19 07:27 Dose: 1 amp Atorvastatin Calcium (Lipitor -) 10 mg PO HS [facility] Last Admin: 11/05/19 22:27 Dose: 10 mg Budesonide/Formoterol Fumarate (Symbicort 160/4.5mcg -) 2 puff IH BID [facility] Last Admin: 11/06/19 10:47 Dose: 2 puff Folic Acid (Folic Acid -) 1 mg PO DAILY [facility] Last Admin: 11/06/19 10:40 Dose: 1 mg Heparin Sodium (Porcine) (Heparin -) 5,000 unit SQ TID [facility] Last Admin: 11/06/19 13:21 Dose: 5,000 unit Azithromycin 250 mg/ Dextrose 250 mls @ 250 mls/hr IVPB DAILY [facility] Last Admin: 11/06/19 10:34 Dose: 250 mls/hr Insulin Aspart (Novolog Vial Sliding Scale -) 1 vial SQ ACHS [facility]; Protocol Last Admin: 11/06/19 11:48 Dose: 6 unit Lorazepam (Ativan -) 2 mg PO Q4H PRN PRN Reason: AGITATION Last Admin: 11/06/19 10:48 Dose: 2 mg Methylprednisolone Sodium Succinate (Solu-Medrol -) 60 mg IVPUSH Q8H-IV [facility] Last Admin: 11/06/19 10:31 Dose: 60 mg Montelukast Sodium (Singulair -) 10 mg PO HS [facility] Last Admin: 11/05/19 22:27 Dose: 10 mg Multivitamins/Minerals/Vitamin C (Tab-A-Vit -) 1 tab PO DAILY [facility] Last Admin: 11/06/19 10:40 Dose: 1 tab Pantoprazole Sodium (Protonix -) 40 mg PO DAILY [facility] Last Admin: 11/06/19 10:41 Dose: 40 mg Roflumilast (Daliresp) 500 mcg PO DAILY [facility] Last Admin: 11/06/19 10:41 Dose: 500 mcg Thiamine HCl (Vitamin B1 -) 100 mg PO DAILY [facility] Last Admin: 11/06/19 10:46 Dose: 100 mg A/P Acute on Chronic Hypoxic and Hypercapneic Respiratory Failure Acute COPD Exacerbation Alcohol Abuse - continue medrol at current dose - inhaled bronchodilators - O2 to keep Spo2 >90% - monitor for withdrawal - DVT prophylaxis
[2019-11-06] MEDS ORDERED: ACETAMINOPHEN 325 MG TABLET (FP) PO PRN (16:43)
[2019-11-06] MEDS ORDERED: MAG HYDROX/AL HYDROX/SIMETH 30 ML UNIT-DOSE CUP PO ONE (16:44)
[2019-11-06] MEDS: ATORVASTATIN CA 10 MG TABLET (FP) PO SCH (21:22)
[2019-11-06] MEDS: MONTELUKAST NA 10 MG TABLET PO SCH (21:22)
[2019-11-07] MEDS: methylPREDNISolone NA SUCC 40 MG/1 ML VIAL IVPUSH SCH ×3 (01:02→17:16)
[2019-11-07] MEDS: INSULIN SLIDING SCALE (NOVOLOG) 1 VIAL SQ SCH ×4 (06:29→21:24)
[2019-11-07] MEDS: HEPARIN NA (PORCINE) 5,000 UNITS/ML 1ML VIAL SQ SCH ×3 (06:29→21:23)
[2019-11-07] MEDS: ALBUTEROL SO4 2.5/IPRATROPIUM 0.5 INH SOL 3 ML VIAL.NEB. NEB SCH ×4 (08:13→20:19)
[2019-11-07] MEDS ORDERED: PT OWN MED DRAWER 7, Y5N ONE (09:10)
[2019-11-07] MEDS: MULTIVITAMINS (DAILY MVI) TABLET (FP) PO SCH (09:14)
[2019-11-07] MEDS: FOLIC ACID 1 MG TABLET (FP) PO SCH (09:14)
[2019-11-07] MEDS: PANTOPRAZOLE 40 MG TABLET PO SCH (09:14)
[2019-11-07] MEDS: THIAMINE HCL 100 MG TABLET (FP) PO SCH (09:15)
[2019-11-07] MEDS: BUDESONIDE/FORMETEROL FUMARATE 160/4.5 mcg INHALER IH SCH ×2 (09:17→21:26)
--- NOTE | 2019-11-07 11:08 | PN ---
Progress Note, Physician History of Present Illness: PULMONARY' ALERT,FEELING BETTER,DYSPNEA IMPROVING,+ COUGH. - Current Medication List Current Medications: Active Medications Acetaminophen (Tylenol -) 650 mg PO Q6H PRN PRN Reason: PAIN LEVEL 1-5 Last Admin: 11/06/19 17:17 Dose: 650 mg Albuterol Sulfate (Ventolin 0.5% -) 1 amp NEB Q4H PRN PRN Reason: SHORT OF BREATH/WHEEZING Albuterol/Ipratropium (Duoneb -) 1 amp NEB RQID [facility] Last Admin: 11/06/19 20:00 Dose: 1 amp Atorvastatin Calcium (Lipitor -) 10 mg PO HS [facility] Last Admin: 11/06/19 21:22 Dose: 10 mg Budesonide/Formoterol Fumarate (Symbicort 160/4.5mcg -) 2 puff IH BID [facility] Last Admin: 11/07/19 09:17 Dose: 2 puff Folic Acid (Folic Acid -) 1 mg PO DAILY [facility] Last Admin: 11/07/19 09:14 Dose: 1 mg Heparin Sodium (Porcine) (Heparin -) 5,000 unit SQ TID [facility] Last Admin: 11/07/19 06:29 Dose: 5,000 unit Azithromycin 250 mg/ Dextrose 250 mls @ 250 mls/hr IVPB DAILY [facility] Last Admin: 11/06/19 10:34 Dose: 250 mls/hr Insulin Aspart (Novolog Vial Sliding Scale -) 1 vial SQ ACHS [facility]; Protocol Last Admin: 11/07/19 06:29 Dose: 2 unit Ketorolac Tromethamine (Toradol Injection -) 30 mg IVPUSH Q8H-IV PRN PRN Reason: PAIN LEVEL 6-10 Stop: 11/11/19 17:59 Lorazepam (Ativan -) 2 mg PO Q4H PRN PRN Reason: AGITATION Last Admin: 11/06/19 16:21 Dose: 2 mg Methylprednisolone Sodium Succinate (Solu-Medrol -) 60 mg IVPUSH Q8H-IV [facility] Last Admin: 11/07/19 09:17 Dose: 60 mg Montelukast Sodium (Singulair -) 10 mg PO HS [facility] Last Admin: 11/06/19 21:22 Dose: 10 mg Multivitamins/Minerals/Vitamin C (Tab-A-Vit -) 1 tab PO DAILY [facility] Last Admin: 11/07/19 09:14 Dose: 1 tab Pantoprazole Sodium (Protonix -) 40 mg PO DAILY [facility] Last Admin: 11/07/19 09:14 Dose: 40 mg Roflumilast (Daliresp) 500 mcg PO DAILY [facility] Last Admin: 11/06/19 10:41 Dose: 500 mcg Thiamine HCl (Vitamin B1 -) 100 mg PO DAILY [facility] Last Admin: 11/07/19 09:15 Dose: 100 mg - Objective Vital Signs: Vital Signs Temperature 97.4 F L 11/07/19 08:42 Pulse Rate 88 11/07/19 08:42 Respiratory Rate 18 11/07/19 08:42 Blood Pressure 110/65 11/07/19 08:42 O2 Sat by Pulse Oximetry (%) 97 11/06/19 20:07 Constitutional: Yes: Calm, Thin Eyes: Yes: WNL HENT: Yes: WNL Neck: Yes: WNL Cardiovascular: Yes: Regular Rate and Rhythm, S1, S2 Respiratory: Yes: Diminished, Rhonchi (SCATTERED VISHNU RHONCHI) Gastrointestinal: Yes: Normal Bowel Sounds, Soft Extremities: Yes: WNL Edema: No Labs: Problem List - Problems (1) Acute on chronic respiratory failure with hypoxia and hypercapnia Code(s): J96.21 - ACUTE AND CHRONIC RESPIRATORY FAILURE WITH HYPOXIA; J96.22 - ACUTE AND CHRONIC RESPIRATORY FAILURE WITH HYPERCAPNIA Assessment/Plan Problem List - Problems (1) Acute exacerbation of chronic obstructive pulmonary disease (COPD) Code(s): J44.1 - CHRONIC OBSTRUCTIVE PULMONARY DISEASE W (ACUTE) EXACERBATION (2) Lung blebs Code(s): J43.9 - EMPHYSEMA, UNSPECIFIED (3) COPD with emphysema Code(s): J43.9 - EMPHYSEMA, UNSPECIFIED (4) Alcohol dependence with uncomplicated withdrawal Code(s): F10.230 - ALCOHOL DEPENDENCE WITH WITHDRAWAL, UNCOMPLICATED (5) Chronic alcoholism Code(s): F10.20 - ALCOHOL DEPENDENCE, UNCOMPLICATED (6) Osteoarthritis Code(s): M19.90 - UNSPECIFIED OSTEOARTHRITIS, UNSPECIFIED SITE 7 ACUTE ON CHRONIC HYPOXEMIC/HYPERCAPNEIC RESP FAILURE Assessment/Plan Medrol taper BD TX standing and PRN Singulair Daliresp Supplemental O2 as needed Zithromax No smoking was counseled VTE prophylaxis Outpatient PFTs DR GAGNON
[2019-11-07] MEDS: AZITHROMYCIN IVPB 250 MG in DEXTROSE 5%-WATER - 250 ML IVPB SCH (11:17)
[2019-11-07] MEDS: ROFLUMILAST 500 MCG TABLET PO SCH (11:18)
[2019-11-07] MEDS: KETOROLAC TROMETHAMINE 30 MG/1 ML VIAL IVPUSH PRN ×2 (14:37→22:16)
--- NOTE | 2019-11-07 16:08 | PN ---
Progress Note, Physician Chief Complaint: AWAKE ALERT FEELING BETTER DENIES CHEST PAIN SOB IMPROVING - Current Medication List Current Medications: Active Medications Acetaminophen (Tylenol -) 650 mg PO Q6H PRN PRN Reason: PAIN LEVEL 1-5 Last Admin: 11/06/19 17:17 Dose: 650 mg Albuterol Sulfate (Ventolin 0.5% -) 1 amp NEB Q4H PRN PRN Reason: SHORT OF BREATH/WHEEZING Albuterol/Ipratropium (Duoneb -) 1 amp NEB RQID [facility] Last Admin: 11/07/19 08:13 Dose: 1 amp Atorvastatin Calcium (Lipitor -) 10 mg PO [facility] Last Admin: 11/06/19 21:22 Dose: 10 mg Budesonide/Formoterol Fumarate (Symbicort 160/4.5mcg -) 2 puff IH BID [facility] Last Admin: 11/07/19 09:17 Dose: 2 puff Folic Acid (Folic Acid -) 1 mg PO DAILY [facility] Last Admin: 11/07/19 09:14 Dose: 1 mg Heparin Sodium (Porcine) (Heparin -) 5,000 unit SQ TID [facility] Last Admin: 11/07/19 14:38 Dose: 5,000 unit Azithromycin 250 mg/ Dextrose 250 mls @ 250 mls/hr IVPB DAILY [facility] Last Admin: 11/07/19 11:17 Dose: 250 mls/hr Insulin Aspart (Novolog Vial Sliding Scale -) 1 vial SQ ACHS [facility]; Protocol Last Admin: 11/07/19 11:22 Dose: 4 unit Ketorolac Tromethamine (Toradol Injection -) 30 mg IVPUSH Q8H-IV PRN PRN Reason: PAIN LEVEL 6-10 Stop: 11/11/19 17:59 Last Admin: 11/07/19 14:37 Dose: 30 mg Lorazepam (Ativan -) 2 mg PO Q4H PRN PRN Reason: AGITATION Last Admin: 11/06/19 16:21 Dose: 2 mg Methylprednisolone Sodium Succinate (Solu-Medrol -) 60 mg IVPUSH Q8H-IV [facility] Last Admin: 11/07/19 09:17 Dose: 60 mg Montelukast Sodium (Singulair -) 10 mg PO [facility] Last Admin: 11/06/19 21:22 Dose: 10 mg Multivitamins/Minerals/Vitamin C (Tab-A-Vit -) 1 tab PO DAILY [facility] Last Admin: 11/07/19 09:14 Dose: 1 tab Pantoprazole Sodium (Protonix -) 40 mg PO DAILY [facility] Last Admin: 11/07/19 09:14 Dose: 40 mg Roflumilast (Daliresp) 500 mcg PO DAILY [facility] Last Admin: 11/07/19 11:18 Dose: 500 mcg Thiamine HCl (Vitamin B1 -) 100 mg PO DAILY [facility] Last Admin: 11/07/19 09:15 Dose: 100 mg - Objective Vital Signs: Vital Signs Temperature 98 F 11/07/19 14:17 Pulse Rate 99 H 11/07/19 14:17 Respiratory Rate 18 11/07/19 14:17 Blood Pressure 118/62 11/07/19 14:17 O2 Sat by Pulse Oximetry (%) 97 11/07/19 09:00 Constitutional: Yes: Mild Distress Cardiovascular: Yes: Regular Rate and Rhythm Respiratory: Yes: Diminished, On Nasal O2 Gastrointestinal: Yes: WNL Genitourinary: Yes: WNL Musculoskeletal: Yes: WNL Extremities: Yes: WNL Edema: No Peripheral Pulses WNL: Yes Integumentary: Yes: WNL Wound/Incision: Yes: Clean/Dry Neurological: Yes: WNL ...Motor Strength: WNL Psychiatric: Yes: Other Labs: CBC, BMP 11/04/19 05:20 11/04/19 05:20 INR, PTT INR 0.89 (0.83-1.09) 11/02/19 21:55 Problem List - Problems (1) Abdominal pain Code(s): R10.9 - UNSPECIFIED ABDOMINAL PAIN (2) Acute exacerbation of chronic obstructive pulmonary disease (COPD) Code(s): J44.1 - CHRONIC OBSTRUCTIVE PULMONARY DISEASE W (ACUTE) EXACERBATION (3) Hyperglycemia Code(s): R73.9 - HYPERGLYCEMIA, UNSPECIFIED (4) Lung blebs Code(s): J43.9 - EMPHYSEMA, UNSPECIFIED (5) COPD with emphysema Code(s): J43.9 - EMPHYSEMA, UNSPECIFIED (6) Alcohol dependence with uncomplicated withdrawal Code(s): F10.230 - ALCOHOL DEPENDENCE WITH WITHDRAWAL, UNCOMPLICATED (7) Lung mass Code(s): R91.8 - OTHER NONSPECIFIC ABNORMAL FINDING OF LUNG FIELD (8) Pleuritic chest pain Code(s): R07.81 - PLEURODYNIA (9) Osteoarthritis Code(s): M19.90 - UNSPECIFIED OSTEOARTHRITIS, UNSPECIFIED SITE Assessment/Plan CXR SHOWS BULLOUS CHANGES ON IV STEROIDS WILL TAPER 02 SUPPORT 2L NC ATIVAN PRN FOR ETOH WITHDRAWELS CONSULT WITH DR TITUS BOBBY PENDING OOB TO CHAIR DVT PROPHYLAXIS PT EVAL
[2019-11-07] MEDS: ATORVASTATIN CA 10 MG TABLET (FP) PO SCH (21:24)
[2019-11-07] MEDS: MONTELUKAST NA 10 MG TABLET PO SCH (21:24)
[2019-11-08] MEDS: methylPREDNISolone NA SUCC 40 MG/1 ML VIAL IVPUSH SCH ×3 (02:37→21:31)
[2019-11-08] MEDS: INSULIN SLIDING SCALE (NOVOLOG) 1 VIAL SQ SCH ×4 (06:23→21:32)
[2019-11-08] MEDS: HEPARIN NA (PORCINE) 5,000 UNITS/ML 1ML VIAL SQ SCH ×3 (06:23→21:32)
[2019-11-08 06:44] LABS: HEMATOCRIT 35.6 % (32.4-45.2); HEMOGLOBIN 12.1 GM/dL (10.7-15.3); MCH 32.4 pg (25.7-33.7); MCHC 33.9 g/dl (32.0-36.0); MEAN CELL VOLUME 95.6 fl (80-96); MEAN PLT VOLUME 8.9 fl (7.5-11.1); PLATELET COUNT 226 K/MM3 (134-434); RBC 3.73 M/mm3 (3.60-5.2); WHITE BLOOD COUNT 6.2 K/mm3 (4.0-10.0)
[2019-11-08 07:09] LABS: BLOOD UREA NITROGEN 13.6 mg/dL (7-18); CALCIUM 7.9 mg/dL (8.5-10.1); CREATININE 0.5 mg/dL (0.55-1.3); POTASSIUM 4.5 mmol/L (3.5-5.1)
[2019-11-08] MEDS: ALBUTEROL SO4 2.5/IPRATROPIUM 0.5 INH SOL 3 ML VIAL.NEB. NEB SCH ×4 (08:01→21:05)
[2019-11-08] MEDS ORDERED: PT OWN MED DRAWER 7, Y5N ONE ×2 (09:03→09:29)
[2019-11-08] MEDS: PANTOPRAZOLE 40 MG TABLET PO SCH (09:33)
[2019-11-08] MEDS: THIAMINE HCL 100 MG TABLET (FP) PO SCH (09:34)
[2019-11-08] MEDS: MULTIVITAMINS (DAILY MVI) TABLET (FP) PO SCH (09:34)
[2019-11-08] MEDS: FOLIC ACID 1 MG TABLET (FP) PO SCH (09:34)
[2019-11-08] MEDS: BUDESONIDE/FORMETEROL FUMARATE 160/4.5 mcg INHALER IH SCH ×2 (09:35→21:31)
[2019-11-08] MEDS: ROFLUMILAST 500 MCG TABLET PO SCH (09:35)
[2019-11-08] MEDS: AZITHROMYCIN IVPB 250 MG in DEXTROSE 5%-WATER - 250 ML IVPB SCH (09:36)
--- NOTE | 2019-11-08 10:06 | PN ---
Progress Note, Physician Chief Complaint: AWAKE ALERT C/O LEFT FLANK/BACK PAIN BREATHING BETTER DENIES URINARY BURNING OR HEMATUREA - Current Medication List Current Medications: Active Medications Acetaminophen (Tylenol -) 650 mg PO Q6H PRN PRN Reason: PAIN LEVEL 1-5 Last Admin: 11/06/19 17:17 Dose: 650 mg Albuterol Sulfate (Ventolin 0.5% -) 1 amp NEB Q4H PRN PRN Reason: SHORT OF BREATH/WHEEZING Albuterol/Ipratropium (Duoneb -) 1 amp NEB RQID [facility] Last Admin: 11/08/19 08:01 Dose: 1 amp Atorvastatin Calcium (Lipitor -) 10 mg PO [facility] Last Admin: 11/07/19 21:24 Dose: 10 mg Budesonide/Formoterol Fumarate (Symbicort 160/4.5mcg -) 2 puff IH BID [facility] Last Admin: 11/08/19 09:35 Dose: 2 puff Folic Acid (Folic Acid -) 1 mg PO DAILY [facility] Last Admin: 11/08/19 09:34 Dose: 1 mg Heparin Sodium (Porcine) (Heparin -) 5,000 unit SQ TID [facility] Last Admin: 11/08/19 06:23 Dose: 5,000 unit Azithromycin 250 mg/ Dextrose 250 mls @ 250 mls/hr IVPB DAILY [facility] Last Admin: 11/08/19 09:36 Dose: 250 mls/hr Insulin Aspart (Novolog Vial Sliding Scale -) 1 vial SQ ACHS [facility]; Protocol Last Admin: 11/08/19 06:23 Dose: 2 unit Ketorolac Tromethamine (Toradol Injection -) 30 mg IVPUSH Q8H-IV PRN PRN Reason: PAIN LEVEL 6-10 Stop: 11/11/19 17:59 Last Admin: 11/07/19 22:16 Dose: 30 mg Lorazepam (Ativan -) 2 mg PO Q4H PRN PRN Reason: AGITATION Last Admin: 11/06/19 16:21 Dose: 2 mg Methylprednisolone Sodium Succinate (Solu-Medrol -) 60 mg IVPUSH Q8H-IV [facility] Last Admin: 11/08/19 09:35 Dose: 60 mg Montelukast Sodium (Singulair -) 10 mg PO [facility] Last Admin: 11/07/19 21:24 Dose: 10 mg Multivitamins/Minerals/Vitamin C (Tab-A-Vit -) 1 tab PO DAILY [facility] Last Admin: 11/08/19 09:34 Dose: 1 tab Pantoprazole Sodium (Protonix -) 40 mg PO DAILY [facility] Last Admin: 11/08/19 09:33 Dose: 40 mg Roflumilast (Daliresp) 500 mcg PO DAILY [facility] Last Admin: 11/08/19 09:35 Dose: 500 mcg Thiamine HCl (Vitamin B1 -) 100 mg PO DAILY [facility] Last Admin: 11/08/19 09:34 Dose: 100 mg - Objective Vital Signs: Vital Signs Temperature 97.8 F 11/08/19 09:18 Pulse Rate 92 H 11/08/19 09:18 Respiratory Rate 18 11/08/19 09:18 Blood Pressure 113/75 11/08/19 09:18 O2 Sat by Pulse Oximetry (%) 99 11/07/19 21:00 Constitutional: Yes: Mild Distress Cardiovascular: Yes: Regular Rate and Rhythm Respiratory: Yes: Diminished, On Nasal O2 Gastrointestinal: Yes: Soft Genitourinary: Yes: CVA Tenderness - Left Musculoskeletal: Yes: Back Pain Edema: No Peripheral Pulses WNL: Yes Integumentary: Yes: WNL Wound/Incision: Yes: Clean/Dry Neurological: Yes: WNL ...Motor Strength: WNL Psychiatric: Yes: Other Labs: CBC, BMP 11/08/19 05:58 11/08/19 05:58 INR, PTT INR 0.89 (0.83-1.09) 11/02/19 21:55 Problem List - Problems (1) Abdominal pain Code(s): R10.9 - UNSPECIFIED ABDOMINAL PAIN (2) Acute exacerbation of chronic obstructive pulmonary disease (COPD) Code(s): J44.1 - CHRONIC OBSTRUCTIVE PULMONARY DISEASE W (ACUTE) EXACERBATION (3) Hyperglycemia Code(s): R73.9 - HYPERGLYCEMIA, UNSPECIFIED (4) Lung blebs Code(s): J43.9 - EMPHYSEMA, UNSPECIFIED (5) COPD with emphysema Code(s): J43.9 - EMPHYSEMA, UNSPECIFIED (6) Alcohol dependence with uncomplicated withdrawal Code(s): F10.230 - ALCOHOL DEPENDENCE WITH WITHDRAWAL, UNCOMPLICATED (7) Lung mass Code(s): R91.8 - OTHER NONSPECIFIC ABNORMAL FINDING OF LUNG FIELD (8) Pleuritic chest pain Code(s): R07.81 - PLEURODYNIA (9) Osteoarthritis Code(s): M19.90 - UNSPECIFIED OSTEOARTHRITIS, UNSPECIFIED SITE Assessment/Plan CXR SHOWS BULLOUS CHANGES ON IV STEROIDS WILL TAPER 02 SUPPORT 2L NC ATIVAN PRN FOR ETOH WITHDRAWELS CONSULT WITH DR QURESHI DETOX PENDING OOB TO CHAIR DVT PROPHYLAXIS PT EVAL LIDODERM PATCH LEFT FLANK DOUBT RENAL COLIC CHECK UA
[2019-11-08] MEDS: LIDOCAINE 5% TOPICAL PATCH TP SCH (10:45)
--- NOTE | 2019-11-08 11:22 | PN ---
Progress Note, Physician History of Present Illness: pulmonary alert,feeling better - Current Medication List Current Medications: Active Medications Acetaminophen (Tylenol -) 650 mg PO Q6H PRN PRN Reason: PAIN LEVEL 1-5 Last Admin: 11/06/19 17:17 Dose: 650 mg Albuterol Sulfate (Ventolin 0.5% -) 1 amp NEB Q4H PRN PRN Reason: SHORT OF BREATH/WHEEZING Albuterol/Ipratropium (Duoneb -) 1 amp NEB RQID [facility] Last Admin: 11/08/19 08:01 Dose: 1 amp Atorvastatin Calcium (Lipitor -) 10 mg PO HS [facility] Last Admin: 11/07/19 21:24 Dose: 10 mg Budesonide/Formoterol Fumarate (Symbicort 160/4.5mcg -) 2 puff IH BID [facility] Last Admin: 11/08/19 09:35 Dose: 2 puff Folic Acid (Folic Acid -) 1 mg PO DAILY [facility] Last Admin: 11/08/19 09:34 Dose: 1 mg Heparin Sodium (Porcine) (Heparin -) 5,000 unit SQ TID [facility] Last Admin: 11/08/19 06:23 Dose: 5,000 unit Azithromycin 250 mg/ Dextrose 250 mls @ 250 mls/hr IVPB DAILY [facility] Last Admin: 11/08/19 09:36 Dose: 250 mls/hr Insulin Aspart (Novolog Vial Sliding Scale -) 1 vial SQ ACHS [facility]; Protocol Last Admin: 11/08/19 06:23 Dose: 2 unit Ketorolac Tromethamine (Toradol Injection -) 30 mg IVPUSH Q8H-IV PRN PRN Reason: PAIN LEVEL 6-10 Stop: 11/11/19 17:59 Last Admin: 11/07/19 22:16 Dose: 30 mg Lidocaine (Lidoderm Patch -) 1 patch TP DAILY [facility] Last Admin: 11/08/19 10:45 Dose: 1 patch Lorazepam (Ativan -) 2 mg PO Q4H PRN PRN Reason: AGITATION Last Admin: 11/06/19 16:21 Dose: 2 mg Methylprednisolone Sodium Succinate (Solu-Medrol -) 60 mg IVPUSH Q8H-IV [facility] Last Admin: 11/08/19 09:35 Dose: 60 mg Miscellaneous (Lidoderm Patch Removal) 1 each [facility] DAILY@2200 [facility] Montelukast Sodium (Singulair -) 10 mg PO HS [facility] Last Admin: 11/07/19 21:24 Dose: 10 mg Multivitamins/Minerals/Vitamin C (Tab-A-Vit -) 1 tab PO DAILY [facility] Last Admin: 11/08/19 09:34 Dose: 1 tab Pantoprazole Sodium (Protonix -) 40 mg PO DAILY [facility] Last Admin: 11/08/19 09:33 Dose: 40 mg Roflumilast (Daliresp) 500 mcg PO DAILY [facility] Last Admin: 11/08/19 09:35 Dose: 500 mcg Thiamine HCl (Vitamin B1 -) 100 mg PO DAILY [facility] Last Admin: 11/08/19 09:34 Dose: 100 mg - Objective Vital Signs: Vital Signs Temperature 97.8 F 11/08/19 09:18 Pulse Rate 92 H 11/08/19 09:18 Respiratory Rate 18 11/08/19 09:18 Blood Pressure 113/75 11/08/19 09:18 O2 Sat by Pulse Oximetry (%) 98 11/08/19 09:00 Constitutional: Yes: Calm, Thin Eyes: Yes: WNL HENT: Yes: WNL Neck: Yes: WNL Cardiovascular: Yes: Regular Rate and Rhythm, S1, S2 Respiratory: Yes: Rhonchi (few rhonchi) Gastrointestinal: Yes: Normal Bowel Sounds, Soft Extremities: Yes: WNL Edema: No Labs: CBC, BMP 11/08/19 05:58 11/08/19 05:58 INR, PTT INR 0.89 (0.83-1.09) 11/02/19 21:55 Problem List - Problems (1) Acute on chronic respiratory failure with hypoxia and hypercapnia Code(s): J96.21 - ACUTE AND CHRONIC RESPIRATORY FAILURE WITH HYPOXIA; J96.22 - ACUTE AND CHRONIC RESPIRATORY FAILURE WITH HYPERCAPNIA Assessment/Plan Problem List - Problems (1) Acute exacerbation of chronic obstructive pulmonary disease (COPD) Code(s): J44.1 - CHRONIC OBSTRUCTIVE PULMONARY DISEASE W (ACUTE) EXACERBATION (2) Lung blebs Code(s): J43.9 - EMPHYSEMA, UNSPECIFIED (3) COPD with emphysema Code(s): J43.9 - EMPHYSEMA, UNSPECIFIED (4) Alcohol dependence with uncomplicated withdrawal Code(s): F10.230 - ALCOHOL DEPENDENCE WITH WITHDRAWAL, UNCOMPLICATED (5) Chronic alcoholism Code(s): F10.20 - ALCOHOL DEPENDENCE, UNCOMPLICATED (6) Osteoarthritis Code(s): M19.90 - UNSPECIFIED OSTEOARTHRITIS, UNSPECIFIED SITE 7 ACUTE ON CHRONIC HYPOXEMIC/HYPERCAPNEIC RESP FAILURE Assessment/Plan Medrol taper BD TX standing and PRN Singulair Daliresp Supplemental O2 as needed Zithromax No smoking was counseled VTE prophylaxis Outpatient PFTs DR GAGNON
[2019-11-08 15:52] LABS: HYALINE CASTS 0 /lpf (0-8); PH,URINE 6.5 (5.0-8.0); URINE APPEARANCE CLEAR; URINE BACTERIA 21.3 /hpf (NEGATIVE); URINE BILIRUBIN NEGATIVE (NEGATIVE); URINE COLOR YELLOW; URINE GLUCOSE (UA) NEGATIVE (NEGATIVE); URINE KETONE NEGATIVE (NEGATIVE); URINE LEUK ESTERASE TRACE (NEGATIVE); URINE NITRITE NEGATIVE (NEGATIVE); URINE PROTEIN NEGATIVE (NEGATIVE); URINE RBC 0 /hpf (0-4); URINE UROBILINOGEN 0.2 mg/dL (0.2-1.0); URINE WBC 1 /hpf (0-5)
[2019-11-08] MEDS: MONTELUKAST NA 10 MG TABLET PO SCH (21:30)
[2019-11-08] MEDS: ATORVASTATIN CA 10 MG TABLET (FP) PO SCH (21:31)
[2019-11-08] MEDS: KETOROLAC TROMETHAMINE 30 MG/1 ML VIAL IVPUSH PRN (21:37)
[2019-11-08] MEDS ORDERED: LIDOCAINE PATCH REMOVAL MC SCH (22:00)
[2019-11-09] MEDS: HEPARIN NA (PORCINE) 5,000 UNITS/ML 1ML VIAL SQ SCH ×2 (05:40→15:30)
[2019-11-09] MEDS: INSULIN SLIDING SCALE (NOVOLOG) 1 VIAL SQ SCH ×3 (06:26→17:23)
[2019-11-09] MEDS: ALBUTEROL SO4 2.5/IPRATROPIUM 0.5 INH SOL 3 ML VIAL.NEB. NEB SCH ×3 (08:00→15:30)
[2019-11-09] MEDS ORDERED: PT OWN MED DRAWER 7, Y5N ONE (09:48)
[2019-11-09] MEDS: ROFLUMILAST 500 MCG TABLET PO SCH (09:50)
[2019-11-09] MEDS: MULTIVITAMINS (DAILY MVI) TABLET (FP) PO SCH (09:50)
[2019-11-09] MEDS: FOLIC ACID 1 MG TABLET (FP) PO SCH (09:50)
[2019-11-09] MEDS: PANTOPRAZOLE 40 MG TABLET PO SCH (09:50)
[2019-11-09] MEDS: THIAMINE HCL 100 MG TABLET (FP) PO SCH (09:51)
[2019-11-09] MEDS: LIDOCAINE 5% TOPICAL PATCH TP SCH (09:51)
[2019-11-09] MEDS: methylPREDNISolone NA SUCC 40 MG/1 ML VIAL IVPUSH SCH (09:51)
[2019-11-09] MEDS: AZITHROMYCIN IVPB 250 MG in DEXTROSE 5%-WATER - 250 ML IVPB SCH (09:51)
[2019-11-09] MEDS: BUDESONIDE/FORMETEROL FUMARATE 160/4.5 mcg INHALER IH SCH (09:52)
--- NOTE | 2019-11-09 10:44 | DS ---
"Physical Examination Vital Signs: Vital Signs Temperature 98.0 F 11/09/19 06:00 Pulse Rate 65 11/09/19 06:00 Respiratory Rate 18 11/09/19 06:00 Blood Pressure 106/61 11/09/19 06:00 O2 Sat by Pulse Oximetry (%) 98 11/08/19 21:00 Findings/Remarks: Laboratory Last Values WBC 6.2 K/mm3 (4.0-10.0) 11/08/19 05:58 RBC 3.73 M/mm3 (3.60-5.2) 11/08/19 05:58 Hgb 12.1 GM/dL (10.7-15.3) 11/08/19 05:58 Hct 35.6 % (32.4-45.2) 11/08/19 05:58 MCV 95.6 fl (80-96) 11/08/19 05:58 MCH 32.4 pg (25.7-33.7) 11/08/19 05:58 MCHC 33.9 g/dl (32.0-36.0) 11/08/19 05:58 RDW 12.0 % (11.6-15.6) 11/08/19 05:58 Plt Count 226 K/MM3 (134-434) 11/08/19 05:58 MPV 8.9 fl (7.5-11.1) 11/08/19 05:58 Absolute Neuts (auto) 8.2 K/mm3 (1.5-8.0) H 11/02/19 22:10 Neutrophils % 87.0 % (42.8-82.8) H D 11/02/19 22:10 Lymphocytes % 8.9 % (8-40) D 11/02/19 22:10 Monocytes % 2.9 % (3.8-10.2) L 11/02/19 22:10 Eosinophils % 1.0 % (0-4.5) 11/02/19 22:10 Basophils % 0.2 % (0-2.0) 11/02/19 22:10 Nucleated RBC % 0 % (0-0) 11/02/19 22:10 PT with INR 10.50 SEC (9.7-13.0) 11/02/19 21:55 INR 0.89 (0.83-1.09) 11/02/19 21:55 VBG pH 7.38 (7.31-7.41) 11/02/19 21:35 POC VBG pCO2 51.9 mmHg (38-52) 11/02/19 21:35 POC VBG pO2 < 49 mmHg (28-48) H 11/02/19 21:35 VBG HCO3 30.0 mmol/L (23-29) H 11/02/19 21:35 VBG O2 Sat (Philippe) 65.8 % (70-80) L 11/02/19 21:35 VBG Base Excess 4.3 meq/l (-2-2) H 11/02/19 21:35 Sodium 137 mmol/L (136-145) 11/08/19 05:58 Potassium 4.5 mmol/L (3.5-5.1) 11/08/19 05:58 Chloride 102 mmol/L (98-107) 11/08/19 05:58 Carbon Dioxide 29 mmol/L (21-32) 11/08/19 05:58 Anion Gap 5 MMOL/L (8-16) L 11/08/19 05:58 BUN 13.6 mg/dL (7-18) 11/08/19 05:58 Creatinine 0.5 mg/dL (0.55-1.3) L 11/08/19 05:58 Est GFR (CKD-EPI)AfAm 120.22 11/08/19 05:58 Est GFR (CKD-EPI)NonAf 103.73 11/08/19 05:58 POC Glucometer 176 UNITS (80-120) 11/09/19 05:38 Random Glucose 188 mg/dL (74-106) H 11/08/19 05:58 Hemoglobin A1c % 4.9 % (4.2-6.3) 11/03/19 00:00 Lactic Acid 1.3 mmol/L (0.4-2.0) 11/02/19 21:55 Calcium 7.9 mg/dL (8.5-10.1) L 11/08/19 05:58 Phosphorus 2.9 mg/dL (2.5-4.9) 11/04/19 05:20 Magnesium 2.6 mg/dL (1.8-2.4) H 11/04/19 05:20 Total Bilirubin 0.3 mg/dL (0.2-1) 11/04/19 05:20 AST 34 U/L (15-37) 11/04/19 05:20 ALT 40 U/L (13-61) 11/04/19 05:20 Alkaline Phosphatase 72 U/L (45-117) 11/04/19 05:20 Creatine Kinase 144 U/L (26-192) 11/02/19 22:10 Troponin I < 0.02 ng/ml (0.00-0.05) 11/02/19 22:10 B-Natriuretic Peptide 63.0 pg/ml (5-125) 11/02/19 22:10 Total Protein 7.3 g/dl (6.4-8.2) 11/04/19 05:20 Albumin 3.5 g/dl (3.4-5.0) 11/04/19 05:20 Urine Color Yellow 11/08/19 14:00 Urine Appearance Clear 11/08/19 14:00 Urine pH 6.5 (5.0-8.0) 11/08/19 14:00 Ur Specific Orient 1.006 (1.010-1.035) L 11/08/19 14:00 Urine Protein Negative (NEGATIVE) 11/08/19 14:00 Urine Glucose (UA) Negative (NEGATIVE) 11/08/19 14:00 Urine Ketones Negative (NEGATIVE) 11/08/19 14:00 Urine Blood Negative (NEGATIVE) 11/08/19 14:00 Urine Nitrite Negative (NEGATIVE) 11/08/19 14:00 Urine Bilirubin Negative (NEGATIVE) 11/08/19 14:00 Urine Urobilinogen 0.2 mg/dL (0.2-1.0) 11/08/19 14:00 Ur Leukocyte Esterase Trace (NEGATIVE) 11/08/19 14:00 Urine WBC (Auto) 1 /hpf (0-5) 11/08/19 14:00 Urine RBC (Auto) 0 /hpf (0-4) 11/08/19 14:00 Urine Casts (Auto) 0 /lpf (0-8) 11/08/19 14:00 U Epithel Cells (Auto) 1.0 /HPF (0-5/HPF) 11/08/19 14:00 Urine Bacteria (Auto) 21.3 /hpf (NEGATIVE) 11/08/19 14:00 Influenza A (Rapid) Negative (Negative) 11/02/19 23:38 Influenza B (Rapid) Negative (Negative) 11/02/19 23:38 Home Medication List Medication Instructions Recorded Confirmed Type Fluticasone/Salmeterol [Advair 1 each IH DAILY 05/03/15 04/15/17 History 250-50 Diskus] Ipratropium/Albuterol Sulfate 4 gm IH DAILY 05/03/15 04/15/17 History [Combivent Respimat 20-100 Mcg] Albuterol 0.083% Nebulizer Terri 1 neb NEB Q4H PRN 12/22/15 04/15/17 History [Ventolin 0.083% Nebulizer Soln -] Montelukast Na [Singulair -] 10 mg PO HS 12/22/15 04/15/17 History Pantoprazole Sodium 40 mg PO DAILY 03/28/17 04/15/17 History Atorvastatin Calcium [Lipitor] 10 mg PO DAILY 11/03/19 History Diphenhydramine [Benadryl Oral 25 mg PO DAILY 11/03/19 History Solution -] Metformin HCl [Glucophage] 500 mg PO DAILY 11/03/19 11/03/19 History Roflumilast [Daliresp] 500 mcg PO DAILY 11/03/19 11/03/19 History Vitamin A Palmitate [Vitamin A] 10,000 unit PO DAILY 11/03/19 11/03/19 History Active Medications Generic Name Dose Route Start Last Admin Trade Name Freq PRN Reason Stop Dose Admin Acetaminophen 650 mg 11/06/19 16:43 11/06/19 17:17 Tylenol - PO 650 mg Q6H PRN Administration PAIN LEVEL 1-5 Albuterol Sulfate 1 amp 11/03/19 02:21 Ventolin 0.5% - NEB Q4H PRN SHORT OF BREATH/WHEEZING Albuterol/Ipratropium 1 amp 11/03/19 08:00 11/09/19 08:00 Duoneb - NEB 1 amp RQID LUIS F Administration Atorvastatin Calcium 10 mg 11/03/19 22:00 11/08/19 21:31 Lipitor - PO 10 mg HS LUIS F Administration Budesonide/Formoterol Fumarate 2 puff 11/03/19 10:00 11/09/19 09:52 Symbicort 160/4.5mcg - IH 2 puff BID LUIS F Administration Folic Acid 1 mg 11/03/19 10:00 11/09/19 09:50 Folic Acid - PO 1 mg DAILY LUIS F Administration Heparin Sodium (Porcine) 5,000 unit 11/03/19 06:00 11/09/19 05:40 Heparin - SQ 5,000 unit TID LUIS F Administration Azithromycin 250 mg/ Dextrose 250 mls @ 250 mls/hr 11/04/19 10:00 11/09/19 09 :51 IVPB 250 mls/hr DAILY LUIS F Administration Insulin Aspart 1 vial 11/03/19 07:00 11/09/19 06:26 Novolog Vial Sliding Scale - SQ 2 unit ACHS LUIS F Administration Protocol Ketorolac Tromethamine 30 mg 11/06/19 16:43 11/08/19 21:37 Toradol Injection - IVPUSH 11/11/19 17:59 30 mg Q8H-IV PRN Administration PAIN LEVEL 6-10 Lidocaine 1 patch 11/08/19 10:15 11/09/19 09:51 Lidoderm Patch - TP 1 patch DAILY LUIS F Administration Methylprednisolone Sodium Succinate 40 mg 11/08/19 22:00 11/09/19 09:51 Solu-Medrol - IVPUSH 40 mg BID LUIS F Administration Miscellaneous 1 each 11/08/19 22:00 11/08/19 21:32 Lidoderm Patch Removal MC Not Given DAILY@2200 LUIS F Montelukast Sodium 10 mg 11/03/19 22:00 11/08/19 21:30 Singulair - PO 10 mg HS LUIS F Administration Multivitamins/Minerals/Vitamin C 1 tab 11/03/19 10:00 11/09/19 09:50 Tab-A-Vit - PO 1 tab DAILY LUIS F Administration Pantoprazole Sodium 40 mg 11/04/19 10:00 11/09/19 09:50 Protonix - PO 40 mg DAILY LUIS F Administration Roflumilast 500 mcg 11/03/19 15:30 11/09/19 09:50 Daliresp PO 500 mcg DAILY LUIS F Administration Thiamine HCl 100 mg 11/03/19 10:00 11/09/19 09:51 Vitamin B1 - PO 100 mg DAILY LUIS F Administration Constitutional: Yes: No Distress, Calm Eyes: Yes: Conjunctiva Clear HENT: Yes: Atraumatic Cardiovascular: Yes: Regular Rate and Rhythm Respiratory: Yes: Regular, CTA Bilaterally, On Nasal O2 Gastrointestinal: Yes: Normal Bowel Sounds, Soft Musculoskeletal: Yes: WNL Extremities: Yes: WNL Edema: No Neurological: Yes: Alert, Oriented Psychiatric: Yes: Alert, Oriented Labs: CBC, BMP 11/08/19 05:58 11/08/19 05:58 Discharge Summary Problems reviewed: Yes Reason For Visit: PULMONARY EMPHYSEMA Current Active Problems Abdominal pain (Acute) Acute exacerbation of chronic obstructive pulmonary disease (COPD) (Acute) Acute on chronic respiratory failure with hypoxia and hypercapnia (Acute) Alcohol withdrawal (Acute) Hyperglycemia (Acute) Lung blebs (Acute) COPD with emphysema (Chronic) Hospital Course: 64 y.o. F PMH asthma, lung bullae, stage IV COPD (home O2 2-3L, Daliresp), former chronic tobacco user(quit 3yrs ago), EtOH abuse (last drink this evening at 5pm had 5 beers today), OA c/o dyspnea x 5 days with cough productive of green sputum. SOB is present at rest, nonpleuritic. Also endorses nausea & NBNB vomiting x 1 day. Had recent admission to [facility] for COPD exacerbation 2018. Pt denies history of intubation. No recent sick contacts. Denies headache / fevers/ chills/ chest pain/ diaphoresis/ myalgias/diarrhea. Patient was evlauted by pulmonary and treated with IV Medrol. She states her breathing has improved and will go home with prednisone tapering dose. patient instructed on the importance of abstaining from alcohol and the importance of outpatient rehab. Condition: Stable - Instructions Diet, Activity, Other Instructions: follow up with PCP in 2 weeks of discharge [facility] Rosario in 2 weeks of discharge explained importance of staying away from alcohol and to not drink while taking Ativan because it can cause respiratory arrest ativan tapering dose: take 2mg three times a day x 3 days, take 2 mg twice a day x 3 days, take 2mg daily x 3 days prednisone tapering dose: take 40mg daily x 3 days, take 30mg daily x 3 days, take 20mg daily x 3 days, take 10mg daily x 3 days return to ER If develop severe pain, respiratory distress, chest pain ISTOP: This report was requested by: Erin Ndiaye | Reference #: [id number] Referrals: Ying Altamirano MD [Primary Care Provider] - Dexter Rosario MD [Staff Physician] - Disposition: VNS/HOME HEALTH CARE - Home Medications Comprehensive Discharge Medication List: Ambulatory Orders Fluticasone/Salmeterol [Advair 250-50 Diskus] 1 each IH DAILY 05/03/15 Ipratropium/Albuterol Sulfate [Combivent Respimat 20-100 Mcg] 4 gm IH DAILY Albuterol 0.083% Nebulizer Terri [Ventolin 0.083% Nebulizer Soln -] 1 neb NEB Q4H PRN 12/22/15 Montelukast Na [Singulair -] 10 mg PO HS 12/22/15 Pantoprazole Sodium 40 mg PO DAILY 03/28/17 Budesonide/Formeterol Fumarate [SYMBICORT 160/4.5mcg -] 2 puff IH BID #1 inhaler 04/05/17 Folic Acid - 1 mg PO DAILY #30 tablet 04/05/17 Thiamine HCl [Vitamin B1 -] 100 mg PO DAILY #30 tablet 04/05/17 Atorvastatin Calcium [Lipitor] 10 mg PO DAILY 11/03/19 Diphenhydramine [Benadryl Oral Solution -] 25 mg PO DAILY 11/03/19 Metformin HCl [Glucophage] 500 mg PO DAILY 11/03/19 Roflumilast [Daliresp] 500 mcg PO DAILY 11/03/19 Vitamin A Palmitate [Vitamin A] 10,000 unit PO DAILY 11/03/19 Albuterol 2.5/Ipratropium 0.5 [Duoneb -] 1 amp NEB RQID #45 amp 11/09/19 Albuterol Sulfate 0.5% [Ventolin 0.5% Nebulizing Soln. -] 1 amp NEB Q4H PRN #45 amp 11/09/19 Azithromycin 250 mg PO DAILY #4 tablet 11/09/19 Folic Acid - 1 mg PO DAILY #30 tablet 11/09/19 Lidocaine 5% Patch [Lidoderm -] 1 patch TP DAILY #30 patch 11/09/19 Lorazepam [Ativan] 2 mg PO ASDIR #18 tablet MDD 6 11/09/19 Multivitamins [Multivit ([facility] Formulary)] 1 tab PO DAILY #30 tab 11/09/19 Roflumilast [Daliresp] 500 mcg PO DAILY #30 tablet 02/27/20 Thiamine HCl [Vitamin B1 -] 100 mg PO DAILY #30 tablet 11/09/19 Prescription Drug Monitoring Program (I-STOP) results: I-STOP reviewed and no issues identified"
[2019-11-09 12:49] VITALS: TEMP 98.1
[2019-11-09 14:23] VITALS: BP 104/64; PULSE 78
--- NOTE | 2019-11-09 14:33 | PN ---
Progress Note (short form) - Note Progress Note: PULMONARY Breathing better. Less cough and wheezing. No fevers. Vital Signs Period Temp Pulse Resp BP Sys/Smith Pulse Ox Last 24 Hr 98.0 F-98.3 F 65-94 18-20 104-118/61-68 95-98 Gen: tachypneic at rest Heart: RRR Lung: distant breath sounds, poor air movement Abd: soft, nontender Ext: no edema CBC, BMP 11/08/19 05:58 11/08/19 05:58 Active Medications Acetaminophen (Tylenol -) 650 mg PO Q6H PRN PRN Reason: PAIN LEVEL 1-5 Last Admin: 11/06/19 17:17 Dose: 650 mg Albuterol Sulfate (Ventolin 0.5% -) 1 amp NEB Q4H PRN PRN Reason: SHORT OF BREATH/WHEEZING Albuterol/Ipratropium (Duoneb -) 1 amp NEB RQID [facility] Last Admin: 11/09/19 12:00 Dose: 1 amp Atorvastatin Calcium (Lipitor -) 10 mg PO HS [facility] Last Admin: 11/08/19 21:31 Dose: 10 mg Budesonide/Formoterol Fumarate (Symbicort 160/4.5mcg -) 2 puff IH BID [facility] Last Admin: 11/09/19 09:52 Dose: 2 puff Folic Acid (Folic Acid -) 1 mg PO DAILY [facility] Last Admin: 11/09/19 09:50 Dose: 1 mg Heparin Sodium (Porcine) (Heparin -) 5,000 unit SQ TID [facility] Last Admin: 11/09/19 05:40 Dose: 5,000 unit Azithromycin 250 mg/ Dextrose 250 mls @ 250 mls/hr IVPB DAILY [facility] Last Admin: 11/09/19 09:51 Dose: 250 mls/hr Insulin Aspart (Novolog Vial Sliding Scale -) 1 vial SQ ACHS [facility]; Protocol Last Admin: 11/09/19 12:02 Dose: 2 unit Ketorolac Tromethamine (Toradol Injection -) 30 mg IVPUSH Q8H-IV PRN PRN Reason: PAIN LEVEL 6-10 Stop: 11/11/19 17:59 Last Admin: 11/08/19 21:37 Dose: 30 mg Lidocaine (Lidoderm Patch -) 1 patch TP DAILY [facility] Last Admin: 11/09/19 09:51 Dose: 1 patch Methylprednisolone Sodium Succinate (Solu-Medrol -) 40 mg IVPUSH BID [facility] Last Admin: 11/09/19 09:51 Dose: 40 mg Miscellaneous (Lidoderm Patch Removal) 1 each MC DAILY@2200 [facility] Last Admin: 11/08/19 21:32 Dose: Not Given Montelukast Sodium (Singulair -) 10 mg PO HS [facility] Last Admin: 11/08/19 21:30 Dose: 10 mg Multivitamins/Minerals/Vitamin C (Tab-A-Vit -) 1 tab PO DAILY [facility] Last Admin: 11/09/19 09:50 Dose: 1 tab Pantoprazole Sodium (Protonix -) 40 mg PO DAILY [facility] Last Admin: 11/09/19 09:50 Dose: 40 mg Roflumilast (Daliresp) 500 mcg PO DAILY [facility] Last Admin: 11/09/19 09:50 Dose: 500 mcg Thiamine HCl (Vitamin B1 -) 100 mg PO DAILY [facility] Last Admin: 11/09/19 09:51 Dose: 100 mg A/P Acute on Chronic Hypoxic and Hypercapneic Respiratory Failure Acute COPD Exacerbation Alcohol Abuse - can change steroids to PO prednisone 40mg daily and taper as outpt - inhaled bronchodilators - O2 to keep Spo2 >90% - monitor for withdrawal - DVT prophylaxis
== END 2019-11-09 18:00 | disposition home health service (06) | DRG 190 ==
LOC: JER 21:14 → JERBED 23:55 → J4S 11-03 15:51
PROVIDERS: ADMIT Internal Medicine; ATTEND Family Medicine
DX: J43.9 Emphysema, unspecified (principal); J96.01 Acute respiratory failure with hypoxia; J96.02 Acute respiratory failure with hypercapnia; F10.230 Alcohol dependence with withdrawal, uncomplicated; E11.9 Type 2 diabetes mellitus without complications; R00.0 Tachycardia, unspecified; E11.65 Type 2 diabetes mellitus with hyperglycemia; R10.9 Unspecified abdominal pain; M19.90 Unspecified osteoarthritis, unspecified site; F17.210 Nicotine dependence, cigarettes, uncomplicated; R07.81 Pleurodynia; Z86.718 Personal history of other venous thrombosis and embolism
CPT/HCPCS: 36415; 71045-TC-FY; 71275-TC; 74174-TC; 76700-TC; 80048; 80053; 81003; 82550; 82803; 82962; 83036; 83605; 83735; 83880; 84100; 84484; 85025; 85027; 85610; 87804; 93005; 93010; 94640; 94660; 94761; 97116-GP; 97161-GP; 99285-25; J0131; J1644; Q9967

== ENCOUNTER 2019-11-12 23:58 | Inpatient (IN) | payer OTHER ==
--- NOTE | 2019-11-13 00:44 | PDOC ---
History of Present Illness - General Chief Complaint: Nausea/Vomiting Stated Complaint: ABDOMINAL PAIN Time Seen by Provider: 11/13/19 00:28 History Source: Patient, Family, Old Records Exam Limitations: No Limitations - History of Present Illness Initial Comments: 11/13/19 00:44 Tigist Beltran is a 64F with PMH asthma, stage IV COPD on 2L home O2 and prednisone, former smoker, HTN, HLD, NIDDM, alcohol use disorder, and recent admission to [facility] for SOB/abd pain/alcohol withdrawal, presenting with one day of epigastric pain. Recently discharged home from admission from [facility] for PNA and epigastric abdominal pain. Had no epigastric pain at home until yesterday at 2PM, tried to eat lunch and started having epigastric pain with nausea and vomiting one hour after eating rice and meat. Pain is sharp and radiates to the right flank, pain is intermittent and positional. Denies any abdominal surgery, liver/GB disease, prior episodes of pain like this. Has history of pancreatitis years ago. Denies any tobacco/alcohol/drug use, says last alcohol use 5 beers day before prior admission ~10 days ago. Denies any chest pain, palpitations, or worsening SOB, on home O2 2L and taking daily prednisone and nebs, breathing not worse, but reports green sputum with cough. No urinary symptoms, fever, chills, nausea, vomiting. Hives reaction to penicillin. PMD at [facility], Pulm at [place]. Past History - Past Medical History Allergies/Adverse Reactions: Allergies Allergy/AdvReac Type Severity Reaction Status Date / Time Penicillins Allergy Verified 11/13/19 00:33 Home Medications: Ambulatory Orders Fluticasone/Salmeterol [Advair 250-50 Diskus] 1 each IH DAILY 05/03/15 Ipratropium/Albuterol Sulfate [Combivent Respimat 20-100 Mcg] 4 gm IH DAILY 05/03/15 Albuterol 0.083% Nebulizer Terri [Ventolin 0.083% Nebulizer Soln -] 1 neb NEB Q4H PRN 12/22/15 Montelukast Na [Singulair -] 10 mg PO HS 12/22/15 Pantoprazole Sodium 40 mg PO DAILY 03/28/17 Budesonide/Formeterol Fumarate [SYMBICORT 160/4.5mcg -] 2 puff IH BID #1 inhaler 04/05/17 Folic Acid - 1 mg PO DAILY #30 tablet 04/05/17 Thiamine HCl [Vitamin B1 -] 100 mg PO DAILY #30 tablet 04/05/17 Atorvastatin Calcium [Lipitor] 10 mg PO DAILY 11/03/19 Diphenhydramine [Benadryl Oral Solution -] 25 mg PO DAILY 11/03/19 Metformin HCl [Glucophage] 500 mg PO DAILY 11/03/19 Roflumilast [Daliresp] 500 mcg PO DAILY 11/03/19 Vitamin A Palmitate [Vitamin A] 10,000 unit PO DAILY 11/03/19 Albuterol 2.5/Ipratropium 0.5 [Duoneb -] 1 amp NEB RQID #45 amp 11/09/19 Albuterol Sulfate 0.5% [Ventolin 0.5% Nebulizing Soln. -] 1 amp NEB Q4H PRN #45 amp 11/09/19 Azithromycin 250 mg PO DAILY #4 tablet 11/09/19 Folic Acid - 1 mg PO DAILY #30 tablet 11/09/19 Lidocaine 5% Patch [Lidoderm -] 1 patch TP DAILY #30 patch 11/09/19 Lorazepam [Ativan] 2 mg PO ASDIR #18 tablet MDD 6 11/09/19 Multivitamins [Multivit ([facility] Formul[facility])] 1 tab PO DAILY #30 tab 11/09/19 Prednisone 10 mg PO ASDIR #50 tab.ds.pk 11/09/19 Roflumilast [Daliresp] 500 mcg PO DAILY #30 tablet 11/09/19 Thiamine HCl [Vitamin B1 -] 100 mg PO DAILY #30 tablet 11/09/19 Asthma: Yes Cardiac Disorders: Yes COPD: Yes (emphysema) CHF: No Diabetes: Yes GI Disorders: Yes (stomach ulcers) Hypercholesterolemia: Yes - Psycho Social/Smoking Cessation Hx Smoking History: Former smoker Have you smoked in the past 12 months: No Number of Cigarettes Smoked Daily: 0 If you are a former smoker, when did you quit?: 2017 Information on smoking cessation initiated: No 'Breaking Loose' booklet given: 05/03/15 Hx Alcohol Use: No Drug/Substance Use Hx: No Substance Use Type: None Hx Substance Use Treatment: No Review of Systems - Review of Systems Able to Perform ROS?: Yes Constitutional: No: Chills, Fever HEENTM: No: Eye Pain, Blurred Vision, Tearing, Hearing Loss Respiratory: Yes: Cough, Productive cough. No: Shortness of Breath Cardiac (ROS): No: Chest Pain, Irregular Heart Rate, Lightheadedness ABD/GI: Yes: Nausea, Vomiting. No: Blood Streaked Bowels, Constipated, Diarrhea, Difficulty Swallowing, Poor Appetite, Poor Fluid Intake : No: Burning, Dysuria, Discharge, Frequency, Flank Pain, Hematuria, Incontinence, Pain, Urgency, Testicular Pain Musculoskeletal: No: Back Pain, Gout, Joint Swelling, Muscle Pain Integumentary: No: Bruising, Change in Color, Change in Hair/Nails, Dryness, Erythema Neurological: No: Headache, Numbness, Paresthesia, Pre-Existing Deficit Endocrine: No: Symptoms Reported Hematologic/Lymphatic: No: Symptoms Reported All Other Systems: Reviewed and Negative *Physical Exam - Vital Signs Last Vital Signs Temp Pulse Resp BP Pulse Ox 98.0 F 90 16 119/73 100 11/13/19 00:28 11/13/19 00:28 11/13/19 00:28 11/13/19 00:28 11/13/19 00:28 - Physical Exam General Appearance: Yes: Nourished, Appropriately Dressed. No: Apparent Distress, Mild Distress, Alcohol on Breath HEENT: positive: EOMI, SOPHIE, Normal Voice, Symmetrical, TMs Normal, Pharynx Normal, Hearing Decreased. negative: Scleral Icterus (R), Scleral Icterus (L) Neck: positive: Trachea midline, Normal Thyroid. negative: Tender, Rigid, Supple, Decreased range of motion (pain with movement at right neck), Lymphadenopathy (R), Lymphadenopathy (L), Tender lateral Respiratory/Chest: positive: Lungs Clear, Normal Breath Sounds. negative: Chest Tender, Respiratory Distress, Accessory Muscle Use, Crackles, Rales, Rhonchi, Stridor, Wheezing Cardiovascular: positive: Regular Rhythm, Regular Rate. negative: Murmur Gastrointestinal/Abdominal: positive: Normal Bowel Sounds, Tender (epigastric to RUQ), Flat, Soft. negative: Organomegaly, Pulsatile Mass, Guarding, Rebound Musculoskeletal: positive: Normal Inspection. negative: Decreased Range of Motion, Vertebral Tenderness Extremity: positive: Normal Capillary Refill, Normal Inspection, Normal Range of Motion, Pelvis Stable. negative: Tender, Coldness, Cyanosis, Pedal Edema, Swelling, Calf Tenderness Integumentary: positive: Normal Color, Dry, Warm Neurologic: positive: Fully Oriented, Alert, Normal Mood/Affect, Normal Response ED Treatment Course - LABORATORY CBC & Chemistry Diagram: 11/13/19 00:45 11/13/19 00:44 Medical Decision Making - Medical Decision Making 11/13/19 04:05 Patient has known history of lung disease on home O2, cardiac disease, known GI disease, and alcoholism presents with diffuse abdominal pain centered at the epigastric region with nausea, vomiting, diarrhea with known history of concerning for intraabdominal pathology, including GB disease, pancreatitis, alcohol-induced gastritis. Evaluating for atypical angina as well as GI pathology. VS stable, physical exam only remarkable for epigastric pain, no wheezing. - CMP/CBC/Mg for eval lytes, GB disease infection - CP/ECG/CXR for eval ACS/atypical NC, repeat PNA - lipase for eval pancreatitis - Pepcid/Maalox for possible gastritis Labs notable for: - WBC 19.6 - ALT 62 - trop negative CTAP: severe COPD, contracted GB, dilated loops of small bowel with fluid, diverticulosis without obvious diverticulitis CXR shows no acute changes from prior CXR US no GB pathology, mild hepatomegaly Requires admission for further evaluation of GI pain given large number or comorbidities and possible persistent PNA. 11/13/19 06:54 Admitted to [facility] service to Med Surg. Discharge - Discharge Information Problems reviewed: Yes Clinical Impression/Diagnosis: Epigastric pain Condition: Stable - Follow up/Referral - Patient Discharge Instructions - Post Discharge Activity
[2019-11-13] MEDS ORDERED: FAMOTIDINE 20 MG/50 ML IVPB 20 MG/50 ML MG IVPB ONE ×2 (01:00→01:53)
[2019-11-13] MEDS ORDERED: MAG HYDROX/AL HYDROX/SIMETH -MYLANTA- ORAL SUSPENSION PO ONE (01:00)
[2019-11-13] MEDS ORDERED: ACETAMINOPHEN 1000 MG/100 ML VIAL (NON FORMULARY) IVPB ONE (01:00)
[2019-11-13] MEDS ORDERED: ONDANSETRON 4 MG/2 ML VIAL IVPUSH ONE (01:02)
[2019-11-13] MEDS ORDERED: ONDANSETRON 4 MG/2 ML VIAL ONE (01:12)
[2019-11-13] MEDS ORDERED: MAG HYDROX/AL HYDROX/SIMETH 30 ML UNIT-DOSE CUP ONE (01:12)
[2019-11-13 01:20] LABS: BASO % 0.6 % (0-2.0); EOS % 0.1 % (0-4.5); HEMATOCRIT 40.5 % (32.4-45.2); HEMOGLOBIN 13.6 GM/dL (10.7-15.3); LYMPH % 9.4 % (8-40); MCH 32.2 pg (25.7-33.7); MCHC 33.4 g/dl (32.0-36.0); MEAN CELL VOLUME 96.4 fl (80-96); MEAN PLT VOLUME 7.9 fl (7.5-11.1); MONO % 5.9 % (3.8-10.2); PLATELET COUNT 358 K/MM3 (134-434); RBC 4.21 M/mm3 (3.60-5.2); RDW 12.4 % (11.6-15.6); WHITE BLOOD COUNT 19.6 K/mm3 (4.0-10.0)
[2019-11-13 01:32] LABS: INR 0.91 (0.83-1.09); PROTHROMBIN TIME (PATIENT) 10.7 SEC (9.7-13.0)
[2019-11-13 01:35] LABS: ACTIVATED PTT 24.4 SECONDS (25.2-36.5)
[2019-11-13 01:44] LABS: ALBUMIN 3.4 g/dl (3.4-5.0); BILIRUBIN,TOTAL 0.4 mg/dL (0.2-1); BLOOD UREA NITROGEN 19.4 mg/dL (7-18); CALCIUM 8.2 mg/dL (8.5-10.1); CREATININE 0.5 mg/dL (0.55-1.3); MAGNESIUM 1.9 mg/dL (1.8-2.4); TOT PROT 7.2 g/dl (6.4-8.2)
[2019-11-13] MEDS ORDERED: ACETAMINOPHEN INJECTION 100 ML IVPB ONE (01:53)
--- NOTE | 2019-11-13 02:54 | PDOC ---
Attending Attestation - Resident Resident Name: Enrique Lou - ED Attending Attestation I have performed the following: I have examined & evaluated the patient, The case was reviewed & discussed with the resident, I agree w/resident's findings & plan - HPI HPI: 11/13/19 03:21 Pt is an alcoholic who quit 10 days ago. She is also a smoker. She comes with bilious and green vomiting. She has no fever or chills. No diarrhea No abd surgeries She had pancreatitis in the past. She has no other complaints. No dysuria - Physicial Exam PE: 11/13/19 03:22 Abd tender diffusely No fever No rashes no flank pain neuro intact No edema - Medical Decision Making 11/13/19 02:54 WBC is 19; flu negative 11/13/19 03:17 Patient Name: MERVIN FRANCOIS THIS IS A PRELIMINARY REPORT FROM [facility] DATE OF SERVICE: 2019-11-13 01:18:12 IMAGES: 48 EXAM: ABDOMEN US -LIMITED , right upper quadrant and limited abdominal duplex HISTORY: Rule out gallbladder disease or pancreatitis COMPARISON: None. FINDINGS: Right upper quadrant ultrasound:The liver is mildly enlarged at 18.4 cm, without mass or biliary duct dilation. The gallbladder is collapsed and appears normal. The CBD is not dilated and measures4 millimeters in diameter. Right kidney measures 10.5centimeters in length and is unremarkable. The visualized aorta and IVC are normal. Pancreas is partially obscured, but appears normal. Abdominal duplex from the main portal vein demonstrates normal hepatopedal flow. IMPRESSION: Mild hepatomegaly. 11/13/19 03:23 sono abd normal UA pending 11/13/19 04:50 Pt's urine is dark. She is dehydrated. Pt has a normal UA; no infection 500ml levaquin given for gastroenteritis/diffuse abd pain and WBC of 19. Pt is at CT scan at this time. Labs are otherwise normal; no lipase elevation 11/13/19 06:33 Patient Name: MERVIN FRANCOIS THIS IS A PRELIMINARY REPORT FROM [facility] DATE OF SERVICE: 2019-11-13 04:58:26 IMAGES: 477 EXAM: ABDOMEN \T\ PELVIS CT WITH CONTR HISTORY: Diffuse abdominal pain COMPARISON: 11/02/19 FINDINGS: Severe emphysema is noted. No evidence of pneumonia. The visualized cardiac chambers are normal size and configuration. Normal liver, gallbladder, pancreas, spleen, adrenal glands and kidneys. Mildly prominent small bowel loops measuring without 2.5 cm without evidence of inflammation could indicate a mild ileus. This is unlikely to represent bowel obstruction. Sigmoid diverticulosis is noted without diverticulitis although there is scattered liquid stool without colonic wall thickening, suggesting a diarrheal illness. The stomach and abdominal small and large bowel are normal. There is no aortic aneurysm. There is no significant retroperitoneal lymphadenopathy. The appendix is normal. The uterus and adnexal structures are normal. Urinary bladder is unremarkable. There is no pelvic free fluid. No discrete pelvic lymphadenopathy is identified. IMPRESSION: Severe emphysema. Possible diarrheal illness and/or mild ileus Heart Score/ECG Review - ECG Intrepretation Rhythm: Regular Rhythm - Cameron Cameron: Normal - P and AL Delta Wave(s) Present: No WPW: No - QRS Poor R Wave Progression: No Q Wave Present: No - ST and T Early Repolarization: No Non Specific ST-T Wave changes: No - ECG Impressions Normal ECG: Yes Non-specific ST Elevation: No Ischemic Changes: No Bradycardia: No Torsades tamara Pointes: No WPW: No
[2019-11-13] MEDS ORDERED: SODIUM CHLORIDE 0.9% 500 ML INFUS.BAG IV ONE (03:23)
[2019-11-13 04:29] LABS: PH,URINE 5.5 (5.0-8.0); URINE APPEARANCE CLOUDY; URINE BILIRUBIN NEGATIVE (NEGATIVE); URINE COLOR YELLOW; URINE GLUCOSE (UA) NEGATIVE (NEGATIVE); URINE KETONE 1+ (NEGATIVE); URINE LEUK ESTERASE NEGATIVE (NEGATIVE); URINE NITRITE NEGATIVE (NEGATIVE); URINE PROTEIN NEGATIVE (NEGATIVE); URINE UROBILINOGEN 0.2 mg/dL (0.2-1.0)
--- NOTE | 2019-11-13 07:17 | HP ---
Admitting History and Physical - Primary Care Physician PCP: Ying Altamirano - Admission Chief Complaint: abdominal pain History of Present Illness: Tigist Beltran is a 64F with PMH asthma, stage IV COPD on 2L home O2 and prednisone , former smoker, HTN, HLD, NIDDM, alcohol use disorder, and recent admission to [facility] for SOB/abd pain/alcohol withdrawal, presenting with one day of epigastric pain. Recently discharged home from admission from [facility] for PNA and epigastric abdominal pain. Was discharged on a predisone taper - Past Medical History Pulmonary: Yes: Bronchitis, COPD, Pneumonia, Other (BULLOUS EMPHYSEMA). No: O2 Dependent, Previously Intubated, Pulmonary Embolus, Pulmonary Fibrosis, Sleep Apnea Gastrointestinal: Yes: GI Bleed, Peptic Ulcer Disease, Other (ALCOHOLISM) Psych: Yes: Addictions Musculoskeletal: Yes: Other (RIGHT SIDED RIB PAIN) - Smoking History Smoking history: Former smoker Have you smoked in the past 12 months: No Aproximately how many cigarettes per day: 0 If you are a former smoker, when did you quit?: 2017 - Alcohol/Substance Use Hx Alcohol Use: No - Social History ADL: Independent History of Recent Travel: No Home Medications - Allergies Allergies/Adverse Reactions: Allergies Allergy/AdvReac Type Severity Reaction Status Date / Time Penicillins Allergy Verified 11/13/19 00:33 - Home Medications Home Medications: Ambulatory Orders Fluticasone/Salmeterol [Advair 250-50 Diskus] 1 each IH DAILY 05/03/15 Ipratropium/Albuterol Sulfate [Combivent Respimat 20-100 Mcg] 4 gm IH DAILY Albuterol 0.083% Nebulizer Terri [Ventolin 0.083% Nebulizer Soln -] 1 neb NEB Q4H PRN 12/22/15 Montelukast Na [Singulair -] 10 mg PO HS 12/22/15 Pantoprazole Sodium 40 mg PO DAILY 03/28/17 Budesonide/Formeterol Fumarate [SYMBICORT 160/4.5mcg -] 2 puff IH BID #1 inhaler 04/05/17 Folic Acid - 1 mg PO DAILY #30 tablet 04/05/17 Thiamine HCl [Vitamin B1 -] 100 mg PO DAILY #30 tablet 04/05/17 Atorvastatin Calcium [Lipitor] 10 mg PO DAILY 11/03/19 Diphenhydramine [Benadryl Oral Solution -] 25 mg PO DAILY 11/03/19 Metformin HCl [Glucophage] 500 mg PO DAILY 11/03/19 Roflumilast [Daliresp] 500 mcg PO DAILY 11/03/19 Vitamin A Palmitate [Vitamin A] 10,000 unit PO DAILY 11/03/19 Albuterol 2.5/Ipratropium 0.5 [Duoneb -] 1 amp NEB RQID #45 amp 11/09/19 Albuterol Sulfate 0.5% [Ventolin 0.5% Nebulizing Soln. -] 1 amp NEB Q4H PRN #45 amp 11/09/19 Azithromycin 250 mg PO DAILY #4 tablet 11/09/19 Folic Acid - 1 mg PO DAILY #30 tablet 11/09/19 Lidocaine 5% Patch [Lidoderm -] 1 patch TP DAILY #30 patch 11/09/19 Lorazepam [Ativan] 2 mg PO ASDIR #18 tablet MDD 6 11/09/19 Multivitamins [Multivit ([facility] Formulary)] 1 tab PO DAILY #30 tab 11/09/19 Prednisone 10 mg PO ASDIR #50 tab.ds.pk 11/09/19 Roflumilast [Daliresp] 500 mcg PO DAILY #30 tablet 11/09/19 Thiamine HCl [Vitamin B1 -] 100 mg PO DAILY #30 tablet 11/09/19 Physical Examination Vital Signs: Vital Signs Temperature 98.0 F 11/13/19 00:28 Pulse Rate 88 11/13/19 06:15 Respiratory Rate 16 11/13/19 06:15 Blood Pressure 96/59 L 11/13/19 06:15 O2 Sat by Pulse Oximetry (%) 98 11/13/19 06:15 Labs: CBC, BMP 11/13/19 00:45 11/13/19 00:44 Imaging - Results Cat Scan: Report Reviewed (ABD CT: Severe emphysema is noted. No evidence of pneumonia. The visualized cardiac chambers are normal size and configuration. Normal liver, gallbladder, pancreas, spleen, adrenal glands and kidneys. Mildly prominent small bowel loops measuring without 2.5 cm without evidence of inflammation could indicate a mild ileus. This is unlikely to represent bowel obstruction. Sigmoid diverticulosis is noted without diverticulitis although there is scattered liquid stool without colonic wall thickening, suggesting a diarrheal illness. The stomach and abdominal small and large bowel are normal. There is no aortic aneurysm. There is no significant retroperitoneal lymphadenopathy.The appendix is normal. The uterus and adnexal structures are normal. Urinary bladder isunremarkable. There is no pelvic free fluid. No discrete pelvic lymphadenopathy is identified.) Problem List - Problems (1) Asthma Code(s): J45.909 - UNSPECIFIED ASTHMA, UNCOMPLICATED (2) COPD (chronic obstructive pulmonary disease) Code(s): J44.9 - CHRONIC OBSTRUCTIVE PULMONARY DISEASE, UNSPECIFIED (3) On home oxygen therapy Code(s): Z99.81 - DEPENDENCE ON SUPPLEMENTAL OXYGEN (4) Smoker Code(s): F17.200 - NICOTINE DEPENDENCE, UNSPECIFIED, UNCOMPLICATED (5) HTN (hypertension) Code(s): I10 - ESSENTIAL (PRIMARY) HYPERTENSION (6) HLD (hyperlipidemia) Code(s): E78.5 - HYPERLIPIDEMIA, UNSPECIFIED (7) Diabetes Code(s): E11.9 - TYPE 2 DIABETES MELLITUS WITHOUT COMPLICATIONS (8) Alcohol abuse Code(s): F10.10 - ALCOHOL ABUSE, UNCOMPLICATED (9) Prophylactic measure Code(s): Z29.9 - ENCOUNTER FOR PROPHYLACTIC MEASURES, UNSPECIFIED (10) Abdominal pain Code(s): R10.9 - UNSPECIFIED ABDOMINAL PAIN
[2019-11-13] MEDS: ALBUTEROL SO4 2.5/IPRATROPIUM 0.5 INH SOL 3 ML VIAL.NEB. NEB SCH ×4 (08:20→20:33)
--- NOTE | 2019-11-13 09:18 | EKG ---
Test Reason : Blood Pressure : / mmHG Vent. Rate : 086 BPM Atrial Rate : 086 BPM P-R Int : 114 ms QRS Dur : 076 ms QT Int : 348 ms P-R-T Axes : 073 008 076 degrees QTc Int : 416 ms NORMAL SINUS RHYTHM NORMAL ECG WHEN COMPARED WITH ECG OF 02-NOV-2019 21:36, ST NO LONGER DEPRESSED IN INFERIOR LEADS Confirmed by Blanquita Mario ([id number]) on 11/13/2019 9:18:04 AM Referred By: Confirmed By:Blanquita Mario
[2019-11-13] MEDS ORDERED: MULTIVIT INJ. ADULT COMBO WITH VIT K 1 COMBO 10 ML VIAL IV SCH (10:00)
--- NOTE | 2019-11-13 10:16 | CON.PULM ---
Consult Consult Specialty:: PULM/CCM Referred by:: KEY Reason for Consultation:: SOB - History of Present Illness Chief Complaint: Abdominal pain/discomfort History of Present Illness: 64 F, advanced (GOLD 4) COPD on home O2 2-3 L NC due to previous tobacco use ( quit 3yrs ago), EtOH abuse (last drink was DOA at 5pm had 5 beers), and OA. Recent admission 10/2019: for AE of COPD and PNA. Discharged on Symbicort and Prednisone. Admitted via the ER due to generalized abdominal discomfort with associated dyspnea. No change in sputum or productive cough. No travel history or sick contacts. No fever or chills. No hemoptysis or night sweats. There is no history that would be consistent with OSAS. CT: diffuse emphysematous changes / apical bullae / no nodules, masses, infiltrates - History Source History Provided By: Patient Limitations to Obtaining History: No Limitations - Past Medical History Pulmonary: Yes: Bronchitis, COPD, O2 Dependent, Pneumonia, Other (BULLOUS EMPHYSEMA). No: Asthma, Cancer, Previously Intubated, Pulmonary Embolus, Pulmonary Fibrosis, Sleep Apnea Gastrointestinal: Yes: GI Bleed, Peptic Ulcer Disease, Other (ALCOHOLISM) Psych: Yes: Addictions Musculoskeletal: Yes: Other (RIGHT SIDED RIB PAIN) - Alcohol/Substance Use Hx Alcohol Use: No - Smoking History Smoking history: Former smoker Have you smoked in the past 12 months: No Aproximately how many cigarettes per day: 0 If you are a former smoker, when did you quit?: 2017 - Social History ADL: Independent History of Recent Travel: No Home Medications - Allergies Allergies/Adverse Reactions: Allergies Allergy/AdvReac Type Severity Reaction Status Date / Time Penicillins Allergy Verified 11/13/19 00:33 - Home Medications Home Medications: Ambulatory Orders Fluticasone/Salmeterol [Advair 250-50 Diskus] 1 each IH DAILY 05/03/15 Ipratropium/Albuterol Sulfate [Combivent Respimat 20-100 Mcg] 4 gm IH DAILY Albuterol 0.083% Nebulizer Terri [Ventolin 0.083% Nebulizer Soln -] 1 neb NEB Q4H PRN 12/22/15 Montelukast Na [Singulair -] 10 mg PO HS 12/22/15 Pantoprazole Sodium 40 mg PO DAILY 03/28/17 Budesonide/Formeterol Fumarate [SYMBICORT 160/4.5mcg -] 2 puff IH BID #1 inhaler 04/05/17 Folic Acid - 1 mg PO DAILY #30 tablet 04/05/17 Thiamine HCl [Vitamin B1 -] 100 mg PO DAILY #30 tablet 04/05/17 Atorvastatin Calcium [Lipitor] 10 mg PO DAILY 11/03/19 Diphenhydramine [Benadryl Oral Solution -] 25 mg PO DAILY 11/03/19 Metformin HCl [Glucophage] 500 mg PO DAILY 11/03/19 Roflumilast [Daliresp] 500 mcg PO DAILY 11/03/19 Vitamin A Palmitate [Vitamin A] 10,000 unit PO DAILY 11/03/19 Albuterol 2.5/Ipratropium 0.5 [Duoneb -] 1 amp NEB RQID #45 amp 11/09/19 Albuterol Sulfate 0.5% [Ventolin 0.5% Nebulizing Soln. -] 1 amp NEB Q4H PRN #45 amp 11/09/19 Azithromycin 250 mg PO DAILY #4 tablet 11/09/19 Folic Acid - 1 mg PO DAILY #30 tablet 11/09/19 Lidocaine 5% Patch [Lidoderm -] 1 patch TP DAILY #30 patch 11/09/19 Lorazepam [Ativan] 2 mg PO ASDIR #18 tablet MDD 6 11/09/19 Multivitamins [Multivit ([facility] Formulary)] 1 tab PO DAILY #30 tab 11/09/19 Prednisone 10 mg PO ASDIR #50 tab.ds.pk 11/09/19 Roflumilast [Daliresp] 500 mcg PO DAILY #30 tablet 11/09/19 Thiamine HCl [Vitamin B1 -] 100 mg PO DAILY #30 tablet 11/09/19 Review of Systems - Review of Systems Constitutional: denies: Chills, Fever Eyes: reports: No Symptoms HENT: reports: No Symptoms Neck: reports: No Symptoms Cardiovascular: reports: Shortness of Breath. denies: Chest Pain, Edema, Palpitations Respiratory: reports: Cough, SOB, SOB on Exertion. denies: Hemoptysis, Orthopnea, PND, Snoring, Wheezing Gastrointestinal: reports: No Symptoms Genitourinary: reports: No Symptoms Breasts: reports: No Symptoms Reported Musculoskeletal: reports: No Symptoms Integumentary: reports: No Symptoms Neurological: reports: No Symptoms Endocrine: reports: No Symptoms Hematology/Lymphatic: reports: No Symptoms Psychiatric: reports: No Symptoms Physical Exam Vital Sings: Vital Signs Temperature 98.3 F 11/13/19 08:27 Pulse Rate 90 11/13/19 08:27 Respiratory Rate 22 H 11/13/19 08:27 Blood Pressure 97/64 11/13/19 08:27 O2 Sat by Pulse Oximetry (%) 99 11/13/19 08:27 Constitutional: Yes: No Distress Eyes: Yes: Conjunctiva Clear, EOM Intact HENT: Yes: Atraumatic, Normocephalic Neck: Yes: Supple, Trachea Midline Cardiovascular: Yes: Regular Rate and Rhythm Respiratory: Yes: Cough, Diminished, Rhonchi. No: Rales, Stridor, Tachypnea, Wheezes ...Inspection: Yes: WNL ...Clubbing: No Gastrointestinal: Yes: Normal Bowel Sounds, Soft, Tenderness. No: Tenderness, Rebound Renal/: Yes: WNL Musculoskeletal: Yes: WNL Extremities: Yes: WNL Edema: No Peripheral Pulses WNL: Yes Integumentary: Yes: WNL Neurological: Yes: WNL, Alert, Oriented ...Motor Strength: WNL Psychiatric: Yes: WNL, Alert, Oriented Labs: CBC, BMP 11/13/19 00:45 11/13/19 00:44 Imaging - Results Chest X-ray: Report Reviewed, Image Reviewed Cat Scan: Report Reviewed, Image Reviewed Problem List - Problems (1) Alcohol abuse Code(s): F10.10 - ALCOHOL ABUSE, UNCOMPLICATED (2) COPD (chronic obstructive pulmonary disease) Code(s): J44.9 - CHRONIC OBSTRUCTIVE PULMONARY DISEASE, UNSPECIFIED (3) Diabetes Code(s): E11.9 - TYPE 2 DIABETES MELLITUS WITHOUT COMPLICATIONS (4) Epigastric pain Code(s): R10.13 - EPIGASTRIC PAIN (5) HLD (hyperlipidemia) Code(s): E78.5 - HYPERLIPIDEMIA, UNSPECIFIED (6) HTN (hypertension) Code(s): I10 - ESSENTIAL (PRIMARY) HYPERTENSION (7) On home oxygen therapy Code(s): Z99.81 - DEPENDENCE ON SUPPLEMENTAL OXYGEN (8) Smoker Code(s): F17.200 - NICOTINE DEPENDENCE, UNSPECIFIED, UNCOMPLICATED (9) Lung blebs Code(s): J43.9 - EMPHYSEMA, UNSPECIFIED (10) Chronic alcoholism Code(s): F10.20 - ALCOHOL DEPENDENCE, UNCOMPLICATED (11) Osteoarthritis Code(s): M19.90 - UNSPECIFIED OSTEOARTHRITIS, UNSPECIFIED SITE Assessment/Plan IMP: COPD appears stable at this point. WBC may be do to recent Prednisone use. No indication of respiratory tract infection PLAN: Symbicort BID Albuterol PRN Monitor of systemic steroids No smoking was counseled GI workup per Primary Will follow Thank you. Dr Parsons
[2019-11-13] MEDS: HEPARIN NA (PORCINE) 5,000 UNITS/ML 1ML VIAL SQ SCH ×2 (11:03→21:29)
[2019-11-13] MEDS: THIAMINE HCL 200 MG/2 ML VIAL IVPB SCH (11:03)
[2019-11-13] MEDS: PANTOPRAZOLE SODIUM 40 MG VIAL IVPUSH SCH (11:03)
[2019-11-13] MEDS: FOLIC ACID 5 MG/1 ML SQ SCH (11:06)
[2019-11-13] MEDS: LIDOCAINE 5% TOPICAL PATCH TP SCH (11:07)
[2019-11-13] MEDS: BUDESONIDE/FORMETEROL FUMARATE 160/4.5 mcg INHALER IH SCH ×2 (11:07→21:49)
[2019-11-13] MEDS: INSULIN SLIDING SCALE (NOVOLOG) 1 VIAL SQ SCH ×3 (12:26→21:28)
--- NOTE | 2019-11-13 16:30 | PN ---
Progress Note (short form) - Note Progress Note: 64 year old female with PMH asthma, copd, chronic respiratory failure, hld, htn , dm, etoh abuse, presented to the ED with abd pain, admitted for sbo/ileus. recent admit 11/02-11/09/2019 for pneumonia/copd subjective- passing gas, denies abd pain, ambulated with oxygen on refusing ativan objective- NC/AT, s1,s2, LSD, ABD +BS, tenderness, voiding, no bm yet, no edema Assesment- #sepsis #hypotension #etoh abuse #COPD, chronic #chronic respiratory failure #HTN #HLD #DM plan- [place] culture- urine culture pending received levaquin x1 in ED start IVF psych consult IV ativan- taper for withdrawals monitor for withdrawal sxs pulm eval for copd/chronic respiratory failure NPO, IVF, IV antiemetic, IV pain control
--- NOTE | 2019-11-13 17:41 | CONSULT ---
Consult Consult Specialty:: Surgery Reason for Consultation:: abdominal pain - History of Present Illness Chief Complaint: abdominal pain History of Present Illness: 64F with PMH asthma, stage IV COPD on 2L home O2 and prednisone, former smoker, HTN, HLD, NIDDM, alcohol use disorder, and recent admission to [facility] for SOB/abd pain/alcohol withdrawal, presenting with one day of epigastric pain. Denies prior history of abdominal pain.Currently still in pain but less and is passing flatus and feels hungry. Admitted on 11/02/[address] a/p showed mildly dilated loops of small bowel suspicious for ileus but no sign of SBO. - History Source History Provided By: Patient Limitations to Obtaining History: No Limitations - Past Medical History Pulmonary: Yes: Bronchitis, COPD, O2 Dependent, Pneumonia, Other (BULLOUS EMPHYSEMA). No: Asthma, Cancer, Previously Intubated, Pulmonary Embolus, Pulmonary Fibrosis, Sleep Apnea Gastrointestinal: Yes: GI Bleed, Peptic Ulcer Disease, Other (ALCOHOLISM) Psych: Yes: Addictions Musculoskeletal: Yes: Other (RIGHT SIDED RIB PAIN) - Alcohol/Substance Use Hx Alcohol Use: No - Smoking History Smoking history: Former smoker Have you smoked in the past 12 months: No Aproximately how many cigarettes per day: 0 If you are a former smoker, when did you quit?: 2017 - Social History ADL: Independent History of Recent Travel: No Home Medications - Allergies Allergies/Adverse Reactions: Allergies Allergy/AdvReac Type Severity Reaction Status Date / Time Penicillins Allergy Verified 11/13/19 00:33 - Home Medications Home Medications: Ambulatory Orders Fluticasone/Salmeterol [Advair 250-50 Diskus] 1 each IH DAILY 05/03/15 Ipratropium/Albuterol Sulfate [Combivent Respimat 20-100 Mcg] 4 gm IH DAILY Albuterol 0.083% Nebulizer Terri [Ventolin 0.083% Nebulizer Soln -] 1 neb NEB Q4H PRN 12/22/15 Montelukast Na [Singulair -] 10 mg PO HS 12/22/15 Pantoprazole Sodium 40 mg PO DAILY 03/28/17 Budesonide/Formeterol Fumarate [SYMBICORT 160/4.5mcg -] 2 puff IH BID #1 inhaler 04/05/17 Folic Acid - 1 mg PO DAILY #30 tablet 04/05/17 Thiamine HCl [Vitamin B1 -] 100 mg PO DAILY #30 tablet 04/05/17 Atorvastatin Calcium [Lipitor] 10 mg PO DAILY 11/03/19 Diphenhydramine [Benadryl Oral Solution -] 25 mg PO DAILY 11/03/19 Metformin HCl [Glucophage] 500 mg PO DAILY 11/03/19 Roflumilast [Daliresp] 500 mcg PO DAILY 11/03/19 Vitamin A Palmitate [Vitamin A] 10,000 unit PO DAILY 11/03/19 Albuterol 2.5/Ipratropium 0.5 [Duoneb -] 1 amp NEB RQID #45 amp 11/09/19 Albuterol Sulfate 0.5% [Ventolin 0.5% Nebulizing Soln. -] 1 amp NEB Q4H PRN #45 amp 11/09/19 Azithromycin 250 mg PO DAILY #4 tablet 11/09/19 Folic Acid - 1 mg PO DAILY #30 tablet 11/09/19 Lidocaine 5% Patch [Lidoderm -] 1 patch TP DAILY #30 patch 11/09/19 Lorazepam [Ativan] 2 mg PO ASDIR #18 tablet MDD 6 11/09/19 Multivitamins [Multivit ([facility] Formulary)] 1 tab PO DAILY #30 tab 11/09/19 Prednisone 10 mg PO ASDIR #50 tab.ds.pk 11/09/19 Roflumilast [Daliresp] 500 mcg PO DAILY #30 tablet 11/09/19 Thiamine HCl [Vitamin B1 -] 100 mg PO DAILY #30 tablet 11/09/19 Review of Systems - Review of Systems Eyes: reports: No Symptoms Neck: reports: No Symptoms Cardiovascular: reports: No Symptoms Respiratory: reports: SOB on Exertion Gastrointestinal: reports: Abdominal Pain (periumbilical and upper abdominal) Genitourinary: reports: No Symptoms Physical Exam Vital Signs: Vital Signs Temperature 98.1 F 11/13/19 14:42 Pulse Rate 80 11/13/19 14:42 Respiratory Rate 20 11/13/19 14:42 Blood Pressure 100/53 L 11/13/19 14:42 O2 Sat by Pulse Oximetry (%) 99 11/13/19 08:27 Constitutional: Yes: Well Nourished Eyes: Yes: Conjunctiva Clear HENT: Yes: Normocephalic Neck: Yes: Supple Cardiovascular: Yes: Regular Rate and Rhythm Respiratory: Yes: On Nasal O2 Gastrointestinal: Yes: Soft, Tenderness (mild at epigastric and RUQ regions) ...Rectal Exam: Yes: Deferred Renal/: Yes: WNL Labs: CBC, BMP 11/13/19 00:45 11/13/19 00:44 Imaging - Results Cat Scan: Report Reviewed, Image Reviewed Problem List - Problems (1) Epigastric pain Assessment/Plan: non-surgical abdomen No intervention necessary at this time resume diet with clear liquids and advance as tolerated Code(s): R10.13 - EPIGASTRIC PAIN
--- NOTE | 2019-11-13 18:17 | PN ---
Progress Note, Physician Chief Complaint: GI CONSULT DICTATED - Current Medication List Current Medications: Active Medications Albuterol/Ipratropium (Duoneb -) 1 amp NEB RQID [facility] Last Admin: 11/13/19 15:50 Dose: Not Given Budesonide/Formoterol Fumarate (Symbicort 160/4.5mcg -) 2 puff IH BID [facility] Last Admin: 11/13/19 11:07 Dose: Not Given Folic Acid (Folic Acid Injection -) 0.4 mg SQ DAILY [facility] Last Admin: 11/13/19 11:06 Dose: 0.4 mg Heparin Sodium (Porcine) (Heparin -) 5,000 unit SQ BID [facility] Last Admin: 11/13/19 11:03 Dose: 5,000 unit Sodium Chloride (Normal Saline -) 1,000 mls @ 100 mls/hr IV ASDIR [facility] Insulin Aspart (Novolog Vial Sliding Scale -) 1 vial SQ ACHS [facility]; Protocol Last Admin: 11/13/19 16:45 Dose: Not Given Lidocaine (Lidoderm Patch -) 1 patch TP DAILY [facility] Last Admin: 11/13/19 11:07 Dose: 1 patch Lorazepam (Ativan Injection -) 1 mg IVPUSH TID [facility] Last Admin: 11/13/19 15:22 Dose: Not Given Miscellaneous (Lidoderm Patch Removal) 1 each MC DAILY@2200 [facility] Pantoprazole Sodium (Protonix Iv) 40 mg IVPUSH DAILY [facility] Last Admin: 11/13/19 11:03 Dose: 40 mg Thiamine HCl (Vitamin B1 Injection -) 200 mg IVPB DAILY [facility] Last Admin: 11/13/19 11:03 Dose: 200 mg - Objective Vital Signs: Vital Signs Temperature 98.1 F 11/13/19 14:42 Pulse Rate 80 11/13/19 14:42 Respiratory Rate 20 11/13/19 14:42 Blood Pressure 100/53 L 11/13/19 14:42 O2 Sat by Pulse Oximetry (%) 99 11/13/19 08:27 Labs: CBC, BMP 11/13/19 00:45 11/13/19 00:44 INR, PTT INR 0.91 (0.83-1.09) 11/13/19 00:45
[2019-11-13] MEDS: SODIUM CHLORIDE 1,000 ML IV SCH (18:54)
[2019-11-13] MEDS: LIDOCAINE PATCH REMOVAL MC SCH (21:29)
[2019-11-14] MEDS ORDERED: METOCLOPRAMIDE HCL INJECTION 10 MG/2 ML VIAL IVPB ONE (02:03)
--- NOTE | 2019-11-14 05:47 | CONS ---
DATE OF CONSULTATION: 11/13/2019 GASTROENTEROLOGY CONSULTATION HISTORY OF PRESENT ILLNESS: The patient is a 64-year-old female with a past medical history of asthma, stage 4 COPD on home oxygen and prednisone, former smoker, hypertension, hyperlipidemia, noninsulin dependent diabetes, alcohol abuse, also with a recent admission a couple of weeks ago for shortness of breath and abdominal pain as well as withdrawal. Apparently she had an upper endoscopy done in 2017 at which time she was found to have a duodenal ulcer and gastritis. She states also she had a colonoscopy a couple of years ago; that report is not available in the EMR. She now presents with what she describes as lower abdominal pain with associated loose bowel movements and some reflux. She denies any nausea, vomiting, hematemesis, melena, hematochezia, or weight loss. PAST MEDICAL AND SURGICAL HISTORY: As listed in the HPI. ALLERGIES: PENICILLIN. SOCIAL HISTORY: Smoked in the past. Drinks. No drug abuse. FAMILY HISTORY: No history of GI or gynecological malignancy. HOME MEDICATIONS: Reviewed, include Advair, Combivent, Ventolin, Singulair, pantoprazole, Symbicort, folic acid, thiamine, atorvastatin, metformin, Benadryl, albuterol, folic acid, Zithromax, Ativan, multivitamin, prednisone, Daliresp, and thiamine. PHYSICAL EXAMINATION: Vital Signs: Temperature 98, pulse 80, blood pressure 100/53, respiratory rate 20, oxygen saturation 99% on 1 L. General: In no acute distress. HEENT: Anicteric sclerae. Cardiovascular: S1, S2, regular rate and rhythm. Lungs: Clear anteriorly. Abdomen: Soft, nontender. Extremities: Without edema. LABORATORY: White blood cell count 19, hemoglobin and hematocrit 13/40, MCV 96, platelet count 358, INR 0.91. Sodium 136, potassium 4, BUN/creatinine 19/0.5, glucose 115, total bilirubin 0.4, AST 27, ALT 62, alkaline phosphatase 75, troponins are negative, amylase and lipase at 187 for lipase. Urine 1+ ketone, serology for fluids negative. Other cultures are still pending at this time. Abdomen and pelvis CT scan revealed moderately severe COPD changes with thickening, atelectasis contracted gallbladder, fluid-filled, slightly dilated small bowel loops mainly in the left and mid abdomen, question on the basis of ileus and less likely distal small bowel obstruction, watery stool in the colon suspicious for diarrhea, multiple diverticula in the midsigmoid colon, and nondistended, cannot rule out any thickening. However, there were no inflammatory changes surrounding to indicate any type of diverticulitis. IMPRESSION: Low abdominal pain and loose bowel movements, most likely secondary to an underlying infectious etiology. RECOMMENDATION: Panculture, stool culture, ova and parasite, leukocytes, C. difficile, PCR. Will advance her to a clear liquid diet. She would benefit from a diagnostic upper endoscopy to follow up on her history of peptic ulcer disease; however, at this time will hold off on any invasive procedures considering it appears as though she has an underlying infection. Will also start her on Protonix 40 mg p.o. daily. She was started on antibiotics and received 1 dose in the emergency room. For now would hold off on starting antibiotics unless she were to develop fever or worsening leukocytosis. She has been on steroid therapy and likely her leukocytosis is secondary to the steroids. DO ELSY CARBALLO/[id number]
[2019-11-14] MEDS: INSULIN SLIDING SCALE (NOVOLOG) 1 VIAL SQ SCH ×4 (06:24→21:52)
[2019-11-14 08:00] LABS: BASO % 0.3 % (0-2.0); EOS % 2.6 % (0-4.5); HEMATOCRIT 34.7 % (32.4-45.2); HEMOGLOBIN 11.4 GM/dL (10.7-15.3); LYMPH % 45.2 % (8-40); MCH 31.9 pg (25.7-33.7); MCHC 32.9 g/dl (32.0-36.0); MONO % 12.4 % (3.8-10.2); NEUT % 39.5 % (42.8-82.8); PLATELET COUNT 246 K/MM3 (134-434); RBC 3.58 M/mm3 (3.60-5.2); RDW 12.2 % (11.6-15.6); WHITE BLOOD COUNT 3.7 K/mm3 (4.0-10.0)
[2019-11-14 08:18] LABS: INR 0.97 (0.83-1.09); PROTHROMBIN TIME (PATIENT) 11.4 SEC (9.7-13.0)
[2019-11-14] MEDS: SODIUM CHLORIDE 1,000 ML IV SCH ×3 (08:21→17:34)
[2019-11-14] MEDS: ALBUTEROL SO4 2.5/IPRATROPIUM 0.5 INH SOL 3 ML VIAL.NEB. NEB SCH ×4 (08:30→20:28)
[2019-11-14 08:33] LABS: ALBUMIN 2.8 g/dl (3.4-5.0); BILIRUBIN,TOTAL 0.6 mg/dL (0.2-1); CALCIUM 7.8 mg/dL (8.5-10.1); CREATININE 0.4 mg/dL (0.55-1.3); MAGNESIUM 2.2 mg/dL (1.8-2.4); POTASSIUM 3.7 mmol/L (3.5-5.1); TOT PROT 5.5 g/dl (6.4-8.2)
[2019-11-14] MEDS: LIDOCAINE 5% TOPICAL PATCH TP SCH (09:06)
[2019-11-14] MEDS: PANTOPRAZOLE SODIUM 40 MG VIAL IVPUSH SCH (09:07)
[2019-11-14] MEDS: HEPARIN NA (PORCINE) 5,000 UNITS/ML 1ML VIAL SQ SCH ×2 (09:09→21:51)
[2019-11-14] MEDS: BUDESONIDE/FORMETEROL FUMARATE 160/4.5 mcg INHALER IH SCH ×2 (09:11→21:52)
[2019-11-14] MEDS: THIAMINE HCL 200 MG/2 ML VIAL IVPB SCH (09:12)
--- NOTE | 2019-11-14 10:10 | PN ---
Progress Note (short form) - Note Progress Note: Breathing feels better today. Still with GI issues. Constipated. No acute events overnight. Intake & Output 11/11/19 11/12/19 11/13/19 11/14/19 23:59 23:59 23:59 23:59 Intake Total 400 1200 Balance 400 1200 Weight 107 lb 12.8 oz 109 lb 2 oz Last Vital Signs Temp Pulse Resp BP Pulse Ox 98.3 F 65 18 99/60 99 11/14/19 08:15 11/14/19 08:15 11/14/19 08:15 11/14/19 08:15 11/13/19 21:00 Active Medications Albuterol/Ipratropium (Duoneb -) 1 amp NEB RQID [facility] Last Admin: 11/14/19 08:30 Dose: 1 amp Budesonide/Formoterol Fumarate (Symbicort 160/4.5mcg -) 2 puff IH BID [facility] Last Admin: 11/14/19 09:11 Dose: 2 puff Folic Acid (Folic Acid Injection -) 0.4 mg SQ DAILY [facility] Last Admin: 11/13/19 11:06 Dose: 0.4 mg Heparin Sodium (Porcine) (Heparin -) 5,000 unit SQ BID [facility] Last Admin: 11/14/19 09:09 Dose: 5,000 unit Sodium Chloride (Normal Saline -) 1,000 mls @ 100 mls/hr IV ASDIR [facility] Last Admin: 11/14/19 08:21 Dose: 100 mls/hr Insulin Aspart (Novolog Vial Sliding Scale -) 1 vial SQ ACHS [facility]; Protocol Last Admin: 11/14/19 06:24 Dose: Not Given Lidocaine (Lidoderm Patch -) 1 patch TP DAILY [facility] Last Admin: 11/14/19 09:06 Dose: 1 patch Lorazepam (Ativan Injection -) 1 mg IVPUSH TID [facility] Last Admin: 11/14/19 05:54 Dose: Not Given Miscellaneous (Lidoderm Patch Removal) 1 each MC DAILY@2200 [facility] Last Admin: 11/13/19 21:29 Dose: 1 each Pantoprazole Sodium (Protonix Iv) 40 mg IVPUSH DAILY [facility] Last Admin: 11/14/19 09:07 Dose: 40 mg Thiamine HCl (Vitamin B1 Injection -) 200 mg IVPB DAILY [facility] Last Admin: 11/14/19 09:12 Dose: 200 mg Constitutional: Yes: No Distress Eyes: Yes: Conjunctiva Clear, EOM Intact HENT: Yes: Atraumatic, Normocephalic Neck: Yes: Supple, Trachea Midline Cardiovascular: Yes: Regular Rate and Rhythm Respiratory: Yes: Cough, Diminished, Rhonchi. No: Rales, Stridor, Tachypnea, Wheezes ...Inspection: Yes: WNL ...Clubbing: No Gastrointestinal: Yes: Normal Bowel Sounds, Soft, Tenderness. No: Rebound Renal/: Yes: WNL Musculoskeletal: Yes: WNL Extremities: Yes: WNL Edema: No Peripheral Pulses WNL: Yes Integumentary: Yes: WNL Neurological: Yes: WNL, Alert, Oriented ...Motor Strength: WNL Psychiatric: Yes: WNL, Alert, Oriented Labs: Laboratory Results - last 24 hr 11/13/19 11/13/19 11/13/19 12:23 16:39 21:27 WBC RBC Hgb Hct MCV MCH MCHC RDW Plt Count MPV Absolute Neuts (auto) Neutrophils % Lymphocytes % Monocytes % Eosinophils % Basophils % Nucleated RBC % PT with INR INR Sodium Potassium Chloride Carbon Dioxide Anion Gap BUN Creatinine Est GFR (CKD-EPI)AfAm Est GFR (CKD-EPI)NonAf POC Glucometer 107 85 147 Random Glucose Calcium Magnesium Total Bilirubin AST ALT Alkaline Phosphatase Total Protein Albumin 11/14/19 11/14/19 11/14/19 06:21 07:10 07:10 WBC 3.7 L RBC 3.58 L Hgb 11.4 Hct 34.7 MCV 97.0 H MCH 31.9 MCHC 32.9 RDW 12.2 Plt Count 246 D MPV 8.0 Absolute Neuts (auto) 1.5 Neutrophils % 39.5 L D Lymphocytes % 45.2 H D Monocytes % 12.4 H D Eosinophils % 2.6 D Basophils % 0.3 Nucleated RBC % 0 PT with INR 11.40 INR 0.97 Sodium Potassium Chloride Carbon Dioxide Anion Gap BUN Creatinine Est GFR (CKD-EPI)AfAm Est GFR (CKD-EPI)NonAf POC Glucometer 106 Random Glucose Calcium Magnesium Total Bilirubin AST ALT Alkaline Phosphatase Total Protein Albumin 11/14/19 07:10 WBC RBC Hgb Hct MCV MCH MCHC RDW Plt Count MPV Absolute Neuts (auto) Neutrophils % Lymphocytes % Monocytes % Eosinophils % Basophils % Nucleated RBC % PT with INR INR Sodium 139 Potassium 3.7 Chloride 107 Carbon Dioxide 28 Anion Gap 4 L BUN 6.0 L Creatinine 0.4 L Est GFR (CKD-EPI)AfAm 129.38 Est GFR (CKD-EPI)NonAf 111.63 POC Glucometer Random Glucose 97 Calcium 7.8 L Magnesium 2.2 Total Bilirubin 0.6 AST 27 ALT 52 Alkaline Phosphatase 56 Total Protein 5.5 L Albumin 2.8 L Imaging - Results Chest X-ray: Report Reviewed, Image Reviewed Cat Scan: Report Reviewed, Image Reviewed Problem List - Problems (1) Alcohol abuse Code(s): F10.10 - ALCOHOL ABUSE, UNCOMPLICATED (2) COPD (chronic obstructive pulmonary disease) Code(s): J44.9 - CHRONIC OBSTRUCTIVE PULMONARY DISEASE, UNSPECIFIED (3) Diabetes Code(s): E11.9 - TYPE 2 DIABETES MELLITUS WITHOUT COMPLICATIONS (4) Epigastric pain Code(s): R10.13 - EPIGASTRIC PAIN (5) HLD (hyperlipidemia) Code(s): E78.5 - HYPERLIPIDEMIA, UNSPECIFIED (6) HTN (hypertension) Code(s): I10 - ESSENTIAL (PRIMARY) HYPERTENSION (7) On home oxygen therapy Code(s): Z99.81 - DEPENDENCE ON SUPPLEMENTAL OXYGEN (8) Smoker Code(s): F17.200 - NICOTINE DEPENDENCE, UNSPECIFIED, UNCOMPLICATED (9) Lung blebs Code(s): J43.9 - EMPHYSEMA, UNSPECIFIED (10) Chronic alcoholism Code(s): F10.20 - ALCOHOL DEPENDENCE, UNCOMPLICATED (11) Osteoarthritis Code(s): M19.90 - UNSPECIFIED OSTEOARTHRITIS, UNSPECIFIED SITE Assessment/Plan IMP: COPD appears stable at this point. WBC may be do to recent Prednisone use. No indication of respiratory tract infection PLAN: Symbicort BID Albuterol PRN Monitor of systemic steroids No smoking was counseled GI workup per Primary / GI Dr Parsons Problem List - Problems (1) Alcohol abuse Code(s): F10.10 - ALCOHOL ABUSE, UNCOMPLICATED (2) COPD (chronic obstructive pulmonary disease) Code(s): J44.9 - CHRONIC OBSTRUCTIVE PULMONARY DISEASE, UNSPECIFIED (3) Diabetes Code(s): E11.9 - TYPE 2 DIABETES MELLITUS WITHOUT COMPLICATIONS (4) Epigastric pain Code(s): R10.13 - EPIGASTRIC PAIN (5) HLD (hyperlipidemia) Code(s): E78.5 - HYPERLIPIDEMIA, UNSPECIFIED (6) HTN (hypertension) Code(s): I10 - ESSENTIAL (PRIMARY) HYPERTENSION (7) On home oxygen therapy Code(s): Z99.81 - DEPENDENCE ON SUPPLEMENTAL OXYGEN (8) Smoker Code(s): F17.200 - NICOTINE DEPENDENCE, UNSPECIFIED, UNCOMPLICATED (9) Lung blebs Code(s): J43.9 - EMPHYSEMA, UNSPECIFIED (10) Chronic alcoholism Code(s): F10.20 - ALCOHOL DEPENDENCE, UNCOMPLICATED (11) Osteoarthritis Code(s): M19.90 - UNSPECIFIED OSTEOARTHRITIS, UNSPECIFIED SITE
[2019-11-14] MEDS: FOLIC ACID 5 MG/1 ML SQ SCH (10:31)
--- NOTE | 2019-11-14 15:19 | PN.GI ---
GI Progress Note Subjective: Sitting up in chair comfortably RUQ pain improved Did have EGD in [address] Ferguson. H. Pylori +. Alludes to being treated for H. Pylori at that time + Loose BMS - Objective Vital Signs: Vital Signs Temperature 98.0 F 11/14/19 14:29 Pulse Rate 84 11/14/19 14:29 Respiratory Rate 18 11/14/19 14:29 Blood Pressure 114/68 11/14/19 14:29 O2 Sat by Pulse Oximetry (%) 99 11/14/19 09:00 Constitutional: Calm Eyes: No: Sclera Icterus Cardiovascular: Yes: Regular Rate and Rhythm Respiratory: Yes: CTA Bilaterally Gastrointestinal Inspection: No: Distention ...Auscultate: Yes: Normoactive Bowel Sounds ...Palpate: Yes: Soft ...Percussion: No: Tympanitic Edema: No (No LE edema) Neurological: Yes: Alert Labs: CBC, BMP 11/14/19 07:10 11/14/19 07:10 INR, PTT INR 0.97 (0.83-1.09) 11/14/19 07:10 Hepatic Panel Total Bilirubin 0.6 mg/dL (0.2-1) 11/14/19 07:10 AST 27 U/L (15-37) 11/14/19 07:10 ALT 52 U/L (13-61) 11/14/19 07:10 Alkaline Phosphatase 56 U/L (45-117) 11/14/19 07:10 Albumin 2.8 g/dl (3.4-5.0) L 11/14/19 07:10 Problem List - Problems (1) Abdominal pain Assessment/Plan: Pain improved, No vomiting ? AGE Stool for C. Diff, culture if diarrhea persists FUA for AM and advance as tolerated pending results Should have h. pylori stool antigen performed while off PPI for 1 week to confirm prior eradication Code(s): R10.9 - UNSPECIFIED ABDOMINAL PAIN
--- NOTE | 2019-11-14 15:30 | PN ---
Progress Note, Physician Chief Complaint: abd pain History of Present Illness: 64 year old female with PMH etoh abuse, copd on home oxygen, chronic respiratory failure, htn, hld, dm presents to the ED with abd pain, being evaluated by pulmonology, GI, cardiology, and surgery. - Current Medication List Current Medications: Active Medications Albuterol/Ipratropium (Duoneb -) 1 amp NEB RQID [facility] Last Admin: 11/14/19 11:41 Dose: 1 amp Budesonide/Formoterol Fumarate (Symbicort 160/4.5mcg -) 2 puff IH BID [facility] Last Admin: 11/14/19 09:11 Dose: 2 puff Folic Acid (Folic Acid Injection -) 0.4 mg SQ DAILY [facility] Last Admin: 11/14/19 10:31 Dose: 0.4 mg Heparin Sodium (Porcine) (Heparin -) 5,000 unit SQ BID [facility] Last Admin: 11/14/19 09:09 Dose: 5,000 unit Sodium Chloride (Normal Saline -) 1,000 mls @ 100 mls/hr IV ASDIR [facility] Last Admin: 11/14/19 08:21 Dose: 100 mls/hr Insulin Aspart (Novolog Vial Sliding Scale -) 1 vial SQ ACHS [facility]; Protocol Last Admin: 11/14/19 10:40 Dose: Not Given Lidocaine (Lidoderm Patch -) 1 patch TP DAILY [facility] Last Admin: 11/14/19 09:06 Dose: 1 patch Lorazepam (Ativan Injection -) 1 mg IVPUSH TID [facility] Last Admin: 11/14/19 13:58 Dose: Not Given Miscellaneous (Lidoderm Patch Removal) 1 each MC DAILY@2200 [facility] Last Admin: 11/13/19 21:29 Dose: 1 each Pantoprazole Sodium (Protonix Iv) 40 mg IVPUSH DAILY [facility] Last Admin: 11/14/19 09:07 Dose: 40 mg Thiamine HCl (Vitamin B1 Injection -) 200 mg IVPB DAILY [facility] Last Admin: 11/14/19 09:12 Dose: 200 mg - Objective Vital Signs: Vital Signs Temperature 98.0 F 11/14/19 14:29 Pulse Rate 84 11/14/19 14:29 Respiratory Rate 18 11/14/19 14:29 Blood Pressure 114/68 11/14/19 14:29 O2 Sat by Pulse Oximetry (%) 99 11/14/19 09:00 Constitutional: Yes: Well Nourished, No Distress Eyes: Yes: Conjunctiva Clear HENT: Yes: Atraumatic, Normocephalic Neck: Yes: Supple Cardiovascular: Yes: Regular Rate and Rhythm Respiratory: Yes: Regular, CTA Bilaterally Gastrointestinal: Yes: Distention, Hypoactive Bowel Sounds Genitourinary: Yes: WNL Musculoskeletal: Yes: WNL Extremities: Yes: WNL Integumentary: Yes: WNL Neurological: Yes: Alert Psychiatric: Yes: Alert Labs: CBC, BMP 11/14/19 07:10 11/14/19 07:10 INR, PTT INR 0.97 (0.83-1.09) 11/14/19 07:10 Problem List - Problems (1) Abdominal pain Assessment/Plan: GI following Surgery- NTD IV fluids IV antbx continue clear liquids Code(s): R10.9 - UNSPECIFIED ABDOMINAL PAIN (2) Alcohol abuse Assessment/Plan: continue thiamine ativan if needed monitor for sxs withdrawal psych consulted Code(s): F10.10 - ALCOHOL ABUSE, UNCOMPLICATED (3) COPD (chronic obstructive pulmonary disease) Assessment/Plan: pulm following neb tx cont home oxygen Code(s): J44.9 - CHRONIC OBSTRUCTIVE PULMONARY DISEASE, UNSPECIFIED (4) Diabetes Assessment/Plan: sugars ok monitor achs sliding scale Code(s): E11.9 - TYPE 2 DIABETES MELLITUS WITHOUT COMPLICATIONS (5) HLD (hyperlipidemia) Assessment/Plan: cont home meds Code(s): E78.5 - HYPERLIPIDEMIA, UNSPECIFIED (6) HTN (hypertension) Assessment/Plan: cont home meds Code(s): I10 - ESSENTIAL (PRIMARY) HYPERTENSION (7) Acute on chronic respiratory failure with hypoxia and hypercapnia Assessment/Plan: on chronic oxygen Code(s): J96.21 - ACUTE AND CHRONIC RESPIRATORY FAILURE WITH HYPOXIA; J96.22 - ACUTE AND CHRONIC RESPIRATORY FAILURE WITH HYPERCAPNIA
--- NOTE | 2019-11-14 17:18 | PN ---
Progress Note (short form) - Note Progress Note: Asked to see Tigist Torres who has a hx of ETOH abuse, and other medical comorbidies as listed in chart. She was just to be a reliable historian and presented awake alert logical and coherent No signs of ETOH withdrawal, last drank 12 days ago, she states. Patient denies feeling depressed, and has no hx of psychiatric hospitalization Denies hx of psych. hospitalization except ETOH detox No hx of Psychiatric meds Patient was not too coperative and she was unwilling to talk and expand on her alcohol use . She states, " IM K- I don't need psych or psych. meds! During this visit, patient was very guarded . She is awake, alert oriented, x4 speech intact logical coherent mood neutral. Affect congruent. No psychotic symptoms elicited or reported Denies SI/HI Imp Patient may have underlyilng depression but is unwilling to engage in a full assessment No signs of withdrawal symptoms.
[2019-11-14] MEDS: LIDOCAINE PATCH REMOVAL MC SCH (21:51)
[2019-11-14] MEDS ORDERED: ACETAMINOPHEN 325 MG TABLET (FP) PO ONE (23:40)
[2019-11-15] MEDS: INSULIN SLIDING SCALE (NOVOLOG) 1 VIAL SQ SCH ×3 (06:12→16:59)
[2019-11-15] MEDS: ALBUTEROL SO4 2.5/IPRATROPIUM 0.5 INH SOL 3 ML VIAL.NEB. NEB SCH ×4 (08:00→20:15)
[2019-11-15] MEDS: LIDOCAINE 5% TOPICAL PATCH TP SCH (09:39)
[2019-11-15] MEDS: THIAMINE HCL 200 MG/2 ML VIAL IVPB SCH (09:39)
[2019-11-15] MEDS: HEPARIN NA (PORCINE) 5,000 UNITS/ML 1ML VIAL SQ SCH ×2 (09:48→21:50)
[2019-11-15] MEDS ORDERED: PT OWN MED DRAWER 7, Y5N ONE (09:50)
[2019-11-15] MEDS: BUDESONIDE/FORMETEROL FUMARATE 160/4.5 mcg INHALER IH SCH ×2 (10:15→21:49)
[2019-11-15] MEDS: PANTOPRAZOLE SODIUM 40 MG VIAL IVPUSH SCH (10:15)
[2019-11-15] MEDS: FOLIC ACID 5 MG/1 ML SQ SCH (10:47)
--- NOTE | 2019-11-15 11:33 | PN ---
Progress Note, Physician Chief Complaint: Abd pain History of Present Illness: NAD, in bed denies any N/V Mild abd pain, improved from before Seen by GI - Current Medication List Current Medications: Active Medications Albuterol/Ipratropium (Duoneb -) 1 amp NEB RQID [facility] Last Admin: 11/14/19 20:28 Dose: 1 amp Budesonide/Formoterol Fumarate (Symbicort 160/4.5mcg -) 2 puff IH BID [facility] Last Admin: 11/15/19 10:15 Dose: 2 puff Folic Acid (Folic Acid Injection -) 0.4 mg SQ DAILY [facility] Last Admin: 11/15/19 10:47 Dose: 0.4 mg Heparin Sodium (Porcine) (Heparin -) 5,000 unit SQ BID [facility] Last Admin: 11/15/19 09:48 Dose: 5,000 unit Sodium Chloride (Normal Saline -) 1,000 mls @ 100 mls/hr IV ASDIR [facility] Last Admin: 11/14/19 17:34 Dose: 100 mls/hr Insulin Aspart (Novolog Vial Sliding Scale -) 1 vial SQ ACHS [facility]; Protocol Last Admin: 11/15/19 06:12 Dose: Not Given Lidocaine (Lidoderm Patch -) 1 patch TP DAILY [facility] Last Admin: 11/15/19 09:39 Dose: 1 patch Lorazepam (Ativan Injection -) 1 mg IVPUSH TID [facility] Last Admin: 11/15/19 06:09 Dose: Not Given Miscellaneous (Lidoderm Patch Removal) 1 each MC DAILY@2200 [facility] Last Admin: 11/14/19 21:51 Dose: 1 each Pantoprazole Sodium (Protonix Iv) 40 mg IVPUSH DAILY [facility] Last Admin: 11/15/19 10:15 Dose: 40 mg Thiamine HCl (Vitamin B1 Injection -) 200 mg IVPB DAILY [facility] Last Admin: 11/15/19 09:39 Dose: 200 mg - Objective Vital Signs: Vital Signs Temperature 98.2 F 11/15/19 05:58 Pulse Rate 70 11/15/19 05:58 Respiratory Rate 18 11/15/19 05:58 Blood Pressure 100/62 11/15/19 05:58 O2 Sat by Pulse Oximetry (%) 98 11/14/19 21:00 Constitutional: Yes: No Distress, Calm, Cachectic Cardiovascular: Yes: Regular Rate and Rhythm Respiratory: Yes: Regular, CTA Bilaterally Gastrointestinal: Yes: Soft, Distention, Hyperactive Bowel Sounds Genitourinary: Yes: WNL Musculoskeletal: Yes: WNL Extremities: Yes: WNL Edema: No Peripheral Pulses WNL: Yes Neurological: Yes: Alert, Oriented Psychiatric: Yes: Alert, Oriented Labs: CBC, BMP 11/14/19 07:10 11/14/19 07:10 INR, PTT INR 0.97 (0.83-1.09) 11/14/19 07:10 Problem List - Problems (1) Abdominal pain Assessment/Plan: -Improved -However continues to be distended -EGD planned for AM Problems reviewed: Yes Code(s): R10.9 - UNSPECIFIED ABDOMINAL PAIN (2) Alcohol abuse Assessment/Plan: -Ativan PRN -Encouraged alcohol abstinence Problems reviewed: Yes Code(s): F10.10 - ALCOHOL ABUSE, UNCOMPLICATED (3) COPD (chronic obstructive pulmonary disease) Assessment/Plan: -Nasal O2 -Bronchodiltors -Pulmonary consult Problems reviewed: Yes Code(s): J44.9 - CHRONIC OBSTRUCTIVE PULMONARY DISEASE, UNSPECIFIED (4) Diabetes Assessment/Plan: -Resolved -Last A1c on 11/03/19 was 5.7 -D/C BGM -D/C ISS Problems reviewed: Yes Code(s): E11.9 - TYPE 2 DIABETES MELLITUS WITHOUT COMPLICATIONS (5) On home oxygen therapy Problems reviewed: Yes Code(s): Z99.81 - DEPENDENCE ON SUPPLEMENTAL OXYGEN Assessment/Plan See problem list
--- NOTE | 2019-11-15 11:58 | PN.GI ---
GI Progress Note Subjective: Pt seen/examined at bedside, reports vague epigastric discomfort some worsening and belching with clear liquids. Denies nausea/vomiting. Passing gas, no bm in 2 days per pt. Pt states she does not recall prior EGD in 2017, though does recall treatment for HP (details unclear). Abd xray revealing dilated appearing stomach - Objective Vital Signs: Vital Signs Temperature 98.2 F 11/15/19 05:58 Pulse Rate 70 11/15/19 05:58 Respiratory Rate 18 11/15/19 05:58 Blood Pressure 100/62 11/15/19 05:58 O2 Sat by Pulse Oximetry (%) 98 11/14/19 21:00 Constitutional: No Distress, Calm, Other (Alert/oriented x 3) Cardiovascular: Yes: WNL, Regular Rate and Rhythm Respiratory: Yes: WNL, Regular, CTA Bilaterally ...Palpate: Yes: Other (Abd softly distended, mildly tender in epigastrium, no rebound, guarding or rigidity) Labs: CBC, BMP 11/14/19 07:10 11/14/19 07:10 INR, PTT INR 0.97 (0.83-1.09) 11/14/19 07:10 Problem List - Problems (1) Abdominal pain Assessment/Plan: 64yo female h/o asthma, COPD, DM, etoh abuse with abdominal pain and diarrhea. No further loose stool or evidence of bleeding. Abd xray revealing distended appearing stomach without obstruction. Prior EGD in 01/2017 revealing duodenal bulb ulcer, unclear if HP eradicated. -Keep NPO, IVF -Advised NG for decompression though pt refused however if nausea/vomiting would recommend NGT -Continue PPI daily -Plan for EGD tomorrow to further evaluate r/o PUD Code(s): R10.9 - UNSPECIFIED ABDOMINAL PAIN
--- NOTE | 2019-11-15 13:57 | PN ---
Progress Note (short form) - Note Progress Note: PULMONARY Denies shortness of breath, cough or wheezing. Vital Signs Period Temp Pulse Resp BP Sys/Smith Pulse Ox Last 24 Hr 97.9 F-98.9 F 70-84 18-20 100-126/61-86 98 Gen: NAD at rest Heart: RRR Lung: distant breath sounds, no wheezes Abd: soft, nontender Ext: no edema CBC, BMP 11/14/19 07:10 11/14/19 07:10 Active Medications Albuterol/Ipratropium (Duoneb -) 1 amp NEB RQID [facility] Last Admin: 11/15/19 12:11 Dose: 1 amp Budesonide/Formoterol Fumarate (Symbicort 160/4.5mcg -) 2 puff IH BID [facility] Last Admin: 11/15/19 10:15 Dose: 2 puff Folic Acid (Folic Acid Injection -) 0.4 mg SQ DAILY [facility] Last Admin: 11/15/19 10:47 Dose: 0.4 mg Heparin Sodium (Porcine) (Heparin -) 5,000 unit SQ BID [facility] Last Admin: 11/15/19 09:48 Dose: 5,000 unit Sodium Chloride (Normal Saline -) 1,000 mls @ 100 mls/hr IV ASDIR [facility] Last Admin: 11/14/19 17:34 Dose: 100 mls/hr Insulin Aspart (Novolog Vial Sliding Scale -) 1 vial SQ ACHS [facility]; Protocol Last Admin: 11/15/19 11:57 Dose: Not Given Lidocaine (Lidoderm Patch -) 1 patch TP DAILY [facility] Last Admin: 11/15/19 09:39 Dose: 1 patch Lorazepam (Ativan Injection -) 1 mg IVPUSH TID [facility] Last Admin: 11/15/19 13:33 Dose: Not Given Miscellaneous (Lidoderm Patch Removal) 1 each MC DAILY@2200 [facility] Last Admin: 11/14/19 21:51 Dose: 1 each Pantoprazole Sodium (Protonix Iv) 40 mg IVPUSH DAILY [facility] Last Admin: 11/15/19 10:15 Dose: 40 mg Thiamine HCl (Vitamin B1 Injection -) 200 mg IVPB DAILY [facility] Last Admin: 11/15/19 09:39 Dose: 200 mg A/P Abdominal Pain COPD DM Smoker Alcohol Abuse - GI work up in progress, for EGD - inhaled bronchodilators - defer systemic steroids - O2 to keep Spo2 >90% - smoking cessation - no pulmonary contraindications to planned EGD
[2019-11-15] MEDS: SODIUM CHLORIDE 1,000 ML IV SCH (17:05)
[2019-11-15] MEDS: LIDOCAINE PATCH REMOVAL MC SCH (21:50)
[2019-11-16 07:25] LABS: BLOOD UREA NITROGEN 4.3 mg/dL (7-18); CALCIUM 8.2 mg/dL (8.5-10.1); CREATININE 0.5 mg/dL (0.55-1.3); POTASSIUM 4.2 mmol/L (3.5-5.1)
[2019-11-16 07:31] LABS: HEMATOCRIT 35.7 % (32.4-45.2); MCH 32.1 pg (25.7-33.7); MCHC 33.5 g/dl (32.0-36.0); MEAN CELL VOLUME 95.9 fl (80-96); MEAN PLT VOLUME 7.6 fl (7.5-11.1); PLATELET COUNT 282 K/MM3 (134-434); RBC 3.72 M/mm3 (3.60-5.2); RDW 12.1 % (11.6-15.6); WHITE BLOOD COUNT 4.1 K/mm3 (4.0-10.0)
[2019-11-16] MEDS: ALBUTEROL SO4 2.5/IPRATROPIUM 0.5 INH SOL 3 ML VIAL.NEB. NEB SCH ×4 (08:00→20:15)
--- NOTE | 2019-11-16 08:25 | PN ---
Progress Note, Physician - Current Medication List Current Medications: Active Medications Albuterol/Ipratropium (Duoneb -) 1 amp NEB RQID [facility] Last Admin: 11/15/19 20:15 Dose: 1 amp Documented by: Budesonide/Formoterol Fumarate (Symbicort 160/4.5mcg -) 2 puff IH BID [facility] Last Admin: 11/15/19 21:49 Dose: 2 puff Documented by: Folic Acid (Folic Acid Injection -) 0.4 mg SQ DAILY [facility] Last Admin: 11/15/19 10:47 Dose: 0.4 mg Documented by: Heparin Sodium (Porcine) (Heparin -) 5,000 unit SQ BID [facility] Last Admin: 11/15/19 21:50 Dose: Not Given Documented by: Sodium Chloride (Normal Saline -) 1,000 mls @ 100 mls/hr IV ASDIR [facility] Last Admin: 11/15/19 17:05 Dose: Not Given Documented by: Lidocaine (Lidoderm Patch -) 1 patch TP DAILY [facility] Last Admin: 11/15/19 09:39 Dose: 1 patch Documented by: Lorazepam (Ativan Injection -) 1 mg IVPUSH TID [facility] Last Admin: 11/15/19 21:50 Dose: Not Given Documented by: Miscellaneous (Lidoderm Patch Removal) 1 each MC DAILY@2200 [facility] Last Admin: 11/15/19 21:50 Dose: 1 each Documented by: Pantoprazole Sodium (Protonix Iv) 40 mg IVPUSH DAILY [facility] Last Admin: 11/15/19 10:15 Dose: 40 mg Documented by: Thiamine HCl (Vitamin B1 Injection -) 200 mg IVPB DAILY [facility] Last Admin: 11/15/19 09:39 Dose: 200 mg Documented by: - Objective Vital Signs: Vital Signs Temperature 98.3 F 11/16/19 02:00 Pulse Rate 70 11/16/19 02:00 Respiratory Rate 18 11/16/19 02:00 Blood Pressure 85/56 L 11/16/19 02:00 O2 Sat by Pulse Oximetry (%) 98 11/15/19 18:09 Cardiovascular: Yes: Regular Rate and Rhythm Respiratory: Yes: Regular, CTA Bilaterally Gastrointestinal: Yes: Normal Bowel Sounds, Soft, Distention (mild). No: Tenderness Labs: CBC, BMP 11/16/19 06:25 11/16/19 06:00 INR, PTT INR 0.97 (0.83-1.09) 11/14/19 07:10 Assessment/Plan - Problems (1) Abdominal pain Assessment/Plan: -Improved -However continues to be distended -EGD planned Problems reviewed: Yes Code(s): R10.9 - UNSPECIFIED ABDOMINAL PAIN (2) Alcohol abuse Assessment/Plan: -NO S/S of withdrawal -Encouraged alcohol abstinence Problems reviewed: Yes Code(s): F10.10 - ALCOHOL ABUSE, UNCOMPLICATED (3) COPD (chronic obstructive pulmonary disease) Assessment/Plan: -Nasal O2 -Bronchodiltors -Pulmonary consult Noted Problems reviewed: Yes Code(s): J44.9 - CHRONIC OBSTRUCTIVE PULMONARY DISEASE, UNSPECIFIED (4) Diabetes Assessment/Plan: -Resolved -Last A1c on 11/03/19 was 5.7 -D/C BGM -D/C ISS Problems reviewed: Yes Code(s): E11.9 - TYPE 2 DIABETES MELLITUS WITHOUT COMPLICATIONS (5) On home oxygen therapy Problems reviewed: Yes Code(s): Z99.81 - DEPENDENCE ON SUPPLEMENTAL OXYGEN
--- NOTE | 2019-11-16 09:15 | PN ---
Progress Note (short form) - Note Progress Note: Breathing feels at baseline today. No acute events overnight. For EGD today. Intake & Output 11/13/19 11/14/19 11/15/19 11/16/19 23:59 23:59 23:59 23:59 Intake Total 400 2750 2550 800 Balance 400 2750 2550 800 Weight 107 lb 12.8 oz 109 lb 2 oz 107 lb 6 oz 105 lb 6 oz Last Vital Signs Temp Pulse Resp BP Pulse Ox 98.3 F 70 18 85/56 L 98 11/16/19 02:00 11/16/19 02:00 11/16/19 02:00 11/16/19 02:00 11/15/19 18:09 Active Medications Albuterol/Ipratropium (Duoneb -) 1 amp NEB RQID [facility] Last Admin: 11/16/19 08:00 Dose: 1 amp Documented by: Budesonide/Formoterol Fumarate (Symbicort 160/4.5mcg -) 2 puff IH BID [facility] Last Admin: 11/15/19 21:49 Dose: 2 puff Documented by: Folic Acid (Folic Acid Injection -) 0.4 mg SQ DAILY [facility] Last Admin: 11/15/19 10:47 Dose: 0.4 mg Documented by: Heparin Sodium (Porcine) (Heparin -) 5,000 unit SQ BID [facility] Last Admin: 11/15/19 21:50 Dose: Not Given Documented by: Sodium Chloride (Normal Saline -) 1,000 mls @ 100 mls/hr IV ASDIR [facility] Last Admin: 11/15/19 17:05 Dose: Not Given Documented by: Lidocaine (Lidoderm Patch -) 1 patch TP DAILY [facility] Last Admin: 11/15/19 09:39 Dose: 1 patch Documented by: Lorazepam (Ativan Injection -) 1 mg IVPUSH TID [facility] Last Admin: 11/15/19 21:50 Dose: Not Given Documented by: Miscellaneous (Lidoderm Patch Removal) 1 each MC DAILY@2200 [facility] Last Admin: 11/15/19 21:50 Dose: 1 each Documented by: Pantoprazole Sodium (Protonix Iv) 40 mg IVPUSH DAILY [facility] Last Admin: 11/15/19 10:15 Dose: 40 mg Documented by: Thiamine HCl (Vitamin B1 Injection -) 200 mg IVPB DAILY [facility] Last Admin: 11/15/19 09:39 Dose: 200 mg Documented by: Constitutional: Yes: No Distress Eyes: Yes: Conjunctiva Clear, EOM Intact HENT: Yes: Atraumatic, Normocephalic Neck: Yes: Supple, Trachea Midline Cardiovascular: Yes: Regular Rate and Rhythm Respiratory: Yes: Cough, Diminished, Rhonchi. No: Rales, Stridor, Tachypnea, Wheezes ...Inspection: Yes: WNL ...Clubbing: No Gastrointestinal: Yes: Normal Bowel Sounds, Soft, Tenderness. No: Rebound Renal/: Yes: WNL Musculoskeletal: Yes: WNL Extremities: Yes: WNL Edema: No Peripheral Pulses WNL: Yes Integumentary: Yes: WNL Neurological: Yes: WNL, Alert, Oriented ...Motor Strength: WNL Psychiatric: Yes: WNL, Alert, Oriented Labs: Laboratory Results - last 24 hr 11/15/19 11/15/19 11/15/19 11:50 16:53 21:47 WBC RBC Hgb Hct MCV MCH MCHC RDW Plt Count MPV Sodium Potassium Chloride Carbon Dioxide Anion Gap BUN Creatinine Est GFR (CKD-EPI)AfAm Est GFR (CKD-EPI)NonAf POC Glucometer 111 98 110 Random Glucose Calcium 11/16/19 11/16/19 06:00 06:25 WBC 4.1 RBC 3.72 Hgb 12.0 Hct 35.7 MCV 95.9 MCH 32.1 MCHC 33.5 RDW 12.1 Plt Count 282 MPV 7.6 Sodium 141 Potassium 4.2 Chloride 106 Carbon Dioxide 32 Anion Gap 3 L BUN 4.3 L Creatinine 0.5 L Est GFR (CKD-EPI)AfAm 120.22 Est GFR (CKD-EPI)NonAf 103.73 POC Glucometer Random Glucose 94 Calcium 8.2 L Imaging - Results Chest X-ray: Report Reviewed, Image Reviewed Cat Scan: Report Reviewed, Image Reviewed Problem List - Problems (1) Alcohol abuse Code(s): F10.10 - ALCOHOL ABUSE, UNCOMPLICATED (2) COPD (chronic obstructive pulmonary disease) Code(s): J44.9 - CHRONIC OBSTRUCTIVE PULMONARY DISEASE, UNSPECIFIED (3) Diabetes Code(s): E11.9 - TYPE 2 DIABETES MELLITUS WITHOUT COMPLICATIONS (4) Epigastric pain Code(s): R10.13 - EPIGASTRIC PAIN (5) HLD (hyperlipidemia) Code(s): E78.5 - HYPERLIPIDEMIA, UNSPECIFIED (6) HTN (hypertension) Code(s): I10 - ESSENTIAL (PRIMARY) HYPERTENSION (7) On home oxygen therapy Code(s): Z99.81 - DEPENDENCE ON SUPPLEMENTAL OXYGEN (8) Smoker Code(s): F17.200 - NICOTINE DEPENDENCE, UNSPECIFIED, UNCOMPLICATED (9) Lung blebs Code(s): J43.9 - EMPHYSEMA, UNSPECIFIED (10) Chronic alcoholism Code(s): F10.20 - ALCOHOL DEPENDENCE, UNCOMPLICATED (11) Osteoarthritis Code(s): M19.90 - UNSPECIFIED OSTEOARTHRITIS, UNSPECIFIED SITE Assessment/Plan IMP: COPD appears stable at this point. Possible OSAS: Score of 4 on STOP-BANG PLAN: Symbicort BID Albuterol PRN Monitor of systemic steroids No smoking was counseled There is no Pulmonary contraindication for anesthesia or endoscopic intervention. Dr Parsons GUILLERMINA Screen - GUILLERMINA History Previously diagnosed with Sleep Apnea: No If Yes, currently using CPAP to treat your GUILLERMINA: No - SNORING Do you snore loudly (enough to be heard thru closed doors)?: Yes - TIRED Do you often feel tired, fatigued, or sleepy during daytime?: Yes - OBSERVED Has anyone observed you stop breathing during your sleep?: Yes - BLOOD PRESSURE Do you have or are being treated for high blood pressure?: No - BMI Answer Y if weight exceeds amount listed for your height: No .: HEIGHT & WEIGHT (lbs): 4'10" 167lbs; 4" 175 lbs; 5'0" 179lbs;. 5'1" 185lbs; 5'2" 191lbs; 5'3" 197lbs;. 5'4" 204lbs; 5'5" 210lbs; 5'6" 216lbs;. 5'7" 223lbs; 5'8" 230lbs; 5'9" 237lbs;. 5'10" 243lbs; 511" 250lbs; 6' 258lbs;. 6'1" 265lbs; 6'2" 272lbs; 6'3" 279lbs;. 6'4" 287lbs; 6'5" 295lbs - AGE Is your age over 50 yrs old?: Yes - NECK CIRCUMFERENCE Neck Circumference 40cm: No - GENDER Male: No - SCORE Total Score: 4 Score Interpretation: Intermediate Risk of GUILLERMINA .: Interpretation: Score 0-2: Low Risk GUILLERMINA. Score 3-4: Intermediate Risk GUILLERMINA. Score 5-8: High Risk GUILLERMINA Problem List - Problems (1) Alcohol abuse Code(s): F10.10 - ALCOHOL ABUSE, UNCOMPLICATED (2) COPD (chronic obstructive pulmonary disease) Code(s): J44.9 - CHRONIC OBSTRUCTIVE PULMONARY DISEASE, UNSPECIFIED (3) Diabetes Code(s): E11.9 - TYPE 2 DIABETES MELLITUS WITHOUT COMPLICATIONS (4) Epigastric pain Code(s): R10.13 - EPIGASTRIC PAIN (5) HLD (hyperlipidemia) Code(s): E78.5 - HYPERLIPIDEMIA, UNSPECIFIED (6) HTN (hypertension) Code(s): I10 - ESSENTIAL (PRIMARY) HYPERTENSION (7) On home oxygen therapy Code(s): Z99.81 - DEPENDENCE ON SUPPLEMENTAL OXYGEN (8) Smoker Code(s): F17.200 - NICOTINE DEPENDENCE, UNSPECIFIED, UNCOMPLICATED (9) Lung blebs Code(s): J43.9 - EMPHYSEMA, UNSPECIFIED (10) Chronic alcoholism Code(s): F10.20 - ALCOHOL DEPENDENCE, UNCOMPLICATED (11) Osteoarthritis Code(s): M19.90 - UNSPECIFIED OSTEOARTHRITIS, UNSPECIFIED SITE
[2019-11-16] MEDS: PANTOPRAZOLE SODIUM 40 MG VIAL IVPUSH SCH (10:04)
[2019-11-16] MEDS: THIAMINE HCL 200 MG/2 ML VIAL IVPB SCH (10:04)
[2019-11-16] MEDS: LIDOCAINE 5% TOPICAL PATCH TP SCH (10:05)
[2019-11-16] MEDS: FOLIC ACID 5 MG/1 ML SQ SCH (10:05)
[2019-11-16] MEDS: HEPARIN NA (PORCINE) 5,000 UNITS/ML 1ML VIAL SQ SCH ×2 (10:05→21:43)
[2019-11-16] MEDS: BUDESONIDE/FORMETEROL FUMARATE 160/4.5 mcg INHALER IH SCH ×2 (10:06→22:30)
[2019-11-16] MEDS: SODIUM CHLORIDE 1,000 ML IV SCH (11:05)
[2019-11-16] MEDS ORDERED: LIDOCAINE VISCOUS 2% ORAL/TOP 20 ML UNIT-DOSE CUP ONE (11:39)
[2019-11-16] MEDS ORDERED: MIDAZOLAM HCL 2 MG/2 ML SINGLE DOSE VIAL ONE (11:54)
--- NOTE | 2019-11-16 12:31 | PN ---
Progress Note (short form) - Note Progress Note: EGD complete. Report left in procedural section of the physical chart and will be scanned into [facility] Problem List - Problems (1) Abdominal pain Code(s): R10.9 - UNSPECIFIED ABDOMINAL PAIN
[2019-11-16] MEDS: LIDOCAINE PATCH REMOVAL MC SCH (21:43)
--- NOTE | 2019-11-17 07:53 | DS ---
Physical Examination Vital Signs: Vital Signs Temperature 97.7 F 11/17/19 06:00 Pulse Rate 77 11/17/19 06:00 Respiratory Rate 18 11/17/19 06:00 Blood Pressure 102/60 11/17/19 06:00 O2 Sat by Pulse Oximetry (%) 97 11/16/19 13:24 Cardiovascular: Yes: Regular Rate and Rhythm Respiratory: Yes: Regular, CTA Bilaterally, On Nasal O2 Gastrointestinal: Yes: Normal Bowel Sounds, Soft. No: Tenderness Labs: CBC, BMP 11/16/19 06:25 11/16/19 06:00 Discharge Summary Problems reviewed: Yes Reason For Visit: ILEUS Current Active Problems Abdominal pain (Acute) Alcohol abuse (Acute) Asthma (Acute) COPD (chronic obstructive pulmonary disease) (Acute) Diabetes (Acute) Epigastric pain (Acute) HLD (hyperlipidemia) (Acute) HTN (hypertension) (Acute) On home oxygen therapy (Acute) Prophylactic measure (Acute) Smoker (Acute) Hospital Course: - Problems (1) Abdominal pain Assessment/Plan: -Improved -TOLERATING DIET--ADVANCE -EGD planned Problems reviewed: Yes Code(s): R10.9 - UNSPECIFIED ABDOMINAL PAIN (2) Alcohol abuse Assessment/Plan: -NO S/S of withdrawal -Encouraged alcohol abstinence Problems reviewed: Yes Code(s): F10.10 - ALCOHOL ABUSE, UNCOMPLICATED (3) COPD (chronic obstructive pulmonary disease) Assessment/Plan: -Nasal O2 -Bronchodiltors -Pulmonary consult Noted Problems reviewed: Yes Code(s): J44.9 - CHRONIC OBSTRUCTIVE PULMONARY DISEASE, UNSPECIFIED (4) Diabetes Assessment/Plan: -Resolved -Last A1c on 11/03/19 was 5.7 -D/C BGM -D/C ISS Problems reviewed: Yes Code(s): E11.9 - TYPE 2 DIABETES MELLITUS WITHOUT COMPLICATIONS (5) On home oxygen therapy Problems reviewed: Yes Code(s): Z99.81 - DEPENDENCE ON SUPPLEMENTAL OXYGEN DC HOME IF OK WITH GI Condition: Stable - Instructions Referrals: Ying Altamirano MD [Primary Care Provider] - 1 Week - Home Medications Comprehensive Discharge Medication List: Ambulatory Orders Fluticasone/Salmeterol [Advair 250-50 Diskus] 1 each IH DAILY 05/03/15 Ipratropium/Albuterol Sulfate [Combivent Respimat 20-100 Mcg] 4 gm IH DAILY 05/03/15 Albuterol 0.083% Nebulizer Terri [Ventolin 0.083% Nebulizer Soln -] 1 neb NEB Q4H PRN 12/22/15 Montelukast Na [Singulair -] 10 mg PO HS 12/22/15 Pantoprazole Sodium 40 mg PO DAILY 03/28/17 Folic Acid - 1 mg PO DAILY #30 tablet 04/05/17 Thiamine HCl [Vitamin B1 -] 100 mg PO DAILY #30 tablet 04/05/17 Atorvastatin Calcium [Lipitor] 10 mg PO DAILY 11/03/19 Diphenhydramine [Benadryl Oral Solution -] 25 mg PO DAILY 11/03/19 Metformin HCl [Glucophage] 500 mg PO DAILY 11/03/19 Roflumilast [Daliresp] 500 mcg PO DAILY 11/03/19 Vitamin A Palmitate [Vitamin A] 10,000 unit PO DAILY 11/03/19 Albuterol 2.5/Ipratropium 0.5 [Duoneb -] 1 amp NEB RQID #45 amp 11/09/19 Albuterol Sulfate 0.5% [Ventolin 0.5% Nebulizing Soln. -] 1 amp NEB Q4H PRN #45 amp 11/09/19 Lidocaine 5% Patch [Lidoderm -] 1 patch TP DAILY #30 patch 11/09/19 Lorazepam [Ativan] 2 mg PO ASDIR #18 tablet MDD 6 11/09/19 Multivitamins [Multivit ([facility] Formulary)] 1 tab PO DAILY #30 tab 11/09/19
[2019-11-17] MEDS: ALBUTEROL SO4 2.5/IPRATROPIUM 0.5 INH SOL 3 ML VIAL.NEB. NEB SCH ×4 (08:37→20:47)
[2019-11-17] MEDS: HEPARIN NA (PORCINE) 5,000 UNITS/ML 1ML VIAL SQ SCH ×2 (09:42→21:47)
[2019-11-17] MEDS: FOLIC ACID 5 MG/1 ML SQ SCH (09:43)
[2019-11-17] MEDS: PANTOPRAZOLE 20 MG TABLET PO SCH (09:43)
[2019-11-17] MEDS: BUDESONIDE/FORMETEROL FUMARATE 160/4.5 mcg INHALER IH SCH ×2 (09:46→21:46)
[2019-11-17] MEDS: LIDOCAINE 5% TOPICAL PATCH TP SCH (09:46)
--- NOTE | 2019-11-17 11:40 | PN.GI ---
GI Progress Note Subjective: Called by nurse that patient feels like food wants to come up EGD yesterday failed to reveal acute pathology or evidence of gastric outlet obstruction No vomiting No BM - Objective Vital Signs: Vital Signs Temperature 98.4 F 11/17/19 10:00 Pulse Rate 92 H 11/17/19 10:00 Respiratory Rate 20 11/17/19 10:00 Blood Pressure 125/81 11/17/19 10:00 O2 Sat by Pulse Oximetry (%) 97 11/16/19 13:24 Constitutional: Calm Eyes: No: Sclera Icterus Cardiovascular: Yes: Regular Rate and Rhythm Respiratory: Yes: CTA Bilaterally Gastrointestinal Inspection: No: Distention ...Auscultate: Yes: Normoactive Bowel Sounds ...Palpate: Yes: Tenderness (Mild TTP mid abdomen) Edema: No (No LE edema) Neurological: Yes: Alert Labs: CBC, BMP 11/16/19 06:25 11/16/19 06:00 INR, PTT INR 0.97 (0.83-1.09) 11/14/19 07:10 Problem List - Problems (1) Abdominal pain Assessment/Plan: Persistent symptoms and not tolerating PO Advise: Repeat CT scan with PO/IV contrast. If no evidence of DBO, trial of reglan Clear liquids Code(s): R10.9 - UNSPECIFIED ABDOMINAL PAIN
--- NOTE | 2019-11-17 18:17 | PATH ---
Surgical Pathology Report Patient Name: MERVIN FRANCOIS Med. Rec. #: [id number] /Age/Gender: 1955 (Age: 64) / F Account: [id number] Location: [facility] MED/SURG Taken: 11/16/2019 Received: 11/16/2019 Reported: 11/17/2019 Physicians: Demian Gregorio D.O. Specimen(s) Received ANTRUM AND BODY Clinical History Abdominal pain, abnormal x-ray Final Diagnosis STOMACH, ANTRUM AND BODY, BIOPSY: GASTRIC ANTRAL AND BODY MUCOSA WITH MILD CHRONIC GASTRITIS. IMMUNOHISTOCHEMICAL STAIN FOR H. PYLORI IS NEGATIVE. Positive and negative controls (internal if applicable) show appropriate results. Electronically Signed Awilda Zheng M.D. Gross Description Received in formalin, labeled "biopsy antrum and body" are 3 aplma, irregular portions of soft tissue averaging 0.2 cm. in greatest dimension. The specimens are submitted in toto in one cassette. /11/16/2019 [facility]11/16/2019
[2019-11-17] MEDS: THIAMINE HCL 100 MG TABLET (FP) PO SCH (21:46)
[2019-11-17] MEDS: LIDOCAINE PATCH REMOVAL MC SCH (21:46)
[2019-11-18] MEDS: ALBUTEROL SO4 2.5/IPRATROPIUM 0.5 INH SOL 3 ML VIAL.NEB. NEB SCH ×4 (07:25→20:27)
[2019-11-18] MEDS: HEPARIN NA (PORCINE) 5,000 UNITS/ML 1ML VIAL SQ SCH ×2 (09:29→22:02)
[2019-11-18] MEDS: LIDOCAINE 5% TOPICAL PATCH TP SCH (09:29)
[2019-11-18] MEDS: PANTOPRAZOLE 20 MG TABLET PO SCH (09:30)
[2019-11-18] MEDS: BUDESONIDE/FORMETEROL FUMARATE 160/4.5 mcg INHALER IH SCH ×2 (09:30→22:03)
[2019-11-18] MEDS: FOLIC ACID 5 MG/1 ML SQ SCH (10:46)
--- NOTE | 2019-11-18 11:20 | PN ---
Progress Note, Physician - Current Medication List Current Medications: Active Medications Albuterol/Ipratropium (Duoneb -) 1 amp NEB RQID [facility] Last Admin: 11/18/19 07:25 Dose: 1 amp Documented by: Budesonide/Formoterol Fumarate (Symbicort 160/4.5mcg -) 2 puff IH BID [facility] Last Admin: 11/18/19 09:30 Dose: 2 puff Documented by: Folic Acid (Folic Acid Injection -) 0.4 mg SQ DAILY [facility] Last Admin: 11/18/19 10:46 Dose: 0.4 mg Documented by: Heparin Sodium (Porcine) (Heparin -) 5,000 unit SQ BID [facility] Last Admin: 11/18/19 09:29 Dose: 5,000 unit Documented by: Lidocaine (Lidoderm Patch -) 1 patch TP DAILY [facility] Last Admin: 11/18/19 09:29 Dose: 1 patch Documented by: Miscellaneous (Lidoderm Patch Removal) 1 each MC DAILY@2200 [facility] Last Admin: 11/17/19 21:46 Dose: 1 each Documented by: Pantoprazole Sodium (Protonix -) 20 mg PO DAILY [facility] Last Admin: 11/18/19 09:30 Dose: 20 mg Documented by: Thiamine HCl (Vitamin B1 -) 100 mg PO HS [facility] Last Admin: 11/17/19 21:46 Dose: 100 mg Documented by: - Objective Vital Signs: Vital Signs Temperature 98.1 F 11/18/19 10:00 Pulse Rate 77 11/18/19 10:00 Respiratory Rate 20 11/18/19 10:00 Blood Pressure 104/57 L 11/18/19 10:00 O2 Sat by Pulse Oximetry (%) 97 11/18/19 09:00 Cardiovascular: Yes: S1, S2 Respiratory: Yes: Regular, CTA Bilaterally Gastrointestinal: Yes: Normal Bowel Sounds, Soft, Tenderness (mild mid abd) Labs: CBC, BMP 11/16/19 06:25 11/16/19 06:00 INR, PTT INR 0.97 (0.83-1.09) 11/14/19 07:10 Assessment/Plan - Problems (1) Abdominal pain Assessment/Plan: -Improved -However continues to be distended -EGD planned -repeat ct--iud ---resolution of previous changes -LINKER UP Problems reviewed: Yes Code(s): R10.9 - UNSPECIFIED ABDOMINAL PAIN (2) Alcohol abuse Assessment/Plan: -NO S/S of withdrawal -Encouraged alcohol abstinence Problems reviewed: Yes Code(s): F10.10 - ALCOHOL ABUSE, UNCOMPLICATED (3) COPD (chronic obstructive pulmonary disease) Assessment/Plan: -Nasal O2 -Bronchodiltors -Pulmonary consult Noted Problems reviewed: Yes Code(s): J44.9 - CHRONIC OBSTRUCTIVE PULMONARY DISEASE, UNSPECIFIED (4) Diabetes Assessment/Plan: -Resolved -Last A1c on 11/03/19 was 5.7 -D/C BGM -D/C ISS Problems reviewed: Yes Code(s): E11.9 - TYPE 2 DIABETES MELLITUS WITHOUT COMPLICATIONS (5) On home oxygen therapy Problems reviewed: Yes Code(s): Z99.81 - DEPENDENCE ON SUPPLEMENTAL OXYGEN
[2019-11-18 12:46] LABS: BASO % 0.9 % (0-2.0); EOS % 3.1 % (0-4.5); HEMATOCRIT 37.8 % (32.4-45.2); HEMOGLOBIN 12.7 GM/dL (10.7-15.3); MCH 32.6 pg (25.7-33.7); MCHC 33.6 g/dl (32.0-36.0); MEAN CELL VOLUME 97.1 fl (80-96); MEAN PLT VOLUME 8.2 fl (7.5-11.1); MONO % 6.9 % (3.8-10.2); NEUT % 65.1 % (42.8-82.8); PLATELET COUNT 269 K/MM3 (134-434); WHITE BLOOD COUNT 4.9 K/mm3 (4.0-10.0)
[2019-11-18 13:19] LABS: ALBUMIN 3.2 g/dl (3.4-5.0); BILIRUBIN,TOTAL 0.4 mg/dL (0.2-1); CALCIUM 8.6 mg/dL (8.5-10.1); CREATININE 0.6 mg/dL (0.55-1.3); POTASSIUM 4.3 mmol/L (3.5-5.1); TOT PROT 6.6 g/dl (6.4-8.2)
[2019-11-18 13:33] LABS: BLOOD UREA NITROGEN 2.6 mg/dL (7-18)
[2019-11-18] MEDS: LIDOCAINE PATCH REMOVAL MC SCH (22:03)
[2019-11-18] MEDS: THIAMINE HCL 100 MG TABLET (FP) PO SCH (22:03)
[2019-11-19] MEDS: TETRAHYDROZOLINE HCL EYE DROPS OU PRN ×2 (01:22→23:00)
[2019-11-19] MEDS: ALBUTEROL SO4 2.5/IPRATROPIUM 0.5 INH SOL 3 ML VIAL.NEB. NEB SCH ×4 (07:20→20:36)
[2019-11-19] MEDS: LIDOCAINE 5% TOPICAL PATCH TP SCH (09:36)
[2019-11-19] MEDS: PANTOPRAZOLE 20 MG TABLET PO SCH (09:36)
[2019-11-19] MEDS: HEPARIN NA (PORCINE) 5,000 UNITS/ML 1ML VIAL SQ SCH ×2 (09:36→22:59)
[2019-11-19] MEDS: BUDESONIDE/FORMETEROL FUMARATE 160/4.5 mcg INHALER IH SCH ×2 (09:37→22:59)
[2019-11-19] MEDS: FOLIC ACID 5 MG/1 ML SQ SCH (11:13)
--- NOTE | 2019-11-19 11:24 | PN ---
Progress Note, Physician - Current Medication List Current Medications: Active Medications Albuterol/Ipratropium (Duoneb -) 1 amp NEB RQID [facility] Last Admin: 11/19/19 07:20 Dose: 1 amp Documented by: Budesonide/Formoterol Fumarate (Symbicort 160/4.5mcg -) 2 puff IH BID [facility] Last Admin: 11/19/19 09:37 Dose: 2 puff Documented by: Folic Acid (Folic Acid Injection -) 0.4 mg SQ DAILY [facility] Last Admin: 11/19/19 11:13 Dose: 0.4 mg Documented by: Heparin Sodium (Porcine) (Heparin -) 5,000 unit SQ BID [facility] Last Admin: 11/19/19 09:36 Dose: 5,000 unit Documented by: Lidocaine (Lidoderm Patch -) 1 patch TP DAILY [facility] Last Admin: 11/19/19 09:36 Dose: 1 patch Documented by: Miscellaneous (Lidoderm Patch Removal) 1 each MC DAILY@2200 [facility] Last Admin: 11/18/19 22:03 Dose: 1 each Documented by: Pantoprazole Sodium (Protonix -) 20 mg PO DAILY [facility] Last Admin: 11/19/19 09:36 Dose: 20 mg Documented by: Tetrahydrozoline HCl (Visine -) 1 drop OU Q6H PRN PRN Reason: DRY EYES Last Admin: 11/19/19 01:22 Dose: 1 drop Documented by: Thiamine HCl (Vitamin B1 -) 100 mg PO HS [facility] Last Admin: 11/18/19 22:03 Dose: 100 mg Documented by: - Objective Vital Signs: Vital Signs Temperature 98.2 F 11/19/19 06:00 Pulse Rate 80 11/19/19 06:00 Respiratory Rate 20 11/19/19 06:00 Blood Pressure 105/75 11/19/19 06:00 O2 Sat by Pulse Oximetry (%) 99 11/18/19 21:00 Cardiovascular: Yes: Regular Rate and Rhythm Respiratory: Yes: Regular, CTA Bilaterally Gastrointestinal: Yes: Normal Bowel Sounds, Soft, Distention Labs: CBC, BMP 11/18/19 11:50 11/18/19 11:50 INR, PTT INR 0.97 (0.83-1.09) 11/14/19 07:10 Assessment/Plan - Problems (1) Abdominal pain Assessment/Plan: -Improved -However continues to be distended -EGD planned -repeat ct--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 Problems reviewed: Yes Code(s): R10.9 - UNSPECIFIED ABDOMINAL PAIN (2) Alcohol abuse Assessment/Plan: -NO S/S of withdrawal -Encouraged alcohol abstinence Problems reviewed: Yes Code(s): F10.10 - ALCOHOL ABUSE, UNCOMPLICATED (3) COPD (chronic obstructive pulmonary disease) Assessment/Plan: -Nasal O2 -Bronchodiltors -Pulmonary consult Noted Problems reviewed: Yes Code(s): J44.9 - CHRONIC OBSTRUCTIVE PULMONARY DISEASE, UNSPECIFIED (4) Diabetes Assessment/Plan: -Resolved -Last A1c on 11/03/19 was 5.7 -D/C BGM -D/C ISS Problems reviewed: Yes Code(s): E11.9 - TYPE 2 DIABETES MELLITUS WITHOUT COMPLICATIONS (5) On home oxygen therapy Problems reviewed: Yes Code(s): Z99.81 - DEPENDENCE ON SUPPLEMENTAL OXYGEN
[2019-11-19] MEDS ORDERED: ONDANSETRON 4 MG/2 ML VIAL IVPUSH PRN (12:08)
[2019-11-19] MEDS: LIDOCAINE PATCH REMOVAL MC SCH (22:59)
[2019-11-19] MEDS: THIAMINE HCL 100 MG TABLET (FP) PO SCH (23:00)
[2019-11-20] MEDS: ALBUTEROL SO4 2.5/IPRATROPIUM 0.5 INH SOL 3 ML VIAL.NEB. NEB SCH ×4 (07:25→20:20)
[2019-11-20] MEDS ORDERED: PT OWN MED DRAWER 7, Y5N ONE ×2 (10:04→13:39)
[2019-11-20] MEDS: BUDESONIDE/FORMETEROL FUMARATE 160/4.5 mcg INHALER IH SCH ×2 (10:15→21:29)
[2019-11-20] MEDS: TETRAHYDROZOLINE HCL EYE DROPS OU PRN (10:17)
[2019-11-20] MEDS: HEPARIN NA (PORCINE) 5,000 UNITS/ML 1ML VIAL SQ SCH ×2 (10:17→21:28)
[2019-11-20] MEDS: LIDOCAINE 5% TOPICAL PATCH TP SCH (10:18)
[2019-11-20] MEDS: PANTOPRAZOLE 20 MG TABLET PO SCH (10:18)
--- NOTE | 2019-11-20 10:32 | PN ---
Progress Note (short form) - Note Progress Note: PULMONARY Denies shortness of breath. c/o left sided rib pain from coughing. Vital Signs Period Temp Pulse Resp BP Sys/Smith Pulse Ox Last 24 Hr 97.9 F-98.2 F 78-90 18-20 98-115/58-65 99 Gen: NAD at rest Heart: RRR Lung: distant breath sounds, no wheezes Abd: soft, nontender Ext: no edema CBC, BMP 11/18/19 11:50 11/18/19 11:50 Active Medications Albuterol/Ipratropium (Duoneb -) 1 amp NEB RQID [facility] Last Admin: 11/20/19 07:25 Dose: 1 amp Documented by: Budesonide/Formoterol Fumarate (Symbicort 160/4.5mcg -) 2 puff IH BID [facility] Last Admin: 11/20/19 10:15 Dose: 2 puff Documented by: Folic Acid (Folic Acid Injection -) 0.4 mg SQ DAILY [facility] Last Admin: 11/19/19 11:13 Dose: 0.4 mg Documented by: Lidocaine (Lidoderm Patch -) 1 patch TP DAILY [facility] Last Admin: 11/20/19 10:18 Dose: 1 patch Documented by: Miscellaneous (Lidoderm Patch Removal) 1 each MC DAILY@2200 [facility] Last Admin: 11/19/19 22:59 Dose: 1 each Documented by: Ondansetron HCl (Zofran Injection) 4 mg IVPUSH Q6H PRN PRN Reason: NAUSEA AND/OR VOMITING Pantoprazole Sodium (Protonix -) 20 mg PO DAILY [facility] Last Admin: 11/20/19 10:18 Dose: 20 mg Documented by: Tetrahydrozoline HCl (Visine -) 1 drop OU Q6H PRN PRN Reason: DRY EYES Last Admin: 11/20/19 10:17 Dose: 1 drop Documented by: Thiamine HCl (Vitamin B1 -) 100 mg PO HS [facility] Last Admin: 11/19/19 23:00 Dose: 100 mg Documented by: A/P Abdominal Pain COPD DM Smoker Alcohol Abuse - GI work up in progress - inhaled bronchodilators - can defer systemic steroids - O2 to keep Spo2 >90% - smoking cessation
--- NOTE | 2019-11-20 12:20 | CON.OBG ---
Consult Consult Specialty:: GYnecology Reason for Consultation:: Lost IUD found near subhepatic region intraperitoneum - History of Present Illness Chief Complaint: Abdominal pain History of Present Illness: 64 yo with abdominal pain, COPD,DM,Hx alcohol abuse, former smoker with lost IUD misplaced prob 20 yr ago wher pt was told IUD fell out. CT scan shows IUD near subhepatic region of abdomen and within peritoneum. pt was given DEpo after "IUD fell out". pt with upper abd pain. Pt was unaware she still has IUD - Past Medical History Pulmonary: Yes: Bronchitis, COPD, O2 Dependent, Pneumonia, Other (BULLOUS EMPHYSEMA). No: Asthma, Cancer, Previously Intubated, Pulmonary Embolus, Pulmonary Fibrosis, Sleep Apnea Gastrointestinal: Yes: GI Bleed, Peptic Ulcer Disease, Other (ALCOHOLISM) ...: No Psych: Yes: Addictions Musculoskeletal: Yes: Other (RIGHT SIDED RIB PAIN) Additional Medical History: Hx of IUD placement 20 years ago and was told IUD fell out. Pt was placed on Depo - Alcohol/Substance Use Hx Alcohol Use: No - Smoking History Smoking history: Former smoker Have you smoked in the past 12 months: No Aproximately how many cigarettes per day: 0 If you are a former smoker, when did you quit?: 2017 - Social History ADL: Independent History of Recent Travel: No Home Medications - Allergies Allergies/Adverse Reactions: Allergies Allergy/AdvReac Type Severity Reaction Status Date / Time Penicillins Allergy Verified 11/13/19 00:33 - Home Medications Home Medications: Ambulatory Orders Fluticasone/Salmeterol [Advair 250-50 Diskus] 1 each IH DAILY 05/03/15 Ipratropium/Albuterol Sulfate [Combivent Respimat 20-100 Mcg] 4 gm IH DAILY 05/03/15 Albuterol 0.083% Nebulizer Terri [Ventolin 0.083% Nebulizer Soln -] 1 neb NEB Q4H PRN 12/22/15 Montelukast Na [Singulair -] 10 mg PO HS 12/22/15 Pantoprazole Sodium 40 mg PO DAILY 03/28/17 Folic Acid - 1 mg PO DAILY #30 tablet 04/05/17 Thiamine HCl [Vitamin B1 -] 100 mg PO DAILY #30 tablet 04/05/17 Atorvastatin Calcium [Lipitor] 10 mg PO DAILY 11/03/19 Diphenhydramine [Benadryl Oral Solution -] 25 mg PO DAILY 11/03/19 Metformin HCl [Glucophage] 500 mg PO DAILY 11/03/19 Roflumilast [Daliresp] 500 mcg PO DAILY 11/03/19 Vitamin A Palmitate [Vitamin A] 10,000 unit PO DAILY 11/03/19 Albuterol 2.5/Ipratropium 0.5 [Duoneb -] 1 amp NEB RQID #45 amp 11/09/19 Albuterol Sulfate 0.5% [Ventolin 0.5% Nebulizing Soln. 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 Vital Signs: Vital Signs Temperature 98.1 F 11/20/19 08:50 Pulse Rate 93 H 11/20/19 08:50 Respiratory Rate 18 11/20/19 08:50 Blood Pressure 128/86 11/20/19 08:50 O2 Sat by Pulse Oximetry (%) 99 11/19/19 21:00 Gastrointestinal: Yes: Soft Pelvis: Yes: Other (no lowr abd tenderness pelvic deferred) Labs: CBC, BMP 11/18/19 11:50 11/18/19 11:50 Problem List - Problems (1) IUD complication Code(s): T83.9XXA - UNSP COMPLICATION OF GENITOURINARY PROSTH DEV/GRFT, INIT (2) IUD migration Code(s): T83.32XA - DISPLACEMENT OF INTRAUTERINE CONTRACEPTIVE DEVICE, INIT Assessment/Plan Lost IUD near Liver Abdominal pain COPD DM Hx Alcohol abuse former smoker Plan Surgical consult - discussed with surgical PA who will call surgical team laparoscopic removal of IUD
--- NOTE | 2019-11-20 13:34 | PN ---
Progress Note (short form) - Note Progress Note: GI follow up Patient still with abdominal pain Is hungry NAD soft, exquisite ttp in RUQ with voluntary guarding CBC, BMP 11/18/19 11:50 11/18/19 11:50 Hepatic Panel Total Bilirubin 0.4 mg/dL (0.2-1) 11/18/19 11:50 AST 20 U/L (15-37) 11/18/19 11:50 ALT 48 U/L (13-61) 11/18/19 11:50 Alkaline Phosphatase 73 U/L (45-117) 11/18/19 11:50 Albumin 3.2 g/dl (3.4-5.0) L 11/18/19 11:50 CT with IUD inferior to R lobe of liver, otherwise unremarkable. Imp: Pain seems related to FB in abdomen Regular diet for now Consult surgery for removal
--- NOTE | 2019-11-20 14:38 | PN ---
Progress Note, Physician Chief Complaint: abd pain History of Present Illness: 64 year old female with PMH etoh abuse, copd on home oxygen, chronic respiratory failure, htn, hld, dm presents to the ED with abd pain, being evaluated by pulmonology, GI, cardiology, and surgery. - Current Medication List Current Medications: Active Medications Albuterol/Ipratropium (Duoneb -) 1 amp NEB RQID [facility] Last Admin: 11/20/19 11:20 Dose: 1 amp Documented by: Budesonide/Formoterol Fumarate (Symbicort 160/4.5mcg -) 2 puff IH BID [facility] Last Admin: 11/20/19 10:15 Dose: 2 puff Documented by: Folic Acid (Folic Acid Injection -) 0.4 mg SQ DAILY [facility] Last Admin: 11/19/19 11:13 Dose: 0.4 mg Documented by: Lidocaine (Lidoderm Patch -) 1 patch TP DAILY [facility] Last Admin: 11/20/19 10:18 Dose: 1 patch Documented by: Miscellaneous (Lidoderm Patch Removal) 1 each MC DAILY@2200 [facility] Last Admin: 11/19/19 22:59 Dose: 1 each Documented by: Ondansetron HCl (Zofran Injection) 4 mg IVPUSH Q6H PRN PRN Reason: NAUSEA AND/OR VOMITING Pantoprazole Sodium (Protonix -) 20 mg PO DAILY [facility] Last Admin: 11/20/19 10:18 Dose: 20 mg Documented by: Tetrahydrozoline HCl (Visine -) 1 drop OU Q6H PRN PRN Reason: DRY EYES Last Admin: 11/20/19 10:17 Dose: 1 drop Documented by: Thiamine HCl (Vitamin B1 -) 100 mg PO HS [facility] Last Admin: 11/19/19 23:00 Dose: 100 mg Documented by: - Objective Vital Signs: Vital Signs Temperature 98.1 F 11/20/19 08:50 Pulse Rate 93 H 11/20/19 08:50 Respiratory Rate 18 11/20/19 08:50 Blood Pressure 128/86 11/20/19 08:50 O2 Sat by Pulse Oximetry (%) 99 11/19/19 21:00 Constitutional: Yes: No Distress HENT: Yes: Atraumatic, Normocephalic Neck: Yes: Supple Cardiovascular: Yes: Regular Rate and Rhythm Respiratory: Yes: Regular, CTA Bilaterally Gastrointestinal: Yes: Normal Bowel Sounds, Soft Genitourinary: Yes: WNL Extremities: Yes: WNL Psychiatric: Yes: Alert Labs: CBC, BMP 11/18/19 11:50 11/18/19 11:50 INR, PTT INR 0.97 (0.83-1.09) 11/14/19 07:10 Problem List - Problems (1) Abdominal pain Assessment/Plan: GI following Surgery- NTD GI stewart IV fluids dc IV antbx complete upgrade to regular diet surgery consulted for misplaced iud Code(s): R10.9 - UNSPECIFIED ABDOMINAL PAIN (2) Alcohol abuse Assessment/Plan: continue thiamine ativan if needed monitor for sxs withdrawal psych consulted Code(s): F10.10 - ALCOHOL ABUSE, UNCOMPLICATED (3) COPD (chronic obstructive pulmonary disease) Assessment/Plan: pulm following neb tx cont home oxygen Code(s): J44.9 - CHRONIC OBSTRUCTIVE PULMONARY DISEASE, UNSPECIFIED (4) Diabetes Assessment/Plan: sugars ok monitor achs sliding scale Code(s): E11.9 - TYPE 2 DIABETES MELLITUS WITHOUT COMPLICATIONS (5) HLD (hyperlipidemia) Assessment/Plan: cont home meds Code(s): E78.5 - HYPERLIPIDEMIA, UNSPECIFIED (6) HTN (hypertension) Assessment/Plan: cont home meds Code(s): I10 - ESSENTIAL (PRIMARY) HYPERTENSION (7) Acute on chronic respiratory failure with hypoxia and hypercapnia Assessment/Plan: on chronic oxygen Code(s): J96.21 - ACUTE AND CHRONIC RESPIRATORY FAILURE WITH HYPOXIA; J96.22 - ACUTE AND CHRONIC RESPIRATORY FAILURE WITH HYPERCAPNIA (8) IUD migration Assessment/Plan: CULINARY MANAGER consult appreciated surgery consult for removal Code(s): T83.32XA - DISPLACEMENT OF INTRAUTERINE CONTRACEPTIVE DEVICE, INIT
[2019-11-20 14:43] VITALS: BMI 19.0
[2019-11-20] MEDS: FOLIC ACID 5 MG/1 ML SQ SCH (15:13)
[2019-11-20] MEDS: LIDOCAINE PATCH REMOVAL MC SCH (21:29)
[2019-11-20] MEDS: THIAMINE HCL 100 MG TABLET (FP) PO SCH (21:29)
[2019-11-21 07:37] LABS: BASO % 0.6 % (0-2.0); EOS % 4.4 % (0-4.5); HEMATOCRIT 36.4 % (32.4-45.2); HEMOGLOBIN 12.3 GM/dL (10.7-15.3); MCH 32.1 pg (25.7-33.7); MCHC 33.7 g/dl (32.0-36.0); MEAN CELL VOLUME 95.2 fl (80-96); MEAN PLT VOLUME 7.6 fl (7.5-11.1); MONO % 7.3 % (3.8-10.2); NEUT % 50.7 % (42.8-82.8); PLATELET COUNT 242 K/MM3 (134-434); RBC 3.82 M/mm3 (3.60-5.2); RDW 11.8 % (11.6-15.6); WHITE BLOOD COUNT 4.2 K/mm3 (4.0-10.0)
[2019-11-21 08:07] LABS: ALBUMIN 3.2 g/dl (3.4-5.0); BILIRUBIN,TOTAL 0.3 mg/dL (0.2-1); BLOOD UREA NITROGEN 4.4 mg/dL (7-18); CALCIUM 8.9 mg/dL (8.5-10.1); CREATININE 0.5 mg/dL (0.55-1.3); POTASSIUM 5.3 mmol/L (3.5-5.1); TOT PROT 6.4 g/dl (6.4-8.2)
[2019-11-21] MEDS: ALBUTEROL SO4 2.5/IPRATROPIUM 0.5 INH SOL 3 ML VIAL.NEB. NEB SCH ×4 (08:25→19:52)
[2019-11-21] MEDS ORDERED: PT OWN MED DRAWER 7, Y5N ONE ×3 (09:19→17:37)
[2019-11-21] MEDS: PANTOPRAZOLE 20 MG TABLET PO SCH (10:30)
[2019-11-21] MEDS: LIDOCAINE 5% TOPICAL PATCH TP SCH (10:30)
[2019-11-21] MEDS: HEPARIN NA (PORCINE) 5,000 UNITS/ML 1ML VIAL SQ SCH ×2 (10:31→21:52)
[2019-11-21] MEDS: BUDESONIDE/FORMETEROL FUMARATE 160/4.5 mcg INHALER IH SCH ×2 (10:33→21:53)
[2019-11-21] MEDS: TETRAHYDROZOLINE HCL EYE DROPS OU PRN (10:33)
--- NOTE | 2019-11-21 10:38 | PN ---
Progress Note (short form) - Note Progress Note: PULMONARY Denies shortness of breath, cough or wheezing. Vital Signs Period Temp Pulse Resp BP Sys/Smith Pulse Ox Last 24 Hr 98.0 F-98.5 F 91-109 18-20 99-115/61-70 98 Gen: NAD at rest Heart: RRR Lung: distant breath sounds, no wheezes Abd: soft, nontender Ext: no edema CBC, BMP 11/21/19 07:10 11/21/19 07:10 Active Medications Albuterol/Ipratropium (Duoneb -) 1 amp NEB RQID [facility] Last Admin: 11/21/19 08:25 Dose: 1 amp Documented by: Budesonide/Formoterol Fumarate (Symbicort 160/4.5mcg -) 2 puff IH BID [facility] Last Admin: 11/21/19 10:33 Dose: 2 puff Documented by: Folic Acid (Folic Acid Injection -) 0.4 mg SQ DAILY [facility] Last Admin: 11/20/19 15:13 Dose: 0.4 mg Documented by: Heparin Sodium (Porcine) (Heparin -) 5,000 unit SQ BID [facility] Last Admin: 11/21/19 10:31 Dose: 5,000 unit Documented by: Lidocaine (Lidoderm Patch -) 1 patch TP DAILY [facility] Last Admin: 11/21/19 10:30 Dose: 1 patch Documented by: Miscellaneous (Lidoderm Patch Removal) 1 each MC DAILY@2200 [facility] Last Admin: 11/20/19 21:29 Dose: 1 each Documented by: Ondansetron HCl (Zofran Injection) 4 mg IVPUSH Q6H PRN PRN Reason: NAUSEA AND/OR VOMITING Pantoprazole Sodium (Protonix -) 20 mg PO DAILY [facility] Last Admin: 11/21/19 10:30 Dose: 20 mg Documented by: Tetrahydrozoline HCl (Visine -) 1 drop OU Q6H PRN PRN Reason: DRY EYES Last Admin: 11/21/19 10:33 Dose: 1 drop Documented by: Thiamine HCl (Vitamin B1 -) 100 mg PO [facility] Last Admin: 11/20/19 21:29 Dose: 100 mg Documented by: A/P Abdominal Pain likely from Displaced IUD COPD DM Smoker Alcohol Abuse - surgery eval - inhaled bronchodilators - can defer systemic steroids - O2 to keep Spo2 >90% - smoking cessation
--- NOTE | 2019-11-21 14:45 | PN ---
Progress Note, Physician Chief Complaint: abd pain History of Present Illness: 64 year old female with PMH etoh abuse, copd on home oxygen, chronic respiratory failure, htn, hld, dm presents to the ED with abd pain, being evaluated by pulmonology, GI, cardiology, and surgery. - Current Medication List Current Medications: Active Medications Albuterol/Ipratropium (Duoneb -) 1 amp NEB RQID [facility] Last Admin: 11/21/19 11:45 Dose: 1 amp Documented by: Budesonide/Formoterol Fumarate (Symbicort 160/4.5mcg -) 2 puff IH BID [facility] Last Admin: 11/21/19 10:33 Dose: 2 puff Documented by: Folic Acid (Folic Acid Injection -) 0.4 mg SQ DAILY [facility] Last Admin: 11/20/19 15:13 Dose: 0.4 mg Documented by: Heparin Sodium (Porcine) (Heparin -) 5,000 unit SQ BID [facility] Last Admin: 11/21/19 10:31 Dose: 5,000 unit Documented by: Lidocaine (Lidoderm Patch -) 1 patch TP DAILY [facility] Last Admin: 11/21/19 10:30 Dose: 1 patch Documented by: Miscellaneous (Lidoderm Patch Removal) 1 each MC DAILY@2200 [facility] Last Admin: 11/20/19 21:29 Dose: 1 each Documented by: Ondansetron HCl (Zofran Injection) 4 mg IVPUSH Q6H PRN PRN Reason: NAUSEA AND/OR VOMITING Pantoprazole Sodium (Protonix -) 20 mg PO DAILY [facility] Last Admin: 11/21/19 10:30 Dose: 20 mg Documented by: Tetrahydrozoline HCl (Visine -) 1 drop OU Q6H PRN PRN Reason: DRY EYES Last Admin: 11/21/19 10:33 Dose: 1 drop Documented by: Thiamine HCl (Vitamin B1 -) 100 mg PO HS [facility] Last Admin: 11/20/19 21:29 Dose: 100 mg Documented by: - Objective Vital Signs: Vital Signs Temperature 98.6 F 11/21/19 14:04 Pulse Rate 102 H 11/21/19 14:04 Respiratory Rate 18 11/21/19 14:04 Blood Pressure 108/66 11/21/19 14:04 O2 Sat by Pulse Oximetry (%) 98 11/21/19 09:00 Constitutional: Yes: Well Nourished, No Distress HENT: Yes: Atraumatic, Normocephalic Neck: Yes: Supple Cardiovascular: Yes: Regular Rate and Rhythm Respiratory: Yes: Regular, CTA Bilaterally Gastrointestinal: Yes: Normal Bowel Sounds, Distention Genitourinary: Yes: WNL Extremities: Yes: WNL Integumentary: Yes: Rash (to face) Neurological: Yes: Alert, Oriented Labs: CBC, BMP 11/21/19 07:10 11/21/19 07:10 INR, PTT INR 0.97 (0.83-1.09) 11/14/19 07:10 Problem List - Problems (1) Abdominal pain Assessment/Plan: GI following Surgery- NTD GI stewart IV fluids dc IV antbx complete upgrade to regular diet surgery consulted for misplaced iud Code(s): R10.9 - UNSPECIFIED ABDOMINAL PAIN (2) Alcohol abuse Assessment/Plan: continue thiamine ativan if needed monitor for sxs withdrawal psych consulted Code(s): F10.10 - ALCOHOL ABUSE, UNCOMPLICATED (3) COPD (chronic obstructive pulmonary disease) Assessment/Plan: pulm following neb tx cont home oxygen Code(s): J44.9 - CHRONIC OBSTRUCTIVE PULMONARY DISEASE, UNSPECIFIED (4) Diabetes Assessment/Plan: sugars ok monitor achs sliding scale Code(s): E11.9 - TYPE 2 DIABETES MELLITUS WITHOUT COMPLICATIONS (5) HLD (hyperlipidemia) Assessment/Plan: cont home meds Code(s): E78.5 - HYPERLIPIDEMIA, UNSPECIFIED (6) HTN (hypertension) Assessment/Plan: cont home meds Code(s): I10 - ESSENTIAL (PRIMARY) HYPERTENSION (7) Acute on chronic respiratory failure with hypoxia and hypercapnia Assessment/Plan: on chronic oxygen Code(s): J96.21 - ACUTE AND CHRONIC RESPIRATORY FAILURE WITH HYPOXIA; J96.22 - ACUTE AND CHRONIC RESPIRATORY FAILURE WITH HYPERCAPNIA (8) IUD migration Assessment/Plan: 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
[2019-11-21] MEDS: FOLIC ACID 5 MG/1 ML SQ SCH (15:15)
[2019-11-21] MEDS ORDERED: SODIUM ZIRCONIUM CYCLOSILICATE (LOKELMA) 5 GM PACKET PO ONE (16:00)
--- NOTE | 2019-11-21 16:30 | PN.GI ---
GI Progress Note Subjective: No acute events Some intermmittent right sided abdominal pain Biopsies of stomach negative for H. pylori. - Objective Vital Signs: Vital Signs Temperature 98.6 F 11/21/19 14:04 Pulse Rate 102 H 11/21/19 14:04 Respiratory Rate 18 11/21/19 14:04 Blood Pressure 108/66 11/21/19 14:04 O2 Sat by Pulse Oximetry (%) 98 11/21/19 09:00 Constitutional: Calm Eyes: No: Sclera Icterus Cardiovascular: Yes: Regular Rate and Rhythm Respiratory: Yes: CTA Bilaterally Gastrointestinal Inspection: No: Distention ...Auscultate: Yes: Normoactive Bowel Sounds ...Palpate: Yes: Tenderness (right abdomen) ...Percussion: No: Tympanitic Edema: No (No LE edema) Neurological: Yes: Alert Labs: CBC, BMP 11/21/19 07:10 11/21/19 07:10 INR, PTT INR 0.97 (0.83-1.09) 11/14/19 07:10 Problem List - Problems (1) Abdominal pain Assessment/Plan: Migrated IUD in RUQ Surgical evaluation Recall GI as needed. Will sign off now Code(s): R10.9 - UNSPECIFIED ABDOMINAL PAIN
--- NOTE | 2019-11-21 18:11 | PN ---
Progress Note, Physician Chief Complaint: Abdominal pain History of Present Illness: Patient is reconsulted for intra-abdominal foreign body (migrated IUD) at the subhepatic area. Patient had IUD insertion 18 years ago where patient reports that she had pain right after insertion and returned to the clinic and was told that the IUD was dislodged out of her uterus. Patient currently has mild LLQ, epigastric, and RUQ pain and tenderness, and tolerating diet. GI evaluation reviewed and appreciated. Patient states she is being followed by a transition of care specialist in the [place] who is affiliated with [facility]. - Current Medication List Current Medications: Active Medications Albuterol/Ipratropium (Duoneb -) 1 amp NEB RQID [facility] Last Admin: 11/21/19 15:45 Dose: 1 amp Documented by: Budesonide/Formoterol Fumarate (Symbicort 160/4.5mcg -) 2 puff IH BID [facility] Last Admin: 11/21/19 10:33 Dose: 2 puff Documented by: Folic Acid (Folic Acid Injection -) 0.4 mg SQ DAILY [facility] Last Admin: 11/21/19 15:15 Dose: 0.4 mg Documented by: Heparin Sodium (Porcine) (Heparin -) 5,000 unit SQ BID [facility] Last Admin: 11/21/19 10:31 Dose: 5,000 unit Documented by: Lidocaine (Lidoderm Patch -) 1 patch TP DAILY [facility] Last Admin: 11/21/19 10:30 Dose: 1 patch Documented by: Miscellaneous (Lidoderm Patch Removal) 1 each MC DAILY@2200 [facility] Last Admin: 11/20/19 21:29 Dose: 1 each Documented by: Ondansetron HCl (Zofran Injection) 4 mg IVPUSH Q6H PRN PRN Reason: NAUSEA AND/OR VOMITING Pantoprazole Sodium (Protonix -) 20 mg PO DAILY [facility] Last Admin: 11/21/19 10:30 Dose: 20 mg Documented by: Tetrahydrozoline HCl (Visine -) 1 drop OU Q6H PRN PRN Reason: DRY EYES Last Admin: 11/21/19 10:33 Dose: 1 drop Documented by: Thiamine HCl (Vitamin B1 -) 100 mg PO HS [facility] Last Admin: 11/20/19 21:29 Dose: 100 mg Documented by: Zinc Acetate/Diphenhydramine (Benadryl 2% Cream) 1 applic TP DAILY [facility] Last Admin: 11/21/19 17:50 Dose: 1 applic Documented by: - Objective Vital Signs: Vital Signs Temperature 98.6 F 11/21/19 14:04 Pulse Rate 102 H 11/21/19 14:04 Respiratory Rate 18 11/21/19 14:04 Blood Pressure 108/66 11/21/19 14:04 O2 Sat by Pulse Oximetry (%) 98 11/21/19 09:00 Constitutional: Yes: No Distress, Calm HENT: Yes: Normocephalic Neck: Yes: Supple Respiratory: Yes: CTA Bilaterally Gastrointestinal: Yes: Soft, Tenderness (mild at LLQ, epigastric, and RUQ) ...Rectal Exam: Yes: Deferred Labs: CBC, BMP 11/21/19 07:10 11/21/19 07:10 INR, PTT INR 0.97 (0.83-1.09) 11/14/19 07:10 Problem List - Problems (1) Epigastric pain Code(s): R10.13 - EPIGASTRIC PAIN (2) IUD migration Assessment/Plan: Patient has had the FB for 18 years and likely has been lodged at the retroperitoneal area behind the right hepatic flexure and perinephric retroperitoneum. CT a/p in 2016 showed that the IUD has been present at that time. Patient counseled about removal being a laparoscopic procedure under [place] with no certainty of the length and extent of the surgery (could be short or prolonged requiring entering the retroperitoneum) and that her history of COPD may pose post-op problems (prolonged intubation and ventilator support). She was also counseled about the uncertainty of pain relief as her abdominal is non-specific. She was given the advise of obtaining a second opinion at [facility] and will follow up as OP. Code(s): T83.32XA - DISPLACEMENT OF INTRAUTERINE CONTRACEPTIVE DEVICE, INIT
[2019-11-21] MEDS: LIDOCAINE PATCH REMOVAL MC SCH (21:52)
[2019-11-21] MEDS: THIAMINE HCL 100 MG TABLET (FP) PO SCH (21:53)
[2019-11-22] MEDS: ALBUTEROL SO4 2.5/IPRATROPIUM 0.5 INH SOL 3 ML VIAL.NEB. NEB SCH ×2 (08:01→11:30)
[2019-11-22 08:08] LABS: BASO % 0.7 % (0-2.0); EOS % 3.7 % (0-4.5); HEMATOCRIT 37.9 % (32.4-45.2); HEMOGLOBIN 12.6 GM/dL (10.7-15.3); LYMPH % 40.7 % (8-40); MCH 31.9 pg (25.7-33.7); MCHC 33.3 g/dl (32.0-36.0); MEAN CELL VOLUME 95.9 fl (80-96); MEAN PLT VOLUME 8.6 fl (7.5-11.1); MONO % 6.9 % (3.8-10.2); PLATELET COUNT 233 K/MM3 (134-434); RBC 3.95 M/mm3 (3.60-5.2); RDW 11.9 % (11.6-15.6); WHITE BLOOD COUNT 3.8 K/mm3 (4.0-10.0)
[2019-11-22 08:57] LABS: ALBUMIN 3.3 g/dl (3.4-5.0); BILIRUBIN,TOTAL 0.5 mg/dL (0.2-1); BLOOD UREA NITROGEN 6.8 mg/dL (7-18); CALCIUM 8.8 mg/dL (8.5-10.1); CREATININE 0.5 mg/dL (0.55-1.3); POTASSIUM 4.5 mmol/L (3.5-5.1); TOT PROT 6.7 g/dl (6.4-8.2)
--- NOTE | 2019-11-22 10:03 | PN ---
Progress Note, Physician Chief Complaint: Abd pain IUD migration COPD History of Present Illness: NAD, in bed denies any N/V Mild abd pain, improved from before Seen by GI and surgery Pt will get second opinion from surgery at [facility] - Current Medication List Current Medications: Active Medications Albuterol/Ipratropium (Duoneb -) 1 amp NEB RQID [facility] Last Admin: 11/22/19 08:01 Dose: 1 amp Documented by: Budesonide/Formoterol Fumarate (Symbicort 160/4.5mcg -) 2 puff IH BID [facility] Last Admin: 11/21/19 21:53 Dose: 2 puff Documented by: Folic Acid (Folic Acid Injection -) 0.4 mg SQ DAILY [facility] Last Admin: 11/21/19 15:15 Dose: 0.4 mg Documented by: Heparin Sodium (Porcine) (Heparin -) 5,000 unit SQ BID [facility] Last Admin: 11/21/19 21:52 Dose: 5,000 unit Documented by: Lidocaine (Lidoderm Patch -) 1 patch TP DAILY [facility] Last Admin: 11/21/19 10:30 Dose: 1 patch Documented by: Miscellaneous (Lidoderm Patch Removal) 1 each MC DAILY@2200 [facility] Last Admin: 11/21/19 21:52 Dose: 1 each Documented by: Ondansetron HCl (Zofran Injection) 4 mg IVPUSH Q6H PRN PRN Reason: NAUSEA AND/OR VOMITING Pantoprazole Sodium (Protonix -) 20 mg PO DAILY [facility] Last Admin: 11/21/19 10:30 Dose: 20 mg Documented by: Tetrahydrozoline HCl (Visine -) 1 drop OU Q6H PRN PRN Reason: DRY EYES Last Admin: 11/21/19 10:33 Dose: 1 drop Documented by: Thiamine HCl (Vitamin B1 -) 100 mg PO HS [facility] Last Admin: 11/21/19 21:53 Dose: 100 mg Documented by: Zinc Acetate/Diphenhydramine (Benadryl 2% Cream) 1 applic TP DAILY [facility] Last Admin: 11/21/19 17:50 Dose: 1 applic Documented by: - Objective Vital Signs: Vital Signs Temperature 98.1 F 11/22/19 06:00 Pulse Rate 78 11/22/19 06:00 Respiratory Rate 18 11/22/19 06:00 Blood Pressure 99/57 L 11/22/19 06:00 O2 Sat by Pulse Oximetry (%) 98 11/21/19 21:00 Constitutional: Yes: Well Nourished, No Distress, Calm Cardiovascular: Yes: Regular Rate and Rhythm Respiratory: Yes: Regular Gastrointestinal: Yes: Normal Bowel Sounds, Soft, Tenderness (RUQ) Musculoskeletal: Yes: WNL Extremities: Yes: WNL Edema: No Peripheral Pulses WNL: Yes Neurological: Yes: Alert, Oriented Psychiatric: Yes: Alert, Oriented Labs: CBC, BMP 11/22/19 07:25 11/22/19 07:25 INR, PTT INR 0.97 (0.83-1.09) 11/14/19 07:10 Problem List - Problems (1) Abdominal pain Assessment/Plan: -Improved -2/2 to IUD dislodgment -EGD reviewed -H Pylori negative -Pt to get 2nd opinion at [facility] Problems reviewed: Yes Code(s): R10.9 - UNSPECIFIED ABDOMINAL PAIN (2) Alcohol abuse Assessment/Plan: -Ativan PRN -Encouraged alcohol abstinence Problems reviewed: Yes Code(s): F10.10 - ALCOHOL ABUSE, UNCOMPLICATED (3) COPD (chronic obstructive pulmonary disease) Assessment/Plan: -Nasal O2 -Bronchodiltors -Pulmonary consult Problems reviewed: Yes Code(s): J44.9 - CHRONIC OBSTRUCTIVE PULMONARY DISEASE, UNSPECIFIED (4) Diabetes Assessment/Plan: -Resolved -Last A1c on 11/03/19 was 5.7 -D/C BGM -D/C ISS Problems reviewed: Yes Code(s): E11.9 - TYPE 2 DIABETES MELLITUS WITHOUT COMPLICATIONS (5) On home oxygen therapy Problems reviewed: Yes Code(s): Z99.81 - DEPENDENCE ON SUPPLEMENTAL OXYGEN (6) IUD migration Assessment/Plan: -Seen by General surgery, who recommended 2nd opinion at tertiary care center Problems reviewed: Yes Code(s): T83.32XA - DISPLACEMENT OF INTRAUTERINE CONTRACEPTIVE DEVICE, INIT Assessment/Plan see problem list
--- NOTE | 2019-11-22 10:09 | DS ---
Physical Examination Vital Signs: Vital Signs Temperature 98.1 F 11/22/19 06:00 Pulse Rate 78 11/22/19 06:00 Respiratory Rate 18 11/22/19 06:00 Blood Pressure 99/57 L 11/22/19 06:00 O2 Sat by Pulse Oximetry (%) 98 11/21/19 21:00 Findings/Remarks: (1) Abdominal pain Assessment/Plan: GI following Surgery- NTD GI stewart IV fluids dc IV antbx complete upgrade to regular diet surgery consulted for misplaced iud Code(s): R10.9 - UNSPECIFIED ABDOMINAL PAIN (2) Alcohol abuse Assessment/Plan: continue thiamine ativan if needed monitor for sxs withdrawal psych consulted Code(s): F10.10 - ALCOHOL ABUSE, UNCOMPLICATED (3) COPD (chronic obstructive pulmonary disease) Assessment/Plan: pulm following neb tx cont home oxygen Code(s): J44.9 - CHRONIC OBSTRUCTIVE PULMONARY DISEASE, UNSPECIFIED (4) Diabetes Assessment/Plan: resolved Code(s): E11.9 - TYPE 2 DIABETES MELLITUS WITHOUT COMPLICATIONS (5) HLD (hyperlipidemia) Assessment/Plan: cont home meds Code(s): E78.5 - HYPERLIPIDEMIA, UNSPECIFIED (6) HTN (hypertension) Assessment/Plan: cont home meds Code(s): I10 - ESSENTIAL (PRIMARY) HYPERTENSION (7) Acute on chronic respiratory failure with hypoxia and hypercapnia Assessment/Plan: on chronic oxygen Code(s): J96.21 - ACUTE AND CHRONIC RESPIRATORY FAILURE WITH HYPOXIA; J96.22 - ACUTE AND CHRONIC RESPIRATORY FAILURE WITH HYPERCAPNIA (8) IUD migration Assessment/Plan: LUMBER MOVER consult appreciated surgery consult for removal- warrants 2nd opinion at tertiary care center Code(s): T83.32XA - DISPLACEMENT OF INTRAUTERINE CONTRACEPTIVE DEVICE, INIT Constitutional: Yes: No Distress, Calm, Cachectic Cardiovascular: Yes: Regular Rate and Rhythm Respiratory: Yes: Regular Gastrointestinal: Yes: Normal Bowel Sounds, Soft, Tenderness (RUQ) Renal/: Yes: WNL Musculoskeletal: Yes: WNL Extremities: Yes: WNL Edema: No Peripheral Pulses WNL: Yes Neurological: Yes: Alert, Oriented Psychiatric: Yes: Alert, Oriented Labs: CBC, BMP 11/22/19 07:25 11/22/19 07:25 Discharge Summary Problems reviewed: Yes Reason For Visit: ILEUS Current Active Problems Abdominal pain (Acute) Alcohol abuse (Acute) Asthma (Acute) COPD (chronic obstructive pulmonary disease) (Acute) Diabetes (Acute) Epigastric pain (Acute) HLD (hyperlipidemia) (Acute) HTN (hypertension) (Acute) IUD complication (Acute) IUD migration (Acute) On home oxygen therapy (Acute) Prophylactic measure (Acute) Smoker (Acute) Laboratory Last Values WBC 3.8 K/mm3 (4.0-10.0) L 11/22/19 07:25 RBC 3.95 M/mm3 (3.60-5.2) 11/22/19 07:25 Hgb 12.6 GM/dL (10.7-15.3) 11/22/19 07:25 Hct 37.9 % (32.4-45.2) 11/22/19 07:25 MCV 95.9 fl (80-96) 11/22/19 07:25 MCH 31.9 pg (25.7-33.7) 11/22/19 07:25 MCHC 33.3 g/dl (32.0-36.0) 11/22/19 07:25 RDW 11.9 % (11.6-15.6) 11/22/19 07:25 Plt Count 233 K/MM3 (134-434) 11/22/19 07:25 MPV 8.6 fl (7.5-11.1) D 11/22/19 07:25 Absolute Neuts (auto) 1.8 K/mm3 (1.5-8.0) 11/22/19 07:25 Neutrophils % 48.0 % (42.8-82.8) 11/22/19 07:25 Lymphocytes % 40.7 % (8-40) H 11/22/19 07:25 Monocytes % 6.9 % (3.8-10.2) 11/22/19 07:25 Eosinophils % 3.7 % (0-4.5) 11/22/19 07:25 Basophils % 0.7 % (0-2.0) 11/22/19 07:25 Nucleated RBC % 0 % (0-0) 11/22/19 07:25 PT with INR 11.40 SEC (9.7-13.0) 11/14/19 07:10 INR 0.97 (0.83-1.09) 11/14/19 07:10 PTT (Actin FS) 24.4 SECONDS (25.2-36.5) L 11/13/19 00:45 Sodium 138 mmol/L (136-145) 11/22/19 07:25 Potassium 4.5 mmol/L (3.5-5.1) 11/22/19 07:25 Chloride 102 mmol/L (98-107) 11/22/19 07:25 Carbon Dioxide 33 mmol/L (21-32) H 11/22/19 07:25 Anion Gap 3 MMOL/L (8-16) L 11/22/19 07:25 BUN 6.8 mg/dL (7-18) L 11/22/19 07:25 Creatinine 0.5 mg/dL (0.55-1.3) L 11/22/19 07:25 Est GFR (CKD-EPI)AfAm 120.22 11/22/19 07:25 Est GFR (CKD-EPI)NonAf 103.73 11/22/19 07:25 POC Glucometer 136 UNITS (80-120) 11/18/19 11:17 Random Glucose 98 mg/dL (74-106) 11/22/19 07:25 Calcium 8.8 mg/dL (8.5-10.1) 11/22/19 07:25 Magnesium 2.2 mg/dL (1.8-2.4) 11/14/19 07:10 Total Bilirubin 0.5 mg/dL (0.2-1) 11/22/19 07:25 AST 15 U/L (15-37) 11/22/19 07:25 ALT 32 U/L (13-61) 11/22/19 07:25 Alkaline Phosphatase 102 U/L (45-117) 11/22/19 07:25 Creatine Kinase 32 U/L (26-192) 11/13/19 00:51 Troponin I < 0.02 ng/ml (0.00-0.05) 11/13/19 00:51 Total Protein 6.7 g/dl (6.4-8.2) 11/22/19 07:25 Albumin 3.3 g/dl (3.4-5.0) L 11/22/19 07:25 Lipase 187 U/L (73-393) 11/13/19 00:44 Urine Color Yellow 11/13/19 04:00 Urine Appearance Cloudy 11/13/19 04:00 Urine pH 5.5 (5.0-8.0) 11/13/19 04:00 Ur Specific [place] 1.034 (1.010-1.035) 11/13/19 04:00 Urine Protein Negative (NEGATIVE) 11/13/19 04:00 Urine Glucose (UA) Negative (NEGATIVE) 11/13/19 04:00 Urine Ketones 1+ (NEGATIVE) H 11/13/19 04:00 Urine Blood Negative (NEGATIVE) 11/13/19 04:00 Urine Nitrite Negative (NEGATIVE) 11/13/19 04:00 Urine Bilirubin Negative (NEGATIVE) 11/13/19 04:00 Urine Urobilinogen 0.2 mg/dL (0.2-1.0) 11/13/19 04:00 Ur Leukocyte Esterase Negative (NEGATIVE) 11/13/19 04:00 Influenza A (Rapid) Negative (Negative) 11/13/19 00:45 Influenza B (Rapid) Negative (Negative) 11/13/19 00:45 Microbiology 11/13/19 16:35 Blood - Peripheral Venous Blood Culture - Final NO GROWTH AFTER 5 DAYS INCUBATION 11/13/19 16:45 Blood - Peripheral Venous Blood Culture - Final NO GROWTH AFTER 5 DAYS INCUBATION 11/13/19 04:00 Urine - Urine Clean Catch Urine Culture - Final NO GROWTH OBTAINED Vital Signs Temp 98.1 F 11/22/19 06:00 Pulse 78 11/22/19 06:00 Resp 18 11/22/19 06:00 BP 99/57 L 11/22/19 06:00 Pulse Ox 98 11/21/19 21:00 Intake & Output 11/21/19 11/21/19 11/22/19 11:59 23:59 11:59 Intake Total 0 200 0 Balance 0 200 0 Weight 48.137 kg Intake: IV 0 rac 0 IVPB 0 0 Oral 200 Other: Voiding Method Toilet Toilet Toilet # Unmeasured Voids Void 3 Weight Measurement Method Standing Scale Hospital Course: - Problems (1) Abdominal pain Assessment/Plan: -Improved -TOLERATING DIET--ADVANCE -EGD planned Problems reviewed: Yes Code(s): R10.9 - UNSPECIFIED ABDOMINAL PAIN (2) Alcohol abuse Assessment/Plan: -NO S/S of withdrawal -Encouraged alcohol abstinence Problems reviewed: Yes Code(s): F10.10 - ALCOHOL ABUSE, UNCOMPLICATED (3) COPD (chronic obstructive pulmonary disease) Assessment/Plan: -Nasal O2 -Bronchodiltors -Pulmonary consult Noted Problems reviewed: Yes Code(s): J44.9 - CHRONIC OBSTRUCTIVE PULMONARY DISEASE, UNSPECIFIED (4) Diabetes Assessment/Plan: -Resolved -Last A1c on 11/03/19 was 5.7 -D/C BGM -D/C ISS Problems reviewed: Yes Code(s): E11.9 - TYPE 2 DIABETES MELLITUS WITHOUT COMPLICATIONS (5) On home oxygen therapy Problems reviewed: Yes Code(s): Z99.81 - DEPENDENCE ON SUPPLEMENTAL OXYGEN DC HOME IF OK WITH GI Condition: Stable - Instructions Referrals: Ying Altamirano MD [Primary Care Provider] - 1 Week Disposition: HOME - Home Medications Comprehensive Discharge Medication List: Ambulatory Orders Ipratropium/Albuterol Sulfate [Combivent Respimat 20-100 Mcg] 4 gm IH DAILY 05/03/15 Albuterol 0.083% Nebulizer Terri [Ventolin 0.083% Nebulizer Soln -] 1 neb NEB Q4H PRN 12/22/15 Montelukast Na [Singulair -] 10 mg PO HS 12/22/15 Pantoprazole Sodium 40 mg PO DAILY 03/28/17 Folic Acid - 1 mg PO DAILY #30 tablet 04/05/17 Thiamine HCl [Vitamin B1 -] 100 mg PO DAILY #30 tablet 04/05/17 Atorvastatin Calcium [Lipitor] 10 mg PO DAILY 11/03/19 Metformin HCl [Glucophage] 500 mg PO DAILY 11/03/19 Roflumilast [Daliresp] 500 mcg PO DAILY 11/03/19 Vitamin A Palmitate [Vitamin A] 10,000 unit PO DAILY 11/03/19 Albuterol 2.5/Ipratropium 0.5 [Duoneb -] 1 amp NEB RQID #45 amp 11/09/19 Albuterol Sulfate 0.5% [Ventolin 0.5% Nebulizing Soln. -] 1 amp NEB Q4H PRN #45 amp 11/09/19 Lidocaine 5% Patch [Lidoderm -] 1 patch TP DAILY #30 patch 11/09/19 Lorazepam [Ativan] 2 mg PO ASDIR #18 tablet MDD 6 11/09/19 Multivitamins [Multivit ([facility] Formulary)] 1 tab PO DAILY #30 tab 11/09/19 Budesonide/Formeterol Fumarate [SYMBICORT 160/4.5mcg -] 2 puff IH BID #1 inhaler 11/22/19 Diphenhydramine HCl/Zinc Acet [Benadryl 2% Cream] 1 applic TP DAILY #1 tube 11/22/19 Tetrahydrozoline HCl [Visine -] 1 drop OU Q6H PRN #1 bot 11/22/19 Thiamine HCl [Vitamin B1 -] 100 mg PO HS #30 tablet 11/22/19 Prescription Drug Monitoring Program (I-STOP) results: I-STOP reviewed and no issues identified
[2019-11-22] MEDS ORDERED: PT OWN MED DRAWER 7, Y5N ONE (10:50)
[2019-11-22] MEDS: HEPARIN NA (PORCINE) 5,000 UNITS/ML 1ML VIAL SQ SCH (11:03)
[2019-11-22] MEDS: PANTOPRAZOLE 20 MG TABLET PO SCH (11:03)
[2019-11-22] MEDS: LIDOCAINE 5% TOPICAL PATCH TP SCH (11:04)
[2019-11-22] MEDS: BUDESONIDE/FORMETEROL FUMARATE 160/4.5 mcg INHALER IH SCH (11:05)
[2019-11-22 11:25] VITALS: BP 101/68; PULSE 94; TEMP 98.2
[2019-11-22] MEDS: FOLIC ACID 5 MG/1 ML SQ SCH (13:53)
== END 2019-11-22 14:51 | disposition home or self-care (01) | DRG 760 ==
LOC: JER 23:58 → JERBED 11-13 06:35 → J7W 11-13 08:56
PROVIDERS: ADMIT Family Medicine; ATTEND Family Medicine
PROC: 0DB68ZX Excision of Stomach, Via Natural or Artificial Opening Endoscopic, Diagnostic (ICD-10-PCS; principal; 2019-11-16 14:00)
DX: T83.32XA Displacement of intrauterine contraceptive device, initial encounter (principal); J96.22 Acute and chronic respiratory failure with hypercapnia; J96.21 Acute and chronic respiratory failure with hypoxia; Z68.1 Body mass index [BMI] 19.9 or less, adult; Y83.9 Surgical procedure, unspecified as the cause of abnormal reaction of the patient, or of later complication, without mention of misadventure at the time of the procedure; J44.9 Chronic obstructive pulmonary disease, unspecified; E11.9 Type 2 diabetes mellitus without complications; E78.5 Hyperlipidemia, unspecified; I10 Essential (primary) hypertension; K29.50 Unspecified chronic gastritis without bleeding; Z99.81 Dependence on supplemental oxygen; J45.909 Unspecified asthma, uncomplicated; F10.10 Alcohol abuse, uncomplicated; I95.9 Hypotension, unspecified
CPT/HCPCS: 36415; 71045-TC-FY; 74019-TC-FY; 74177-TC; 76705-TC; 80048; 80053; 81003; 82550; 82962; 83690; 83735; 84484; 85025; 85027; 85610; 85730; 87040; 87086; 87804; 88305-TC; 93005; 93010; 94640; 97116-GP; 97161-GP; 99285-25; J0131; J1644; J7030; Q9967

== ENCOUNTER 2020-03-24 12:02 | Emergency (ER) | payer OTHER ==
[2020-03-24] MEDS ORDERED: KETOROLAC TROMETHAMINE 30 MG/1 ML VIAL IM ONE (12:54)
[2020-03-24] MEDS ORDERED: LIDOCAINE 5% TOPICAL PATCH TP ONE (12:54)
[2020-03-24] MEDS ORDERED: CYCLOBENZAPRINE HCL 5 MG TABLET PO ONE (13:00)
--- NOTE | 2020-03-24 13:22 | PDOC ---
History of Present Illness - General Chief Complaint: Chest Pain Stated Complaint: chest pain Time Seen by Provider: 03/24/20 12:12 History Source: Patient - History of Present Illness Initial Comments: 03/24/20 13:03 64yo female PMH of a migrated IUD to the RUQ for which she was not cleared for surgery, COPD on 2L, HTN, and HLD who presents with left chest pain wrapping around to her back that she states began yesterday one hour after she picked up her granddaughter and was worse when she woke up this morning. She describes the pain as intermittent, "popping"/stabbing, occurs only with movement, lasts for seconds, is better with no movement, is not exertional, not worse with breathing. Denies diaphoresis, n/v, f/c. Endorses baseline SOB. States she moves around a lot at home. Denies leg pain or swelling. She does complain of seeing purple spots on the toilet paper after urinating two days prior, but no blood on her undergarments and no abdominal pain. PMHx/PSH: as above Meds: no changes Allergies: no changes Tob: denies Etoh: denies Rec drugs:denies PCP: "Beau Sanchez"? ROS GENERAL/CONSTITUTIONAL: No fever or chills. No weakness. HEAD, EYES, EARS, NOSE AND THROAT: No change in vision. No ear pain or discharge. No sore throat. CARDIOVASCULAR: chest pain, baseline SOB RESPIRATORY: No cough, wheezing, or hemoptysis. GASTROINTESTINAL: No nausea, vomiting, diarrhea or constipation. GENITOURINARY: No dysuria, frequency, or change in urination. MUSCULOSKELETAL: No joint or muscle swelling or pain. chest (wall?)/back pain SKIN: No rash NEUROLOGIC: No headache, vertigo, loss of consciousness, or change in strength/sensation. ENDOCRINE: No increased thirst. No abnormal weight change HEMATOLOGIC/LYMPHATIC: No anemia, easy bleeding, or history of blood clots. ALLERGIC/IMMUNOLOGIC: No hives or skin allergy. PE GENERAL: Awake, alert, and fully oriented, in no acute distress HEAD: No signs of trauma, normocephalic, atraumatic EYES: PERRLA, EOMI, sclera anicteric, conjunctiva clear ENT: hearing grossly normal, nares patent, oropharynx clear without exudates. Moist mucosa NECK: Normal ROM, supple, no lymphadenopathy, JVD, or masses Chest/Back: left chest wall and b/l thoracic paraspinal tenderness. No midline tenderness LUNGS: No distress, speaks full sentences, clear to auscultation bilaterally HEART: Regular rate and rhythm, normal S1 and S2, no murmurs, rubs or gallops, peripheral pulses normal and equal bilaterally. ABDOMEN: Soft, distractable chronic tenderness in RUQ, normoactive bowel sounds. No guarding, no rebound. No masses EXTREMITIES : Normal inspection, Normal range of motion, no edema. No clubbing or cyanosis. NEUROLOGICAL: Cranial nerves II through XII grossly intact. Normal speech, normal gait, no focal sensorimotor deficits SKIN: Warm, Dry, normal turgor, no rashes or lesions noted Assessment and Plan 64yo female PMH of a migrated IUD to the RUQ for which she was not cleared for surgery, COPD on 2L, HTN, and HLD who presents with left chest pain wrapping around to her back that she states began yesterday one hour after she picked up her granddaughter and was worse when she woke up this morning. Story consistent with muscle strain. Low suspicion for ACS, pneumonia, PE, kidney stone. #chest pain -EKG: NSR, no ischemic changes -labs: neg -CXR: consistent with COPD (my read), no consolidation -UA: neg -pain control with lidoderm patch, toradol, flexaril -CT A/P: no interval change in location of IUD Reassessed: pain improved with medication Patient stable for discharge. Informed of all lab and imaging results. Given follow up instructions and strict return precautions. Patient expressed understanding and agree to plan 03/24/20 16:09 Past History - Medical History Allergies/Adverse Reactions: Allergies Allergy/AdvReac Type Severity Reaction Status Date / Time Penicillins Allergy Verified 11/13/19 00:33 Home Medications: Ambulatory Orders Ipratropium/Albuterol Sulfate [Combivent Respimat 20-100 Mcg] 4 gm IH DAILY 05/03/15 Albuterol 0.083% Nebulizer Terri [Ventolin 0.083% Nebulizer Soln -] 1 neb NEB Q4H PRN 12/22/15 Montelukast Na [Singulair -] 10 mg PO HS 12/22/15 Pantoprazole Sodium 40 mg PO DAILY 03/28/17 Folic Acid - 1 mg PO DAILY #30 tablet 04/05/17 Thiamine HCl [Vitamin B1 -] 100 mg PO DAILY #30 tablet 04/05/17 Atorvastatin Calcium [Lipitor] 10 mg PO DAILY 11/03/19 Metformin HCl [Glucophage] 500 mg PO DAILY 11/03/19 Roflumilast [Daliresp] 500 mcg PO DAILY 11/03/19 Vitamin A Palmitate [Vitamin A] 10,000 unit PO DAILY 11/03/19 Albuterol 2.5/Ipratropium 0.5 [Duoneb -] 1 amp NEB RQID #45 amp 11/09/19 Albuterol Sulfate 0.5% [Ventolin 0.5% Nebulizing Soln. -] 1 amp NEB Q4H PRN #45 amp 11/09/19 Lidocaine 5% Patch [Lidoderm -] 1 patch TP DAILY #30 patch 11/09/19 Lorazepam [Ativan] 2 mg PO ASDIR #18 tablet MDD 6 11/09/19 Multivitamins [Multivit ([facility] Formulary)] 1 tab PO DAILY #30 tab 11/09/19 Budesonide/Formeterol Fumarate [SYMBICORT 160/4.5mcg -] 2 puff IH BID #1 inhaler 11/22/19 Diphenhydramine HCl/Zinc Acet [Benadryl 2% Cream] 1 applic TP DAILY #1 tube 11/22/19 Tetrahydrozoline HCl [Visine -] 1 drop OU Q6H PRN #1 bot 11/22/19 Thiamine HCl [Vitamin B1 -] 100 mg PO HS #30 tablet 11/22/19 Cyclobenzaprine HCl [Flexeril 10 mg] 10 mg PO TID PRN #12 tablet 03/24/20 Lidocaine 5% Patch [Lidoderm Patch -] 1 patch TP DAILY #7 patch 03/24/20 Asthma: Yes Cardiac Disorders: Yes COPD: Yes (emphysema) CHF: No Diabetes: Yes GI Disorders: Yes (stomach ulcers) Hypercholesterolemia: Yes - Immunization History Immunization Up to Date: Yes - Psycho-Social/Smoking History Smoking History: Former smoker Have you smoked in the past 12 months: No Number of Cigarettes Smoked Daily: 0 If you are a former smoker, when did you quit?: 2017 Information on smoking cessation initiated: No 'Breaking Loose' booklet given: 05/03/15 - Substance Abuse Hx (Audit-C & DAST Scrn) How often the patient has a drink containing alcohol: Never Score: In Men: 4 or > Positive; In Women: 3 or > Positive: 0 Screen Result (Pos requires Nsg. Audit-10AR): Negative In the last yr the pt used illegal drug/Rx for NonMed reason: No Score: Yes response is considered Positive: 0 Screen Result (Positive result requires Nsg. DAST-10): Negative *Physical Exam - Vital Signs Last Vital Signs Temp Pulse Resp BP Pulse Ox 98.7 F 75 20 127/83 98 03/24/20 12:41 03/24/20 12:41 03/24/20 12:41 03/24/20 12:41 03/24/20 12:52 ED Treatment Course - LABORATORY CBC & Chemistry Diagram: 03/24/20 13:20 03/24/20 13:14 - RADIOLOGY Radiology Studies Ordered: Category Date Time Status CXR [CHEST PA & LAT] [RAD] Stat Radiology 03/24/20 12:53 Ordered Discharge - Discharge Information Problems reviewed: Yes Clinical Impression/Diagnosis: Left-sided chest wall pain, Thoracic back pain Condition: Stable Disposition: HOME - Additional Discharge Information Prescriptions: Cyclobenzaprine HCl [Flexeril 10 mg] 10 mg PO TID PRN #12 tablet PRN Reason: Pain Lidocaine 5% Patch [Lidoderm Patch -] 1 patch TP DAILY #7 patch - Follow up/Referral Referrals: [facility] [place] [facility] [place] [Provider Group] [facility] [Provider Group] - Patient Discharge Instructions Patient Printed Discharge Instructions: DI for Atypical Chest Pain, DI for Muscle Strain Additional Instructions: You were seen in the ED for chest pain that radiated to your back. Your EKG, labs, chest x-ray, and CT scan of your abdomen and pelvis did not reveal any acute problem. The CT scan showed the IUD in the same spot as last time. You most likely strained your muscles when you picked up your granddaughter. We are sending you home with flexaril 10mg, which is a muscle relaxant you can take up to three times per day for 4 days. It can make you sleepy, so if you take it, you cannot drive or operate heavy machinery. We are also prescribing a lidocaine patch, which you can put on the affected area for 12 hours on, then 12 hours off. Please call your PCP to follow up. Please call your PCP or return to the ED if your pain does not get better, gets worse, if you have fever, worsening shortness of breath, worsening abdominal pain, or any other reason. - Post Discharge Activity
[2020-03-24 13:23] VITALS: BMI 18.8
--- NOTE | 2020-03-24 13:27 | PDOC ---
Attending Attestation - Resident Resident Name: Edwin Martínez - ED Attending Attestation I have performed the following: I have examined & evaluated the patient, The case was reviewed & discussed with the resident, I agree w/resident's findings & plan - HPI HPI: 03/24/20 13:25 64F with PMH asthma, stage IV COPD on 2L home O2 and prednisone, former smoker, HTN, HLD, NIDDM, alcohol use disorder, IUD migration, presenting with left sided chest pain pain with movement since yesterday, upper back pain bilaterally, worse with movement, worsening After picking up granddaughter yesterday Lightheaded this AM after getting out of bed No AP, no f/c, cp Baseline SOB on 2L NC chronically After urinating, dark blood with urinating the other day, none since right sided AP x 2 weeks, no new trauma. Patient has chronically misplaced IUD at the inferior edge of the right hepatic lobe seen back in November 2019 Fatty liver is also previously noted chronic colonic diverticulosis and emphysematous changes 03/24/20 13:34 03/24/20 14:12 03/24/20 16:05 - Physicial Exam PE: 03/24/20 13:25 General: Well appearing, awake and alert, NAD. HEENT: NCAT, PERRL, EOMI, clear conjunctiva, anicteric, moist mucous membranes, clear oropharynx, no oral lesions.. Neck: neck supple, FROM, no JVD. Resp: CTAB, normal and even respirations, no respiratory distress; on NC for supplemental O2 (chronic O2 requirement) CVS: RRR, no murmurs, 2+ peripheral pulses throughout, no peripheral edema Chest: left sided anterior chest wall tenderness Abdomen: soft, +RUQ and mid abdominal TTP, neg Keller's sign, no mcburney's point tenderness, no rebound or guarding. No CVAT. Back: nontender in the midline spine. normal inspection and ROM +paraspinal thoracic TTP, worse in the left side. MSK: no edema, MANNING x4, ROM intact. No clubbing or cyanosis. normal bulk and tone. Extremities: no calf tenderness Neuro: alert, oriented appropriately; no focal neurologic deficits Skin: warm and well perfused, cap refill <2 sec, normal color 03/24/20 14:12 03/24/20 14:14 - Medical Decision Making 03/24/20 13:26 Vital Signs Temp Pulse Resp BP Pulse Ox 98.7 F 75 20 127/83 98 03/24/20 12:41 03/24/20 12:41 03/24/20 12:41 03/24/20 12:41 03/24/20 12:52 vitals reviewed, wnl normal sats, no respiratory distress, HD appropriate. afebrile, no systemic findings baseline SOB on supp O2 2LNC. DDx chest pain: ACS, coronary vasospasm, NSTEMI, arrhythmia, unstable angina, PE, dissection, PUD, esophageal spasm, GERD, gastritis, costochondritis, pneumon ia, pleurisy, pericarditis/myocarditis. dehydration, electrolyte/metabolic derangements. Considered but clinically doubt based on HPI and PE: Low suspicion for pulmonary embolism or dissection. EKG normal sinus rhythm, no interval abnormalities, narrow QRS, ST and T wave segments and morphology normal. Nonspecific T wave abnormalities, unchanged from prior Chest pain HEART score 3 which denotes Low risk and probability for ACS, less than 1.7% risk for MACE at 4-6 wks Patient has chronically misplaced IUD at the inferior edge of the right hepatic lobe seen back in November 2019 Fatty liver is also previously noted chronic colonic diverticulosis and emphysematous changes labs and lytes wnl, neg trop. UA neg for blood or infection No evidence of ACS, pericarditis, myocarditis, pulmonary embolism, pneumothorax, pneumonia, Zoster, or esophageal perforation. Historically not abrupt in onset, tearing or ripping, pulses symmetric, no evidence of aortic dissection. one trop sufficient pt given analgesia here, topical lido patch for back, flexeril, toradol and tylenol - with improvement clinically most likely msk strain/costochondritis, paraspinal thoracic back pain after straining yesterday and exacerbated with movement unlikely ACS or PE or ao dissection; 03/24/20 16:00 Interpreted by ED Physician: CXR (2 view): no acute abnormality: no infiltrates, bones appear intact and structures normal alignment, cardiac silhouette within normal limits. no free air under diaphragm, no pneumothorax. CT abdomen pelvis nondistention of the cecum and proximal portion of the ascending colon, no gross surrounding inflammatory changes, no evidence of acute colitis, previously seen IUD in the right upper quadrant at the right hepatic lobe and similar position. rx analgesia prn for pain control, muscle relaxant and lido patch Pt to be discharged in stable condition. Patient made aware of clinical impression, treatment recommendations and disposition plan, return precautions discussed (including but not limited to new or persistent/worsening symptoms, pain, fevers, or signs of infection, chest pain, respiratory distress, inability to tolerate oral intake, dehydration, syncope, or neurologic changes). Follow up with PMD and/or specialist as recommended, follow up information provided, take medications as instructed for duration of time. continue with supportive care, avoid triggers and precipitants. All questions answered to patient's satisfaction and expressed understanding and comfort with this. At the time of discharge, the patient is alert, clinically improved, tolerating po and verbalizes understanding of instructions, satisfied with the care received and felt comfortable with the plan. Patient does not suffer from an acute life- threatening medical condition at this time and is safe for outpatient follow- up. Heart Score/ECG Review - History History: Slightly suspicious - Electrocardiogram EKG: Normal - Age Age: 45-65 - Risk Factors Risk Factors Heart Score: Yes Hx Hypercholesterolemia, Yes Hx Hypertension, Yes Hx Diabetes Based on the list above the patient has:: >/=3 risk factors or Hx atherosclerotic disease - Troponin Troponin: </= normal limit - Score Heart Score - Total: 3 #1 ECG reviewed & interpreted by me at: 12:45 General ECG Interpretation: Sinus Rhythm, Normal Rate, Normal Intervals 03/24/20 13:26 EKG normal sinus rhythm 73 beats per, no interval abnormalities, narrow QRS, ST and T wave segments and morphology normal. Some limitations with artifact Discharge - Discharge Information Problems reviewed: Yes Clinical Impression/Diagnosis: Left-sided chest wall pain, Thoracic back pain Condition: Stable Disposition: HOME - Admission No - Additional Discharge Information Prescriptions: Cyclobenzaprine HCl [Flexeril 10 mg] 10 mg PO TID PRN #12 tablet PRN Reason: Pain Lidocaine 5% Patch [Lidoderm Patch -] 1 patch TP DAILY #7 patch - Follow up/Referral Referrals: [facility] [Provider Group] [facility] [place] [facility] [Provider Group] - Patient Discharge Instructions Patient Printed Discharge Instructions: DI for Atypical Chest Pain, DI for Muscle Strain Additional Instructions: You were seen in the ED for chest pain that radiated to your back. Your EKG, labs, chest x-ray, and CT scan of your abdomen and pelvis did not reveal any acute problem. The CT scan showed the IUD in the same spot as last time. You most likely strained your muscles when you picked up your granddaughter. We are sending you home with flexaril 10mg, which is a muscle relaxant you can take up to three times per day for 4 days. It can make you sleepy, so if you take it, you cannot drive or operate heavy machinery. We are also prescribing a lidocaine patch, which you can put on the affected area for 12 hours on, then 12 hours off. Please call your PCP to follow up. Please call your PCP or return to the ED if your pain does not get better, gets worse, if you have fever, worsening matt rtness of breath, worsening abdominal pain, or any other reason. - Post Discharge Activity
[2020-03-24] MEDS ORDERED: LIDOCAINE 5% TOPICAL PATCH ONE (13:48)
[2020-03-24] MEDS ORDERED: CYCLOBENZAPRINE HCL 10 MG TABLET (FP) ONE (13:48)
[2020-03-24] MEDS ORDERED: KETOROLAC TROMETHAMINE 30 MG/1 ML VIAL ONE (13:48)
[2020-03-24 13:52] LABS: BASO % 0.2 % (0-2.0); EOS % 0.9 % (0-4.5); HEMATOCRIT 36.2 % (32.4-45.2); HEMOGLOBIN 12.1 GM/dL (10.7-15.3); LYMPH % 28.3 % (8-40); MCH 31.5 pg (25.7-33.7); MCHC 33.4 g/dl (32.0-36.0); MEAN CELL VOLUME 94.4 fl (80-96); MEAN PLT VOLUME 8.8 fl (7.5-11.1); MONO % 3.5 % (3.8-10.2); NEUT % 67.1 % (42.8-82.8); PLATELET COUNT 234 K/MM3 (134-434); RBC 3.84 M/mm3 (3.60-5.2); WHITE BLOOD COUNT 6.5 K/mm3 (4.0-10.0)
[2020-03-24 14:05] LABS: EPI CELLS 2 /uL (0-25.1); HYALINE CASTS 0 /uL (0-3.1); PH,URINE 7.5 (5.0-8.0); URINE APPEARANCE CLEAR; URINE BACTERIA 16 /uL (0-1359); URINE BILIRUBIN NEGATIVE (NEGATIVE); URINE COLOR YELLOW; URINE GLUCOSE (UA) NEGATIVE (NEGATIVE); URINE KETONE NEGATIVE (NEGATIVE); URINE LEUK ESTERASE TRACE (NEGATIVE); URINE NITRITE NEGATIVE (NEGATIVE); URINE PROTEIN NEGATIVE (NEGATIVE); URINE RBC 1 /uL (0-23.9); URINE UROBILINOGEN 0.2 mg/dL (0.2-1.0); URINE WBC 1 /uL (0-25.8)
[2020-03-24] MEDS ORDERED: ACETAMINOPHEN 1000 MG/100 ML VIAL (NON FORMULARY) IVPB ONE (14:11)
[2020-03-24 14:25] LABS: ALBUMIN 4.3 g/dl (3.4-5.0); ALK PHOS 71 U/L (45-117); ANION GAP 7 MMOL/L (8-16); BILIRUBIN,TOTAL 0.3 mg/dL (0.2-1); BLOOD UREA NITROGEN 5.8 mg/dL (7-18); CALCIUM 9.5 mg/dL (8.5-10.1); CHLORIDE 108 mmol/L (98-107); CO2 27 mmol/L (21-32); CREATININE 0.4 mg/dL (0.55-1.3); GLUCOSE,RANDOM 86 mg/dL (74-106); LIPASE 92 U/L (73-393); POTASSIUM 4.2 mmol/L (3.5-5.1); SGOT/AST 17 U/L (15-37); SGPT/ALT 20 U/L (13-61); SODIUM 143 mmol/L (136-145); TOT PROT 7.7 g/dl (6.4-8.2)
[2020-03-24] MEDS ORDERED: ACETAMINOPHEN INJECTION 100 ML IVPB ONE (14:53)
[2020-03-24 16:41] VITALS: BP 119/66; PULSE 68; TEMP 98.5
[2020-03-24] MEDS ORDERED: LIDOCAINE PATCH REMOVAL MC SCH (22:00)
--- NOTE | 2020-03-25 09:38 | EKG ---
Test Reason : Blood Pressure : / mmHG Vent. Rate : 073 BPM Atrial Rate : 073 BPM P-R Int : 122 ms QRS Dur : 076 ms QT Int : 386 ms P-R-T Axes : 079 012 056 degrees QTc Int : 425 ms POOR DATA QUALITY, INTERPRETATION MAY BE ADVERSELY AFFECTED NORMAL SINUS RHYTHM NORMAL ECG WHEN COMPARED WITH ECG OF 13-NOV-2019 01:01, NO SIGNIFICANT CHANGE WAS FOUND Confirmed by Blanquita Mario ([id number]) on 03/25/2020 9:37:43 AM Referred By: Confirmed By:Blanquita Mario
== END 2020-03-24 17:21 | disposition home or self-care (01) ==
LOC: JER 12:02
PROC: 3E0233Z Introduction of Anti-inflammatory into Muscle, Percutaneous Approach (ICD-10-PCS; principal; 2020-03-24)
PROC: 3E033NZ Introduction of Analgesics, Hypnotics, Sedatives into Peripheral Vein, Percutaneous Approach (ICD-10-PCS; 2020-03-24)
DX: R07.89 Other chest pain (principal); M54.6 Pain in thoracic spine
CPT/HCPCS: 36415; 71046-TC-FY; 74177-TC; 80053; 81003; 82550; 83690; 84484; 85025; 93005; 93010; 99285-25; J0131; Q9967

== ENCOUNTER 2020-12-05 19:39 | Emergency (ER) | payer OTHER ==
[2020-12-05 20:10] VITALS: BMI 19.0
[2020-12-05] MEDS ORDERED: ALBUTEROL SO4 2.5/IPRATROPIUM 0.5 INH SOL 3 ML VIAL.NEB. NEB ONE ×6 (20:14→23:56)
[2020-12-05] MEDS ORDERED: predniSONE 20 MG TABLET (UD) PO ONE (20:14)
[2020-12-05] MEDS ORDERED: predniSONE 20 MG TABLET (UD) ONE (20:26)
[2020-12-05 21:26] LABS: BASO % 0.1 % (0-2.0); EOS % 1.2 % (0-4.5); HEMATOCRIT 33.9 % (32.4-45.2); HEMOGLOBIN 11.1 GM/dL (10.7-15.3); LYMPH % 27.8 % (8-40); MCH 30.8 pg (25.7-33.7); MCHC 32.7 g/dl (32.0-36.0); MEAN CELL VOLUME 94.4 fl (80-96); MEAN PLT VOLUME 9.4 fl (7.5-11.1); MONO % 5.6 % (3.8-10.2); NEUT % 65.3 % (42.8-82.8); PLATELET COUNT 175 K/MM3 (134-434); RBC 3.59 M/mm3 (3.60-5.2); RDW 13.2 % (11.6-15.6); WHITE BLOOD COUNT 5.2 K/mm3 (4.0-10.0)
[2020-12-05 21:43] LABS: CHLORIDE 106 mmol/L (98-107); POTASSIUM 3.2 mmol/L (3.5-5.1); SODIUM 139 mmol/L (136-145)
[2020-12-05 21:45] LABS: ALBUMIN 3.7 g/dl (3.4-5.0); ANION GAP 5 MMOL/L (8-16); BLOOD UREA NITROGEN 9.9 mg/dL (7-18); CO2 27 mmol/L (21-32); GLUCOSE,RANDOM 117 mg/dL (74-106)
[2020-12-05 21:48] LABS: SGOT/AST 20 U/L (15-37); SGPT/ALT 19 U/L (13-61)
[2020-12-05 21:49] LABS: CREATININE 0.4 mg/dL (0.55-1.3)
[2020-12-05 21:50] LABS: BILIRUBIN,TOTAL 0.4 mg/dL (0.2-1); TOT PROT 7.2 g/dl (6.4-8.2)
[2020-12-05 21:51] LABS: ALK PHOS 72 U/L (45-117)
[2020-12-05 23:49] VITALS: BP 122/77; PULSE 86; TEMP 98.3
== END 2020-12-05 23:58 | disposition home or self-care (01) ==
LOC: JER 19:39
PROC: 3E0F7GC Introduction of Other Therapeutic Substance into Respiratory Tract, Via Natural or Artificial Opening (ICD-10-PCS; principal; 2020-12-05)
DX: J44.1 Chronic obstructive pulmonary disease with (acute) exacerbation (principal)
CPT/HCPCS: 36415; 71045-TC-FY; 80053; 84484; 85025; 85379; 93005; 93010; 99285-25

== ENCOUNTER 2021-07-25 16:15 | Emergency (ER) | payer OTHER ==
[2021-07-25 16:24] VITALS: TEMP 97.8; BMI 25.7
[2021-07-25] MEDS ORDERED: ACETAMINOPHEN 1000 MG/100 ML VIAL IVPB ONE (17:24)
[2021-07-25] MEDS ORDERED: ACETAMINOPHEN INJECTION 100 ML IVPB ONE (18:16)
[2021-07-25 18:27] LABS: PH,URINE 6.5 (5.0-8.0); URINE APPEARANCE CLEAR; URINE BILIRUBIN NEGATIVE (NEGATIVE); URINE COLOR YELLOW; URINE GLUCOSE (UA) NEGATIVE (NEGATIVE); URINE KETONE TRACE (NEGATIVE); URINE LEUK ESTERASE NEGATIVE (NEGATIVE); URINE NITRITE NEGATIVE (NEGATIVE); URINE PROTEIN NEGATIVE (NEGATIVE); URINE UROBILINOGEN 0.2 mg/dL (0.2-1.0)
[2021-07-25 18:28] LABS: BASO % 0.4 % (0-2.0); EOS % 2.1 % (0-4.5); HEMATOCRIT 35.9 % (32.4-45.2); HEMOGLOBIN 12.3 GM/dL (10.7-15.3); LYMPH % 27.2 % (8-40); MCH 31.3 pg (25.7-33.7); MCHC 34.2 g/dl (32.0-36.0); MEAN CELL VOLUME 91.5 fl (80-96); MEAN PLT VOLUME 8.2 fl (7.5-11.1); MONO % 9.1 % (3.8-10.2); NEUT % 61.2 % (42.8-82.8); PLATELET COUNT 204 10^3/uL (134-434); RBC 3.93 M/mm3 (3.60-5.2); RDW 12.9 % (11.6-15.6); WHITE BLOOD COUNT 4.8 K/mm3 (4.0-10.0)
[2021-07-25 18:43] LABS: ALBUMIN 3.7 g/dl (3.4-5.0); BLOOD UREA NITROGEN 5.5 mg/dL (7-18); CALCIUM 8.8 mg/dL (8.5-10.1)
[2021-07-25 18:46] LABS: CREATININE 0.4 mg/dL (0.55-1.3)
[2021-07-25 18:48] LABS: BILIRUBIN,TOTAL 0.3 mg/dL (0.2-1); TOT PROT 7.6 g/dl (6.4-8.2)
[2021-07-25 23:11] VITALS: BP 148/95; PULSE 81
== END 2021-07-25 23:13 | disposition home or self-care (01) ==
LOC: JER 16:15
PROC: 3E033GC Introduction of Other Therapeutic Substance into Peripheral Vein, Percutaneous Approach (ICD-10-PCS; principal; 2021-07-25)
DX: K57.92 Diverticulitis of intestine, part unspecified, without perforation or abscess without bleeding (principal)
CPT/HCPCS: 36415; 74177-TC; 80053; 81003; 83605; 83690; 85025; 87086; 99285-25; C9803; J0131; Q9967; U0003; U0005

== ENCOUNTER 2021-11-15 08:30 | Inpatient (IN) | payer OTHER ==
[2021-11-15] MEDS ORDERED: methylPREDNISolone NA SUCC 125 MG/2 ML VIAL IVPB ONE (09:00)
[2021-11-15] MEDS ORDERED: CEFTRIAXONE 1 GM in DEXTROSE 5%-WATER - 50 ML IVPB ONE (09:03)
[2021-11-15] MEDS ORDERED: methylPREDNISolone NA SUCC 125 MG/2 ML VIAL ONE (09:21)
[2021-11-15] MEDS ORDERED: CEFTRIAXONE 1 GM/50 ML BAG ONE (09:21)
[2021-11-15] MEDS ORDERED: ACETAMINOPHEN 1000 MG/100 ML BAG IVPB ONE (09:22)
[2021-11-15] MEDS ORDERED: ACETAMINOPHEN INJECTION 100 ML IVPB ONE (09:23)
[2021-11-15 09:47] LABS: BASO % 0.4 % (0-2.0); EOS % 0.1 % (0-4.5); HEMATOCRIT 37.5 % (32.4-45.2); HEMOGLOBIN 12.6 GM/dL (10.7-15.3); LYMPH % 13.6 % (8-40); MCH 31.3 pg (25.7-33.7); MCHC 33.7 g/dl (32.0-36.0); MEAN CELL VOLUME 92.8 fl (80-96); MEAN PLT VOLUME 8.6 fl (7.5-11.1); MONO % 10.8 % (3.8-10.2); NEUT % 75.1 % (42.8-82.8); PLATELET COUNT 164 10^3/uL (134-434); RBC 4.04 M/mm3 (3.60-5.2); RDW 12.8 % (11.6-15.6); VENOUS BASE EXCESS -4.3 mmol/L (-2-2); VENOUS O2 SATURATION 70.8 % (70-80); VENOUS PCO2 46.8 mmHg (38-52); VENOUS PH 7.296 (7.310-7.410); WHITE BLOOD COUNT 4.4 K/mm3 (4.0-10.0)
[2021-11-15 09:54] LABS: INR 0.98 (0.83-1.09); PROTHROMBIN TIME (PATIENT) 11.3 SEC (9.7-13.0)
[2021-11-15 09:57] LABS: ACTIVATED PTT 30.5 SECONDS (25.2-36.5)
[2021-11-15 10:05] LABS: CHLORIDE 102 mmol/L (98-107); SODIUM 136 mmol/L (136-145)
[2021-11-15 10:07] LABS: CALCIUM 8.8 mg/dL (8.5-10.1)
[2021-11-15 10:08] LABS: ALBUMIN 3.7 g/dl (3.4-5.0); ANION GAP 8 MMOL/L (8-16); BLOOD UREA NITROGEN 7.3 mg/dL (7-18); CO2 25 mmol/L (21-32); GLUCOSE,RANDOM 110 mg/dL (74-106)
[2021-11-15 10:11] LABS: CREATININE 0.4 mg/dL (0.55-1.3); SGOT/AST 44 U/L (15-37); SGPT/ALT 27 U/L (13-61)
[2021-11-15 10:12] LABS: BILIRUBIN,TOTAL 0.2 mg/dL (0.2-1)
[2021-11-15 10:14] LABS: ALK PHOS 79 U/L (45-117)
[2021-11-15] MEDS ORDERED: AZITHROMYCIN IVPB 500 MG/250 ML BAG IVPB ONE (11:57)
[2021-11-15] MEDS: AZITHROMYCIN IVPB 500 MG in DEXTROSE 5%-WATER - 250 ML IVPB SCH (12:24)
[2021-11-15] MEDS: ALBUTEROL SO4 2.5/IPRATROPIUM 0.5 INH SOL 3 ML VIAL.NEB. NEB SCH ×3 (12:26→20:10)
[2021-11-15] MEDS: LACTATED RINGERS SOLUTION 1,000 ML/1,000 ML INFUS.BAG IV SCH ×2 (12:27→17:22)
[2021-11-15] MEDS ORDERED: BUDESONIDE/FORMETEROL FUMARATE 160/4.5 mcg INHALER IH ONE (13:00)
[2021-11-15 14:34] LABS: PH,URINE 5.5 (5.0-8.0); URINE APPEARANCE CLEAR; URINE BILIRUBIN NEGATIVE (NEGATIVE); URINE COLOR YELLOW; URINE GLUCOSE (UA) 2+ (NEGATIVE); URINE KETONE 2+ (NEGATIVE); URINE LEUK ESTERASE NEGATIVE (NEGATIVE); URINE NITRITE NEGATIVE (NEGATIVE); URINE PROTEIN NEGATIVE (NEGATIVE); URINE UROBILINOGEN 0.2 mg/dL (0.2-1.0)
[2021-11-15 17:03] VITALS: BMI 21.7
[2021-11-15] MEDS: methylPREDNISolone NA SUCC 40 MG/1 ML VIAL IVPB SCH (17:22)
[2021-11-15] MEDS ORDERED: MELATONIN 5 MG TABLETS PO ONE (19:52)
[2021-11-15] MEDS: ACETAMINOPHEN 325 MG TABLET (FP) PO PRN (21:41)
[2021-11-15] MEDS ORDERED: HEPARIN NA (PORCINE) 5,000 UNITS/ML 1ML VIAL SQ SCH (22:00)
[2021-11-15] MEDS ORDERED: ATORVASTATIN CA 10 MG TABLET (FP) PO SCH (22:00)
[2021-11-16] MEDS: LACTATED RINGERS SOLUTION 1,000 ML/1,000 ML INFUS.BAG IV SCH ×2 (01:05→15:22)
[2021-11-16] MEDS: methylPREDNISolone NA SUCC 40 MG/1 ML VIAL IVPB SCH ×4 (01:06→21:16)
[2021-11-16] MEDS: ALBUTEROL SO4 2.5/IPRATROPIUM 0.5 INH SOL 3 ML VIAL.NEB. NEB SCH ×5 (07:45→20:19)
[2021-11-16 08:32] LABS: HEMATOCRIT 36.4 % (32.4-45.2); LYMPH % 12.6 % (8-40); MCH 31.1 pg (25.7-33.7); MEAN CELL VOLUME 94.4 fl (80-96); MEAN PLT VOLUME 8.7 fl (7.5-11.1); MONO % 6.1 % (3.8-10.2); NEUT % 81.3 % (42.8-82.8); PLATELET COUNT 185 10^3/uL (134-434); RBC 3.86 M/mm3 (3.60-5.2); RDW 12.5 % (11.6-15.6); WHITE BLOOD COUNT 4.2 K/mm3 (4.0-10.0)
[2021-11-16 08:56] LABS: CALCIUM 8.9 mg/dL (8.5-10.1)
[2021-11-16 08:57] LABS: ALBUMIN 3.4 g/dl (3.4-5.0); BLOOD UREA NITROGEN 6.9 mg/dL (7-18)
[2021-11-16 09:00] LABS: CREATININE 0.4 mg/dL (0.55-1.3)
[2021-11-16 09:01] LABS: TOT PROT 7.5 g/dl (6.4-8.2)
[2021-11-16 09:02] LABS: BILIRUBIN,TOTAL 0.3 mg/dL (0.2-1)
[2021-11-16] MEDS ORDERED: cefTRIAXone SODIUM 1 GM VIAL ONE (09:13)
[2021-11-16] MEDS ORDERED: DEXTROSE 5%-WATER - 50 ML IVPB ONE (09:13)
[2021-11-16] MEDS: ROFLUMILAST 500 MCG TABLET PO SCH (09:50)
[2021-11-16] MEDS: CEFTRIAXONE 1 GM in DEXTROSE 5%-WATER - 50 ML IVPB SCH (09:50)
[2021-11-16] MEDS ORDERED: ALBUTEROL SO4 HFA INHALER IH PRN (10:25)
[2021-11-16] MEDS ORDERED: methylPREDNISolone NA SUCC 40 MG/1 ML VIAL IVPB SCH ×2 (10:26→11:30)
[2021-11-16] MEDS: AZITHROMYCIN IVPB 500 MG in DEXTROSE 5%-WATER - 250 ML IVPB SCH (10:29)
[2021-11-16] MEDS: TIOTROPIUM BROMIDE 2.5 MCG (SPIRIVA) RESPIMAT INHALER IH SCH (10:43)
[2021-11-16] MEDS ORDERED: ALBUTEROL SO4 2.5/IPRATROPIUM 0.5 INH SOL 3 ML VIAL.NEB. NEB ONE (11:18)
[2021-11-16] MEDS ORDERED: BENZOCAINE/MENTH/CETYLPYRD CL 1 EACH LOZENGE MM PRN (21:51)
[2021-11-17] MEDS: methylPREDNISolone NA SUCC 40 MG/1 ML VIAL IVPB SCH ×4 (02:26→21:46)
[2021-11-17] MEDS: guaiFENesin/D-METHORPHAN HB 10 ML UNIT-DOSE CUPS PO PRN ×2 (07:02→12:45)
[2021-11-17] MEDS: ALBUTEROL SO4 2.5/IPRATROPIUM 0.5 INH SOL 3 ML VIAL.NEB. NEB SCH ×4 (07:20→21:06)
[2021-11-17] MEDS ORDERED: cefTRIAXone SODIUM 1 GM VIAL ONE (09:12)
[2021-11-17] MEDS ORDERED: DEXTROSE 5%-WATER - 50 ML IVPB ONE (09:12)
[2021-11-17 09:24] LABS: BASO % 0.2 % (0-2.0); HEMATOCRIT 37.8 % (32.4-45.2); HEMOGLOBIN 12.5 GM/dL (10.7-15.3); LYMPH % 12.7 % (8-40); MCH 30.9 pg (25.7-33.7); MCHC 33.1 g/dl (32.0-36.0); MEAN CELL VOLUME 93.5 fl (80-96); MONO % 5.3 % (3.8-10.2); NEUT % 81.8 % (42.8-82.8); PLATELET COUNT 186 10^3/uL (134-434); RBC 4.05 M/mm3 (3.60-5.2); RDW 12.8 % (11.6-15.6); WHITE BLOOD COUNT 4.5 K/mm3 (4.0-10.0)
[2021-11-17] MEDS: CEFTRIAXONE 1 GM in DEXTROSE 5%-WATER - 50 ML IVPB SCH (09:28)
[2021-11-17] MEDS: ROFLUMILAST 500 MCG TABLET PO SCH (09:28)
[2021-11-17] MEDS: TIOTROPIUM BROMIDE 2.5 MCG (SPIRIVA) RESPIMAT INHALER IH SCH (09:29)
[2021-11-17 09:52] LABS: ALBUMIN 3.6 g/dl (3.4-5.0); CALCIUM 9.3 mg/dL (8.5-10.1)
[2021-11-17 09:53] LABS: MAGNESIUM 2.7 mg/dL (1.8-2.4)
[2021-11-17 09:54] LABS: TOT PROT 7.9 g/dl (6.4-8.2)
[2021-11-17 09:55] LABS: BILIRUBIN,TOTAL 0.3 mg/dL (0.2-1); CREATININE 0.4 mg/dL (0.55-1.3); PHOSPHOROUS 4.1 mg/dL (2.5-4.9)
[2021-11-17 09:59] LABS: ARTERIAL BLD GAS O2 SATURATION 97.3 % (95-98); ARTERIAL BLOOD GAS BASE EXCESS 1.7 mmol/L (-2-2); ARTERIAL BLOOD GAS PO2 101.7 mmHg (80-100); ARTERIAL BLOOD GAS pH 7.348 (7.350-7.450)
[2021-11-17 10:08] LABS: ALLENS TEST POSITIVE
[2021-11-17] MEDS: LACTATED RINGERS SOLUTION 1,000 ML/1,000 ML INFUS.BAG IV SCH (10:31)
[2021-11-17] MEDS: AZITHROMYCIN IVPB 500 MG in DEXTROSE 5%-WATER - 250 ML IVPB SCH (10:31)
[2021-11-17] MEDS: INSULIN SLIDING SCALE (NOVOLOG) 1 VIAL SQ SCH ×2 (17:43→22:01)
[2021-11-17] MEDS: THIAMINE HCL 100 MG TABLET (FP) PO SCH (17:44)
[2021-11-17] MEDS: PANTOPRAZOLE SODIUM 40 MG VIAL IVPUSH SCH (17:44)
[2021-11-17 18:07] LABS: SARS-CoV-2 NAA Not Detected (Not Detected)
[2021-11-17] MEDS ORDERED: LORazepam 0.5 MG TABLET PO ONE (20:34)
[2021-11-17] MEDS: HEPARIN NA (PORCINE) 5,000 UNITS/ML 1ML VIAL SQ SCH (21:46)
[2021-11-17] MEDS: ATORVASTATIN CA 40 MG TABLET (FP) PO SCH (21:47)
[2021-11-17] MEDS: MELATONIN 5 MG TABLETS PO SCH (21:47)
[2021-11-18] MEDS: guaiFENesin/D-METHORPHAN HB 10 ML UNIT-DOSE CUPS PO PRN (04:30)
[2021-11-18] MEDS: methylPREDNISolone NA SUCC 40 MG/1 ML VIAL IVPB SCH ×4 (04:34→21:20)
[2021-11-18] MEDS: ACETAMINOPHEN 325 MG TABLET (FP) PO PRN ×2 (05:54→21:20)
[2021-11-18] MEDS: HEPARIN NA (PORCINE) 5,000 UNITS/ML 1ML VIAL SQ SCH ×4 (05:55→21:25)
[2021-11-18] MEDS: INSULIN SLIDING SCALE (NOVOLOG) 1 VIAL SQ SCH ×4 (06:06→21:31)
[2021-11-18] MEDS ORDERED: guaiFENesin/D-METHORPHAN HB 10 ML UNIT-DOSE CUPS PO PRN (07:16)
[2021-11-18] MEDS ORDERED: ALBUTEROL SO4 HFA INHALER IH PRN (07:16)
[2021-11-18 07:36] LABS: HEMATOCRIT 32.4 % (32.4-45.2); HEMOGLOBIN 10.8 GM/dL (10.7-15.3); LYMPH % 13.9 % (8-40); MCH 31.5 pg (25.7-33.7); MCHC 33.4 g/dl (32.0-36.0); MEAN CELL VOLUME 94.3 fl (80-96); MEAN PLT VOLUME 8.7 fl (7.5-11.1); MONO % 9.9 % (3.8-10.2); NEUT % 76.2 % (42.8-82.8); PLATELET COUNT 192 10^3/uL (134-434); RBC 3.44 M/mm3 (3.60-5.2); RDW 12.5 % (11.6-15.6)
[2021-11-18] MEDS: ALBUTEROL SO4 2.5/IPRATROPIUM 0.5 INH SOL 3 ML VIAL.NEB. NEB SCH ×4 (07:42→20:10)
[2021-11-18 08:04] LABS: ALBUMIN 2.9 g/dl (3.4-5.0); BLOOD UREA NITROGEN 11.5 mg/dL (7-18); CALCIUM 8.8 mg/dL (8.5-10.1); MAGNESIUM 2.6 mg/dL (1.8-2.4)
[2021-11-18 08:06] LABS: CREATININE 0.4 mg/dL (0.55-1.3); PHOSPHOROUS 3.3 mg/dL (2.5-4.9)
[2021-11-18 08:07] LABS: BILIRUBIN,TOTAL 0.3 mg/dL (0.2-1); TOT PROT 6.4 g/dl (6.4-8.2)
[2021-11-18 08:22] LABS: WHITE BLOOD COUNT 3.8 K/mm3 (4.0-10.0)
[2021-11-18] MEDS: LACTATED RINGERS SOLUTION 1,000 ML/1,000 ML INFUS.BAG IV SCH (09:15)
[2021-11-18] MEDS: TIOTROPIUM BROMIDE 2.5 MCG (SPIRIVA) RESPIMAT INHALER IH SCH (09:16)
[2021-11-18] MEDS: PANTOPRAZOLE SODIUM 40 MG VIAL IVPUSH SCH (09:16)
[2021-11-18] MEDS: THIAMINE HCL 100 MG TABLET (FP) PO SCH (09:16)
[2021-11-18] MEDS: ROFLUMILAST 500 MCG TABLET PO SCH (09:17)
[2021-11-18] MEDS: AZITHROMYCIN IVPB 500 MG in DEXTROSE 5%-WATER - 250 ML IVPB SCH (09:19)
[2021-11-18] MEDS: BENZOCAINE/MENTH/CETYLPYRD CL 1 EACH LOZENGE MM PRN (17:24)
[2021-11-18] MEDS ORDERED: DEXTROSE 5%-WATER - 50 ML IVPB ONE (18:48)
[2021-11-18] MEDS ORDERED: cefTRIAXone SODIUM 1 GM VIAL ONE (18:48)
[2021-11-18] MEDS: CEFTRIAXONE 1 GM in DEXTROSE 5%-WATER - 50 ML IVPB SCH (18:50)
[2021-11-18] MEDS: ATORVASTATIN CA 40 MG TABLET (FP) PO SCH (21:20)
[2021-11-18] MEDS: guaiFENesin 600 MG TABLET.ER (FP) PO SCH (21:20)
[2021-11-18] MEDS: MELATONIN 5 MG TABLETS PO SCH (21:20)
[2021-11-19] MEDS: methylPREDNISolone NA SUCC 40 MG/1 ML VIAL IVPB SCH ×4 (04:00→21:35)
[2021-11-19] MEDS: INSULIN SLIDING SCALE (NOVOLOG) 1 VIAL SQ SCH ×4 (06:08→21:36)
[2021-11-19] MEDS: HEPARIN NA (PORCINE) 5,000 UNITS/ML 1ML VIAL SQ SCH ×3 (06:08→21:36)
[2021-11-19 07:36] LABS: HEMATOCRIT 34.9 % (32.4-45.2); HEMOGLOBIN 11.7 GM/dL (10.7-15.3); LYMPH % 15.5 % (8-40); MCH 31.5 pg (25.7-33.7); MCHC 33.5 g/dl (32.0-36.0); MEAN CELL VOLUME 94.2 fl (80-96); MEAN PLT VOLUME 8.4 fl (7.5-11.1); MONO % 10.7 % (3.8-10.2); NEUT % 73.8 % (42.8-82.8); PLATELET COUNT 190 10^3/uL (134-434); RBC 3.71 M/mm3 (3.60-5.2); RDW 12.3 % (11.6-15.6); WHITE BLOOD COUNT 3.7 K/mm3 (4.0-10.0)
[2021-11-19 07:54] LABS: BLOOD UREA NITROGEN 11.3 mg/dL (7-18); CALCIUM 8.4 mg/dL (8.5-10.1)
[2021-11-19 07:57] LABS: MAGNESIUM 2.6 mg/dL (1.8-2.4); PHOSPHOROUS 3.6 mg/dL (2.5-4.9)
[2021-11-19 08:01] LABS: BILIRUBIN,TOTAL 0.2 mg/dL (0.2-1); TOT PROT 6.4 g/dl (6.4-8.2)
[2021-11-19 08:02] LABS: CREATININE 0.3 mg/dL (0.55-1.3)
[2021-11-19] MEDS ORDERED: cefTRIAXone SODIUM 1 GM VIAL ONE (08:09)
[2021-11-19] MEDS ORDERED: DEXTROSE 5%-WATER - 50 ML IVPB ONE (08:10)
[2021-11-19] MEDS: ALBUTEROL SO4 2.5/IPRATROPIUM 0.5 INH SOL 3 ML VIAL.NEB. NEB SCH (08:12)
[2021-11-19] MEDS: guaiFENesin 600 MG TABLET.ER (FP) PO SCH ×2 (09:30→21:35)
[2021-11-19] MEDS: PANTOPRAZOLE SODIUM 40 MG VIAL IVPUSH SCH (09:30)
[2021-11-19] MEDS: THIAMINE HCL 100 MG TABLET (FP) PO SCH (09:30)
[2021-11-19] MEDS: CEFTRIAXONE 1 GM in DEXTROSE 5%-WATER - 50 ML IVPB SCH (09:31)
[2021-11-19] MEDS: LACTATED RINGERS SOLUTION 1,000 ML/1,000 ML INFUS.BAG IV SCH (09:31)
[2021-11-19] MEDS: TIOTROPIUM BROMIDE 2.5 MCG (SPIRIVA) RESPIMAT INHALER IH SCH (09:32)
[2021-11-19] MEDS: ROFLUMILAST 500 MCG TABLET PO SCH (09:34)
[2021-11-19] MEDS: BUDESONIDE/FORMETEROL FUMARATE 160/4.5 mcg INHALER IH SCH ×2 (11:17→21:37)
[2021-11-19] MEDS: AZITHROMYCIN IVPB 500 MG in DEXTROSE 5%-WATER - 250 ML IVPB SCH (11:17)
[2021-11-19] MEDS: ACETAMINOPHEN 325 MG TABLET (FP) PO PRN ×2 (14:02→21:37)
[2021-11-19] MEDS: MELATONIN 5 MG TABLETS PO SCH (21:35)
[2021-11-19] MEDS: ATORVASTATIN CA 40 MG TABLET (FP) PO SCH (21:35)
[2021-11-19] MEDS: guaiFENesin/CODEINE 10 ML UNIT-DOSE CUPS PO PRN (21:36)
[2021-11-20] MEDS: methylPREDNISolone NA SUCC 40 MG/1 ML VIAL IVPB SCH ×4 (03:00→22:02)
[2021-11-20] MEDS: INSULIN SLIDING SCALE (NOVOLOG) 1 VIAL SQ SCH ×4 (06:34→22:02)
[2021-11-20] MEDS: HEPARIN NA (PORCINE) 5,000 UNITS/ML 1ML VIAL SQ SCH ×3 (06:34→22:00)
[2021-11-20] MEDS: LACTATED RINGERS SOLUTION 1,000 ML/1,000 ML INFUS.BAG IV SCH (06:35)
[2021-11-20 06:57] LABS: BASO % 0.1 % (0-2.0); HEMATOCRIT 35.1 % (32.4-45.2); HEMOGLOBIN 11.6 GM/dL (10.7-15.3); LYMPH % 21.2 % (8-40); MCH 31.1 pg (25.7-33.7); MEAN PLT VOLUME 8.9 fl (7.5-11.1); MONO % 9.1 % (3.8-10.2); NEUT % 69.6 % (42.8-82.8); PLATELET COUNT 223 10^3/uL (134-434); RBC 3.73 M/mm3 (3.60-5.2); RDW 12.2 % (11.6-15.6); WHITE BLOOD COUNT 3.7 K/mm3 (4.0-10.0)
[2021-11-20 07:13] LABS: ALBUMIN 2.9 g/dl (3.4-5.0); BLOOD UREA NITROGEN 11.6 mg/dL (7-18); CALCIUM 8.6 mg/dL (8.5-10.1)
[2021-11-20 07:16] LABS: CREATININE 0.4 mg/dL (0.55-1.3)
[2021-11-20 07:18] LABS: BILIRUBIN,TOTAL 0.3 mg/dL (0.2-1); TOT PROT 6.3 g/dl (6.4-8.2)
[2021-11-20] MEDS: ALBUTEROL SO4 0.083% IH SOL 2.5 MG/3 ML VIAL.NEB. NEB PRN ×3 (08:00→20:10)
[2021-11-20] MEDS ORDERED: cefTRIAXone SODIUM 1 GM VIAL ONE (09:12)
[2021-11-20] MEDS ORDERED: DEXTROSE 5%-WATER - 50 ML IVPB ONE (09:13)
[2021-11-20] MEDS: CEFTRIAXONE 1 GM in DEXTROSE 5%-WATER - 50 ML IVPB SCH (09:40)
[2021-11-20] MEDS: guaiFENesin 600 MG TABLET.ER (FP) PO SCH ×2 (09:41→22:02)
[2021-11-20] MEDS: PANTOPRAZOLE SODIUM 40 MG VIAL IVPUSH SCH (09:41)
[2021-11-20] MEDS: THIAMINE HCL 100 MG TABLET (FP) PO SCH (09:41)
[2021-11-20] MEDS: TIOTROPIUM BROMIDE 2.5 MCG (SPIRIVA) RESPIMAT INHALER IH SCH (09:42)
[2021-11-20] MEDS: ROFLUMILAST 500 MCG TABLET PO SCH (09:42)
[2021-11-20] MEDS: BUDESONIDE/FORMETEROL FUMARATE 160/4.5 mcg INHALER IH SCH ×2 (09:42→22:03)
[2021-11-20] MEDS: AZITHROMYCIN IVPB 500 MG in DEXTROSE 5%-WATER - 250 ML IVPB SCH (10:02)
[2021-11-20] MEDS: ANASTROZOLE 1 MG TABLET PO SCH (12:36)
[2021-11-20] MEDS: ACETAMINOPHEN 325 MG TABLET (FP) PO PRN (13:47)
[2021-11-20] MEDS: ATORVASTATIN CA 40 MG TABLET (FP) PO SCH (22:02)
[2021-11-20] MEDS: MELATONIN 5 MG TABLETS PO SCH (22:02)
[2021-11-21] MEDS: methylPREDNISolone NA SUCC 40 MG/1 ML VIAL IVPB SCH ×3 (04:15→17:50)
[2021-11-21] MEDS: ACETAMINOPHEN 325 MG TABLET (FP) PO PRN (04:20)
[2021-11-21] MEDS: HEPARIN NA (PORCINE) 5,000 UNITS/ML 1ML VIAL SQ SCH ×3 (06:46→22:29)
[2021-11-21] MEDS: INSULIN SLIDING SCALE (NOVOLOG) 1 VIAL SQ SCH ×4 (06:46→22:30)
[2021-11-21 08:26] LABS: BASO % 0.1 % (0-2.0); HEMATOCRIT 35.2 % (32.4-45.2); HEMOGLOBIN 11.8 GM/dL (10.7-15.3); LYMPH % 10.7 % (8-40); MCH 31.3 pg (25.7-33.7); MCHC 33.5 g/dl (32.0-36.0); MEAN CELL VOLUME 93.5 fl (80-96); MEAN PLT VOLUME 8.6 fl (7.5-11.1); MONO % 4.7 % (3.8-10.2); NEUT % 84.5 % (42.8-82.8); PLATELET COUNT 230 10^3/uL (134-434); RBC 3.76 M/mm3 (3.60-5.2); RDW 12.2 % (11.6-15.6); WHITE BLOOD COUNT 4.2 K/mm3 (4.0-10.0)
[2021-11-21] MEDS ORDERED: cefTRIAXone SODIUM 1 GM VIAL ONE (08:35)
[2021-11-21] MEDS ORDERED: DEXTROSE 5%-WATER - 50 ML IVPB ONE (08:35)
[2021-11-21 08:42] LABS: BLOOD UREA NITROGEN 11.5 mg/dL (7-18); CALCIUM 8.3 mg/dL (8.5-10.1)
[2021-11-21 08:45] LABS: CREATININE 0.4 mg/dL (0.55-1.3)
[2021-11-21 08:46] LABS: BILIRUBIN,TOTAL 0.2 mg/dL (0.2-1); TOT PROT 6.2 g/dl (6.4-8.2)
[2021-11-21] MEDS: CEFTRIAXONE 1 GM in DEXTROSE 5%-WATER - 50 ML IVPB SCH (09:49)
[2021-11-21] MEDS: PANTOPRAZOLE SODIUM 40 MG VIAL IVPUSH SCH (09:50)
[2021-11-21] MEDS: guaiFENesin 600 MG TABLET.ER (FP) PO SCH ×2 (10:10→22:29)
[2021-11-21] MEDS: THIAMINE HCL 100 MG TABLET (FP) PO SCH (10:11)
[2021-11-21] MEDS: AZITHROMYCIN IVPB 500 MG in DEXTROSE 5%-WATER - 250 ML IVPB SCH (10:12)
[2021-11-21] MEDS: ANASTROZOLE 1 MG TABLET PO SCH (10:21)
[2021-11-21] MEDS: ROFLUMILAST 500 MCG TABLET PO SCH (10:21)
[2021-11-21] MEDS ORDERED: POLYETHYLENE GLYCOL (HEALTHYLAX) 3350 17 GM PACKET PO ONE (11:38)
[2021-11-21] MEDS ORDERED: SENNOSIDES 8.6MG TABLET (FP) PO ONE (11:38)
[2021-11-21] MEDS: TIOTROPIUM BROMIDE 2.5 MCG (SPIRIVA) RESPIMAT INHALER IH SCH (12:11)
[2021-11-21] MEDS: BUDESONIDE/FORMETEROL FUMARATE 160/4.5 mcg INHALER IH SCH ×2 (12:11→22:35)
[2021-11-21] MEDS: AZITHROMYCIN 250 MG TABLET PO SCH (13:05)
[2021-11-21] MEDS: ATORVASTATIN CA 40 MG TABLET (FP) PO SCH (22:29)
[2021-11-21] MEDS: MELATONIN 5 MG TABLETS PO SCH (22:29)
[2021-11-21] MEDS: guaiFENesin/CODEINE 10 ML UNIT-DOSE CUPS PO PRN (22:38)
[2021-11-22] MEDS: methylPREDNISolone NA SUCC 40 MG/1 ML VIAL IVPB SCH ×3 (02:58→17:23)
[2021-11-22] MEDS: HEPARIN NA (PORCINE) 5,000 UNITS/ML 1ML VIAL SQ SCH ×3 (06:05→21:45)
[2021-11-22] MEDS: INSULIN SLIDING SCALE (NOVOLOG) 1 VIAL SQ SCH ×4 (06:05→21:45)
[2021-11-22 07:41] LABS: BASO % 0.2 % (0-2.0); HEMOGLOBIN 12.3 GM/dL (10.7-15.3); LYMPH % 14.8 % (8-40); MCH 30.9 pg (25.7-33.7); MCHC 33.3 g/dl (32.0-36.0); MEAN CELL VOLUME 92.8 fl (80-96); MEAN PLT VOLUME 8.6 fl (7.5-11.1); MONO % 5.1 % (3.8-10.2); NEUT % 79.9 % (42.8-82.8); PLATELET COUNT 296 10^3/uL (134-434); RBC 3.99 M/mm3 (3.60-5.2); RDW 12.2 % (11.6-15.6); WHITE BLOOD COUNT 4.4 K/mm3 (4.0-10.0)
[2021-11-22 07:42] LABS: ALBUMIN 3.1 g/dl (3.4-5.0); BLOOD UREA NITROGEN 10.4 mg/dL (7-18); CALCIUM 8.5 mg/dL (8.5-10.1)
[2021-11-22 07:45] LABS: CREATININE 0.3 mg/dL (0.55-1.3)
[2021-11-22 07:47] LABS: BILIRUBIN,TOTAL 0.4 mg/dL (0.2-1); TOT PROT 6.4 g/dl (6.4-8.2)
[2021-11-22] MEDS ORDERED: DEXTROSE 5%-WATER - 50 ML IVPB ONE (09:27)
[2021-11-22] MEDS ORDERED: cefTRIAXone SODIUM 1 GM VIAL ONE (09:27)
[2021-11-22] MEDS: ANASTROZOLE 1 MG TABLET PO SCH (09:56)
[2021-11-22] MEDS: PANTOPRAZOLE SODIUM 40 MG VIAL IVPUSH SCH (09:56)
[2021-11-22] MEDS: ROFLUMILAST 500 MCG TABLET PO SCH (09:56)
[2021-11-22] MEDS: CEFTRIAXONE 1 GM in DEXTROSE 5%-WATER - 50 ML IVPB SCH (09:57)
[2021-11-22] MEDS: guaiFENesin 600 MG TABLET.ER (FP) PO SCH ×2 (09:57→21:44)
[2021-11-22] MEDS: AZITHROMYCIN 250 MG TABLET PO SCH (09:57)
[2021-11-22] MEDS: THIAMINE HCL 100 MG TABLET (FP) PO SCH (09:57)
[2021-11-22] MEDS: BUDESONIDE/FORMETEROL FUMARATE 160/4.5 mcg INHALER IH SCH ×2 (09:58→21:50)
[2021-11-22] MEDS: TIOTROPIUM BROMIDE 2.5 MCG (SPIRIVA) RESPIMAT INHALER IH SCH (10:03)
[2021-11-22] MEDS: guaiFENesin/CODEINE 10 ML UNIT-DOSE CUPS PO PRN ×2 (10:26→17:20)
[2021-11-22] MEDS ORDERED: FAMOTIDINE 20 MG TABLET PO ONE (18:17)
[2021-11-22] MEDS: ATORVASTATIN CA 40 MG TABLET (FP) PO SCH (21:44)
[2021-11-22] MEDS: MELATONIN 5 MG TABLETS PO SCH (21:44)
[2021-11-23] MEDS: methylPREDNISolone NA SUCC 40 MG/1 ML VIAL IVPB SCH ×3 (01:58→18:25)
[2021-11-23] MEDS: INSULIN SLIDING SCALE (NOVOLOG) 1 VIAL SQ SCH ×4 (06:09→22:02)
[2021-11-23] MEDS: HEPARIN NA (PORCINE) 5,000 UNITS/ML 1ML VIAL SQ SCH ×3 (06:09→22:01)
[2021-11-23 07:40] LABS: ALBUMIN 3.3 g/dl (3.4-5.0); BLOOD UREA NITROGEN 13.1 mg/dL (7-18); CALCIUM 9.1 mg/dL (8.5-10.1)
[2021-11-23 07:43] LABS: CREATININE 0.4 mg/dL (0.55-1.3)
[2021-11-23 07:45] LABS: BILIRUBIN,TOTAL 0.3 mg/dL (0.2-1); TOT PROT 6.7 g/dl (6.4-8.2)
[2021-11-23] MEDS ORDERED: cefTRIAXone SODIUM 1 GM VIAL ONE (09:21)
[2021-11-23] MEDS ORDERED: DEXTROSE 5%-WATER - 50 ML IVPB ONE (09:21)
[2021-11-23] MEDS: ROFLUMILAST 500 MCG TABLET PO SCH (10:01)
[2021-11-23] MEDS: ANASTROZOLE 1 MG TABLET PO SCH (10:02)
[2021-11-23] MEDS: PANTOPRAZOLE SODIUM 40 MG VIAL IVPUSH SCH (10:04)
[2021-11-23] MEDS: CEFTRIAXONE 1 GM in DEXTROSE 5%-WATER - 50 ML IVPB SCH (10:04)
[2021-11-23] MEDS: THIAMINE HCL 100 MG TABLET (FP) PO SCH (10:06)
[2021-11-23] MEDS: guaiFENesin 600 MG TABLET.ER (FP) PO SCH ×2 (10:06→22:01)
[2021-11-23] MEDS: AZITHROMYCIN 250 MG TABLET PO SCH (10:06)
[2021-11-23] MEDS: BUDESONIDE/FORMETEROL FUMARATE 160/4.5 mcg INHALER IH SCH ×2 (10:07→22:02)
[2021-11-23] MEDS: TIOTROPIUM BROMIDE 2.5 MCG (SPIRIVA) RESPIMAT INHALER IH SCH (10:07)
[2021-11-23] MEDS: ALBUTEROL SO4 0.083% IH SOL 2.5 MG/3 ML VIAL.NEB. NEB SCH ×3 (11:45→20:42)
[2021-11-23] MEDS: MELATONIN 5 MG TABLETS PO SCH (22:01)
[2021-11-23] MEDS: ATORVASTATIN CA 40 MG TABLET (FP) PO SCH (22:01)
[2021-11-23] MEDS: guaiFENesin/CODEINE 10 ML UNIT-DOSE CUPS PO PRN (22:03)
[2021-11-24] MEDS: methylPREDNISolone NA SUCC 40 MG/1 ML VIAL IVPB SCH ×3 (01:07→18:07)
[2021-11-24] MEDS: HEPARIN NA (PORCINE) 5,000 UNITS/ML 1ML VIAL SQ SCH ×3 (06:38→22:03)
[2021-11-24] MEDS: INSULIN SLIDING SCALE (NOVOLOG) 1 VIAL SQ SCH ×4 (06:38→21:44)
[2021-11-24] MEDS: ALBUTEROL SO4 0.083% IH SOL 2.5 MG/3 ML VIAL.NEB. NEB SCH ×4 (07:50→20:13)
[2021-11-24] MEDS: ACETAMINOPHEN 325 MG TABLET (FP) PO PRN ×2 (07:55→18:07)
[2021-11-24] MEDS ORDERED: cefTRIAXone SODIUM 1 GM VIAL ONE (09:37)
[2021-11-24] MEDS ORDERED: DEXTROSE 5%-WATER - 50 ML IVPB ONE (09:37)
[2021-11-24] MEDS: PANTOPRAZOLE SODIUM 40 MG VIAL IVPUSH SCH (09:47)
[2021-11-24] MEDS: CEFTRIAXONE 1 GM in DEXTROSE 5%-WATER - 50 ML IVPB SCH (09:48)
[2021-11-24] MEDS: THIAMINE HCL 100 MG TABLET (FP) PO SCH (09:48)
[2021-11-24] MEDS: ANASTROZOLE 1 MG TABLET PO SCH (09:49)
[2021-11-24] MEDS: ROFLUMILAST 500 MCG TABLET PO SCH (09:49)
[2021-11-24] MEDS: MULTIVITAMINS (DAILY MVI) TABLET (FP) PO SCH (09:49)
[2021-11-24] MEDS: AZITHROMYCIN 250 MG TABLET PO SCH (09:49)
[2021-11-24] MEDS: guaiFENesin 600 MG TABLET.ER (FP) PO SCH ×2 (09:49→21:44)
[2021-11-24] MEDS: BUDESONIDE/FORMETEROL FUMARATE 160/4.5 mcg INHALER IH SCH ×2 (09:50→21:47)
[2021-11-24] MEDS: TIOTROPIUM BROMIDE 2.5 MCG (SPIRIVA) RESPIMAT INHALER IH SCH (09:50)
[2021-11-24] MEDS: ATORVASTATIN CA 40 MG TABLET (FP) PO SCH (21:43)
[2021-11-24] MEDS: MELATONIN 5 MG TABLETS PO SCH (21:44)
[2021-11-25] MEDS: methylPREDNISolone NA SUCC 40 MG/1 ML VIAL IVPB SCH ×3 (01:26→17:35)
[2021-11-25] MEDS: HEPARIN NA (PORCINE) 5,000 UNITS/ML 1ML VIAL SQ SCH ×3 (05:54→21:48)
[2021-11-25] MEDS: INSULIN SLIDING SCALE (NOVOLOG) 1 VIAL SQ SCH ×4 (06:15→21:39)
[2021-11-25 08:06] LABS: BASO % 0.1 % (0-2.0); HEMOGLOBIN 12.8 GM/dL (10.7-15.3); LYMPH % 12.1 % (8-40); MCH 30.8 pg (25.7-33.7); MCHC 32.9 g/dl (32.0-36.0); MEAN CELL VOLUME 93.4 fl (80-96); MONO % 4.4 % (3.8-10.2); NEUT % 83.4 % (42.8-82.8); PLATELET COUNT 370 10^3/uL (134-434); RBC 4.17 M/mm3 (3.60-5.2); RDW 12.2 % (11.6-15.6); WHITE BLOOD COUNT 5.4 K/mm3 (4.0-10.0)
[2021-11-25] MEDS ORDERED: cefTRIAXone SODIUM 1 GM VIAL ONE (08:12)
[2021-11-25] MEDS ORDERED: DEXTROSE 5%-WATER - 50 ML IVPB ONE (08:12)
[2021-11-25] MEDS: ALBUTEROL SO4 0.083% IH SOL 2.5 MG/3 ML VIAL.NEB. NEB SCH ×4 (08:22→20:00)
[2021-11-25 08:32] LABS: BLOOD UREA NITROGEN 11.4 mg/dL (7-18)
[2021-11-25 08:33] LABS: ALBUMIN 3.2 g/dl (3.4-5.0)
[2021-11-25 08:35] LABS: CREATININE 0.4 mg/dL (0.55-1.3)
[2021-11-25 08:36] LABS: BILIRUBIN,TOTAL 0.3 mg/dL (0.2-1); TOT PROT 6.5 g/dl (6.4-8.2)
[2021-11-25] MEDS: PANTOPRAZOLE SODIUM 40 MG VIAL IVPUSH SCH (09:49)
[2021-11-25] MEDS: THIAMINE HCL 100 MG TABLET (FP) PO SCH (09:49)
[2021-11-25] MEDS: MULTIVITAMINS (DAILY MVI) TABLET (FP) PO SCH (09:49)
[2021-11-25] MEDS: AZITHROMYCIN 250 MG TABLET PO SCH (09:49)
[2021-11-25] MEDS: ROFLUMILAST 500 MCG TABLET PO SCH (09:49)
[2021-11-25] MEDS: guaiFENesin 600 MG TABLET.ER (FP) PO SCH ×2 (09:49→21:36)
[2021-11-25] MEDS: BUDESONIDE/FORMETEROL FUMARATE 160/4.5 mcg INHALER IH SCH ×2 (09:50→21:36)
[2021-11-25] MEDS: ANASTROZOLE 1 MG TABLET PO SCH (09:50)
[2021-11-25] MEDS: CEFTRIAXONE 1 GM in DEXTROSE 5%-WATER - 50 ML IVPB SCH (09:50)
[2021-11-25] MEDS: TIOTROPIUM BROMIDE 2.5 MCG (SPIRIVA) RESPIMAT INHALER IH SCH (09:50)
[2021-11-25] MEDS: ACETAMINOPHEN 325 MG TABLET (FP) PO PRN (10:10)
[2021-11-25] MEDS: ATORVASTATIN CA 40 MG TABLET (FP) PO SCH (21:36)
[2021-11-25] MEDS: MELATONIN 5 MG TABLETS PO SCH (21:36)
[2021-11-26] MEDS: methylPREDNISolone NA SUCC 40 MG/1 ML VIAL IVPB SCH ×3 (01:03→13:36)
[2021-11-26] MEDS: HEPARIN NA (PORCINE) 5,000 UNITS/ML 1ML VIAL SQ SCH ×3 (06:01→21:49)
[2021-11-26] MEDS: INSULIN SLIDING SCALE (NOVOLOG) 1 VIAL SQ SCH ×4 (06:25→21:53)
[2021-11-26] MEDS: ALBUTEROL SO4 0.083% IH SOL 2.5 MG/3 ML VIAL.NEB. NEB SCH ×4 (07:45→20:10)
[2021-11-26 07:50] LABS: BASO % 0.1 % (0-2.0); HEMATOCRIT 36.8 % (32.4-45.2); HEMOGLOBIN 12.3 GM/dL (10.7-15.3); MCHC 33.4 g/dl (32.0-36.0); MEAN CELL VOLUME 92.7 fl (80-96); MEAN PLT VOLUME 8.4 fl (7.5-11.1); MONO % 3.7 % (3.8-10.2); NEUT % 88.2 % (42.8-82.8); PLATELET COUNT 331 10^3/uL (134-434); RBC 3.97 M/mm3 (3.60-5.2); RDW 12.3 % (11.6-15.6); WHITE BLOOD COUNT 6.5 K/mm3 (4.0-10.0)
[2021-11-26 08:27] LABS: ALBUMIN 2.9 g/dl (3.4-5.0); BLOOD UREA NITROGEN 13.5 mg/dL (7-18); CALCIUM 8.6 mg/dL (8.5-10.1)
[2021-11-26 08:30] LABS: BILIRUBIN,TOTAL 0.4 mg/dL (0.2-1); CREATININE 0.4 mg/dL (0.55-1.3); TOT PROT 6.1 g/dl (6.4-8.2)
[2021-11-26] MEDS ORDERED: cefTRIAXone SODIUM 1 GM VIAL ONE (09:53)
[2021-11-26] MEDS ORDERED: DEXTROSE 5%-WATER - 50 ML IVPB ONE (09:53)
[2021-11-26] MEDS: THIAMINE HCL 100 MG TABLET (FP) PO SCH (10:10)
[2021-11-26] MEDS: MULTIVITAMINS (DAILY MVI) TABLET (FP) PO SCH (10:11)
[2021-11-26] MEDS: CEFTRIAXONE 1 GM in DEXTROSE 5%-WATER - 50 ML IVPB SCH (10:11)
[2021-11-26] MEDS: PANTOPRAZOLE SODIUM 40 MG VIAL IVPUSH SCH (10:11)
[2021-11-26] MEDS: guaiFENesin 600 MG TABLET.ER (FP) PO SCH ×2 (10:11→21:50)
[2021-11-26] MEDS: AZITHROMYCIN 250 MG TABLET PO SCH (10:11)
[2021-11-26] MEDS: ANASTROZOLE 1 MG TABLET PO SCH (10:11)
[2021-11-26] MEDS: TIOTROPIUM BROMIDE 2.5 MCG (SPIRIVA) RESPIMAT INHALER IH SCH (10:12)
[2021-11-26] MEDS: ROFLUMILAST 500 MCG TABLET PO SCH (10:12)
[2021-11-26] MEDS: BUDESONIDE/FORMETEROL FUMARATE 160/4.5 mcg INHALER IH SCH ×2 (10:12→21:53)
[2021-11-26] MEDS: MELATONIN 5 MG TABLETS PO SCH (21:50)
[2021-11-26] MEDS: ATORVASTATIN CA 40 MG TABLET (FP) PO SCH (21:50)
[2021-11-27] MEDS: methylPREDNISolone NA SUCC 40 MG/1 ML VIAL IVPB SCH ×2 (01:00→11:56)
[2021-11-27] MEDS: HEPARIN NA (PORCINE) 5,000 UNITS/ML 1ML VIAL SQ SCH ×3 (05:05→21:11)
[2021-11-27] MEDS: INSULIN SLIDING SCALE (NOVOLOG) 1 VIAL SQ SCH ×4 (06:30→21:23)
[2021-11-27 07:24] LABS: BLOOD UREA NITROGEN 16.9 mg/dL (7-18); CALCIUM 8.5 mg/dL (8.5-10.1)
[2021-11-27 07:28] LABS: CREATININE 0.4 mg/dL (0.55-1.3)
[2021-11-27] MEDS: ALBUTEROL SO4 0.083% IH SOL 2.5 MG/3 ML VIAL.NEB. NEB SCH ×4 (07:45→20:24)
[2021-11-27] MEDS ORDERED: cefTRIAXone SODIUM 1 GM VIAL ONE (10:20)
[2021-11-27] MEDS ORDERED: DEXTROSE 5%-WATER - 50 ML IVPB ONE (10:20)
[2021-11-27] MEDS: PANTOPRAZOLE SODIUM 40 MG VIAL IVPUSH SCH (10:34)
[2021-11-27] MEDS: CEFTRIAXONE 1 GM in DEXTROSE 5%-WATER - 50 ML IVPB SCH (10:35)
[2021-11-27] MEDS: guaiFENesin 600 MG TABLET.ER (FP) PO SCH ×2 (10:36→21:22)
[2021-11-27] MEDS: ROFLUMILAST 500 MCG TABLET PO SCH (10:36)
[2021-11-27] MEDS: MULTIVITAMINS (DAILY MVI) TABLET (FP) PO SCH (10:36)
[2021-11-27] MEDS: ANASTROZOLE 1 MG TABLET PO SCH (10:36)
[2021-11-27] MEDS: THIAMINE HCL 100 MG TABLET (FP) PO SCH (10:36)
[2021-11-27] MEDS: BUDESONIDE/FORMETEROL FUMARATE 160/4.5 mcg INHALER IH SCH ×2 (10:37→21:30)
[2021-11-27] MEDS: TIOTROPIUM BROMIDE 2.5 MCG (SPIRIVA) RESPIMAT INHALER IH SCH (10:37)
[2021-11-27] MEDS: MELATONIN 5 MG TABLETS PO SCH (21:22)
[2021-11-27] MEDS: ATORVASTATIN CA 40 MG TABLET (FP) PO SCH (21:22)
[2021-11-27] MEDS: BENZOCAINE/MENTH/CETYLPYRD CL 1 EACH LOZENGE MM PRN (21:23)
[2021-11-28] MEDS: methylPREDNISolone NA SUCC 40 MG/1 ML VIAL IVPB SCH ×2 (02:00→12:07)
[2021-11-28] MEDS: HEPARIN NA (PORCINE) 5,000 UNITS/ML 1ML VIAL SQ SCH ×3 (06:06→21:26)
[2021-11-28] MEDS: INSULIN SLIDING SCALE (NOVOLOG) 1 VIAL SQ SCH ×4 (06:10→21:26)
[2021-11-28 07:12] LABS: HEMATOCRIT 38.3 % (32.4-45.2); HEMOGLOBIN 12.8 GM/dL (10.7-15.3); MCH 31.2 pg (25.7-33.7); MCHC 33.4 g/dl (32.0-36.0); MEAN CELL VOLUME 93.3 fl (80-96); MEAN PLT VOLUME 8.5 fl (7.5-11.1); PLATELET COUNT 321 10^3/uL (134-434); RDW 12.5 % (11.6-15.6)
[2021-11-28] MEDS: ALBUTEROL SO4 0.083% IH SOL 2.5 MG/3 ML VIAL.NEB. NEB SCH (07:20)
[2021-11-28] MEDS ORDERED: DEXTROSE 5%-WATER - 50 ML IVPB ONE (08:16)
[2021-11-28] MEDS ORDERED: cefTRIAXone SODIUM 1 GM VIAL ONE (08:16)
[2021-11-28] MEDS: PANTOPRAZOLE SODIUM 40 MG VIAL IVPUSH SCH (09:05)
[2021-11-28] MEDS: MULTIVITAMINS (DAILY MVI) TABLET (FP) PO SCH (09:05)
[2021-11-28] MEDS: ROFLUMILAST 500 MCG TABLET PO SCH (09:06)
[2021-11-28] MEDS: ANASTROZOLE 1 MG TABLET PO SCH (09:06)
[2021-11-28] MEDS: THIAMINE HCL 100 MG TABLET (FP) PO SCH (09:06)
[2021-11-28] MEDS: CEFTRIAXONE 1 GM in DEXTROSE 5%-WATER - 50 ML IVPB SCH (09:06)
[2021-11-28] MEDS: guaiFENesin 600 MG TABLET.ER (FP) PO SCH ×2 (09:06→21:26)
[2021-11-28] MEDS: TIOTROPIUM BROMIDE 2.5 MCG (SPIRIVA) RESPIMAT INHALER IH SCH (09:07)
[2021-11-28] MEDS: BUDESONIDE/FORMETEROL FUMARATE 160/4.5 mcg INHALER IH SCH ×2 (09:07→21:26)
[2021-11-28] MEDS: ALBUTEROL SO4 0.083% IH SOL 2.5 MG/3 ML VIAL.NEB. NEB PRN ×2 (14:54→20:43)
[2021-11-28] MEDS: ATORVASTATIN CA 40 MG TABLET (FP) PO SCH (21:26)
[2021-11-28] MEDS: MELATONIN 5 MG TABLETS PO SCH (21:26)
[2021-11-29] MEDS: methylPREDNISolone NA SUCC 40 MG/1 ML VIAL IVPB SCH ×2 (00:50→12:30)
[2021-11-29] MEDS: HEPARIN NA (PORCINE) 5,000 UNITS/ML 1ML VIAL SQ SCH ×3 (06:07→21:13)
[2021-11-29] MEDS: INSULIN SLIDING SCALE (NOVOLOG) 1 VIAL SQ SCH ×4 (06:09→21:15)
[2021-11-29 08:05] LABS: CALCIUM 9.1 mg/dL (8.5-10.1)
[2021-11-29 08:06] LABS: BLOOD UREA NITROGEN 21.4 mg/dL (7-18)
[2021-11-29 08:09] LABS: CREATININE 0.5 mg/dL (0.55-1.3)
[2021-11-29] MEDS ORDERED: DEXTROSE 5%-WATER - 50 ML IVPB ONE (09:30)
[2021-11-29] MEDS ORDERED: cefTRIAXone SODIUM 1 GM VIAL ONE (09:30)
[2021-11-29] MEDS: THIAMINE HCL 100 MG TABLET (FP) PO SCH (10:30)
[2021-11-29] MEDS: CEFTRIAXONE 1 GM in DEXTROSE 5%-WATER - 50 ML IVPB SCH (10:30)
[2021-11-29] MEDS: PANTOPRAZOLE SODIUM 40 MG VIAL IVPUSH SCH (10:30)
[2021-11-29] MEDS: MULTIVITAMINS (DAILY MVI) TABLET (FP) PO SCH (10:30)
[2021-11-29] MEDS: ANASTROZOLE 1 MG TABLET PO SCH (10:31)
[2021-11-29] MEDS: ROFLUMILAST 500 MCG TABLET PO SCH (10:31)
[2021-11-29] MEDS: guaiFENesin 600 MG TABLET.ER (FP) PO SCH ×2 (10:31→21:13)
[2021-11-29] MEDS: BUDESONIDE/FORMETEROL FUMARATE 160/4.5 mcg INHALER IH SCH ×2 (10:32→21:24)
[2021-11-29] MEDS: TIOTROPIUM BROMIDE 2.5 MCG (SPIRIVA) RESPIMAT INHALER IH SCH (10:32)
[2021-11-29] MEDS: ATORVASTATIN CA 40 MG TABLET (FP) PO SCH (21:13)
[2021-11-29] MEDS: MELATONIN 5 MG TABLETS PO SCH (22:13)
[2021-11-30] MEDS: methylPREDNISolone NA SUCC 40 MG/1 ML VIAL IVPB SCH ×2 (00:15→18:18)
[2021-11-30] MEDS: MAG HYDROX/ALH/SMC/DPHA/LIDO 240 ML MOUTHWASH MM SCH ×5 (00:15→17:19)
[2021-11-30] MEDS: HEPARIN NA (PORCINE) 5,000 UNITS/ML 1ML VIAL SQ SCH (05:54)
[2021-11-30] MEDS: INSULIN SLIDING SCALE (NOVOLOG) 1 VIAL SQ SCH ×4 (06:09→21:29)
[2021-11-30] MEDS ORDERED: cefTRIAXone SODIUM 1 GM VIAL ONE (09:14)
[2021-11-30] MEDS ORDERED: DEXTROSE 5%-WATER - 50 ML IVPB ONE (09:14)
[2021-11-30] MEDS: CEFTRIAXONE 1 GM in DEXTROSE 5%-WATER - 50 ML IVPB SCH (10:02)
[2021-11-30] MEDS: THIAMINE HCL 100 MG TABLET (FP) PO SCH (10:02)
[2021-11-30] MEDS: guaiFENesin 600 MG TABLET.ER (FP) PO SCH ×2 (10:02→21:29)
[2021-11-30] MEDS: ROFLUMILAST 500 MCG TABLET PO SCH (10:03)
[2021-11-30] MEDS: ANASTROZOLE 1 MG TABLET PO SCH (10:03)
[2021-11-30] MEDS: MULTIVITAMINS (DAILY MVI) TABLET (FP) PO SCH (10:03)
[2021-11-30] MEDS: PANTOPRAZOLE SODIUM 40 MG VIAL IVPUSH SCH (10:03)
[2021-11-30] MEDS: TIOTROPIUM BROMIDE 2.5 MCG (SPIRIVA) RESPIMAT INHALER IH SCH (10:04)
[2021-11-30] MEDS: BUDESONIDE/FORMETEROL FUMARATE 160/4.5 mcg INHALER IH SCH ×2 (10:04→21:29)
[2021-11-30] MEDS ORDERED: BENZOCAINE/MENTH/CETYLPYRD CL 1 EACH LOZENGE MM PRN (12:51)
[2021-11-30] MEDS: MELATONIN 5 MG TABLETS PO SCH (21:29)
[2021-11-30] MEDS: ATORVASTATIN CA 40 MG TABLET (FP) PO SCH (21:29)
[2021-12-01] MEDS: MAG HYDROX/ALH/SMC/DPHA/LIDO 240 ML MOUTHWASH MM SCH ×4 (00:09→17:22)
[2021-12-01] MEDS: methylPREDNISolone NA SUCC 40 MG/1 ML VIAL IVPB SCH ×3 (01:31→17:21)
[2021-12-01] MEDS: ALBUTEROL SO4 0.083% IH SOL 2.5 MG/3 ML VIAL.NEB. NEB PRN ×2 (01:43→09:41)
[2021-12-01] MEDS: INSULIN SLIDING SCALE (NOVOLOG) 1 VIAL SQ SCH ×4 (06:13→22:46)
[2021-12-01] MEDS ORDERED: DEXTROSE 5%-WATER - 50 ML IVPB ONE (09:20)
[2021-12-01] MEDS ORDERED: cefTRIAXone SODIUM 1 GM VIAL ONE (09:20)
[2021-12-01] MEDS: ENOXAPARIN NA (PORCINE) 40 MG/0.4 ML DISP.SYRIN SQ SCH (10:08)
[2021-12-01] MEDS: ROFLUMILAST 500 MCG TABLET PO SCH (10:09)
[2021-12-01] MEDS: guaiFENesin 600 MG TABLET.ER (FP) PO SCH ×2 (10:09→21:47)
[2021-12-01] MEDS: MULTIVITAMINS (DAILY MVI) TABLET (FP) PO SCH (10:09)
[2021-12-01] MEDS: THIAMINE HCL 100 MG TABLET (FP) PO SCH (10:10)
[2021-12-01] MEDS: CEFTRIAXONE 1 GM in DEXTROSE 5%-WATER - 50 ML IVPB SCH (10:10)
[2021-12-01] MEDS: PANTOPRAZOLE SODIUM 40 MG VIAL IVPUSH SCH (10:10)
[2021-12-01] MEDS: ANASTROZOLE 1 MG TABLET PO SCH (10:10)
[2021-12-01] MEDS: BUDESONIDE/FORMETEROL FUMARATE 160/4.5 mcg INHALER IH SCH ×2 (10:17→21:47)
[2021-12-01] MEDS: TIOTROPIUM BROMIDE 2.5 MCG (SPIRIVA) RESPIMAT INHALER IH SCH (10:17)
[2021-12-01] MEDS: ALBUTEROL SO4 0.083% IH SOL 2.5 MG/3 ML VIAL.NEB. NEB SCH ×3 (12:39→21:34)
[2021-12-01] MEDS: ATORVASTATIN CA 40 MG TABLET (FP) PO SCH (21:47)
[2021-12-01] MEDS: MELATONIN 5 MG TABLETS PO SCH (21:47)
[2021-12-02] MEDS: MAG HYDROX/ALH/SMC/DPHA/LIDO 240 ML MOUTHWASH MM SCH ×4 (00:11→17:23)
[2021-12-02] MEDS: methylPREDNISolone NA SUCC 40 MG/1 ML VIAL IVPB SCH ×3 (01:11→17:23)
[2021-12-02] MEDS: INSULIN SLIDING SCALE (NOVOLOG) 1 VIAL SQ SCH ×4 (06:26→21:40)
[2021-12-02] MEDS: ALBUTEROL SO4 0.083% IH SOL 2.5 MG/3 ML VIAL.NEB. NEB SCH ×4 (07:49→20:00)
[2021-12-02 08:27] LABS: CALCIUM 8.7 mg/dL (8.5-10.1)
[2021-12-02 08:28] LABS: BLOOD UREA NITROGEN 18.1 mg/dL (7-18)
[2021-12-02 08:31] LABS: CREATININE 0.4 mg/dL (0.55-1.3)
[2021-12-02] MEDS ORDERED: cefTRIAXone SODIUM 1 GM VIAL ONE (09:31)
[2021-12-02] MEDS ORDERED: DEXTROSE 5%-WATER - 50 ML IVPB ONE (09:32)
[2021-12-02] MEDS: PANTOPRAZOLE SODIUM 40 MG VIAL IVPUSH SCH (09:35)
[2021-12-02] MEDS: CEFTRIAXONE 1 GM in DEXTROSE 5%-WATER - 50 ML IVPB SCH (09:36)
[2021-12-02] MEDS: ENOXAPARIN NA (PORCINE) 40 MG/0.4 ML DISP.SYRIN SQ SCH (09:36)
[2021-12-02] MEDS: MULTIVITAMINS (DAILY MVI) TABLET (FP) PO SCH (09:38)
[2021-12-02] MEDS: ROFLUMILAST 500 MCG TABLET PO SCH (09:38)
[2021-12-02] MEDS: guaiFENesin 600 MG TABLET.ER (FP) PO SCH ×2 (09:38→21:40)
[2021-12-02] MEDS: THIAMINE HCL 100 MG TABLET (FP) PO SCH (09:38)
[2021-12-02] MEDS: ANASTROZOLE 1 MG TABLET PO SCH (09:38)
[2021-12-02] MEDS: BUDESONIDE/FORMETEROL FUMARATE 160/4.5 mcg INHALER IH SCH ×2 (09:39→21:41)
[2021-12-02] MEDS: TIOTROPIUM BROMIDE 2.5 MCG (SPIRIVA) RESPIMAT INHALER IH SCH (09:39)
[2021-12-02] MEDS: ACETAMINOPHEN 325 MG TABLET (FP) PO PRN ×2 (10:37→22:33)
[2021-12-02] MEDS ORDERED: INSULIN (NOVOLOG) ASPART 100 UNITS/ML 10ML VIAL ONE (21:06)
[2021-12-02] MEDS: ATORVASTATIN CA 40 MG TABLET (FP) PO SCH (21:40)
[2021-12-02] MEDS: MELATONIN 5 MG TABLETS PO SCH (21:40)
[2021-12-03] MEDS: ALBUTEROL SO4 0.083% IH SOL 2.5 MG/3 ML VIAL.NEB. NEB PRN
[2021-12-03] MEDS: MAG HYDROX/ALH/SMC/DPHA/LIDO 240 ML MOUTHWASH MM SCH ×5 (00:53→23:43)
[2021-12-03] MEDS: methylPREDNISolone NA SUCC 40 MG/1 ML VIAL IVPB SCH ×3 (02:07→21:24)
[2021-12-03] MEDS: INSULIN (LEVEMIR) 100 UNITS/ML UNITS SQ SCH (06:13)
[2021-12-03] MEDS: INSULIN SLIDING SCALE (NOVOLOG) 1 VIAL SQ SCH ×4 (06:15→21:24)
[2021-12-03] MEDS ORDERED: INSULIN (NOVOLOG) ASPART 100 UNITS/ML 10ML VIAL ONE (06:33)
[2021-12-03] MEDS: ALBUTEROL SO4 0.083% IH SOL 2.5 MG/3 ML VIAL.NEB. NEB SCH ×4 (08:40→20:00)
[2021-12-03 08:58] LABS: CALCIUM 9.1 mg/dL (8.5-10.1)
[2021-12-03 08:59] LABS: BLOOD UREA NITROGEN 14.7 mg/dL (7-18)
[2021-12-03 09:02] LABS: CREATININE 0.6 mg/dL (0.55-1.3)
[2021-12-03] MEDS ORDERED: cefTRIAXone SODIUM 1 GM VIAL ONE (09:26)
[2021-12-03] MEDS ORDERED: DEXTROSE 5%-WATER - 50 ML IVPB ONE (09:26)
[2021-12-03] MEDS: PANTOPRAZOLE 40 MG TABLET PO SCH (10:36)
[2021-12-03] MEDS: THIAMINE HCL 100 MG TABLET (FP) PO SCH (10:36)
[2021-12-03] MEDS: ENOXAPARIN NA (PORCINE) 40 MG/0.4 ML DISP.SYRIN SQ SCH (10:36)
[2021-12-03] MEDS: guaiFENesin 600 MG TABLET.ER (FP) PO SCH ×2 (10:36→21:25)
[2021-12-03] MEDS: MULTIVITAMINS (DAILY MVI) TABLET (FP) PO SCH (10:36)
[2021-12-03] MEDS: CEFTRIAXONE 1 GM in DEXTROSE 5%-WATER - 50 ML IVPB SCH (10:37)
[2021-12-03] MEDS: TIOTROPIUM BROMIDE 2.5 MCG (SPIRIVA) RESPIMAT INHALER IH SCH (10:38)
[2021-12-03] MEDS: BUDESONIDE/FORMETEROL FUMARATE 160/4.5 mcg INHALER IH SCH ×2 (10:38→21:25)
[2021-12-03] MEDS: ROFLUMILAST 500 MCG TABLET PO SCH (10:49)
[2021-12-03] MEDS: ANASTROZOLE 1 MG TABLET PO SCH (10:49)
[2021-12-03] MEDS: ATORVASTATIN CA 40 MG TABLET (FP) PO SCH (21:25)
[2021-12-03] MEDS: MELATONIN 5 MG TABLETS PO SCH (21:25)
[2021-12-04] MEDS: INSULIN (LEVEMIR) 100 UNITS/ML UNITS SQ SCH (06:48)
[2021-12-04] MEDS: INSULIN SLIDING SCALE (NOVOLOG) 1 VIAL SQ SCH ×4 (06:48→22:24)
[2021-12-04] MEDS: ALBUTEROL SO4 0.083% IH SOL 2.5 MG/3 ML VIAL.NEB. NEB SCH ×4 (07:30→20:24)
[2021-12-04] MEDS: MAG HYDROX/ALH/SMC/DPHA/LIDO 240 ML MOUTHWASH MM SCH ×3 (07:41→17:16)
[2021-12-04 08:38] LABS: HEMATOCRIT 36.1 % (32.4-45.2); HEMOGLOBIN 12.4 GM/dL (10.7-15.3); MCH 31.9 pg (25.7-33.7); MCHC 34.2 g/dl (32.0-36.0); MEAN CELL VOLUME 93.2 fl (80-96); MEAN PLT VOLUME 8.2 fl (7.5-11.1); PLATELET COUNT 274 10^3/uL (134-434); RBC 3.88 M/mm3 (3.60-5.2); RDW 12.6 % (11.6-15.6); WHITE BLOOD COUNT 6.3 K/mm3 (4.0-10.0)
[2021-12-04] MEDS ORDERED: cefTRIAXone SODIUM 1 GM VIAL ONE (09:00)
[2021-12-04] MEDS ORDERED: DEXTROSE 5%-WATER - 50 ML IVPB ONE (09:01)
[2021-12-04] MEDS: CEFTRIAXONE 1 GM in DEXTROSE 5%-WATER - 50 ML IVPB SCH (09:05)
[2021-12-04] MEDS: ANASTROZOLE 1 MG TABLET PO SCH (09:05)
[2021-12-04] MEDS: PANTOPRAZOLE 40 MG TABLET PO SCH (09:05)
[2021-12-04] MEDS: MULTIVITAMINS (DAILY MVI) TABLET (FP) PO SCH (09:05)
[2021-12-04] MEDS: guaiFENesin 600 MG TABLET.ER (FP) PO SCH ×2 (09:05→22:16)
[2021-12-04] MEDS: ROFLUMILAST 500 MCG TABLET PO SCH (09:05)
[2021-12-04] MEDS: THIAMINE HCL 100 MG TABLET (FP) PO SCH (09:05)
[2021-12-04] MEDS: methylPREDNISolone NA SUCC 40 MG/1 ML VIAL IVPB SCH (09:06)
[2021-12-04] MEDS: ENOXAPARIN NA (PORCINE) 40 MG/0.4 ML DISP.SYRIN SQ SCH (09:06)
[2021-12-04] MEDS: TIOTROPIUM BROMIDE 2.5 MCG (SPIRIVA) RESPIMAT INHALER IH SCH (09:12)
[2021-12-04] MEDS: BUDESONIDE/FORMETEROL FUMARATE 160/4.5 mcg INHALER IH SCH ×2 (09:12→22:16)
[2021-12-04] MEDS ORDERED: INSULIN (NOVOLOG) ASPART 100 UNITS/ML 10ML VIAL ONE (21:30)
[2021-12-04] MEDS: ATORVASTATIN CA 40 MG TABLET (FP) PO SCH (22:16)
[2021-12-04] MEDS: MELATONIN 5 MG TABLETS PO SCH (22:16)
[2021-12-05] MEDS: MAG HYDROX/ALH/SMC/DPHA/LIDO 240 ML MOUTHWASH MM SCH ×4 (00:54→17:45)
[2021-12-05] MEDS: INSULIN (LEVEMIR) 100 UNITS/ML UNITS SQ SCH (06:05)
[2021-12-05] MEDS: INSULIN SLIDING SCALE (NOVOLOG) 1 VIAL SQ SCH ×4 (06:06→22:00)
[2021-12-05] MEDS: ACETAMINOPHEN 325 MG TABLET (FP) PO PRN ×2 (06:12→16:31)
[2021-12-05] MEDS: ALBUTEROL SO4 0.083% IH SOL 2.5 MG/3 ML VIAL.NEB. NEB SCH ×4 (08:28→22:21)
[2021-12-05] MEDS ORDERED: DEXTROSE 5%-WATER - 50 ML IVPB ONE (09:29)
[2021-12-05] MEDS ORDERED: cefTRIAXone SODIUM 1 GM VIAL ONE (09:29)
[2021-12-05] MEDS: guaiFENesin 600 MG TABLET.ER (FP) PO SCH ×2 (09:31→21:59)
[2021-12-05] MEDS: PANTOPRAZOLE 40 MG TABLET PO SCH (09:31)
[2021-12-05] MEDS: THIAMINE HCL 100 MG TABLET (FP) PO SCH (09:32)
[2021-12-05] MEDS: ENOXAPARIN NA (PORCINE) 40 MG/0.4 ML DISP.SYRIN SQ SCH ×2 (09:32→09:39)
[2021-12-05] MEDS: MULTIVITAMINS (DAILY MVI) TABLET (FP) PO SCH (09:32)
[2021-12-05] MEDS: ROFLUMILAST 500 MCG TABLET PO SCH (09:32)
[2021-12-05] MEDS: CEFTRIAXONE 1 GM in DEXTROSE 5%-WATER - 50 ML IVPB SCH (09:32)
[2021-12-05] MEDS: methylPREDNISolone NA SUCC 40 MG/1 ML VIAL IVPB SCH (09:32)
[2021-12-05] MEDS: BUDESONIDE/FORMETEROL FUMARATE 160/4.5 mcg INHALER IH SCH ×2 (09:33→22:00)
[2021-12-05] MEDS: ANASTROZOLE 1 MG TABLET PO SCH (09:33)
[2021-12-05] MEDS: TIOTROPIUM BROMIDE 2.5 MCG (SPIRIVA) RESPIMAT INHALER IH SCH (09:34)
[2021-12-05] MEDS: MELATONIN 5 MG TABLETS PO SCH (21:59)
[2021-12-05] MEDS: ATORVASTATIN CA 40 MG TABLET (FP) PO SCH (21:59)
[2021-12-06] MEDS: MAG HYDROX/ALH/SMC/DPHA/LIDO 240 ML MOUTHWASH MM SCH ×5 (00:59→23:27)
[2021-12-06] MEDS: INSULIN (LEVEMIR) 100 UNITS/ML UNITS SQ SCH (06:13)
[2021-12-06] MEDS: INSULIN SLIDING SCALE (NOVOLOG) 1 VIAL SQ SCH ×4 (06:58→21:58)
[2021-12-06] MEDS: ALBUTEROL SO4 0.083% IH SOL 2.5 MG/3 ML VIAL.NEB. NEB SCH (07:40)
[2021-12-06] MEDS ORDERED: INSULIN (NOVOLOG) ASPART 100 UNITS/ML 10ML VIAL ONE (08:04)
[2021-12-06] MEDS ORDERED: cefTRIAXone SODIUM 1 GM VIAL ONE (09:02)
[2021-12-06] MEDS ORDERED: DEXTROSE 5%-WATER - 50 ML IVPB ONE (09:02)
[2021-12-06] MEDS: methylPREDNISolone NA SUCC 40 MG/1 ML VIAL IVPB SCH (09:40)
[2021-12-06] MEDS: MULTIVITAMINS (DAILY MVI) TABLET (FP) PO SCH (09:40)
[2021-12-06] MEDS: PANTOPRAZOLE 40 MG TABLET PO SCH (09:40)
[2021-12-06] MEDS: guaiFENesin 600 MG TABLET.ER (FP) PO SCH ×2 (09:40→21:55)
[2021-12-06] MEDS: THIAMINE HCL 100 MG TABLET (FP) PO SCH (09:40)
[2021-12-06] MEDS: CEFTRIAXONE 1 GM in DEXTROSE 5%-WATER - 50 ML IVPB SCH (09:41)
[2021-12-06] MEDS: TIOTROPIUM BROMIDE 2.5 MCG (SPIRIVA) RESPIMAT INHALER IH SCH (11:17)
[2021-12-06] MEDS: BUDESONIDE/FORMETEROL FUMARATE 160/4.5 mcg INHALER IH SCH ×2 (11:17→21:58)
[2021-12-06] MEDS: ROFLUMILAST 500 MCG TABLET PO SCH ×2 (11:18→11:29)
[2021-12-06] MEDS: ENOXAPARIN NA (PORCINE) 40 MG/0.4 ML DISP.SYRIN SQ SCH (11:18)
[2021-12-06] MEDS: ANASTROZOLE 1 MG TABLET PO SCH (11:29)
[2021-12-06] MEDS: ATORVASTATIN CA 40 MG TABLET (FP) PO SCH (21:55)
[2021-12-06] MEDS: MELATONIN 5 MG TABLETS PO SCH (21:55)
[2021-12-07] MEDS: MAG HYDROX/ALH/SMC/DPHA/LIDO 240 ML MOUTHWASH MM SCH ×3 (05:36→17:07)
[2021-12-07] MEDS: INSULIN SLIDING SCALE (NOVOLOG) 1 VIAL SQ SCH ×4 (06:07→21:50)
[2021-12-07] MEDS: INSULIN (LEVEMIR) 100 UNITS/ML UNITS SQ SCH (08:36)
[2021-12-07] MEDS ORDERED: DEXTROSE 5%-WATER - 50 ML IVPB ONE (09:30)
[2021-12-07] MEDS ORDERED: cefTRIAXone SODIUM 1 GM VIAL ONE (09:30)
[2021-12-07] MEDS: CEFTRIAXONE 1 GM in DEXTROSE 5%-WATER - 50 ML IVPB SCH (09:35)
[2021-12-07] MEDS: PANTOPRAZOLE 40 MG TABLET PO SCH (09:37)
[2021-12-07] MEDS: MULTIVITAMINS (DAILY MVI) TABLET (FP) PO SCH (09:37)
[2021-12-07] MEDS: THIAMINE HCL 100 MG TABLET (FP) PO SCH (09:37)
[2021-12-07] MEDS: ROFLUMILAST 500 MCG TABLET PO SCH (09:37)
[2021-12-07] MEDS: methylPREDNISolone NA SUCC 40 MG/1 ML VIAL IVPB SCH (09:37)
[2021-12-07] MEDS: guaiFENesin 600 MG TABLET.ER (FP) PO SCH ×2 (09:37→21:44)
[2021-12-07] MEDS: ANASTROZOLE 1 MG TABLET PO SCH (09:38)
[2021-12-07] MEDS: ENOXAPARIN NA (PORCINE) 40 MG/0.4 ML DISP.SYRIN SQ SCH (09:38)
[2021-12-07] MEDS: BUDESONIDE/FORMETEROL FUMARATE 160/4.5 mcg INHALER IH SCH ×2 (09:40→21:51)
[2021-12-07] MEDS: TIOTROPIUM BROMIDE 2.5 MCG (SPIRIVA) RESPIMAT INHALER IH SCH (09:42)
[2021-12-07] MEDS: ALBUTEROL SO4 0.083% IH SOL 2.5 MG/3 ML VIAL.NEB. NEB SCH ×3 (11:15→20:30)
[2021-12-07] MEDS ORDERED: INSULIN (NOVOLOG) ASPART 100 UNITS/ML 10ML VIAL ONE (11:28)
[2021-12-07] MEDS: ATORVASTATIN CA 40 MG TABLET (FP) PO SCH (21:44)
[2021-12-07] MEDS: MELATONIN 5 MG TABLETS PO SCH (21:44)
[2021-12-07] MEDS: ACETAMINOPHEN 325 MG TABLET (FP) PO PRN (23:06)
[2021-12-08] MEDS: MAG HYDROX/ALH/SMC/DPHA/LIDO 240 ML MOUTHWASH MM SCH ×5 (00:46→17:48)
[2021-12-08] MEDS: INSULIN (LEVEMIR) 100 UNITS/ML UNITS SQ SCH (06:36)
[2021-12-08] MEDS: INSULIN SLIDING SCALE (NOVOLOG) 1 VIAL SQ SCH ×4 (06:37→21:54)
[2021-12-08] MEDS: ALBUTEROL SO4 0.083% IH SOL 2.5 MG/3 ML VIAL.NEB. NEB SCH ×4 (07:40→20:23)
[2021-12-08 09:17] LABS: BASO % 0.2 % (0-2.0); EOS % 2.6 % (0-4.5); HEMOGLOBIN 11.9 GM/dL (10.7-15.3); LYMPH % 26.8 % (8-40); MCH 31.8 pg (25.7-33.7); MEAN CELL VOLUME 93.4 fl (80-96); MEAN PLT VOLUME 8.2 fl (7.5-11.1); MONO % 6.1 % (3.8-10.2); NEUT % 64.3 % (42.8-82.8); PLATELET COUNT 184 10^3/uL (134-434); RBC 3.75 M/mm3 (3.60-5.2); RDW 12.8 % (11.6-15.6); WHITE BLOOD COUNT 5.6 K/mm3 (4.0-10.0)
[2021-12-08 09:34] LABS: BLOOD UREA NITROGEN 18.5 mg/dL (7-18); CALCIUM 8.5 mg/dL (8.5-10.1)
[2021-12-08 09:35] LABS: ALBUMIN 2.9 g/dl (3.4-5.0)
[2021-12-08 09:38] LABS: CREATININE 0.4 mg/dL (0.55-1.3)
[2021-12-08 09:39] LABS: TOT PROT 5.8 g/dl (6.4-8.2)
[2021-12-08 09:40] LABS: BILIRUBIN,TOTAL 0.3 mg/dL (0.2-1)
[2021-12-08] MEDS ORDERED: cefTRIAXone SODIUM 1 GM VIAL ONE (09:42)
[2021-12-08] MEDS ORDERED: DEXTROSE 5%-WATER - 50 ML IVPB ONE (09:42)
[2021-12-08] MEDS: MULTIVITAMINS (DAILY MVI) TABLET (FP) PO SCH (09:49)
[2021-12-08] MEDS: THIAMINE HCL 100 MG TABLET (FP) PO SCH (09:49)
[2021-12-08] MEDS: guaiFENesin 600 MG TABLET.ER (FP) PO SCH ×2 (09:49→21:50)
[2021-12-08] MEDS: PANTOPRAZOLE 40 MG TABLET PO SCH (09:49)
[2021-12-08] MEDS: methylPREDNISolone NA SUCC 40 MG/1 ML VIAL IVPB SCH (09:49)
[2021-12-08] MEDS: TIOTROPIUM BROMIDE 2.5 MCG (SPIRIVA) RESPIMAT INHALER IH SCH (09:50)
[2021-12-08] MEDS: ANASTROZOLE 1 MG TABLET PO SCH (09:50)
[2021-12-08] MEDS: ROFLUMILAST 500 MCG TABLET PO SCH (09:50)
[2021-12-08] MEDS: BUDESONIDE/FORMETEROL FUMARATE 160/4.5 mcg INHALER IH SCH ×2 (09:51→21:56)
[2021-12-08] MEDS: ATORVASTATIN CA 40 MG TABLET (FP) PO SCH (21:50)
[2021-12-08] MEDS: MELATONIN 5 MG TABLETS PO SCH (21:50)
[2021-12-09] MEDS: MAG HYDROX/ALH/SMC/DPHA/LIDO 240 ML MOUTHWASH MM SCH ×4 (00:05→17:37)
[2021-12-09] MEDS: ACETAMINOPHEN 325 MG TABLET (FP) PO PRN ×2 (02:05→09:28)
[2021-12-09] MEDS: INSULIN SLIDING SCALE (NOVOLOG) 1 VIAL SQ SCH ×3 (06:08→16:19)
[2021-12-09] MEDS: INSULIN (LEVEMIR) 100 UNITS/ML UNITS SQ SCH (06:08)
[2021-12-09] MEDS ORDERED: INSULIN (LEVEMIR) 100 UNITS/ML UNITS SQ ONE (06:12)
[2021-12-09] MEDS ORDERED: INSULIN (NOVOLOG) ASPART 100 UNITS/ML 10ML VIAL ONE ×2 (06:13→11:24)
[2021-12-09] MEDS: ALBUTEROL SO4 0.083% IH SOL 2.5 MG/3 ML VIAL.NEB. NEB SCH ×3 (08:30→15:40)
[2021-12-09] MEDS: guaiFENesin 600 MG TABLET.ER (FP) PO SCH (09:17)
[2021-12-09] MEDS: ANASTROZOLE 1 MG TABLET PO SCH (09:17)
[2021-12-09] MEDS: PANTOPRAZOLE 40 MG TABLET PO SCH (09:17)
[2021-12-09] MEDS: ROFLUMILAST 500 MCG TABLET PO SCH (09:17)
[2021-12-09] MEDS: MULTIVITAMINS (DAILY MVI) TABLET (FP) PO SCH (09:17)
[2021-12-09] MEDS: TIOTROPIUM BROMIDE 2.5 MCG (SPIRIVA) RESPIMAT INHALER IH SCH (09:18)
[2021-12-09] MEDS: THIAMINE HCL 100 MG TABLET (FP) PO SCH (09:18)
[2021-12-09] MEDS: methylPREDNISolone NA SUCC 40 MG/1 ML VIAL IVPB SCH (09:18)
[2021-12-09] MEDS: BUDESONIDE/FORMETEROL FUMARATE 160/4.5 mcg INHALER IH SCH (09:18)
[2021-12-09 14:07] VITALS: BP 112/70; PULSE 93; TEMP 98.5
[2021-12-09] MEDS ORDERED: TRIMETHOBENZAMIDE HCL 300 MG CAPSULE PO ONE (14:25)
== END 2021-12-09 19:08 | disposition home or self-care (01) | DRG 190 ==
LOC: JER 08:30 → JERBED 09:04 → J8W 13:31 → J4W 11-17 11:56 → J8W 11-30 12:22
DX: J43.9 Emphysema, unspecified (principal); J96.21 Acute and chronic respiratory failure with hypoxia; J96.22 Acute and chronic respiratory failure with hypercapnia; C78.00 Secondary malignant neoplasm of unspecified lung; I10 Essential (primary) hypertension; F10.20 Alcohol dependence, uncomplicated; E78.5 Hyperlipidemia, unspecified; M19.90 Unspecified osteoarthritis, unspecified site; E11.9 Type 2 diabetes mellitus without complications; C50.919 Malignant neoplasm of unspecified site of unspecified female breast; R50.9 Fever, unspecified; G47.00 Insomnia, unspecified; M81.0 Age-related osteoporosis without current pathological fracture; R91.1 Solitary pulmonary nodule; R63.0 Anorexia; Z68.21 Body mass index [BMI] 21.0-21.9, adult; F41.8 Other specified anxiety disorders; Z87.11 Personal history of peptic ulcer disease; Z99.81 Dependence on supplemental oxygen; Z87.891 Personal history of nicotine dependence; Z66 Do not resuscitate
CPT/HCPCS: 36415; 36600; 71045-TC-FY; 71250-TC; 74018-TC-FY; 80048; 80053; 81003; 82553; 82803; 82962; 83605; 83735; 84100; 84484; 85025; 85027; 85610; 85730; 86850; 86900; 86901; 87040; 87086; 93005; 93010; 94010; 94640; 94660; 97116-GP; 97162-GP; 99291; C9803-CS; J1644; U0003; U0005

== ENCOUNTER 2022-03-24 11:23 | Emergency (ER) | payer OTHER ==
[2022-03-24] MEDS ORDERED: FAMOTIDINE 20 MG/50 ML IVPB 20 MG/50 ML MG IVPB ONE ×2 (12:17→13:08)
[2022-03-24] MEDS ORDERED: MAG HYDROX/AL HYDROX/SIMETH -MYLANTA- ORAL SUSPENSION PO ONE (12:18)
[2022-03-24] MEDS ORDERED: SUCRALFATE 1 GM/10 ML UNIT DOSE CUPS PO ONE (12:19)
[2022-03-24] MEDS: ALBUTEROL SO4 2.5/IPRATROPIUM 0.5 INH SOL 3 ML VIAL.NEB. NEB SCH ×4 (12:55→13:45)
[2022-03-24] MEDS ORDERED: ALBUTEROL SO4 2.5/IPRATROPIUM 0.5 INH SOL 3 ML VIAL.NEB. NEB ONE (13:08)
[2022-03-24] MEDS ORDERED: MAG HYDROX/AL HYDROX/SIMETH 30 ML UNIT-DOSE CUP ONE (13:08)
[2022-03-24] MEDS ORDERED: SUCRALFATE 1 GM TABLET (FP) ONE (13:08)
[2022-03-24 13:17] LABS: BASO % 0.2 % (0-2.0); HEMATOCRIT 41.5 % (32.4-45.2); HEMOGLOBIN 13.7 GM/dL (10.7-15.3); LYMPH % 25.2 % (8-40); MCH 30.4 pg (25.7-33.7); MCHC 32.9 g/dl (32.0-36.0); MEAN CELL VOLUME 92.5 fl (80-96); MEAN PLT VOLUME 9.4 fl (7.5-11.1); MONO % 4.9 % (3.8-10.2); NEUT % 68.7 % (42.8-82.8); PLATELET COUNT 224 10^3/uL (134-434); RBC 4.49 M/mm3 (3.60-5.2); RDW 12.1 % (11.6-15.6); WHITE BLOOD COUNT 5.7 K/mm3 (4.0-10.0)
[2022-03-24 13:20] LABS: URINE APPEARANCE CLEAR; URINE BILIRUBIN NEGATIVE (NEGATIVE); URINE COLOR YELLOW; URINE GLUCOSE (UA) NEGATIVE (NEGATIVE); URINE KETONE NEGATIVE (NEGATIVE); URINE LEUK ESTERASE NEGATIVE (NEGATIVE); URINE NITRITE NEGATIVE (NEGATIVE); URINE PROTEIN NEGATIVE (NEGATIVE); URINE UROBILINOGEN 0.2 mg/dL (0.2-1.0)
[2022-03-24 13:25] LABS: INR 0.99 (0.83-1.09); PROTHROMBIN TIME (PATIENT) 11.4 SEC (9.7-13.0)
[2022-03-24 13:28] LABS: ACTIVATED PTT 32.1 SECONDS (25.2-36.5)
[2022-03-24 13:48] LABS: ALBUMIN 4.4 g/dl (3.4-5.0); BLOOD UREA NITROGEN 4.2 mg/dL (7-18); CALCIUM 9.9 mg/dL (8.5-10.1); MAGNESIUM 2.3 mg/dL (1.8-2.4)
[2022-03-24 13:52] LABS: CREATININE 0.4 mg/dL (0.55-1.3)
[2022-03-24 13:53] LABS: BILIRUBIN,TOTAL 0.3 mg/dL (0.2-1); TOT PROT 7.9 g/dl (6.4-8.2)
[2022-03-24 15:33] LABS: VENOUS BASE EXCESS 1.1 mmol/L (-2-2); VENOUS O2 SATURATION 43.4 % (70-80); VENOUS PCO2 57.4 mmHg (38-52); VENOUS PH 7.316 (7.310-7.410)
[2022-03-24 16:04] VITALS: BMI 16.8
[2022-03-24 19:29] VITALS: BP 110/63; PULSE 79; TEMP 98.8
== END 2022-03-24 18:30 | disposition home or self-care (01) ==
LOC: JER 11:23
PROC: 3E033GC Introduction of Other Therapeutic Substance into Peripheral Vein, Percutaneous Approach (ICD-10-PCS; principal; 2022-03-24)
PROC: 3E0F7GC Introduction of Other Therapeutic Substance into Respiratory Tract, Via Natural or Artificial Opening (ICD-10-PCS; 2022-03-24)
DX: K57.92 Diverticulitis of intestine, part unspecified, without perforation or abscess without bleeding (principal)
CPT/HCPCS: 36415; 71045-TC-FY; 74177-TC; 80053; 81003; 82803; 83605; 83735; 84100; 84484; 85025; 85610; 85730; 87086; 93005; 93010; 99285-25; C9803-CS; Q9967; U0003; U0005

== ENCOUNTER 2022-04-17 13:19 | Emergency (ER) | payer OTHER ==
[2022-04-17 13:58] VITALS: TEMP 98.1; BMI 16.2
[2022-04-17 15:40] LABS: BASO % 0.3 % (0-2.0); EOS % 0.8 % (0-4.5); HEMATOCRIT 37.2 % (32.4-45.2); HEMOGLOBIN 12.2 GM/dL (10.7-15.3); LYMPH % 28.6 % (8-40); MCHC 32.9 g/dl (32.0-36.0); MONO % 5.5 % (3.8-10.2); NEUT % 64.8 % (42.8-82.8); PLATELET COUNT 218 10^3/uL (134-434); RBC 4.09 M/mm3 (3.60-5.2); RDW 12.5 % (11.6-15.6); WHITE BLOOD COUNT 5.6 K/mm3 (4.0-10.0)
[2022-04-17 15:46] LABS: INR 1.01 (0.83-1.09); PROTHROMBIN TIME (PATIENT) 11.6 SEC (9.7-13.0)
[2022-04-17 15:48] LABS: ACTIVATED PTT 31.2 SECONDS (25.2-36.5)
[2022-04-17 16:04] LABS: CALCIUM 9.9 mg/dL (8.5-10.1)
[2022-04-17 16:05] LABS: ALBUMIN 4.3 g/dl (3.4-5.0); BLOOD UREA NITROGEN 10.6 mg/dL (7-18)
[2022-04-17 16:08] LABS: CREATININE 0.4 mg/dL (0.55-1.3)
[2022-04-17 16:09] LABS: BILIRUBIN,TOTAL 0.2 mg/dL (0.2-1); TOT PROT 7.7 g/dl (6.4-8.2)
[2022-04-17 18:20] VITALS: BP 109/66; PULSE 65; RESP 16
== END 2022-04-17 18:35 | disposition home or self-care (01) ==
LOC: JER 13:19
DX: R60.9 Edema, unspecified (principal)
CPT/HCPCS: 36415; 80053; 85025; 85610; 85730; 93971-TC; 99284-25

== ENCOUNTER 2022-05-14 22:03 | Inpatient (IN) | payer OTHER ==
[2022-05-14] MEDS ORDERED: morphine CARPU-JECT 4 MG/1 ML DISP.SYRIN IVPUSH ONE (23:57)
[2022-05-14] MEDS ORDERED: SODIUM CHLORIDE 0.9% 500 ML INFUS.BAG IV ONE (23:57)
[2022-05-15 00:40] LABS: URINE APPEARANCE CLEAR; URINE BILIRUBIN NEGATIVE (NEGATIVE); URINE COLOR YELLOW; URINE GLUCOSE (UA) NEGATIVE (NEGATIVE); URINE KETONE NEGATIVE (NEGATIVE); URINE LEUK ESTERASE NEGATIVE (NEGATIVE); URINE NITRITE NEGATIVE (NEGATIVE); URINE PROTEIN NEGATIVE (NEGATIVE); URINE UROBILINOGEN 0.2 mg/dL (0.2-1.0)
[2022-05-15 00:43] LABS: BASO % 0.4 % (0-2.0); EOS % 0.5 % (0-4.5); HEMATOCRIT 33.3 % (32.4-45.2); HEMOGLOBIN 10.8 GM/dL (10.7-15.3); LYMPH % 21.6 % (8-40); MCH 29.7 pg (25.7-33.7); MCHC 32.6 g/dl (32.0-36.0); MEAN CELL VOLUME 91.1 fl (80-96); MEAN PLT VOLUME 9.7 fl (7.5-11.1); MONO % 9.2 % (3.8-10.2); NEUT % 68.3 % (42.8-82.8); PLATELET COUNT 204 10^3/uL (134-434); RBC 3.65 M/mm3 (3.60-5.2); RDW 12.5 % (11.6-15.6); WHITE BLOOD COUNT 5.4 K/mm3 (4.0-10.0)
[2022-05-15] MEDS ORDERED: ACETAMINOPHEN 1000 MG/100 ML BAG IVPB ONE (00:44)
[2022-05-15] MEDS ORDERED: ACETAMINOPHEN INJECTION 100 ML IVPB ONE (00:45)
[2022-05-15 00:48] LABS: INR 1.03 (0.83-1.09); PROTHROMBIN TIME (PATIENT) 11.9 SEC (9.7-13.0)
[2022-05-15 00:51] LABS: ACTIVATED PTT 30.3 SECONDS (25.2-36.5)
[2022-05-15 00:59] LABS: BLOOD UREA NITROGEN 9.2 mg/dL (7-18); CALCIUM 8.7 mg/dL (8.5-10.1)
[2022-05-15 01:01] LABS: ALBUMIN 3.9 g/dl (3.4-5.0)
[2022-05-15 01:02] LABS: CREATININE 0.3 mg/dL (0.55-1.3)
[2022-05-15 01:04] LABS: BILIRUBIN,TOTAL 0.4 mg/dL (0.2-1); TOT PROT 7.1 g/dl (6.4-8.2)
[2022-05-15] MEDS ORDERED: ONDANSETRON 4 MG/2 ML VIAL IVPUSH ONE (01:58)
[2022-05-15] MEDS ORDERED: morphine CARPU-JECT 4 MG/1 ML DISP.SYRIN IVPUSH ONE (01:58)
[2022-05-15] MEDS ORDERED: morphine SULFATE 4 MG/ML VIAL ONE (02:08)
[2022-05-15] MEDS ORDERED: ONDANSETRON 4 MG/2 ML VIAL ONE (02:08)
[2022-05-15] MEDS ORDERED: CEFTRIAXONE 1,000 MG in DEXTROSE 5%-WATER - 50 ML IVPB ONE (03:49)
[2022-05-15] MEDS ORDERED: AZITHROMYCIN IVPB 500 MG in DEXTROSE 5%-WATER - 250 ML IVPB ONE (03:50)
[2022-05-15] MEDS ORDERED: CEFTRIAXONE 1 GM/50 ML BAG ONE (04:06)
[2022-05-15] MEDS ORDERED: AZITHROMYCIN IVPB 500 MG/250 ML BAG IVPB ONE (04:37)
[2022-05-15] MEDS ORDERED: ACETAMINOPHEN 1000 MG/100 ML BAG IVPB PRN (06:22)
[2022-05-15] MEDS ORDERED: SODIUM CHLORIDE 1,000 ML IV SCH (06:30)
[2022-05-15] MEDS ORDERED: ALBUTEROL SO4 0.5 % INH SOLN 2.5 MG/0.5 ML VIAL.NEB. NEB PRN (06:36)
[2022-05-15] MEDS ORDERED: MELATONIN 5 MG TABLETS PO PRN (06:39)
[2022-05-15] MEDS ORDERED: methylPREDNISolone NA SUCC 40 MG/1 ML VIAL ONE (07:18)
[2022-05-15] MEDS: methylPREDNISolone NA SUCC 40 MG/1 ML VIAL IVPUSH SCH ×3 (07:35→22:09)
[2022-05-15] MEDS ORDERED: PIPERACILLIN/TAZOB 4.5 GM 4.5 GM in DEXTROSE 5%-WATER 100 ML IVPB SCH (09:00)
[2022-05-15] MEDS: TIOTROPIUM BROMIDE 2.5 MCG (SPIRIVA) RESPIMAT INHALER IH SCH (11:00)
[2022-05-15] MEDS: ANASTROZOLE 1 MG TABLET PO SCH (11:00)
[2022-05-15] MEDS: MULTIVITAMINS (DAILY MVI) TABLET (FP) PO SCH (11:00)
[2022-05-15] MEDS: FOLIC ACID 1 MG TABLET (FP) PO SCH (11:00)
[2022-05-15] MEDS: THIAMINE HCL 100 MG TABLET (FP) PO SCH (11:00)
[2022-05-15] MEDS: ALBUTEROL SO4 2.5/IPRATROPIUM 0.5 INH SOL 3 ML VIAL.NEB. NEB SCH ×3 (11:00→22:00)
[2022-05-15] MEDS: ENOXAPARIN NA (PORCINE) 40 MG/0.4 ML DISP.SYRIN SQ SCH (11:00)
[2022-05-15] MEDS: LIDOCAINE 5% TOPICAL PATCH TP SCH (11:00)
[2022-05-15] MEDS: PANTOPRAZOLE 40 MG TABLET PO SCH (11:00)
[2022-05-15] MEDS: BUDESONIDE/FORMETEROL FUMARATE 160/4.5 mcg INHALER IH SCH ×2 (11:00→22:15)
[2022-05-15] MEDS ORDERED: FOLIC ACID 1 MG TABLET (FP) ONE (11:49)
[2022-05-15] MEDS ORDERED: THIAMINE HCL 100 MG TABLET (FP) ONE (11:49)
[2022-05-15] MEDS ORDERED: PANTOPRAZOLE 40 MG TABLET PO ONE (11:49)
[2022-05-15] MEDS ORDERED: MULTIVITAMINS (DAILY MVI) TABLET (FP) ONE (11:49)
[2022-05-15] MEDS ORDERED: ALBUTEROL SO4 2.5/IPRATROPIUM 0.5 INH SOL 3 ML VIAL.NEB. NEB ONE (11:49)
[2022-05-15] MEDS ORDERED: ENOXAPARIN NA (PORCINE) 40 MG/0.4 ML DISP.SYRIN SQ ONE (11:50)
[2022-05-15 12:28] LABS: HEMATOCRIT 34.2 % (32.4-45.2); HEMOGLOBIN 11.2 GM/dL (10.7-15.3); MCH 29.6 pg (25.7-33.7); MCHC 32.7 g/dl (32.0-36.0); MEAN CELL VOLUME 90.6 fl (80-96); MEAN PLT VOLUME 8.7 fl (7.5-11.1); PLATELET COUNT 182 10^3/uL (134-434); RBC 3.77 M/mm3 (3.60-5.2); RDW 12.7 % (11.6-15.6); WHITE BLOOD COUNT 4.9 K/mm3 (4.0-10.0)
[2022-05-15 12:53] LABS: ALBUMIN 3.8 g/dl (3.4-5.0); CALCIUM 9.1 mg/dL (8.5-10.1)
[2022-05-15 12:56] LABS: CREATININE 0.4 mg/dL (0.55-1.3)
[2022-05-15 12:58] LABS: BILIRUBIN,TOTAL 0.3 mg/dL (0.2-1); PHOSPHOROUS 3.9 mg/dL (2.5-4.9); TOT PROT 7.2 g/dl (6.4-8.2)
[2022-05-15] MEDS: oxyCODONE HCL 5 MG TABLET PO PRN (17:52)
[2022-05-15] MEDS ORDERED: SODIUM CHLORIDE 500 ML IV STA (20:20)
[2022-05-15] MEDS ORDERED: SODIUM CHLORIDE 1,000 ML IV STA (20:22)
[2022-05-15] MEDS ORDERED: AZITHROMYCIN IVPB 500 MG in DEXTROSE 5%-WATER - 250 ML IVPB SCH (22:00)
[2022-05-15] MEDS: CEFTRIAXONE 1 GM in DEXTROSE 5%-WATER - 50 ML IVPB SCH (22:08)
[2022-05-15] MEDS: LIDOCAINE PATCH REMOVAL MC SCH (22:09)
[2022-05-15] MEDS: ATORVASTATIN CA 40 MG TABLET (FP) PO SCH (22:09)
[2022-05-15 22:34] LABS: LACTIC ACID 2.2 mmol/L (0.4-2.0)
[2022-05-15] MEDS: AZITHROMYCIN IVPB 500 MG/250 ML BAG IVPB SCH (23:23)
[2022-05-16] MEDS: methylPREDNISolone NA SUCC 40 MG/1 ML VIAL IVPUSH SCH ×3 (02:55→15:18)
[2022-05-16] MEDS: ALBUTEROL SO4 2.5/IPRATROPIUM 0.5 INH SOL 3 ML VIAL.NEB. NEB SCH ×3 (04:00→16:23)
[2022-05-16] MEDS: CEFTRIAXONE 1 GM in DEXTROSE 5%-WATER - 50 ML IVPB SCH (09:13)
[2022-05-16] MEDS: LIDOCAINE 5% TOPICAL PATCH TP SCH (09:14)
[2022-05-16] MEDS: MULTIVITAMINS (DAILY MVI) TABLET (FP) PO SCH (09:17)
[2022-05-16] MEDS: ANASTROZOLE 1 MG TABLET PO SCH (09:17)
[2022-05-16] MEDS: PANTOPRAZOLE 40 MG TABLET PO SCH (09:17)
[2022-05-16] MEDS: THIAMINE HCL 100 MG TABLET (FP) PO SCH (09:17)
[2022-05-16] MEDS: TIOTROPIUM BROMIDE 2.5 MCG (SPIRIVA) RESPIMAT INHALER IH SCH (09:19)
[2022-05-16] MEDS: BUDESONIDE/FORMETEROL FUMARATE 160/4.5 mcg INHALER IH SCH ×2 (09:19→22:08)
[2022-05-16] MEDS: FOLIC ACID 1 MG TABLET (FP) PO SCH (09:20)
[2022-05-16] MEDS: ENOXAPARIN NA (PORCINE) 40 MG/0.4 ML DISP.SYRIN SQ SCH (09:20)
[2022-05-16] MEDS: AZITHROMYCIN IVPB 500 MG/250 ML BAG IVPB SCH (10:07)
[2022-05-16 10:45] LABS: BASO % 0.1 % (0-2.0); HEMATOCRIT 29.8 % (32.4-45.2); MCH 30.7 pg (25.7-33.7); MCHC 33.6 g/dl (32.0-36.0); MEAN CELL VOLUME 91.4 fl (80-96); MEAN PLT VOLUME 8.9 fl (7.5-11.1); MONO % 7.7 % (3.8-10.2); NEUT % 77.2 % (42.8-82.8); PLATELET COUNT 173 10^3/uL (134-434); RBC 3.26 M/mm3 (3.60-5.2); RDW 12.5 % (11.6-15.6); WHITE BLOOD COUNT 3.8 K/mm3 (4.0-10.0)
[2022-05-16 11:03] LABS: CALCIUM 9.1 mg/dL (8.5-10.1)
[2022-05-16 11:04] LABS: BLOOD UREA NITROGEN 13.8 mg/dL (7-18)
[2022-05-16 11:07] LABS: CREATININE 0.5 mg/dL (0.55-1.3)
[2022-05-16] MEDS: oxyCODONE HCL 5 MG TABLET PO PRN (12:32)
[2022-05-16] MEDS: AZITHROMYCIN 250 MG TABLET PO SCH (12:32)
[2022-05-16] MEDS: ALBUTEROL SO4 2.5/IPRATROPIUM 0.5 INH SOL 3 ML VIAL.NEB. NEB PRN ×2 (14:15→20:46)
[2022-05-16] MEDS: ROFLUMILAST 500 MCG TABLET PO SCH (17:17)
[2022-05-16] MEDS: ATORVASTATIN CA 40 MG TABLET (FP) PO SCH (22:08)
[2022-05-16] MEDS: LIDOCAINE PATCH REMOVAL MC SCH (22:10)
[2022-05-17] MEDS: methylPREDNISolone NA SUCC 40 MG/1 ML VIAL IVPUSH SCH ×5 (01:22→21:17)
[2022-05-17] MEDS: ALBUTEROL SO4 2.5/IPRATROPIUM 0.5 INH SOL 3 ML VIAL.NEB. NEB SCH ×4 (07:50→20:14)
[2022-05-17] MEDS ORDERED: MAGNESIUM HYDROX 2400MG/30ML ORAL SUSPENSION 30 ML CUP PO ONE (09:00)
[2022-05-17] MEDS: oxyCODONE HCL 5 MG TABLET PO PRN ×3 (09:13→23:55)
[2022-05-17] MEDS: LIDOCAINE 5% TOPICAL PATCH TP SCH (09:20)
[2022-05-17] MEDS: CEFTRIAXONE 1 GM in DEXTROSE 5%-WATER - 50 ML IVPB SCH (09:21)
[2022-05-17] MEDS: FOLIC ACID 1 MG TABLET (FP) PO SCH (09:21)
[2022-05-17] MEDS: THIAMINE HCL 100 MG TABLET (FP) PO SCH (09:21)
[2022-05-17] MEDS: PANTOPRAZOLE 40 MG TABLET PO SCH (09:21)
[2022-05-17] MEDS: MULTIVITAMINS (DAILY MVI) TABLET (FP) PO SCH (09:22)
[2022-05-17] MEDS: TIOTROPIUM BROMIDE 2.5 MCG (SPIRIVA) RESPIMAT INHALER IH SCH (09:22)
[2022-05-17] MEDS: ENOXAPARIN NA (PORCINE) 40 MG/0.4 ML DISP.SYRIN SQ SCH (09:22)
[2022-05-17] MEDS: BUDESONIDE/FORMETEROL FUMARATE 160/4.5 mcg INHALER IH SCH ×2 (09:22→21:21)
[2022-05-17] MEDS: ROFLUMILAST 500 MCG TABLET PO SCH (09:23)
[2022-05-17] MEDS: AZITHROMYCIN 250 MG TABLET PO SCH (09:23)
[2022-05-17] MEDS: ANASTROZOLE 1 MG TABLET PO SCH (09:24)
[2022-05-17 10:23] LABS: HEMATOCRIT 33.9 % (32.4-45.2); MCH 29.7 pg (25.7-33.7); MCHC 32.4 g/dl (32.0-36.0); MEAN CELL VOLUME 91.6 fl (80-96); MEAN PLT VOLUME 9.4 fl (7.5-11.1); PLATELET COUNT 225 10^3/uL (134-434); RBC 3.71 M/mm3 (3.60-5.2); RDW 12.7 % (11.6-15.6)
[2022-05-17 10:37] LABS: CALCIUM 9.2 mg/dL (8.5-10.1); LACTIC ACID 3.1 mmol/L (0.4-2.0)
[2022-05-17 10:38] LABS: ALBUMIN 3.6 g/dl (3.4-5.0); BLOOD UREA NITROGEN 12.1 mg/dL (7-18)
[2022-05-17 10:40] LABS: BILIRUBIN,TOTAL 0.2 mg/dL (0.2-1); TOT PROT 7.2 g/dl (6.4-8.2)
[2022-05-17 10:41] LABS: CREATININE 0.6 mg/dL (0.55-1.3)
[2022-05-17 12:52] LABS: ANISOCYTOSIS 0; MACROCYTOSIS 1+; OVALOCYTE 1+
[2022-05-17] MEDS: DOCUSATE SODIUM 100 MG CAPSULE (FP) PO SCH ×2 (13:20→21:17)
[2022-05-17] MEDS: ATORVASTATIN CA 40 MG TABLET (FP) PO SCH (21:17)
[2022-05-17] MEDS: LIDOCAINE PATCH REMOVAL MC SCH (21:18)
[2022-05-18] MEDS: DOCUSATE SODIUM 100 MG CAPSULE (FP) PO SCH ×3 (05:53→21:04)
[2022-05-18] MEDS: ALBUTEROL SO4 2.5/IPRATROPIUM 0.5 INH SOL 3 ML VIAL.NEB. NEB SCH ×4 (08:00→20:30)
[2022-05-18] MEDS: oxyCODONE HCL 5 MG TABLET PO PRN ×2 (09:46→17:38)
[2022-05-18] MEDS: methylPREDNISolone NA SUCC 40 MG/1 ML VIAL IVPUSH SCH ×2 (09:46→17:38)
[2022-05-18] MEDS: FOLIC ACID 1 MG TABLET (FP) PO SCH (09:46)
[2022-05-18] MEDS: THIAMINE HCL 100 MG TABLET (FP) PO SCH (09:46)
[2022-05-18] MEDS: ENOXAPARIN NA (PORCINE) 40 MG/0.4 ML DISP.SYRIN SQ SCH ×2 (09:46→10:00)
[2022-05-18] MEDS: ROFLUMILAST 500 MCG TABLET PO SCH (09:47)
[2022-05-18] MEDS: ANASTROZOLE 1 MG TABLET PO SCH (09:47)
[2022-05-18] MEDS: BUDESONIDE/FORMETEROL FUMARATE 160/4.5 mcg INHALER IH SCH ×2 (09:47→21:04)
[2022-05-18] MEDS: PANTOPRAZOLE 40 MG TABLET PO SCH (09:47)
[2022-05-18] MEDS: TIOTROPIUM BROMIDE 2.5 MCG (SPIRIVA) RESPIMAT INHALER IH SCH (09:47)
[2022-05-18] MEDS: MULTIVITAMINS (DAILY MVI) TABLET (FP) PO SCH (09:47)
[2022-05-18] MEDS: CEFTRIAXONE 1 GM in DEXTROSE 5%-WATER - 50 ML IVPB SCH (09:50)
[2022-05-18] MEDS: LIDOCAINE 5% TOPICAL PATCH TP SCH (09:50)
[2022-05-18 10:08] LABS: BASO % 0.1 % (0-2.0); HEMATOCRIT 33.7 % (32.4-45.2); LYMPH % 20.3 % (8-40); MCH 29.6 pg (25.7-33.7); MCHC 32.6 g/dl (32.0-36.0); MEAN CELL VOLUME 90.8 fl (80-96); MONO % 7.2 % (3.8-10.2); NEUT % 72.4 % (42.8-82.8); PLATELET COUNT 232 10^3/uL (134-434); RBC 3.71 M/mm3 (3.60-5.2); RDW 12.6 % (11.6-15.6); WHITE BLOOD COUNT 6.4 K/mm3 (4.0-10.0)
[2022-05-18 10:39] LABS: CALCIUM 9.1 mg/dL (8.5-10.1)
[2022-05-18 10:40] LABS: ALBUMIN 3.4 g/dl (3.4-5.0); BLOOD UREA NITROGEN 13.1 mg/dL (7-18)
[2022-05-18 10:43] LABS: CREATININE 0.5 mg/dL (0.55-1.3)
[2022-05-18 10:45] LABS: BILIRUBIN,TOTAL 0.3 mg/dL (0.2-1); TOT PROT 6.7 g/dl (6.4-8.2)
[2022-05-18] MEDS ORDERED: LACTATED RINGERS SOLUTION 1,000 ML/1,000 ML INFUS.BAG IV SCH (17:30)
[2022-05-18] MEDS: LIDOCAINE PATCH REMOVAL MC SCH (21:04)
[2022-05-18] MEDS: ATORVASTATIN CA 40 MG TABLET (FP) PO SCH (21:04)
[2022-05-19] MEDS: methylPREDNISolone NA SUCC 40 MG/1 ML VIAL IVPUSH SCH ×3 (01:23→17:43)
[2022-05-19] MEDS: DOCUSATE SODIUM 100 MG CAPSULE (FP) PO SCH ×3 (06:34→21:25)
[2022-05-19] MEDS: ALBUTEROL SO4 2.5/IPRATROPIUM 0.5 INH SOL 3 ML VIAL.NEB. NEB SCH ×4 (08:50→20:29)
[2022-05-19] MEDS: oxyCODONE HCL 5 MG TABLET PO PRN (09:25)
[2022-05-19] MEDS: PANTOPRAZOLE 40 MG TABLET PO SCH (09:26)
[2022-05-19] MEDS: MULTIVITAMINS (DAILY MVI) TABLET (FP) PO SCH (09:26)
[2022-05-19] MEDS: THIAMINE HCL 100 MG TABLET (FP) PO SCH (09:26)
[2022-05-19] MEDS: TIOTROPIUM BROMIDE 2.5 MCG (SPIRIVA) RESPIMAT INHALER IH SCH (09:27)
[2022-05-19] MEDS: FOLIC ACID 1 MG TABLET (FP) PO SCH (09:28)
[2022-05-19] MEDS: BUDESONIDE/FORMETEROL FUMARATE 160/4.5 mcg INHALER IH SCH ×2 (09:28→21:27)
[2022-05-19] MEDS: ANASTROZOLE 1 MG TABLET PO SCH (09:28)
[2022-05-19] MEDS: ENOXAPARIN NA (PORCINE) 40 MG/0.4 ML DISP.SYRIN SQ SCH (09:28)
[2022-05-19] MEDS: ROFLUMILAST 500 MCG TABLET PO SCH (09:28)
[2022-05-19] MEDS: LIDOCAINE 5% TOPICAL PATCH TP SCH (09:29)
[2022-05-19] MEDS: CEFTRIAXONE 1 GM in DEXTROSE 5%-WATER - 50 ML IVPB SCH (09:31)
[2022-05-19 10:01] LABS: HEMATOCRIT 36.5 % (32.4-45.2); HEMOGLOBIN 12.3 GM/dL (10.7-15.3); LYMPH % 15.9 % (8-40); MCH 30.7 pg (25.7-33.7); MCHC 33.6 g/dl (32.0-36.0); MEAN CELL VOLUME 91.2 fl (80-96); MEAN PLT VOLUME 8.6 fl (7.5-11.1); MONO % 5.8 % (3.8-10.2); NEUT % 78.3 % (42.8-82.8); PLATELET COUNT 253 10^3/uL (134-434); RDW 12.8 % (11.6-15.6); WHITE BLOOD COUNT 5.7 K/mm3 (4.0-10.0)
[2022-05-19] MEDS ORDERED: SENNOSIDES/DOCUSATE COMBO (SENNA PLUS) TABLET (UD) PO ONE (10:10)
[2022-05-19 10:27] LABS: ALBUMIN 3.9 g/dl (3.4-5.0); CALCIUM 9.5 mg/dL (8.5-10.1)
[2022-05-19 10:29] LABS: BLOOD UREA NITROGEN 15.3 mg/dL (7-18)
[2022-05-19 10:30] LABS: CREATININE 0.6 mg/dL (0.55-1.3)
[2022-05-19 10:32] LABS: BILIRUBIN,TOTAL 0.3 mg/dL (0.2-1); TOT PROT 7.3 g/dl (6.4-8.2)
[2022-05-19] MEDS ORDERED: ACETAMINOPHEN 1000 MG/100 ML BAG IVPB ONE (20:26)
[2022-05-19] MEDS: guaiFENesin 600 MG TABLET.ER (FP) PO SCH (21:25)
[2022-05-19] MEDS: LIDOCAINE PATCH REMOVAL MC SCH (21:25)
[2022-05-19] MEDS: ATORVASTATIN CA 40 MG TABLET (FP) PO SCH (21:25)
[2022-05-19] MEDS ORDERED: SENNOSIDES/DOCUSATE COMBO (SENNA PLUS) TABLET (UD) PO SCH (22:00)
[2022-05-20] MEDS: methylPREDNISolone NA SUCC 40 MG/1 ML VIAL IVPUSH SCH ×3 (01:43→17:00)
[2022-05-20] MEDS: DOCUSATE SODIUM 100 MG CAPSULE (FP) PO SCH (05:45)
[2022-05-20] MEDS: ALBUTEROL SO4 2.5/IPRATROPIUM 0.5 INH SOL 3 ML VIAL.NEB. NEB SCH ×4 (08:00→20:02)
[2022-05-20 09:10] LABS: BASO % 0.1 % (0-2.0); HEMATOCRIT 38.5 % (32.4-45.2); HEMOGLOBIN 12.5 GM/dL (10.7-15.3); LYMPH % 16.6 % (8-40); MCH 29.5 pg (25.7-33.7); MCHC 32.5 g/dl (32.0-36.0); MEAN CELL VOLUME 90.9 fl (80-96); MEAN PLT VOLUME 8.9 fl (7.5-11.1); MONO % 5.5 % (3.8-10.2); NEUT % 77.8 % (42.8-82.8); PLATELET COUNT 287 10^3/uL (134-434); RBC 4.23 M/mm3 (3.60-5.2); RDW 12.6 % (11.6-15.6); WHITE BLOOD COUNT 5.9 K/mm3 (4.0-10.0)
[2022-05-20 09:32] LABS: CHLORIDE 104 mmol/L (98-107); SODIUM 142 mmol/L (136-145)
[2022-05-20 09:34] LABS: CALCIUM 9.3 mg/dL (8.5-10.1)
[2022-05-20 09:35] LABS: ALBUMIN 3.7 g/dl (3.4-5.0); ANION GAP 4 MMOL/L (8-16); BLOOD UREA NITROGEN 14.6 mg/dL (7-18); CO2 33 mmol/L (21-32); GLUCOSE,RANDOM 139 mg/dL (74-106)
[2022-05-20 09:38] LABS: CREATININE 0.5 mg/dL (0.55-1.3); SGOT/AST 12 U/L (15-37); SGPT/ALT 28 U/L (13-61)
[2022-05-20 09:40] LABS: BILIRUBIN,TOTAL 0.3 mg/dL (0.2-1); TOT PROT 7.2 g/dl (6.4-8.2)
[2022-05-20 09:41] LABS: ALK PHOS 92 U/L (45-117)
[2022-05-20] MEDS: ANASTROZOLE 1 MG TABLET PO SCH (09:48)
[2022-05-20] MEDS: FOLIC ACID 1 MG TABLET (FP) PO SCH (09:49)
[2022-05-20] MEDS: LIDOCAINE 5% TOPICAL PATCH TP SCH (09:49)
[2022-05-20] MEDS: ROFLUMILAST 500 MCG TABLET PO SCH (09:49)
[2022-05-20] MEDS: CEFTRIAXONE 1 GM in DEXTROSE 5%-WATER - 50 ML IVPB SCH (09:50)
[2022-05-20] MEDS: PANTOPRAZOLE 40 MG TABLET PO SCH (09:50)
[2022-05-20] MEDS: guaiFENesin 600 MG TABLET.ER (FP) PO SCH ×2 (09:50→21:09)
[2022-05-20] MEDS: THIAMINE HCL 100 MG TABLET (FP) PO SCH (09:51)
[2022-05-20] MEDS: BUDESONIDE/FORMETEROL FUMARATE 160/4.5 mcg INHALER IH SCH ×2 (09:51→21:10)
[2022-05-20] MEDS: MULTIVITAMINS (DAILY MVI) TABLET (FP) PO SCH (09:51)
[2022-05-20] MEDS: TIOTROPIUM BROMIDE 2.5 MCG (SPIRIVA) RESPIMAT INHALER IH SCH (09:51)
[2022-05-20] MEDS: ENOXAPARIN NA (PORCINE) 40 MG/0.4 ML DISP.SYRIN SQ SCH (10:01)
[2022-05-20] MEDS ORDERED: ACETAMINOPHEN 1000 MG/100 ML BAG IVPB PRN (10:30)
[2022-05-20] MEDS ORDERED: DEXTROSE 5%-0.45% SALINE 1,000 ML IV SCH (12:00)
[2022-05-20] MEDS: ACETAMINOPHEN 1000 MG/100 ML BAG IVPB PRN ×2 (12:20→18:04)
[2022-05-20] MEDS: DEXTROSE 5%-NORMAL SALINE 1,000 ML IV SCH (16:53)
[2022-05-20] MEDS: ATORVASTATIN CA 40 MG TABLET (FP) PO SCH (21:09)
[2022-05-20] MEDS: LIDOCAINE PATCH REMOVAL MC SCH (21:16)
[2022-05-21] MEDS: methylPREDNISolone NA SUCC 40 MG/1 ML VIAL IVPUSH SCH ×4 (01:12→21:42)
[2022-05-21] MEDS: ALBUTEROL SO4 2.5/IPRATROPIUM 0.5 INH SOL 3 ML VIAL.NEB. NEB SCH ×4 (08:25→20:16)
[2022-05-21] MEDS: CEFTRIAXONE 1 GM in DEXTROSE 5%-WATER - 50 ML IVPB SCH (10:04)
[2022-05-21] MEDS: PANTOPRAZOLE 40 MG TABLET PO SCH (10:05)
[2022-05-21] MEDS: THIAMINE HCL 100 MG TABLET (FP) PO SCH (10:05)
[2022-05-21] MEDS: MULTIVITAMINS (DAILY MVI) TABLET (FP) PO SCH (10:05)
[2022-05-21] MEDS: FOLIC ACID 1 MG TABLET (FP) PO SCH (10:05)
[2022-05-21] MEDS: ENOXAPARIN NA (PORCINE) 40 MG/0.4 ML DISP.SYRIN SQ SCH (10:06)
[2022-05-21] MEDS: LIDOCAINE 5% TOPICAL PATCH TP SCH (10:11)
[2022-05-21] MEDS: guaiFENesin 600 MG TABLET.ER (FP) PO SCH (10:11)
[2022-05-21] MEDS: ANASTROZOLE 1 MG TABLET PO SCH (10:11)
[2022-05-21] MEDS: BUDESONIDE/FORMETEROL FUMARATE 160/4.5 mcg INHALER IH SCH ×2 (10:11→21:43)
[2022-05-21] MEDS: ROFLUMILAST 500 MCG TABLET PO SCH (10:11)
[2022-05-21] MEDS: TIOTROPIUM BROMIDE 2.5 MCG (SPIRIVA) RESPIMAT INHALER IH SCH (10:11)
[2022-05-21] MEDS: DEXTROSE 5%-NORMAL SALINE 1,000 ML IV SCH ×2 (10:12→17:23)
[2022-05-21 10:45] LABS: BASO % 0.1 % (0-2.0); EOS % 0.1 % (0-4.5); HEMATOCRIT 33.9 % (32.4-45.2); HEMOGLOBIN 11.6 GM/dL (10.7-15.3); LYMPH % 26.1 % (8-40); MCH 30.9 pg (25.7-33.7); MCHC 34.3 g/dl (32.0-36.0); MEAN CELL VOLUME 90.2 fl (80-96); MEAN PLT VOLUME 8.3 fl (7.5-11.1); MONO % 6.9 % (3.8-10.2); NEUT % 66.8 % (42.8-82.8); PLATELET COUNT 247 10^3/uL (134-434); RBC 3.76 M/mm3 (3.60-5.2); RDW 12.8 % (11.6-15.6); WHITE BLOOD COUNT 6.6 K/mm3 (4.0-10.0)
[2022-05-21 11:11] LABS: CALCIUM 8.8 mg/dL (8.5-10.1)
[2022-05-21 11:12] LABS: ALBUMIN 3.3 g/dl (3.4-5.0); BLOOD UREA NITROGEN 12.6 mg/dL (7-18)
[2022-05-21 11:13] LABS: BILIRUBIN,TOTAL 0.7 mg/dL (0.2-1)
[2022-05-21 11:14] LABS: CREATININE 0.4 mg/dL (0.55-1.3)
[2022-05-21 11:16] LABS: TOT PROT 6.3 g/dl (6.4-8.2)
[2022-05-21] MEDS: ACETAMINOPHEN 1000 MG/100 ML BAG IVPB PRN ×2 (12:01→21:42)
[2022-05-21 12:49] VITALS: BMI 16.1
[2022-05-21] MEDS: ATORVASTATIN CA 40 MG TABLET (FP) PO SCH (21:43)
[2022-05-21] MEDS: LIDOCAINE PATCH REMOVAL MC SCH (21:43)
[2022-05-22] MEDS ORDERED: ACETAMINOPHEN 1000 MG/100 ML BAG IVPB ONE ×2 (04:15→04:45)
[2022-05-22] MEDS: ALBUTEROL SO4 2.5/IPRATROPIUM 0.5 INH SOL 3 ML VIAL.NEB. NEB SCH ×4 (08:00→20:00)
[2022-05-22] MEDS: LIDOCAINE 5% TOPICAL PATCH TP SCH (09:44)
[2022-05-22] MEDS: PANTOPRAZOLE 40 MG TABLET PO SCH (09:45)
[2022-05-22] MEDS: methylPREDNISolone NA SUCC 40 MG/1 ML VIAL IVPUSH SCH (09:45)
[2022-05-22] MEDS: THIAMINE HCL 100 MG TABLET (FP) PO SCH (09:45)
[2022-05-22] MEDS: MULTIVITAMINS (DAILY MVI) TABLET (FP) PO SCH (09:45)
[2022-05-22] MEDS: ENOXAPARIN NA (PORCINE) 40 MG/0.4 ML DISP.SYRIN SQ SCH (09:46)
[2022-05-22] MEDS: CEFTRIAXONE 1 GM in DEXTROSE 5%-WATER - 50 ML IVPB SCH (09:46)
[2022-05-22] MEDS: ROFLUMILAST 500 MCG TABLET PO SCH (09:47)
[2022-05-22] MEDS: ANASTROZOLE 1 MG TABLET PO SCH (09:47)
[2022-05-22] MEDS: FOLIC ACID 1 MG TABLET (FP) PO SCH (09:48)
[2022-05-22] MEDS: TIOTROPIUM BROMIDE 2.5 MCG (SPIRIVA) RESPIMAT INHALER IH SCH (09:49)
[2022-05-22] MEDS: BUDESONIDE/FORMETEROL FUMARATE 160/4.5 mcg INHALER IH SCH ×2 (09:49→21:38)
[2022-05-22 11:23] LABS: BASO % 0.3 % (0-2.0); EOS % 0.3 % (0-4.5); HEMATOCRIT 34.7 % (32.4-45.2); HEMOGLOBIN 11.4 GM/dL (10.7-15.3); LYMPH % 29.7 % (8-40); MCH 29.8 pg (25.7-33.7); MCHC 32.7 g/dl (32.0-36.0); MEAN PLT VOLUME 8.5 fl (7.5-11.1); MONO % 6.8 % (3.8-10.2); NEUT % 62.9 % (42.8-82.8); PLATELET COUNT 270 10^3/uL (134-434); RBC 3.81 M/mm3 (3.60-5.2); RDW 13.2 % (11.6-15.6); WHITE BLOOD COUNT 6.3 K/mm3 (4.0-10.0)
[2022-05-22 11:51] LABS: CALCIUM 8.7 mg/dL (8.5-10.1)
[2022-05-22 11:52] LABS: BLOOD UREA NITROGEN 11.2 mg/dL (7-18)
[2022-05-22 11:54] LABS: CREATININE 0.5 mg/dL (0.55-1.3)
[2022-05-22] MEDS: LIDOCAINE PATCH REMOVAL MC SCH (21:38)
[2022-05-22] MEDS: ATORVASTATIN CA 40 MG TABLET (FP) PO SCH (21:38)
[2022-05-22] MEDS ORDERED: SIMETHICONE 80 MG TAB.CHEW (FP) PO ONE (21:47)
[2022-05-23] MEDS ORDERED: NAPROXEN 250 MG TABLET PO ONE (00:22)
[2022-05-23] MEDS: ALBUTEROL SO4 2.5/IPRATROPIUM 0.5 INH SOL 3 ML VIAL.NEB. NEB SCH ×4 (08:20→20:05)
[2022-05-23 08:59] LABS: BASO % 0.2 % (0-2.0); EOS % 1.5 % (0-4.5); HEMATOCRIT 36.4 % (32.4-45.2); HEMOGLOBIN 11.8 GM/dL (10.7-15.3); LYMPH % 38.1 % (8-40); MCH 29.4 pg (25.7-33.7); MCHC 32.5 g/dl (32.0-36.0); MEAN CELL VOLUME 90.3 fl (80-96); MEAN PLT VOLUME 8.2 fl (7.5-11.1); MONO % 7.7 % (3.8-10.2); NEUT % 52.5 % (42.8-82.8); PLATELET COUNT 322 10^3/uL (134-434); RBC 4.03 M/mm3 (3.60-5.2); WHITE BLOOD COUNT 7.6 K/mm3 (4.0-10.0)
[2022-05-23] MEDS: BUDESONIDE/FORMETEROL FUMARATE 160/4.5 mcg INHALER IH SCH ×2 (09:26→22:14)
[2022-05-23] MEDS: TIOTROPIUM BROMIDE 2.5 MCG (SPIRIVA) RESPIMAT INHALER IH SCH (09:27)
[2022-05-23 09:28] LABS: CALCIUM 8.8 mg/dL (8.5-10.1)
[2022-05-23] MEDS: LIDOCAINE 5% TOPICAL PATCH TP SCH (09:28)
[2022-05-23 09:29] LABS: BLOOD UREA NITROGEN 13.8 mg/dL (7-18)
[2022-05-23] MEDS: THIAMINE HCL 100 MG TABLET (FP) PO SCH (09:29)
[2022-05-23] MEDS: predniSONE 20 MG TABLET (UD) PO SCH (09:29)
[2022-05-23] MEDS: ROFLUMILAST 500 MCG TABLET PO SCH (09:29)
[2022-05-23] MEDS: PANTOPRAZOLE 40 MG TABLET PO SCH (09:29)
[2022-05-23] MEDS: MULTIVITAMINS (DAILY MVI) TABLET (FP) PO SCH (09:29)
[2022-05-23] MEDS: ANASTROZOLE 1 MG TABLET PO SCH (09:30)
[2022-05-23] MEDS: CEFTRIAXONE 1 GM in DEXTROSE 5%-WATER - 50 ML IVPB SCH (09:30)
[2022-05-23] MEDS: ENOXAPARIN NA (PORCINE) 40 MG/0.4 ML DISP.SYRIN SQ SCH (09:30)
[2022-05-23] MEDS: FOLIC ACID 1 MG TABLET (FP) PO SCH (09:30)
[2022-05-23 09:32] LABS: CREATININE 0.4 mg/dL (0.55-1.3)
[2022-05-23] MEDS ORDERED: ACETAMINOPHEN 325 MG TABLET (FP) PO PRN (16:43)
[2022-05-23] MEDS: oxyCODONE HCL 5 MG TABLET PO PRN (16:53)
[2022-05-23] MEDS: POLYETHYLENE GLYCOL (HEALTHYLAX) 3350 17 GM PACKET PO SCH (16:56)
[2022-05-23] MEDS: LIDOCAINE PATCH REMOVAL MC SCH (22:12)
[2022-05-23] MEDS: ATORVASTATIN CA 40 MG TABLET (FP) PO SCH (22:13)
[2022-05-24] MEDS: oxyCODONE HCL 5 MG TABLET PO PRN ×2 (01:47→21:18)
[2022-05-24] MEDS: ALBUTEROL SO4 2.5/IPRATROPIUM 0.5 INH SOL 3 ML VIAL.NEB. NEB SCH ×4 (07:48→20:45)
[2022-05-24] MEDS: CEFTRIAXONE 1 GM in DEXTROSE 5%-WATER - 50 ML IVPB SCH (09:19)
[2022-05-24] MEDS: POLYETHYLENE GLYCOL (HEALTHYLAX) 3350 17 GM PACKET PO SCH (09:20)
[2022-05-24] MEDS: FOLIC ACID 1 MG TABLET (FP) PO SCH (09:20)
[2022-05-24] MEDS: LIDOCAINE 5% TOPICAL PATCH TP SCH (09:20)
[2022-05-24] MEDS: PANTOPRAZOLE 40 MG TABLET PO SCH (09:20)
[2022-05-24] MEDS: predniSONE 20 MG TABLET (UD) PO SCH (09:20)
[2022-05-24] MEDS: THIAMINE HCL 100 MG TABLET (FP) PO SCH (09:21)
[2022-05-24] MEDS: ANASTROZOLE 1 MG TABLET PO SCH (09:21)
[2022-05-24] MEDS: ROFLUMILAST 500 MCG TABLET PO SCH (09:21)
[2022-05-24] MEDS: MULTIVITAMINS (DAILY MVI) TABLET (FP) PO SCH (09:21)
[2022-05-24] MEDS: ENOXAPARIN NA (PORCINE) 40 MG/0.4 ML DISP.SYRIN SQ SCH (09:21)
[2022-05-24] MEDS: BUDESONIDE/FORMETEROL FUMARATE 160/4.5 mcg INHALER IH SCH ×2 (09:22→21:24)
[2022-05-24] MEDS: TIOTROPIUM BROMIDE 2.5 MCG (SPIRIVA) RESPIMAT INHALER IH SCH (09:22)
[2022-05-24 09:58] LABS: BASO % 0.3 % (0-2.0); EOS % 0.9 % (0-4.5); HEMATOCRIT 32.7 % (32.4-45.2); HEMOGLOBIN 10.8 GM/dL (10.7-15.3); MCH 30.1 pg (25.7-33.7); MCHC 33.1 g/dl (32.0-36.0); MEAN PLT VOLUME 8.5 fl (7.5-11.1); MONO % 7.4 % (3.8-10.2); NEUT % 56.4 % (42.8-82.8); PLATELET COUNT 287 10^3/uL (134-434); RBC 3.59 M/mm3 (3.60-5.2); WHITE BLOOD COUNT 6.6 K/mm3 (4.0-10.0)
[2022-05-24 10:25] LABS: BLOOD UREA NITROGEN 12.8 mg/dL (7-18); CALCIUM 8.8 mg/dL (8.5-10.1)
[2022-05-24 10:28] LABS: CREATININE 0.5 mg/dL (0.55-1.3)
[2022-05-24] MEDS: guaiFENesin 600 MG TABLET.ER (FP) PO SCH ×2 (10:56→21:18)
[2022-05-24] MEDS: ATORVASTATIN CA 40 MG TABLET (FP) PO SCH (21:18)
[2022-05-24] MEDS: LIDOCAINE PATCH REMOVAL MC SCH (21:24)
[2022-05-24 21:27] VITALS: RESP 20
[2022-05-25 05:20] VITALS: TEMP 98.4
[2022-05-25] MEDS ORDERED: ALBUTEROL SO4 2.5/IPRATROPIUM 0.5 INH SOL 3 ML VIAL.NEB. NEB SCH (08:00)
[2022-05-25 10:17] LABS: BASO % 0.1 % (0-2.0); HEMATOCRIT 36.4 % (32.4-45.2); HEMOGLOBIN 11.7 GM/dL (10.7-15.3); LYMPH % 37.1 % (8-40); MCH 29.5 pg (25.7-33.7); MEAN PLT VOLUME 8.3 fl (7.5-11.1); MONO % 7.2 % (3.8-10.2); NEUT % 54.6 % (42.8-82.8); PLATELET COUNT 313 10^3/uL (134-434); RBC 3.96 M/mm3 (3.60-5.2); RDW 13.3 % (11.6-15.6); WHITE BLOOD COUNT 7.2 K/mm3 (4.0-10.0)
[2022-05-25 10:47] LABS: BLOOD UREA NITROGEN 13.8 mg/dL (7-18); CALCIUM 8.9 mg/dL (8.5-10.1)
[2022-05-25 10:50] LABS: CREATININE 0.4 mg/dL (0.55-1.3)
[2022-05-25] MEDS: MULTIVITAMINS (DAILY MVI) TABLET (FP) PO SCH (11:02)
[2022-05-25] MEDS: guaiFENesin 600 MG TABLET.ER (FP) PO SCH (11:02)
[2022-05-25] MEDS: LIDOCAINE 5% TOPICAL PATCH TP SCH (11:02)
[2022-05-25] MEDS: predniSONE 20 MG TABLET (UD) PO SCH (11:02)
[2022-05-25] MEDS: THIAMINE HCL 100 MG TABLET (FP) PO SCH (11:03)
[2022-05-25] MEDS: PANTOPRAZOLE 40 MG TABLET PO SCH (11:03)
[2022-05-25] MEDS: FOLIC ACID 1 MG TABLET (FP) PO SCH (11:03)
[2022-05-25] MEDS: ENOXAPARIN NA (PORCINE) 40 MG/0.4 ML DISP.SYRIN SQ SCH (11:03)
[2022-05-25] MEDS: POLYETHYLENE GLYCOL (HEALTHYLAX) 3350 17 GM PACKET PO SCH (11:03)
[2022-05-25] MEDS: TIOTROPIUM BROMIDE 2.5 MCG (SPIRIVA) RESPIMAT INHALER IH SCH (11:04)
[2022-05-25] MEDS: BUDESONIDE/FORMETEROL FUMARATE 160/4.5 mcg INHALER IH SCH (11:04)
[2022-05-25] MEDS: ROFLUMILAST 500 MCG TABLET PO SCH (11:05)
[2022-05-25] MEDS: ANASTROZOLE 1 MG TABLET PO SCH (11:05)
[2022-05-25 13:42] VITALS: BP 105/63; PULSE 88
== END 2022-05-25 14:08 | disposition home health service (06) | DRG 190 ==
LOC: JER 22:03 → JERBED 05-15 03:28 → J6S 05-15 16:33
PROVIDERS: ADMIT Internal Medicine; ATTEND Internal Medicine
DX: J44.0 Chronic obstructive pulmonary disease with (acute) lower respiratory infection (principal); J18.9 Pneumonia, unspecified organism; C78.00 Secondary malignant neoplasm of unspecified lung; J96.11 Chronic respiratory failure with hypoxia; K57.32 Diverticulitis of large intestine without perforation or abscess without bleeding; J44.1 Chronic obstructive pulmonary disease with (acute) exacerbation; C50.911 Malignant neoplasm of unspecified site of right female breast; F10.20 Alcohol dependence, uncomplicated; G47.00 Insomnia, unspecified; E78.5 Hyperlipidemia, unspecified; I10 Essential (primary) hypertension; E11.9 Type 2 diabetes mellitus without complications; M81.0 Age-related osteoporosis without current pathological fracture; Z99.81 Dependence on supplemental oxygen; Z87.11 Personal history of peptic ulcer disease
CPT/HCPCS: 36415; 71045-TC-FY; 71275-TC; 74176-TC; 74177-TC; 80048; 80053; 81003; 83605; 83690; 83735; 84100; 84484; 85025; 85027; 85610; 85730; 86140; 86738; 87040; 87086; 87899; 93005; 93010; 94640; 99285-25; C9803-CS; Q9967; U0003; U0005

== ENCOUNTER 2023-03-05 09:19 | Inpatient (IN) | payer OTHER ==
[2023-03-05] MEDS ORDERED: ALBUTEROL SO4 2.5/IPRATROPIUM 0.5 INH SOL 3 ML VIAL.NEB. NEB ONE ×2 (09:40→09:43)
[2023-03-05 10:45] LABS: BASO % 0.3 % (0-2.0); HEMATOCRIT 35.7 % (32.4-45.2); HEMOGLOBIN 11.9 GM/dL (10.7-15.3); LYMPH % 25.7 % (8-40); MCH 29.6 pg (25.7-33.7); MCHC 33.2 g/dl (32.0-36.0); MONO % 4.7 % (3.8-10.2); NEUT % 67.3 % (42.8-82.8); PLATELET COUNT 195 10^3/uL (134-434); RBC 4.02 M/mm3 (3.60-5.2); RDW 12.3 % (11.6-15.6); WHITE BLOOD COUNT 5.6 K/mm3 (4.0-10.0)
[2023-03-05 11:02] LABS: POTASSIUM 4.5 mmol/L (3.5-5.1)
[2023-03-05 11:04] LABS: BLOOD UREA NITROGEN 12.6 mg/dL (7-18); CALCIUM 9.9 mg/dL (8.5-10.1)
[2023-03-05 11:04] LABS: VENOUS BASE EXCESS 4.1 mmol/L (-2-2); VENOUS PCO2 60.5 mmHg (38-52); VENOUS PH 7.335 (7.310-7.410)
[2023-03-05 11:05] LABS: ALBUMIN 4.3 g/dl (3.4-5.0)
[2023-03-05 11:07] LABS: CREATININE 0.5 mg/dL (0.55-1.3)
[2023-03-05 11:09] LABS: BILIRUBIN,TOTAL 0.6 mg/dL (0.2-1)
[2023-03-05 11:12] LABS: N-TERMINAL BNP 28.2 pg/ml (5-125)
[2023-03-05 11:58] LABS: INR 1.03 (0.83-1.09)
[2023-03-05 12:00] LABS: ACTIVATED PTT 33.6 SECONDS (25.2-36.5)
[2023-03-05] MEDS ORDERED: AZITHROMYCIN IVPB 500 MG in DEXTROSE 5%-WATER - 250 ML IVPB ONE (14:59)
[2023-03-05] MEDS ORDERED: AZITHROMYCIN IVPB 500 MG/250 ML BAG IVPB ONE (15:09)
[2023-03-05] MEDS ORDERED: ACETAMINOPHEN 1000 MG/100 ML BAG IVPB ONE (15:11)
[2023-03-05] MEDS ORDERED: ACETAMINOPHEN INJECTION 100 ML IVPB ONE (15:12)
[2023-03-05] MEDS ORDERED: BUDESONIDE/FORMETEROL FUMARATE 160/4.5 mcg INHALER IH PRN (15:58)
[2023-03-05] MEDS ORDERED: ALBUTEROL SO4 HFA INHALER IH PRN (15:59)
[2023-03-05] MEDS: ALBUTEROL SO4 2.5/IPRATROPIUM 0.5 INH SOL 3 ML VIAL.NEB. NEB SCH ×2 (17:39→21:22)
[2023-03-05] MEDS: methylPREDNISolone NA SUCC 40 MG/1 ML VIAL IVPUSH SCH (17:41)
[2023-03-05] MEDS: PANTOPRAZOLE 40 MG TABLET PO SCH (17:42)
[2023-03-05] MEDS: BUDESONIDE/FORMETEROL FUMARATE 160/4.5 mcg INHALER IH SCH (22:17)
[2023-03-06] MEDS ORDERED: ANASTROZOLE 1 MG TABLET PO ONE (00:06)
[2023-03-06] MEDS: methylPREDNISolone NA SUCC 40 MG/1 ML VIAL IVPUSH SCH ×3 (01:45→18:20)
[2023-03-06] MEDS: ALBUTEROL SO4 2.5/IPRATROPIUM 0.5 INH SOL 3 ML VIAL.NEB. NEB SCH ×4 (08:28→20:33)
[2023-03-06] MEDS: PANTOPRAZOLE 40 MG TABLET PO SCH (09:27)
[2023-03-06] MEDS: ANASTROZOLE 1 MG TABLET PO SCH (09:28)
[2023-03-06] MEDS: ENOXAPARIN NA (PORCINE) 40 MG/0.4 ML DISP.SYRIN SQ SCH (09:36)
[2023-03-06] MEDS: BUDESONIDE/FORMETEROL FUMARATE 160/4.5 mcg INHALER IH SCH ×2 (09:37→21:58)
[2023-03-06 09:56] LABS: BASO % 0.1 % (0-2.0); EOS % 0.1 % (0-4.5); HEMATOCRIT 36.3 % (32.4-45.2); HEMOGLOBIN 11.7 GM/dL (10.7-15.3); MCH 29.3 pg (25.7-33.7); MCHC 32.2 g/dl (32.0-36.0); MEAN CELL VOLUME 90.8 fl (80-96); MEAN PLT VOLUME 9.5 fl (7.5-11.1); MONO % 1.9 % (3.8-10.2); NEUT % 81.9 % (42.8-82.8); PLATELET COUNT 211 10^3/uL (134-434); RDW 12.1 % (11.6-15.6); WHITE BLOOD COUNT 5.6 K/mm3 (4.0-10.0)
[2023-03-06 10:14] LABS: POTASSIUM 4.3 mmol/L (3.5-5.1)
[2023-03-06 10:16] LABS: BLOOD UREA NITROGEN 20.3 mg/dL (7-18); CALCIUM 9.5 mg/dL (8.5-10.1)
[2023-03-06 10:17] LABS: ALBUMIN 3.8 g/dl (3.4-5.0); MAGNESIUM 2.3 mg/dL (1.8-2.4)
[2023-03-06 10:20] LABS: CREATININE 0.6 mg/dL (0.55-1.3); PHOSPHOROUS 3.9 mg/dL (2.5-4.9)
[2023-03-06 10:21] LABS: BILIRUBIN,TOTAL 0.6 mg/dL (0.2-1); TOT PROT 7.5 g/dl (6.4-8.2)
[2023-03-06] MEDS: AZITHROMYCIN 250 MG TABLET PO SCH (10:34)
[2023-03-06] MEDS: ACETAMINOPHEN 325 MG TABLET (FP) PO PRN (12:57)
[2023-03-06] MEDS ORDERED: POLYETHYLENE GLYCOL (HEALTHYLAX) 3350 17 GM PACKET PO ONE (19:00)
[2023-03-07] MEDS: methylPREDNISolone NA SUCC 40 MG/1 ML VIAL IVPUSH SCH ×2 (03:09→09:48)
[2023-03-07] MEDS: ALBUTEROL SO4 2.5/IPRATROPIUM 0.5 INH SOL 3 ML VIAL.NEB. NEB SCH ×4 (07:54→20:31)
[2023-03-07 09:31] LABS: HEMATOCRIT 33.3 % (32.4-45.2); HEMOGLOBIN 10.9 GM/dL (10.7-15.3); MCH 29.6 pg (25.7-33.7); MCHC 32.6 g/dl (32.0-36.0); MEAN CELL VOLUME 90.7 fl (80-96); MEAN PLT VOLUME 9.9 fl (7.5-11.1); PLATELET COUNT 191 10^3/uL (134-434); RBC 3.68 M/mm3 (3.60-5.2); RDW 12.6 % (11.6-15.6); WHITE BLOOD COUNT 8.4 K/mm3 (4.0-10.0)
[2023-03-07] MEDS: PANTOPRAZOLE 40 MG TABLET PO SCH (09:49)
[2023-03-07] MEDS: MAG HYDROX/AL HYDROX/SIMETH 30 ML UNIT-DOSE CUP PO PRN (09:49)
[2023-03-07] MEDS: ANASTROZOLE 1 MG TABLET PO SCH (09:50)
[2023-03-07] MEDS: AZITHROMYCIN 250 MG TABLET PO SCH (09:50)
[2023-03-07 09:51] LABS: POTASSIUM 5.1 mmol/L (3.5-5.1)
[2023-03-07 09:53] LABS: CALCIUM 9.4 mg/dL (8.5-10.1)
[2023-03-07 09:54] LABS: BLOOD UREA NITROGEN 17.6 mg/dL (7-18)
[2023-03-07] MEDS: BUDESONIDE/FORMETEROL FUMARATE 160/4.5 mcg INHALER IH SCH ×2 (09:55→21:31)
[2023-03-07 09:57] LABS: CREATININE 0.6 mg/dL (0.55-1.3)
[2023-03-07] MEDS: ENOXAPARIN NA (PORCINE) 40 MG/0.4 ML DISP.SYRIN SQ SCH (09:57)
[2023-03-07] MEDS ORDERED: POLYETHYLENE GLYCOL (HEALTHYLAX) 3350 17 GM PACKET PO ONE (11:30)
[2023-03-07 11:40] LABS: ANISOCYTOSIS 0; HELMET CELLS 0; HOWELL-JOLLY BODIES 0; MACROCYTOSIS 0; OVALOCYTE 0; ROULEAU 0; SICKELED CELLS 0; TARGET CELLS 0; TEAR DROP CELLS 0; TOXIC GRANULATION 0
[2023-03-07] MEDS ORDERED: guaiFENesin 200 MG/10 ML 10 ML UNIT-DOSE CUPS PO PRN (16:01)
[2023-03-07] MEDS: ATORVASTATIN CA 10 MG TABLET (FP) PO SCH (22:13)
[2023-03-07] MEDS: POLYETHYLENE GLYCOL (HEALTHYLAX) 3350 17 GM PACKET PO SCH (22:13)
[2023-03-08 05:12] VITALS: RESP 18
[2023-03-08] MEDS: ALBUTEROL SO4 2.5/IPRATROPIUM 0.5 INH SOL 3 ML VIAL.NEB. NEB SCH ×4 (07:40→19:16)
[2023-03-08] MEDS: POLYETHYLENE GLYCOL (HEALTHYLAX) 3350 17 GM PACKET PO SCH ×2 (09:42→21:45)
[2023-03-08] MEDS: PANTOPRAZOLE 40 MG TABLET PO SCH (09:43)
[2023-03-08] MEDS: ANASTROZOLE 1 MG TABLET PO SCH (09:44)
[2023-03-08] MEDS: AZITHROMYCIN 250 MG TABLET PO SCH (09:44)
[2023-03-08] MEDS: BUDESONIDE/FORMETEROL FUMARATE 160/4.5 mcg INHALER IH SCH ×2 (09:45→21:48)
[2023-03-08] MEDS ORDERED: BISACODYL 10 MG SUPP.RECT PR ONE (09:50)
[2023-03-08] MEDS: ENOXAPARIN NA (PORCINE) 40 MG/0.4 ML DISP.SYRIN SQ SCH (09:57)
[2023-03-08] MEDS ORDERED: methylPREDNISolone NA SUCC 40 MG/1 ML VIAL IVPUSH SCH (10:00)
[2023-03-08] MEDS: predniSONE 20 MG TABLET (UD) PO SCH (10:13)
[2023-03-08] MEDS ORDERED: SENNOSIDES 8.6MG TABLET (FP) PO ONE (12:04)
[2023-03-08] MEDS: DOCUSATE SODIUM 100 MG CAPSULE (FP) PO SCH (12:56)
[2023-03-08] MEDS: MAG HYDROX/AL HYDROX/SIMETH 30 ML UNIT-DOSE CUP PO PRN (12:57)
[2023-03-08 14:32] VITALS: BMI 19.2
[2023-03-08] MEDS: ATORVASTATIN CA 10 MG TABLET (FP) PO SCH (21:45)
[2023-03-08] MEDS: ACETAMINOPHEN 325 MG TABLET (FP) PO PRN (21:52)
[2023-03-09] MEDS: ACETAMINOPHEN 325 MG TABLET (FP) PO PRN ×2 (06:27→14:58)
[2023-03-09] MEDS: ALBUTEROL SO4 2.5/IPRATROPIUM 0.5 INH SOL 3 ML VIAL.NEB. NEB SCH ×3 (07:10→15:17)
[2023-03-09] MEDS: POLYETHYLENE GLYCOL (HEALTHYLAX) 3350 17 GM PACKET PO SCH (09:23)
[2023-03-09] MEDS: predniSONE 20 MG TABLET (UD) PO SCH (09:24)
[2023-03-09] MEDS: ANASTROZOLE 1 MG TABLET PO SCH (09:25)
[2023-03-09] MEDS: DOCUSATE SODIUM 100 MG CAPSULE (FP) PO SCH (09:25)
[2023-03-09] MEDS: AZITHROMYCIN 250 MG TABLET PO SCH (09:25)
[2023-03-09] MEDS: PANTOPRAZOLE 40 MG TABLET PO SCH (09:25)
[2023-03-09] MEDS: BUDESONIDE/FORMETEROL FUMARATE 160/4.5 mcg INHALER IH SCH (09:26)
[2023-03-09] MEDS: ENOXAPARIN NA (PORCINE) 40 MG/0.4 ML DISP.SYRIN SQ SCH (09:27)
[2023-03-09] MEDS ORDERED: BISACODYL 10 MG SUPP.RECT PR ONE (10:42)
[2023-03-09] MEDS: MAG HYDROX/AL HYDROX/SIMETH 30 ML UNIT-DOSE CUP PO PRN (12:30)
[2023-03-09] MEDS ORDERED: PEG 3350/NA SULF BICARB CL/KCL 4000 ML SOLN.RECON PO ONE (13:43)
[2023-03-09 14:11] VITALS: BP 96/57; PULSE 88; TEMP 98.5
[2023-03-09] MEDS ORDERED: LACTULOSE 20 GM/30 ML UDC (FOR ORAL USE ONLY) PO ONE (14:37)
== END 2023-03-09 17:10 | disposition home or self-care (01) | DRG 191 ==
LOC: JER 09:19 → JERBED 14:56 → J6S 17:22
PROVIDERS: ADMIT Internal Medicine; ATTEND Internal Medicine
DX: J44.1 Chronic obstructive pulmonary disease with (acute) exacerbation (principal); C50.919 Malignant neoplasm of unspecified site of unspecified female breast; C78.00 Secondary malignant neoplasm of unspecified lung; J96.11 Chronic respiratory failure with hypoxia; E78.5 Hyperlipidemia, unspecified; K59.00 Constipation, unspecified; M81.0 Age-related osteoporosis without current pathological fracture
CPT/HCPCS: 36415; 71045-TC-FY; 71275-TC; 74018-TC-FY; 80048; 80053; 82550; 82803; 83735; 83880; 84100; 84484; 85025; 85610; 85730; 86850; 86900; 86901; 93005; 93010; 94640; 99285-25; Q9967

== ENCOUNTER 2023-06-20 21:49 | Inpatient (IN) | payer OTHER ==
[2023-06-20 22:02] VITALS: BMI 17.2
[2023-06-20] MEDS ORDERED: ALBUTEROL SO4 2.5/IPRATROPIUM 0.5 INH SOL 3 ML VIAL.NEB. NEB ONE ×2 (22:48→22:51)
[2023-06-20 23:08] LABS: VENOUS BASE EXCESS 5.2 mmol/L (-2-2); VENOUS O2 SATURATION 51.9 % (70-80); VENOUS PH 7.278 (7.310-7.410)
[2023-06-20 23:10] LABS: BASO % 0.3 % (0-2.0); EOS % 3.2 % (0-4.5); HEMATOCRIT 34.9 % (32.4-45.2); HEMOGLOBIN 11.8 GM/dL (10.7-15.3); LYMPH % 30.6 % (8-40); MCH 30.5 pg (25.7-33.7); MCHC 33.7 g/dl (32.0-36.0); MEAN CELL VOLUME 90.6 fl (80-96); MEAN PLT VOLUME 8.4 fl (7.5-11.1); MONO % 7.6 % (3.8-10.2); NEUT % 58.3 % (42.8-82.8); PLATELET COUNT 203 10^3/uL (134-434); RBC 3.85 M/mm3 (3.60-5.2); RDW 12.3 % (11.6-15.6); WHITE BLOOD COUNT 5.7 K/mm3 (4.0-10.0)
[2023-06-20 23:18] LABS: INR 0.99 (0.83-1.09); PROTHROMBIN TIME (PATIENT) 11.5 SEC (9.7-13.0)
[2023-06-20 23:20] LABS: ACTIVATED PTT 33.2 SECONDS (25.2-36.5)
[2023-06-20 23:29] LABS: POTASSIUM 4.2 mmol/L (3.5-5.1)
[2023-06-20 23:31] LABS: CALCIUM 8.5 mg/dL (8.5-10.1)
[2023-06-20 23:32] LABS: ALBUMIN 3.9 g/dl (3.4-5.0); BLOOD UREA NITROGEN 12.9 mg/dL (7-18); MAGNESIUM 1.9 mg/dL (1.8-2.4)
[2023-06-20 23:35] LABS: CREATININE 0.4 mg/dL (0.55-1.3); PHOSPHOROUS 3.7 mg/dL (2.5-4.9)
[2023-06-20 23:37] LABS: BILIRUBIN,TOTAL 0.2 mg/dL (0.2-1); TOT PROT 7.3 g/dl (6.4-8.2)
[2023-06-20 23:40] LABS: N-TERMINAL BNP 51.5 pg/ml (5-125)
[2023-06-21] MEDS ORDERED: DEXAMETHASONE SOD PHOSPHATE 10 MG/1 ML VIAL IVPUSH ONE (00:20)
[2023-06-21] MEDS ORDERED: MAGNESIUM SULF 50% (8.12 MEQ/2 ML-1 GM VIAL) IVPB ONE (00:20)
[2023-06-21] MEDS ORDERED: SODIUM CHLORIDE FOR INHALATION 3 ML VIAL.NEB IH ONE (00:22)
[2023-06-21] MEDS ORDERED: DEXAMETHASONE SOD PHOSPHATE 10 MG/1 ML VIAL ONE (00:34)
[2023-06-21] MEDS ORDERED: MAGNESIUM 1GM/D5W - 1 GM/100 ML IVPB IVPB ONE (00:34)
[2023-06-21] MEDS ORDERED: AZITHROMYCIN 250 MG TABLET PO ONE (01:06)
[2023-06-21] MEDS ORDERED: CEFTRIAXONE 1 GM in DEXTROSE 5%-WATER - 100 ML IVPB ONE (01:06)
[2023-06-21] MEDS ORDERED: AZITHROMYCIN 250 MG TABLET ONE (01:13)
[2023-06-21] MEDS ORDERED: CEFTRIAXONE 1 GM/50 ML BAG ONE (01:14)
[2023-06-21 06:42] LABS: BASO % 0.2 % (0-2.0); EOS % 0.3 % (0-4.5); HEMATOCRIT 35.8 % (32.4-45.2); LYMPH % 13.3 % (8-40); MCH 30.6 pg (25.7-33.7); MCHC 33.6 g/dl (32.0-36.0); MEAN CELL VOLUME 91.2 fl (80-96); MEAN PLT VOLUME 8.7 fl (7.5-11.1); MONO % 1.2 % (3.8-10.2); PLATELET COUNT 216 10^3/uL (134-434); RBC 3.92 M/mm3 (3.60-5.2); WHITE BLOOD COUNT 4.7 K/mm3 (4.0-10.0)
[2023-06-21 06:58] LABS: POTASSIUM 4.4 mmol/L (3.5-5.1)
[2023-06-21 07:02] LABS: ALBUMIN 4.1 g/dl (3.4-5.0); BLOOD UREA NITROGEN 11.6 mg/dL (7-18); MAGNESIUM 2.2 mg/dL (1.8-2.4)
[2023-06-21 07:05] LABS: CREATININE 0.6 mg/dL (0.55-1.3); PHOSPHOROUS 3.5 mg/dL (2.5-4.9)
[2023-06-21 07:07] LABS: BILIRUBIN,TOTAL 0.3 mg/dL (0.2-1); TOT PROT 7.8 g/dl (6.4-8.2)
[2023-06-21] MEDS ORDERED: ALBUTEROL SO4 2.5/IPRATROPIUM 0.5 INH SOL 3 ML VIAL.NEB. NEB ONE (07:52)
[2023-06-21] MEDS: ALBUTEROL SO4 2.5/IPRATROPIUM 0.5 INH SOL 3 ML VIAL.NEB. NEB SCH ×4 (08:03→20:00)
[2023-06-21] MEDS: POLYETHYLENE GLYCOL (HEALTHYLAX) 3350 17 GM PACKET PO SCH ×2 (09:42→21:10)
[2023-06-21] MEDS: BUDESONIDE/FORMETEROL FUMARATE 160/4.5 mcg INHALER IH SCH ×2 (09:43→21:10)
[2023-06-21] MEDS: methylPREDNISolone NA SUCC 40 MG/1 ML VIAL IVPUSH SCH ×2 (09:43→18:03)
[2023-06-21] MEDS: ENOXAPARIN NA (PORCINE) 40 MG/0.4 ML DISP.SYRIN SQ SCH (09:43)
[2023-06-21 14:01] LABS: URINE APPEARANCE Clear; URINE BILIRUBIN Negative (NEGATIVE); URINE COLOR Yellow; URINE GLUCOSE (UA) 1+ (NEGATIVE); URINE KETONE Negative (NEGATIVE); URINE LEUK ESTERASE Negative (NEGATIVE); URINE NITRITE Negative (NEGATIVE); URINE PROTEIN Negative (NEGATIVE); URINE UROBILINOGEN 0.2 mg/dL (0.2-1.0)
[2023-06-21] MEDS ORDERED: ACETAMINOPHEN 325 MG TABLET (FP) ONE (18:42)
[2023-06-21] MEDS: ACETAMINOPHEN 325 MG TABLET (FP) PO PRN (18:43)
[2023-06-21] MEDS ORDERED: POLYETHYLENE GLYCOL (HEALTHYLAX) 3350 17 GM PACKET ONE (21:05)
[2023-06-21] MEDS ORDERED: ATORVASTATIN CA 20 MG TABLET (FP) ONE (21:06)
[2023-06-21] MEDS: ATORVASTATIN CA 10 MG TABLET (FP) PO SCH (21:10)
[2023-06-22] MEDS: methylPREDNISolone NA SUCC 40 MG/1 ML VIAL IVPUSH SCH ×3 (02:23→17:02)
[2023-06-22] MEDS: ALBUTEROL SO4 2.5/IPRATROPIUM 0.5 INH SOL 3 ML VIAL.NEB. NEB SCH ×4 (08:28→20:10)
[2023-06-22] MEDS ORDERED: CEFTRIAXONE 1 GM in DEXTROSE 5%-WATER - 50 ML IVPB SCH (10:00)
[2023-06-22] MEDS: ENOXAPARIN NA (PORCINE) 40 MG/0.4 ML DISP.SYRIN SQ SCH ×2 (10:07→10:19)
[2023-06-22] MEDS: AZITHROMYCIN 250 MG TABLET PO SCH (10:43)
[2023-06-22] MEDS: BUDESONIDE/FORMETEROL FUMARATE 160/4.5 mcg INHALER IH SCH ×2 (11:17→22:54)
[2023-06-22] MEDS: POLYETHYLENE GLYCOL (HEALTHYLAX) 3350 17 GM PACKET PO SCH ×2 (13:16→21:28)
[2023-06-22] MEDS: ACETAMINOPHEN 325 MG TABLET (FP) PO PRN (15:45)
[2023-06-22] MEDS: MAG HYDROX/AL HYDROX/SIMETH 30 ML UNIT-DOSE CUP PO PRN (17:13)
[2023-06-22] MEDS: ANASTROZOLE 1 MG TABLET PO SCH (17:38)
[2023-06-22] MEDS: ATORVASTATIN CA 10 MG TABLET (FP) PO SCH (21:28)
[2023-06-23] MEDS: methylPREDNISolone NA SUCC 40 MG/1 ML VIAL IVPUSH SCH ×4 (02:02→21:34)
[2023-06-23] MEDS: ALBUTEROL SO4 2.5/IPRATROPIUM 0.5 INH SOL 3 ML VIAL.NEB. NEB SCH ×4 (07:30→20:22)
[2023-06-23] MEDS: AZITHROMYCIN 250 MG TABLET PO SCH (09:10)
[2023-06-23] MEDS: BUDESONIDE/FORMETEROL FUMARATE 160/4.5 mcg INHALER IH SCH ×2 (09:10→21:34)
[2023-06-23] MEDS: ANASTROZOLE 1 MG TABLET PO SCH (09:10)
[2023-06-23] MEDS: POLYETHYLENE GLYCOL (HEALTHYLAX) 3350 17 GM PACKET PO SCH ×2 (09:10→21:35)
[2023-06-23] MEDS ORDERED: BISACODYL 5 MG TABLET.DR (FP) PO ONE (11:22)
[2023-06-23] MEDS: ENOXAPARIN NA (PORCINE) 40 MG/0.4 ML DISP.SYRIN SQ SCH (11:44)
[2023-06-23] MEDS: guaiFENesin 600 MG TABLET.ER (FP) PO SCH ×2 (11:46→21:35)
[2023-06-23] MEDS: MAG HYDROX/AL HYDROX/SIMETH 30 ML UNIT-DOSE CUP PO PRN (12:20)
[2023-06-23 12:46] LABS: HEMATOCRIT 36.2 % (32.4-45.2); MCH 30.2 pg (25.7-33.7); MCHC 33.1 g/dl (32.0-36.0); MEAN CELL VOLUME 91.3 fl (80-96); MEAN PLT VOLUME 8.5 fl (7.5-11.1); PLATELET COUNT 238 10^3/uL (134-434); RBC 3.96 M/mm3 (3.60-5.2); RDW 12.2 % (11.6-15.6); WHITE BLOOD COUNT 10.4 K/mm3 (4.0-10.0)
[2023-06-23 13:13] LABS: POTASSIUM 4.4 mmol/L (3.5-5.1)
[2023-06-23 13:15] LABS: ALBUMIN 4.1 g/dl (3.4-5.0); BLOOD UREA NITROGEN 22.4 mg/dL (7-18)
[2023-06-23 13:17] LABS: CALCIUM 9.1 mg/dL (8.5-10.1); MAGNESIUM 2.5 mg/dL (1.8-2.4)
[2023-06-23 13:18] LABS: CREATININE 0.5 mg/dL (0.55-1.3)
[2023-06-23 13:20] LABS: BILIRUBIN,TOTAL 0.3 mg/dL (0.2-1)
[2023-06-23 13:23] LABS: TOT PROT 7.7 g/dl (6.4-8.2)
[2023-06-23] MEDS: ACETAMINOPHEN 325 MG TABLET (FP) PO PRN ×2 (13:29→21:45)
[2023-06-23 13:47] LABS: ARTERIAL BLD GAS O2 SATURATION 96.9 % (95-98); ARTERIAL BLOOD GAS BASE EXCESS 4.6 mmol/L (-2-2); ARTERIAL BLOOD GAS PO2 88.2 mmHg (80-100); ARTERIAL BLOOD GAS pH 7.433 (7.350-7.450)
[2023-06-23 13:53] LABS: ALLENS TEST POSITIVE
[2023-06-23 21:24] VITALS: RESP 18
[2023-06-23] MEDS: ATORVASTATIN CA 10 MG TABLET (FP) PO SCH (21:35)
[2023-06-24] MEDS: methylPREDNISolone NA SUCC 40 MG/1 ML VIAL IVPUSH SCH ×2 (02:56→08:21)
[2023-06-24] MEDS ORDERED: MINERAL OIL ENEMA 133 ML ENEMA RC ONE (03:11)
[2023-06-24] MEDS: ALBUTEROL SO4 2.5/IPRATROPIUM 0.5 INH SOL 3 ML VIAL.NEB. NEB SCH ×2 (07:30→11:20)
[2023-06-24] MEDS: BUDESONIDE/FORMETEROL FUMARATE 160/4.5 mcg INHALER IH SCH (09:06)
[2023-06-24] MEDS: ANASTROZOLE 1 MG TABLET PO SCH (09:07)
[2023-06-24] MEDS: ENOXAPARIN NA (PORCINE) 40 MG/0.4 ML DISP.SYRIN SQ SCH (09:07)
[2023-06-24] MEDS: AZITHROMYCIN 250 MG TABLET PO SCH (09:07)
[2023-06-24] MEDS: POLYETHYLENE GLYCOL (HEALTHYLAX) 3350 17 GM PACKET PO SCH (09:07)
[2023-06-24] MEDS: guaiFENesin 600 MG TABLET.ER (FP) PO SCH (09:13)
[2023-06-24] MEDS ORDERED: predniSONE 20 MG TABLET (UD) PO SCH (10:00)
[2023-06-24 10:18] VITALS: BP 112/65; PULSE 90; TEMP 98.1
[2023-06-24 10:36] LABS: HEMATOCRIT 35.4 % (32.4-45.2); HEMOGLOBIN 11.7 GM/dL (10.7-15.3); MCH 30.1 pg (25.7-33.7); MCHC 32.9 g/dl (32.0-36.0); MEAN CELL VOLUME 91.6 fl (80-96); MEAN PLT VOLUME 8.8 fl (7.5-11.1); PLATELET COUNT 229 10^3/uL (134-434); RBC 3.87 M/mm3 (3.60-5.2); RDW 12.3 % (11.6-15.6); WHITE BLOOD COUNT 6.5 K/mm3 (4.0-10.0)
[2023-06-24 11:17] LABS: ALBUMIN 3.7 g/dl (3.4-5.0); CALCIUM 8.9 mg/dL (8.5-10.1)
[2023-06-24 11:18] LABS: BLOOD UREA NITROGEN 16.2 mg/dL (7-18); MAGNESIUM 2.5 mg/dL (1.8-2.4)
[2023-06-24 11:19] LABS: CREATININE 0.5 mg/dL (0.55-1.3)
[2023-06-24 11:21] LABS: BILIRUBIN,TOTAL 0.4 mg/dL (0.2-1); PHOSPHOROUS 2.9 mg/dL (2.5-4.9)
[2023-06-24 11:24] LABS: POTASSIUM 4.1 mmol/L (3.5-5.1)
== END 2023-06-24 14:11 | disposition home or self-care (01) | DRG 193 ==
LOC: JER 21:49 → JERBED 06-21 00:37 → J6S 06-21 17:35
PROVIDERS: ADMIT Internal Medicine; ATTEND Internal Medicine
DX: J18.9 Pneumonia, unspecified organism (principal); J96.21 Acute and chronic respiratory failure with hypoxia; J96.22 Acute and chronic respiratory failure with hypercapnia; E87.29 Other acidosis; I10 Essential (primary) hypertension; M81.0 Age-related osteoporosis without current pathological fracture; K59.00 Constipation, unspecified; J43.1 Panlobular emphysema; E78.5 Hyperlipidemia, unspecified; Z85.3 Personal history of malignant neoplasm of breast; Z99.81 Dependence on supplemental oxygen; Z85.118 Personal history of other malignant neoplasm of bronchus and lung
CPT/HCPCS: 0241U-QW; 36415; 36600; 71045-TC-FY; 71250-TC; 80053; 81003; 82803; 83735; 83880; 84100; 84484; 85025; 85027; 85610; 85730; 87899; 93005; 93010; 93306-TC; 94640; 94761; 99285-25; J1100

== ENCOUNTER 2023-10-07 12:34 | Observation (INO) | payer OTHER ==
[2023-10-07] MEDS ORDERED: ACETAMINOPHEN 1000 MG/100 ML BAG IVPB ONE (13:19)
[2023-10-07] MEDS ORDERED: methylPREDNISolone NA SUCC 125 MG/2 ML VIAL IVPB ONE (13:19)
[2023-10-07] MEDS ORDERED: ACETAMINOPHEN INJECTION 100 ML IVPB ONE (14:01)
[2023-10-07] MEDS ORDERED: ALBUTEROL SO4 2.5/IPRATROPIUM 0.5 INH SOL 3 ML VIAL.NEB. NEB ONE ×3 (14:01→14:29)
[2023-10-07] MEDS ORDERED: methylPREDNISolone NA SUCC 125 MG/2 ML VIAL ONE (14:02)
[2023-10-07 14:09] LABS: VENOUS O2 SATURATION 15.9 % (70-80); VENOUS PH 7.284 (7.310-7.410)
[2023-10-07 14:10] LABS: BASO % 0.2 % (0-2.0); EOS % 2.4 % (0-4.5); HEMATOCRIT 37.9 % (32.4-45.2); HEMOGLOBIN 12.4 GM/dL (10.7-15.3); MCH 29.9 pg (25.7-33.7); MCHC 32.7 g/dl (32.0-36.0); MEAN CELL VOLUME 91.5 fl (80-96); MEAN PLT VOLUME 8.6 fl (7.5-11.1); MONO % 6.7 % (3.8-10.2); NEUT % 65.7 % (42.8-82.8); PLATELET COUNT 191 10^3/uL (134-434); RBC 4.14 M/mm3 (3.60-5.2); RDW 12.8 % (11.6-15.6); VENOUS PCO2 78.5 mmHg (38-52); WHITE BLOOD COUNT 5.4 K/mm3 (4.0-10.0)
[2023-10-07] MEDS: ALBUTEROL SO4 2.5/IPRATROPIUM 0.5 INH SOL 3 ML VIAL.NEB. NEB SCH ×3 (14:10→14:34)
[2023-10-07 14:15] LABS: PROTHROMBIN TIME (PATIENT) 11.6 SEC (9.7-13.0)
[2023-10-07 14:18] LABS: ACTIVATED PTT 32.6 SECONDS (25.2-36.5)
[2023-10-07 14:38] LABS: CALCIUM 10.1 mg/dL (8.5-10.1)
[2023-10-07 14:39] LABS: BLOOD UREA NITROGEN 14.7 mg/dL (7-18); MAGNESIUM 2.3 mg/dL (1.8-2.4)
[2023-10-07 14:42] LABS: CREATININE 0.4 mg/dL (0.55-1.3)
[2023-10-07 14:43] LABS: BILIRUBIN,TOTAL 0.2 mg/dL (0.2-1)
[2023-10-07 14:44] LABS: TOT PROT 7.7 g/dl (6.4-8.2)
[2023-10-07 20:21] LABS: URINE APPEARANCE CLOUDY; URINE COLOR YELLOW
[2023-10-07 20:22] LABS: PH,URINE 6.5 (5.0-8.0); URINE BILIRUBIN NEGATIVE (NEGATIVE); URINE GLUCOSE (UA) NEGATIVE (NEGATIVE); URINE KETONE 15 mg/dl (NEGATIVE); URINE LEUK ESTERASE NEGATIVE (NEGATIVE); URINE NITRITE NEGATIVE (NEGATIVE); URINE PROTEIN NEGATIVE (NEGATIVE); URINE UROBILINOGEN 0.2 mg/dL (0.2-1.0)
[2023-10-07] MEDS ORDERED: BUDESONIDE/FORMETEROL FUMARATE 160/4.5 mcg INHALER IH PRN (23:14)
[2023-10-07] MEDS ORDERED: ALBUTEROL SO4 0.5 % INH SOLN 2.5 MG/0.5 ML VIAL.NEB. NEB PRN (23:20)
[2023-10-07] MEDS ORDERED: FAMOTIDINE 20 MG TABLET ONE (23:29)
[2023-10-07] MEDS: LIDOCAINE PATCH REMOVAL MC SCH (23:41)
[2023-10-07] MEDS: FAMOTIDINE 20 MG TABLET PO SCH (23:41)
[2023-10-08] MEDS ORDERED: methylPREDNISolone NA SUCC 40 MG/1 ML VIAL ONE ×3 (01:28→17:43)
[2023-10-08] MEDS ORDERED: ACETAMINOPHEN 325 MG TABLET (FP) PO PRN (01:31)
[2023-10-08] MEDS ORDERED: ACETAMINOPHEN 325 MG TABLET (FP) ONE (01:39)
[2023-10-08] MEDS: methylPREDNISolone NA SUCC 40 MG/1 ML VIAL IVPUSH SCH ×3 (01:51→17:45)
[2023-10-08] MEDS: ACETAMINOPHEN 325 MG TABLET (FP) PO PRN ×2 (01:51→22:40)
[2023-10-08 07:16] LABS: BASO % 0.1 % (0-2.0); HEMATOCRIT 33.8 % (32.4-45.2); HEMOGLOBIN 11.1 GM/dL (10.7-15.3); LYMPH % 16.6 % (8-40); MCH 30.3 pg (25.7-33.7); MCHC 32.9 g/dl (32.0-36.0); MEAN CELL VOLUME 91.9 fl (80-96); MONO % 1.7 % (3.8-10.2); NEUT % 81.6 % (42.8-82.8); PLATELET COUNT 191 10^3/uL (134-434); RBC 3.68 M/mm3 (3.60-5.2); RDW 12.4 % (11.6-15.6); WHITE BLOOD COUNT 4.3 K/mm3 (4.0-10.0)
[2023-10-08 07:37] LABS: POTASSIUM 4.6 mmol/L (3.5-5.1)
[2023-10-08 07:48] LABS: CALCIUM 9.6 mg/dL (8.5-10.1)
[2023-10-08 07:49] LABS: MAGNESIUM 2.1 mg/dL (1.8-2.4)
[2023-10-08 07:50] LABS: ALBUMIN 3.7 g/dl (3.4-5.0); BLOOD UREA NITROGEN 19.3 mg/dL (7-18)
[2023-10-08 07:52] LABS: PHOSPHOROUS 4.2 mg/dL (2.5-4.9)
[2023-10-08 07:53] LABS: CREATININE 0.5 mg/dL (0.55-1.3)
[2023-10-08 07:54] LABS: BILIRUBIN,TOTAL 0.3 mg/dL (0.2-1); TOT PROT 7.2 g/dl (6.4-8.2)
[2023-10-08] MEDS ORDERED: THIAMINE HCL 100 MG TABLET (FP) ONE (11:00)
[2023-10-08] MEDS ORDERED: LIDOCAINE 4% PATCH TP ONE (11:01)
[2023-10-08] MEDS ORDERED: ENOXAPARIN NA (PORCINE) 40 MG/0.4 ML DISP.SYRIN SQ ONE (11:01)
[2023-10-08] MEDS ORDERED: FAMOTIDINE 20 MG TABLET ONE (11:01)
[2023-10-08] MEDS ORDERED: AZITHROMYCIN IVPB 500 MG/250 ML BAG IVPB ONE (11:02)
[2023-10-08] MEDS ORDERED: FOLIC ACID 1 MG TABLET (FP) ONE (11:03)
[2023-10-08] MEDS: LIDOCAINE 5% TOPICAL PATCH TP SCH (11:09)
[2023-10-08] MEDS: ENOXAPARIN NA (PORCINE) 40 MG/0.4 ML DISP.SYRIN SQ SCH ×2 (11:10→11:17)
[2023-10-08] MEDS: FAMOTIDINE 20 MG TABLET PO SCH ×2 (11:10→22:37)
[2023-10-08] MEDS: CYANOCOBALAMIN 1,000 MCG TABLET (FP) PO SCH (11:10)
[2023-10-08] MEDS: THIAMINE HCL 100 MG TABLET (FP) PO SCH (11:10)
[2023-10-08] MEDS: ANASTROZOLE 1 MG TABLET PO SCH (11:10)
[2023-10-08] MEDS: AZITHROMYCIN IVPB 500 MG/250 ML BAG IVPB SCH ×2 (11:11→11:37)
[2023-10-08] MEDS: FOLIC ACID 1 MG TABLET (FP) PO SCH (11:11)
[2023-10-08] MEDS ORDERED: ALBUTEROL SO4 2.5/IPRATROPIUM 0.5 INH SOL 3 ML VIAL.NEB. NEB ONE ×3 (13:39→20:33)
[2023-10-08] MEDS: ALBUTEROL SO4 2.5/IPRATROPIUM 0.5 INH SOL 3 ML VIAL.NEB. NEB SCH ×4 (13:42→20:31)
[2023-10-08] MEDS ORDERED: AZITHROMYCIN 250 MG TABLET ONE (14:50)
[2023-10-08] MEDS: AZITHROMYCIN 250 MG TABLET PO SCH (14:53)
[2023-10-08] MEDS: LIDOCAINE PATCH REMOVAL MC SCH (22:37)
[2023-10-08] MEDS: ATORVASTATIN CA 10 MG TABLET (FP) PO SCH (22:37)
[2023-10-09 01:04] VITALS: BMI 17.5
[2023-10-09] MEDS: methylPREDNISolone NA SUCC 40 MG/1 ML VIAL IVPUSH SCH ×3 (01:20→17:39)
[2023-10-09 08:32] LABS: BASO % 0.4 % (0-2.0); HEMATOCRIT 31.9 % (32.4-45.2); HEMOGLOBIN 10.6 GM/dL (10.7-15.3); LYMPH % 9.6 % (8-40); MCH 30.7 pg (25.7-33.7); MCHC 33.3 g/dl (32.0-36.0); MEAN CELL VOLUME 92.3 fl (80-96); MEAN PLT VOLUME 9.1 fl (7.5-11.1); MONO % 2.5 % (3.8-10.2); NEUT % 87.5 % (42.8-82.8); PLATELET COUNT 188 10^3/uL (134-434); RBC 3.46 M/mm3 (3.60-5.2); RDW 12.7 % (11.6-15.6); WHITE BLOOD COUNT 8.6 K/mm3 (4.0-10.0)
[2023-10-09 08:54] LABS: POTASSIUM 4.7 mmol/L (3.5-5.1)
[2023-10-09 08:57] LABS: CALCIUM 9.1 mg/dL (8.5-10.1)
[2023-10-09 08:58] LABS: ALBUMIN 3.4 g/dl (3.4-5.0); BLOOD UREA NITROGEN 23.6 mg/dL (7-18)
[2023-10-09] MEDS: ALBUTEROL SO4 2.5/IPRATROPIUM 0.5 INH SOL 3 ML VIAL.NEB. NEB SCH ×4 (09:00→20:22)
[2023-10-09 09:01] LABS: CREATININE 0.5 mg/dL (0.55-1.3)
[2023-10-09 09:02] LABS: BILIRUBIN,TOTAL 0.2 mg/dL (0.2-1); TOT PROT 6.6 g/dl (6.4-8.2)
[2023-10-09] MEDS: ENOXAPARIN NA (PORCINE) 40 MG/0.4 ML DISP.SYRIN SQ SCH ×2 (10:43→11:00)
[2023-10-09] MEDS: FOLIC ACID 1 MG TABLET (FP) PO SCH (10:44)
[2023-10-09] MEDS: THIAMINE HCL 100 MG TABLET (FP) PO SCH (10:44)
[2023-10-09] MEDS: CYANOCOBALAMIN 1,000 MCG TABLET (FP) PO SCH (10:44)
[2023-10-09] MEDS: LIDOCAINE 5% TOPICAL PATCH TP SCH (10:44)
[2023-10-09] MEDS: FAMOTIDINE 20 MG TABLET PO SCH ×2 (10:44→21:59)
[2023-10-09] MEDS: ANASTROZOLE 1 MG TABLET PO SCH (10:45)
[2023-10-09] MEDS: ACETAMINOPHEN 325 MG TABLET (FP) PO PRN (10:53)
[2023-10-09] MEDS ORDERED: TIOTROPIUM BROMIDE 2.5 MCG (SPIRIVA) RESPIMAT INHALER IH PRN (10:55)
[2023-10-09] MEDS: guaiFENesin 600 MG TABLET.ER (FP) PO SCH (21:59)
[2023-10-09] MEDS: ATORVASTATIN CA 10 MG TABLET (FP) PO SCH (21:59)
[2023-10-09] MEDS: LIDOCAINE PATCH REMOVAL MC SCH (21:59)
[2023-10-09] MEDS: BUDESONIDE/FORMETEROL FUMARATE 160/4.5 mcg INHALER IH SCH (22:00)
[2023-10-10] MEDS: methylPREDNISolone NA SUCC 40 MG/1 ML VIAL IVPUSH SCH ×3 (01:18→22:49)
[2023-10-10] MEDS: ALBUTEROL SO4 2.5/IPRATROPIUM 0.5 INH SOL 3 ML VIAL.NEB. NEB SCH ×4 (08:35→20:25)
[2023-10-10] MEDS ORDERED: TIOTROPIUM BROMIDE 2.5 MCG (SPIRIVA) RESPIMAT INHALER IH SCH (10:00)
[2023-10-10] MEDS: CHOLECALCIFEROL (VIT D3) 1,000 UNIT (25 MCG) TABLET PO SCH (10:11)
[2023-10-10] MEDS: FOLIC ACID 1 MG TABLET (FP) PO SCH (10:11)
[2023-10-10] MEDS: FAMOTIDINE 20 MG TABLET PO SCH (10:11)
[2023-10-10] MEDS: THIAMINE HCL 100 MG TABLET (FP) PO SCH (10:11)
[2023-10-10] MEDS: guaiFENesin 600 MG TABLET.ER (FP) PO SCH ×2 (10:11→22:49)
[2023-10-10] MEDS: CYANOCOBALAMIN 1,000 MCG TABLET (FP) PO SCH (10:11)
[2023-10-10] MEDS: ACETAMINOPHEN 325 MG TABLET (FP) PO PRN ×2 (10:12→22:50)
[2023-10-10] MEDS: ENOXAPARIN NA (PORCINE) 40 MG/0.4 ML DISP.SYRIN SQ SCH (10:12)
[2023-10-10] MEDS: ANASTROZOLE 1 MG TABLET PO SCH (10:16)
[2023-10-10] MEDS: LIDOCAINE 5% TOPICAL PATCH TP SCH (10:16)
[2023-10-10] MEDS: BUDESONIDE/FORMETEROL FUMARATE 160/4.5 mcg INHALER IH SCH ×2 (10:17→22:50)
[2023-10-10] MEDS ORDERED: MAG HYDROX/AL HYDROX/SIMETH 30 ML UNIT-DOSE CUP PO ONE (11:10)
[2023-10-10] MEDS ORDERED: PANTOPRAZOLE SODIUM 40 MG VIAL IVPUSH ONE (11:45)
[2023-10-10] MEDS ORDERED: ASPIRIN 81 MG CHEWABLE TABLETS PO ONE (12:00)
[2023-10-10] MEDS: ATORVASTATIN CA 10 MG TABLET (FP) PO SCH (22:49)
[2023-10-10] MEDS: LIDOCAINE PATCH REMOVAL MC SCH (22:50)
[2023-10-11 03:04] VITALS: RESP 18
[2023-10-11] MEDS: ALBUTEROL SO4 2.5/IPRATROPIUM 0.5 INH SOL 3 ML VIAL.NEB. NEB SCH ×2 (07:22→12:30)
[2023-10-11] MEDS: THIAMINE HCL 100 MG TABLET (FP) PO SCH (09:53)
[2023-10-11] MEDS: CYANOCOBALAMIN 1,000 MCG TABLET (FP) PO SCH (09:53)
[2023-10-11] MEDS: FOLIC ACID 1 MG TABLET (FP) PO SCH (09:53)
[2023-10-11] MEDS: CHOLECALCIFEROL (VIT D3) 1,000 UNIT (25 MCG) TABLET PO SCH (09:53)
[2023-10-11] MEDS: methylPREDNISolone NA SUCC 40 MG/1 ML VIAL IVPUSH SCH (09:54)
[2023-10-11] MEDS: guaiFENesin 600 MG TABLET.ER (FP) PO SCH (09:54)
[2023-10-11] MEDS: ANASTROZOLE 1 MG TABLET PO SCH (09:56)
[2023-10-11] MEDS: ENOXAPARIN NA (PORCINE) 40 MG/0.4 ML DISP.SYRIN SQ SCH (09:56)
[2023-10-11] MEDS: LIDOCAINE 5% TOPICAL PATCH TP SCH (09:56)
[2023-10-11] MEDS ORDERED: PANTOPRAZOLE SODIUM 40 MG VIAL IVPUSH SCH (10:00)
[2023-10-11] MEDS: BUDESONIDE/FORMETEROL FUMARATE 160/4.5 mcg INHALER IH SCH (10:02)
[2023-10-11] MEDS ORDERED: CYCLOBENZAPRINE HCL 5 MG TABLET PO ONE (10:15)
[2023-10-11] MEDS: AZITHROMYCIN 250 MG TABLET PO SCH (14:46)
[2023-10-11 15:44] VITALS: BP 125/69; PULSE 88; TEMP 98
[2023-10-12] MEDS ORDERED: PANTOPRAZOLE 40 MG TABLET PO SCH (10:00)
== END 2023-10-11 16:18 | disposition home or self-care (01) ==
LOC: JER 12:34 → JERBED 16:02 → J7W 10-08 20:39
PROVIDERS: ADMIT Internal Medicine; ATTEND Nurse Practitioner
PROC: 3E033NZ Introduction of Analgesics, Hypnotics, Sedatives into Peripheral Vein, Percutaneous Approach (ICD-10-PCS; principal; 2023-10-07)
PROC: 3E0F7GC Introduction of Other Therapeutic Substance into Respiratory Tract, Via Natural or Artificial Opening (ICD-10-PCS; 2023-10-07)
PROC: 3E033GC Introduction of Other Therapeutic Substance into Peripheral Vein, Percutaneous Approach (ICD-10-PCS; 2023-10-07)
DX: J44.1 Chronic obstructive pulmonary disease with (acute) exacerbation (principal); J44.9 Chronic obstructive pulmonary disease, unspecified; E78.5 Hyperlipidemia, unspecified; Z85.3 Personal history of malignant neoplasm of breast; M81.0 Age-related osteoporosis without current pathological fracture; J18.8 Other pneumonia, unspecified organism; R10.9 Unspecified abdominal pain; J96.01 Acute respiratory failure with hypoxia; K57.90 Diverticulosis of intestine, part unspecified, without perforation or abscess without bleeding; Z88.0 Allergy status to penicillin; Z91.010 Allergy to peanuts; Z87.891 Personal history of nicotine dependence
CPT/HCPCS: 0241U-QW; 36415; 71045-TC-FY; 71275-TC; 74177-TC; 80053; 81003; 82803; 83735; 84100; 84484; 85025; 85610; 85730; 87086; 93005; 93010; 94640; 99285-25; G0378; J0131

== ENCOUNTER 2023-12-06 14:19 | Inpatient (IN) | payer OTHER ==
[2023-12-06 16:29] LABS: BASO % 0.3 % (0-2.0); EOS % 1.2 % (0-4.5); HEMATOCRIT 36.2 % (32.4-45.2); LYMPH % 29.8 % (8-40); MCH 30.1 pg (25.7-33.7); MEAN CELL VOLUME 91.3 fl (80-96); MEAN PLT VOLUME 8.6 fl (7.5-11.1); MONO % 4.5 % (3.8-10.2); NEUT % 64.2 % (42.8-82.8); PLATELET COUNT 215 10^3/uL (134-434); RBC 3.97 M/mm3 (3.60-5.2); RDW 12.8 % (11.6-15.6); WHITE BLOOD COUNT 6.2 K/mm3 (4.0-10.0)
[2023-12-06] MEDS ORDERED: ALBUTEROL SO4 2.5/IPRATROPIUM 0.5 INH SOL 3 ML VIAL.NEB. NEB ONE (16:50)
[2023-12-06] MEDS ORDERED: methylPREDNISolone NA SUCC 125 MG/2 ML VIAL ONE (16:50)
[2023-12-06 16:54] LABS: POTASSIUM 4.5 mmol/L (3.5-5.1)
[2023-12-06 16:56] LABS: BLOOD UREA NITROGEN 11.7 mg/dL (7-18); CALCIUM 9.6 mg/dL (8.5-10.1)
[2023-12-06 16:57] LABS: ALBUMIN 4.2 g/dl (3.4-5.0)
[2023-12-06 17:00] LABS: CREATININE 0.4 mg/dL (0.55-1.3)
[2023-12-06 17:01] LABS: BILIRUBIN,TOTAL 0.3 mg/dL (0.2-1); TOT PROT 7.4 g/dl (6.4-8.2)
[2023-12-06] MEDS: ALBUTEROL SO4 2.5/IPRATROPIUM 0.5 INH SOL 3 ML VIAL.NEB. NEB SCH (17:09)
[2023-12-06] MEDS: methylPREDNISolone NA SUCC 125 MG/2 ML VIAL IVPUSH ONE (17:09)
[2023-12-06] MEDS ORDERED: ALBUTEROL SO4 0.083% IH SOL 2.5 MG/3 ML VIAL.NEB. NEB ONE (18:59)
[2023-12-06] MEDS: ALBUTEROL SO4 0.083% IH SOL 2.5 MG/3 ML VIAL.NEB. NEB ONE (19:03)
[2023-12-06] MEDS: ALBUTEROL SULFATE 0.021% (0.63 MG/3 ML) VIAL.NEB NEB ONE (19:04)
[2023-12-06] MEDS: AZITHROMYCIN IVPB 500 MG in DEXTROSE 5%-WATER - 250 ML IVPB ONE (22:09)
[2023-12-06] MEDS: AZITHROMYCIN 250 MG TABLET PO ONE (22:09)
[2023-12-06] MEDS: BUDESONIDE/FORMETEROL FUMARATE 160/4.5 mcg INHALER IH SCH (22:36)
[2023-12-06] MEDS ORDERED: ACETAMINOPHEN 1000 MG/100 ML BAG IVPB ONE (23:09)
[2023-12-06] MEDS: ACETAMINOPHEN 325 MG TABLET (FP) PO ONE (23:31)
[2023-12-07] MEDS: methylPREDNISolone NA SUCC 40 MG/1 ML VIAL IVPUSH SCH (02:06)
[2023-12-07 02:51] LABS: PH,URINE 5.5 (5.0-8.0); URINE APPEARANCE CLEAR; URINE BILIRUBIN NEGATIVE (NEGATIVE); URINE COLOR YELLOW; URINE GLUCOSE (UA) NEGATIVE (NEGATIVE); URINE KETONE 1+ (NEGATIVE); URINE LEUK ESTERASE NEGATIVE (NEGATIVE); URINE NITRITE NEGATIVE (NEGATIVE); URINE PROTEIN NEGATIVE (NEGATIVE); URINE UROBILINOGEN 0.2 mg/dL (0.2-1.0)
[2023-12-07 07:51] LABS: BASO % 0.1 % (0-2.0); HEMATOCRIT 34.4 % (32.4-45.2); HEMOGLOBIN 11.3 GM/dL (10.7-15.3); LYMPH % 21.8 % (8-40); MCHC 32.9 g/dl (32.0-36.0); MEAN CELL VOLUME 91.2 fl (80-96); MEAN PLT VOLUME 9.1 fl (7.5-11.1); NEUT % 77.1 % (42.8-82.8); PLATELET COUNT 201 10^3/uL (134-434); RBC 3.77 M/mm3 (3.60-5.2); RDW 12.6 % (11.6-15.6); WHITE BLOOD COUNT 3.8 K/mm3 (4.0-10.0)
[2023-12-07 08:02] LABS: POTASSIUM 4.7 mmol/L (3.5-5.1)
[2023-12-07 08:19] LABS: CALCIUM 9.7 mg/dL (8.5-10.1)
[2023-12-07 08:21] LABS: ALBUMIN 3.8 g/dl (3.4-5.0); BLOOD UREA NITROGEN 17.2 mg/dL (7-18); MAGNESIUM 1.9 mg/dL (1.8-2.4)
[2023-12-07 08:24] LABS: CREATININE 0.5 mg/dL (0.55-1.3); PHOSPHOROUS 4.4 mg/dL (2.5-4.9)
[2023-12-07 08:25] LABS: BILIRUBIN,TOTAL 0.4 mg/dL (0.2-1)
[2023-12-07] MEDS: ALBUTEROL SO4 2.5/IPRATROPIUM 0.5 INH SOL 3 ML VIAL.NEB. NEB SCH (08:30)
[2023-12-07] MEDS: PANTOPRAZOLE 40 MG TABLET PO SCH (09:30)
[2023-12-07] MEDS: ENOXAPARIN NA (PORCINE) 40 MG/0.4 ML DISP.SYRIN SQ SCH (09:30)
[2023-12-07] MEDS: AZITHROMYCIN IVPB 500 MG/250 ML BAG IVPB SCH (09:31)
[2023-12-07 11:58] VITALS: BMI 16.1
[2023-12-07] MEDS ORDERED: ALBUTEROL SO4 0.083% IH SOL 2.5 MG/3 ML VIAL.NEB. NEB PRN (14:33)
[2023-12-07] MEDS: ACETAMINOPHEN 325 MG TABLET (FP) PO PRN (15:48)
[2023-12-07] MEDS: LIDOCAINE 4% PATCH TP SCH (17:14)
[2023-12-07] MEDS: ANASTROZOLE 1 MG TABLET PO SCH (17:16)
[2023-12-07] MEDS: LIDOCAINE PATCH REMOVAL MC SCH (21:48)
[2023-12-08] MEDS: ATORVASTATIN CA 20 MG TABLET (FP) PO ONE (01:15)
[2023-12-08] MEDS ORDERED: AZITHROMYCIN 250 MG TABLET PO SCH (10:00)
[2023-12-08] MEDS: guaiFENesin 600 MG TABLET.ER (FP) PO SCH (12:19)
[2023-12-08] MEDS: POLYETHYLENE GLYCOL (HEALTHYLAX) 3350 17 GM PACKET PO SCH (18:01)
[2023-12-08] MEDS: ATORVASTATIN CA 20 MG TABLET (FP) PO SCH (21:56)
[2023-12-09 08:05] LABS: BASO % 0.1 % (0-2.0); HEMATOCRIT 34.7 % (32.4-45.2); HEMOGLOBIN 11.2 GM/dL (10.7-15.3); LYMPH % 9.1 % (8-40); MCH 29.7 pg (25.7-33.7); MCHC 32.2 g/dl (32.0-36.0); MEAN CELL VOLUME 92.1 fl (80-96); MEAN PLT VOLUME 9.3 fl (7.5-11.1); MONO % 1.6 % (3.8-10.2); NEUT % 89.2 % (42.8-82.8); PLATELET COUNT 192 10^3/uL (134-434); RBC 3.77 M/mm3 (3.60-5.2); RDW 13.1 % (11.6-15.6); WHITE BLOOD COUNT 7.6 K/mm3 (4.0-10.0)
[2023-12-09 08:21] LABS: POTASSIUM 4.7 mmol/L (3.5-5.1)
[2023-12-09 08:22] LABS: BLOOD UREA NITROGEN 22.2 mg/dL (7-18)
[2023-12-09 08:26] LABS: ALBUMIN 3.6 g/dl (3.4-5.0)
[2023-12-09 08:27] LABS: CALCIUM 9.4 mg/dL (8.5-10.1)
[2023-12-09 08:28] LABS: TOT PROT 6.7 g/dl (6.4-8.2)
[2023-12-09 08:29] LABS: CREATININE 0.5 mg/dL (0.55-1.3)
[2023-12-09 08:31] LABS: BILIRUBIN,TOTAL 0.3 mg/dL (0.2-1)
[2023-12-09] MEDS: AZITHROMYCIN 250 MG TABLET PO SCH (09:29)
[2023-12-09] MEDS: TIOTROPIUM BROMIDE 2.5 MCG (SPIRIVA) RESPIMAT INHALER IH SCH (14:24)
[2023-12-09 22:17] VITALS: RESP 20
[2023-12-10 12:11] VITALS: BP 117/69; PULSE 78; TEMP 98.4
== END 2023-12-10 13:39 | disposition home or self-care (01) | DRG 191 ==
LOC: JER 14:19 → JERBED 18:32 → J8W 12-07 00:39 → OBSVTOIN 12-08 13:14
PROVIDERS: ADMIT Internal Medicine; ATTEND Internal Medicine
DX: J43.1 Panlobular emphysema (principal); C34.90 Malignant neoplasm of unspecified part of unspecified bronchus or lung; J96.11 Chronic respiratory failure with hypoxia; E11.9 Type 2 diabetes mellitus without complications; Z85.3 Personal history of malignant neoplasm of breast; E78.5 Hyperlipidemia, unspecified; M81.0 Age-related osteoporosis without current pathological fracture; I10 Essential (primary) hypertension; Z99.81 Dependence on supplemental oxygen
CPT/HCPCS: 36415; 71046-TC-FY; 80053; 81003; 83735; 84100; 84484; 85025; 87086; 93005; 93010; 93970-TC; 94640; 99285-25; G0378

== ENCOUNTER 2025-03-01 21:53 | Inpatient (IN) | payer OTHER, BC ==
[2025-03-01] MEDS ORDERED: PANTOPRAZOLE SODIUM 40 MG VIAL ONE ×2 (22:21→22:25)
[2025-03-01] MEDS ORDERED: FAMOTIDINE 20 MG/50 ML IVPB 20 MG/50 ML MG IVPB ONE (22:21)
[2025-03-01] MEDS ORDERED: KETOROLAC TROMETHAMINE 15 MG/ML VIAL ONE (22:21)
[2025-03-01] MEDS: FAMOTIDINE 20 MG/50 ML IVPB 20 MG/50 ML MG IVPB ONE (22:45)
[2025-03-01] MEDS: PANTOPRAZOLE SODIUM 40 MG VIAL IVPUSH ONE (22:46)
[2025-03-01] MEDS: KETOROLAC TROMETHAMINE 15 MG/ML VIAL IVPUSH ONE (22:46)
[2025-03-01 22:50] LABS: ABSOLUTE IMMATURE GRANULOCYTES 0.03 x10^3/uL (0.0-0.031); BASOPHILS # 0.01 x10^3/uL (0.01-0.08); HEMATOCRIT 35.5 % (34.1-44.9); HEMOGLOBIN 11.6 g/dL (11.2-15.7); MCHC 32.7 g/dl (32.2-35.5); MEAN CELL VOLUME 91.7 fl (79.4-94.8); MEAN PLT VOLUME 10.2 fl (9.4-12.3); MONOCYTE # 0.46 x10^3/uL (0.24-0.86); MONOCYTE % 4.8 % (4.7-12.5); PLATELET COUNT 206 x10^3/uL (182-369); RDW 12.2 % (12.4-16.4)
[2025-03-01] MEDS ORDERED: MORPHINE SULFATE 2 MG/ML SYRINGE ONE (22:54)
[2025-03-01] MEDS: morphine CARPU-JECT 2 MG/1 ML DISP.SYRIN IVPUSH ONE (23:03)
[2025-03-01 23:10] LABS: CHLORIDE 102 mmol/L (98-107); POTASSIUM 3.5 mmol/L (3.5-5.1); SODIUM 137 mmol/L (136-145)
[2025-03-01 23:12] LABS: ALBUMIN 4.2 g/dl (3.4-5.0)
[2025-03-01 23:13] LABS: CALCIUM 9.5 mg/dL (8.5-10.1)
[2025-03-01 23:14] LABS: ANION GAP 7 mmol/L (4-13); BLOOD UREA NITROGEN 7.9 mg/dL (7-18); CO2 28 mmol/L (21-32); GLUCOSE,RANDOM 110 mg/dL (74-106)
[2025-03-01 23:17] LABS: CREATININE 0.4 mg/dL (0.55-1.3); SGOT/AST 23 U/L (15-37); SGPT/ALT 24 U/L (13-61)
[2025-03-01 23:18] LABS: BILIRUBIN,TOTAL 0.5 mg/dL (0.2-1)
[2025-03-01 23:19] LABS: TOT PROT 6.9 g/dl (6.4-8.2)
[2025-03-01 23:20] LABS: ALK PHOS 75 U/L (45-117)
[2025-03-01 23:26] LABS: URINE APPEARANCE CLEAR; URINE BILIRUBIN NEGATIVE (NEGATIVE); URINE COLOR YELLOW; URINE GLUCOSE (UA) NEGATIVE (NEGATIVE); URINE KETONE NEGATIVE (NEGATIVE); URINE LEUK ESTERASE NEGATIVE (NEGATIVE); URINE NITRITE NEGATIVE (NEGATIVE); URINE PROTEIN NEGATIVE (NEGATIVE); URINE UROBILINOGEN 0.2 mg/dL (0.2-1.0)
[2025-03-02] MEDS ORDERED: MORPHINE SULFATE 2 MG/ML SYRINGE ONE (00:49)
[2025-03-02] MEDS ORDERED: CEFTRIAXONE 1 GM/50 ML BAG ONE ×2 (00:49→02:09)
[2025-03-02] MEDS: LACTATED RINGERS SOLUTION 1000 ML INFUS.BAG IV ONE (01:00)
[2025-03-02] MEDS: CEFTRIAXONE 1,000 MG in DEXTROSE 5%-WATER - 50 ML IVPB ONE (02:03)
[2025-03-02] MEDS: CEFTRIAXONE 2,000 MG in DEXTROSE 5%-WATER - 50 ML IVPB ONE ×2 (02:05→02:09)
[2025-03-02] MEDS: SODIUM CHLORIDE 0.9% 500 ML INFUS.BAG IV ONE (02:10)
[2025-03-02] MEDS: morphine CARPU-JECT 2 MG/1 ML DISP.SYRIN IVPUSH ONE (02:21)
[2025-03-02] MEDS: ACETAMINOPHEN 325 MG TABLET (FP) PO PRN (02:34)
[2025-03-02] MEDS: CEFTRIAXONE 2 GM-D5W BAG 2 GM/50 ML BAG IVPB ONE (03:45)
[2025-03-02] MEDS: KETOROLAC TROMETHAMINE 15 MG/ML VIAL IVPUSH ONE (03:50)
[2025-03-02 04:09] VITALS: BMI 15.7
[2025-03-02] MEDS: POTASSIUM CHLORIDE ORAL LIQUID 20 MEQ/15 ML PO ONE (04:41)
[2025-03-02 06:55] LABS: ABSOLUTE IMMATURE GRANULOCYTES 0.01 x10^3/uL (0.0-0.031); BASOPHILS # 0.01 x10^3/uL (0.01-0.08); EOSINOPHIL % 0.2 % (0.7-5.8); EOSINOPHILS # 0.01 x10^3/uL (0.04-0.36); HEMATOCRIT 32.3 % (34.1-44.9); HEMOGLOBIN 10.3 g/dL (11.2-15.7); MCHC 31.9 g/dl (32.2-35.5); MEAN PLT VOLUME 10.3 fl (9.4-12.3); MONOCYTE # 0.46 x10^3/uL (0.24-0.86); MONOCYTE % 7.3 % (4.7-12.5); PLATELET COUNT 160 x10^3/uL (182-369); RDW 12.4 % (12.4-16.4)
[2025-03-02] MEDS: ALBUTEROL SO4 0.5 % INH SOLN 2.5 MG/0.5 ML VIAL.NEB. NEB PRN (07:09)
[2025-03-02 07:16] LABS: BLOOD UREA NITROGEN 7.2 mg/dL (7-18); CALCIUM 8.6 mg/dL (8.5-10.1); MAGNESIUM 1.5 mg/dL (1.8-2.4)
[2025-03-02 07:19] LABS: CREATININE 0.4 mg/dL (0.55-1.3)
[2025-03-02 07:20] LABS: PHOSPHOROUS 2.7 mg/dL (2.5-4.9)
[2025-03-02] MEDS: TIOTROPIUM BROMIDE 2.5 MCG (SPIRIVA) RESPIMAT INHALER IH SCH (10:11)
[2025-03-02] MEDS: FAMOTIDINE 20 MG TABLET PO SCH (10:11)
[2025-03-02] MEDS: FOLIC ACID 1 MG TABLET (FP) PO SCH (10:11)
[2025-03-02] MEDS: THIAMINE 100 MG TABLET PO SCH (10:11)
[2025-03-02] MEDS: CHOLECALCIFEROL (VIT D3) 1,000 UNIT (25 MCG) TABLET PO SCH (10:11)
[2025-03-02] MEDS: DEXTROSE 5%-0.45% SALINE 1,000 ML IV SCH (10:12)
[2025-03-02] MEDS: CYANOCOBALAMIN 1,000 MCG TABLET (FP) PO SCH (10:13)
[2025-03-02] MEDS: PANTOPRAZOLE 40 MG TABLET PO SCH (14:10)
[2025-03-02] MEDS: ANASTROZOLE 1 MG TABLET PO SCH (18:01)
[2025-03-02] MEDS: ATORVASTATIN CA 20 MG TABLET (FP) PO SCH (21:15)
[2025-03-02] MEDS: ACETAMINOPHEN 1000 MG/100 ML BAG IVPB PRN (21:24)
[2025-03-03] MEDS ORDERED: MAGNESIUM 2GM/50ML STERILE WATER IVPB IVPB ONE (07:30)
[2025-03-03] MEDS ORDERED: NAPH,MB-DB/K PH,MBDB POWDER PACKET PO SCH (07:30)
[2025-03-03 08:44] LABS: ABSOLUTE IMMATURE GRANULOCYTES 0.09 x10^3/uL (0.0-0.031); BASOPHILS # 0.01 x10^3/uL (0.01-0.08); EOSINOPHIL % 0.2 % (0.7-5.8); EOSINOPHILS # 0.02 x10^3/uL (0.04-0.36); HEMATOCRIT 31.8 % (34.1-44.9); HEMOGLOBIN 10.2 g/dL (11.2-15.7); MCHC 32.1 g/dl (32.2-35.5); MEAN CELL VOLUME 91.9 fl (79.4-94.8); MEAN PLT VOLUME 10.6 fl (9.4-12.3); MONOCYTE # 0.33 x10^3/uL (0.24-0.86); MONOCYTE % 3.3 % (4.7-12.5); PLATELET COUNT 157 x10^3/uL (182-369); RDW 12.9 % (12.4-16.4)
[2025-03-03 08:50] LABS: INR 1.51 (0.83-1.09); PROTHROMBIN TIME (PATIENT) 16.6 SEC (9.7-13.0)
[2025-03-03] MEDS: ONDANSETRON 4 MG/2 ML VIAL IVPUSH PRN (08:52)
[2025-03-03] MEDS: MAGNESIUM 2GM/50ML STERILE WATER IVPB IVPB ONE (09:15)
[2025-03-03 09:24] LABS: POTASSIUM 3.9 mmol/L (3.5-5.1)
[2025-03-03 09:28] LABS: BLOOD UREA NITROGEN 8.3 mg/dL (7-18); CALCIUM 8.9 mg/dL (8.5-10.1)
[2025-03-03 09:30] LABS: CREATININE 0.4 mg/dL (0.55-1.3)
[2025-03-03 09:32] LABS: ALBUMIN 3.1 g/dl (3.4-5.0); BILIRUBIN,TOTAL 0.5 mg/dL (0.2-1); TOT PROT 5.5 g/dl (6.4-8.2)
[2025-03-03] MEDS ORDERED: CEFTRIAXONE 1 GM in DEXTROSE 5%-WATER - 50 ML IVPB SCH (10:00)
[2025-03-03] MEDS ORDERED: ACETAMINOPHEN 1000 MG/100 ML BAG IVPB SCH (10:15)
[2025-03-03] MEDS ORDERED: CEFEPIME HCL 2 GM VIAL (RESTRICTED TO ID) IVPB SCH ×2 (10:30→22:00)
[2025-03-03] MEDS: ENOXAPARIN NA (PORCINE) 40 MG/0.4 ML DISP.SYRIN SQ SCH (11:08)
[2025-03-03] MEDS: CELECOXIB 200 MG CAPSULE PO SCH (12:21)
[2025-03-03] MEDS: CEFEPIME HCL/D5W 1 GM/50 ML BAG IVPB SCH (14:36)
[2025-03-03] MEDS: ACETAMINOPHEN 1000 MG/100 ML BAG IVPB SCH (17:59)
[2025-03-03] MEDS ORDERED: CEFEPIME HCL/D5W 1 GM/50 ML BAG IVPB SCH (22:00)
[2025-03-04 08:58] LABS: ABSOLUTE IMMATURE GRANULOCYTES 0.04 x10^3/uL (0.0-0.031); BASOPHILS # 0.01 x10^3/uL (0.01-0.08); EOSINOPHIL % 2.9 % (0.7-5.8); EOSINOPHILS # 0.21 x10^3/uL (0.04-0.36); HEMATOCRIT 30.8 % (34.1-44.9); HEMOGLOBIN 9.8 g/dL (11.2-15.7); MCHC 31.8 g/dl (32.2-35.5); MEAN CELL VOLUME 92.8 fl (79.4-94.8); MEAN PLT VOLUME 10.5 fl (9.4-12.3); MONOCYTE # 0.36 x10^3/uL (0.24-0.86); MONOCYTE % 4.9 % (4.7-12.5); PLATELET COUNT 157 x10^3/uL (182-369); RDW 12.8 % (12.4-16.4)
[2025-03-04 09:16] LABS: POTASSIUM 3.9 mmol/L (3.5-5.1)
[2025-03-04 09:20] LABS: BLOOD UREA NITROGEN 6.2 mg/dL (7-18); CALCIUM 8.4 mg/dL (8.5-10.1); MAGNESIUM 2.1 mg/dL (1.8-2.4)
[2025-03-04 09:24] LABS: PHOSPHOROUS 2.6 mg/dL (2.5-4.9)
[2025-03-04 09:25] LABS: BILIRUBIN,TOTAL 0.4 mg/dL (0.2-1); TOT PROT 5.4 g/dl (6.4-8.2)
[2025-03-04 09:27] LABS: CREATININE 0.3 mg/dL (0.55-1.3)
[2025-03-04] MEDS ORDERED: IOHEXOL (OMNIPAQUE IV) 350 MG/ML - 100 ML BOTTLE PO ONE ×2 (10:27→10:28)
[2025-03-04] MEDS: LACTATED RINGERS SOLUTION 1,000 ML/1,000 ML INFUS.BAG IV SCH (12:36)
[2025-03-04] MEDS: POLYETHYLENE GLYCOL (HEALTHYLAX) 3350 17 GM PACKET PO SCH (22:01)
[2025-03-05 07:41] LABS: ABSOLUTE IMMATURE GRANULOCYTES 0.02 x10^3/uL (0.0-0.031); BASOPHILS # 0.01 x10^3/uL (0.01-0.08); EOSINOPHIL % 4.3 % (0.7-5.8); EOSINOPHILS # 0.22 x10^3/uL (0.04-0.36); HEMATOCRIT 30.1 % (34.1-44.9); HEMOGLOBIN 9.6 g/dL (11.2-15.7); MCHC 31.9 g/dl (32.2-35.5); MEAN CELL VOLUME 92.6 fl (79.4-94.8); MEAN PLT VOLUME 10.3 fl (9.4-12.3); MONOCYTE % 7.9 % (4.7-12.5); PLATELET COUNT 176 x10^3/uL (182-369); RDW 12.6 % (12.4-16.4)
[2025-03-05 07:59] LABS: POTASSIUM 4.1 mmol/L (3.5-5.1)
[2025-03-05 08:02] LABS: ALBUMIN 2.8 g/dl (3.4-5.0); BLOOD UREA NITROGEN 4.9 mg/dL (7-18); CALCIUM 8.6 mg/dL (8.5-10.1)
[2025-03-05 08:05] LABS: BILIRUBIN,TOTAL 0.5 mg/dL (0.2-1); CREATININE 0.3 mg/dL (0.55-1.3); TOT PROT 5.2 g/dl (6.4-8.2)
[2025-03-06 08:14] LABS: ABSOLUTE IMMATURE GRANULOCYTES 0.01 x10^3/uL (0.0-0.031); BASOPHILS # 0.01 x10^3/uL (0.01-0.08); EOSINOPHIL % 3.7 % (0.7-5.8); EOSINOPHILS # 0.16 x10^3/uL (0.04-0.36); HEMATOCRIT 31.6 % (34.1-44.9); HEMOGLOBIN 9.8 g/dL (11.2-15.7); MEAN CELL VOLUME 93.2 fl (79.4-94.8); MEAN PLT VOLUME 10.4 fl (9.4-12.3); MONOCYTE # 0.44 x10^3/uL (0.24-0.86); MONOCYTE % 10.3 % (4.7-12.5); PLATELET COUNT 209 x10^3/uL (182-369); RDW 12.5 % (12.4-16.4)
[2025-03-06 08:43] LABS: POTASSIUM 3.9 mmol/L (3.5-5.1)
[2025-03-06 09:09] LABS: ALBUMIN 2.7 g/dl (3.4-5.0); BLOOD UREA NITROGEN 8.6 mg/dL (7-18); CALCIUM 8.8 mg/dL (8.5-10.1)
[2025-03-06 09:11] LABS: TOT PROT 5.3 g/dl (6.4-8.2)
[2025-03-06 09:12] LABS: CREATININE 0.3 mg/dL (0.55-1.3)
[2025-03-06 09:14] LABS: BILIRUBIN,TOTAL 0.4 mg/dL (0.2-1)
[2025-03-07 08:32] LABS: ABSOLUTE IMMATURE GRANULOCYTES 0.01 x10^3/uL (0.0-0.031); BASOPHILS # 0.02 x10^3/uL (0.01-0.08); EOSINOPHIL % 4.6 % (0.7-5.8); HEMATOCRIT 32.8 % (34.1-44.9); HEMOGLOBIN 10.3 g/dL (11.2-15.7); MCHC 31.4 g/dl (32.2-35.5); MEAN CELL VOLUME 92.9 fl (79.4-94.8); MEAN PLT VOLUME 10.2 fl (9.4-12.3); MONOCYTE # 0.51 x10^3/uL (0.24-0.86); MONOCYTE % 11.8 % (4.7-12.5); PLATELET COUNT 221 x10^3/uL (182-369); RDW 12.9 % (12.4-16.4)
[2025-03-07 08:43] LABS: POTASSIUM 4.6 mmol/L (3.5-5.1)
[2025-03-07] MEDS: ALBUTEROL SO4 HFA INHALER IH PRN (09:03)
[2025-03-07 09:13] LABS: ALBUMIN 2.9 g/dl (3.4-5.0)
[2025-03-07 09:14] LABS: BLOOD UREA NITROGEN 10.3 mg/dL (7-18)
[2025-03-07 09:15] LABS: CALCIUM 9.1 mg/dL (8.5-10.1)
[2025-03-07 09:17] LABS: CREATININE 0.3 mg/dL (0.55-1.3); TOT PROT 5.6 g/dl (6.4-8.2)
[2025-03-07 09:18] LABS: BILIRUBIN,TOTAL 0.3 mg/dL (0.2-1)
[2025-03-07] MEDS ORDERED: BUDESONIDE/FORMETEROL FUMARATE 160/4.5 mcg INHALER IH PRN (10:00)
[2025-03-07] MEDS: BUDESONIDE/FORMETEROL FUMARATE 160/4.5 mcg INHALER IH SCH (12:01)
[2025-03-07 14:04] VITALS: BP 110/73; PULSE 92; RESP 18; TEMP 98.8
== END 2025-03-07 17:56 | disposition home or self-care (01) | DRG 392 ==
LOC: JER 21:53 → JERBED 03-02 00:45 → OBSVTOIN 03-02 01:28 → J6S 03-02 03:13
PROVIDERS: ADMIT Internal Medicine; ATTEND Internal Medicine
DX: K57.20 Diverticulitis of large intestine with perforation and abscess without bleeding (principal); E44.0 Moderate protein-calorie malnutrition; J96.11 Chronic respiratory failure with hypoxia; Z68.1 Body mass index [BMI] 19.9 or less, adult; I10 Essential (primary) hypertension; J44.9 Chronic obstructive pulmonary disease, unspecified; E78.5 Hyperlipidemia, unspecified
CPT/HCPCS: 36415; 70450-TC; 74177-TC; 80048; 80053; 81003; 82550; 83605; 83690; 83735; 84100; 84484; 85025; 85610; 86140; 87040; 87086; 93005; 93010; 94640; 97116-GP; 97162-GP; 99285-25; G0378; Q9967